=== PATIENT | male | born 1995 | race Caucasian/White ===

== ENCOUNTER → 2016-08-15 | Outpatient (CLI) | payer OTHER ==
[~2016-08-15] MED LIST: CIPR500T4 PO; ESCI10TA55 PO; METR500T21 PO; ONDA4TAB8 PO; TRAM-42 PO
--- OUTSIDE RECORDS SUMMARY | 2016-08-15 11:48 | XMS REPORT | Continuity of Care Document ---
Demographics Preferred Language Unknown Marital Status Unknown Sabianist Affiliation Unknown Race Unknown Ethnic Group Unknown Author Author [facility] Address Unknown Phone Unavailable Allergies Active Description Code Type Severity Reaction Onset Reported/Identified Relationship to Patient Clinical Status Yes ibuprofen [id number] Drug Allergy Moderate N/A 05/12/2013 Yes Penicillins [id number] Drug Allergy Moderate N/A 05/12/2013 Medications Problems Date Dx Coded Attending Type Code Diagnosis Diagnosed By 01/17/2016 LAURA NGUYEN [employer] MAINTAINER Ot R53.83 OTHER FATIGUE 01/22/2016 LAURA NGUYEN [employer] SYSTEM[employer] MAINTAINER Ot R53.83 OTHER FATIGUE 02/07/2016 LAURA NGUYEN [employer] SYSTEMS MAINTAINER Ot R53.83 OTHER FATIGUE 02/07/2016 SETH MARSHALL MD Ot K52.9 NONINFECTIVE GASTROENTERITIS AND COLITIS 02/07/2016 SETH MARSHALL MD Ot R10.32 LEFT LOWER QUADRANT PAIN 02/07/2016 SETH MARSHALL MD Ot R42 DIZZINESS AND GIDDINESS 02/07/2016 SETH MARSHALL MD Ot R51 HEADACHE 02/08/2016 SETH MARSHALL MD Ot K52.9 NONINFECTIVE GASTROENTERITIS AND COLITIS 02/08/2016 SETH MARSHALL MD Ot R10.32 LEFT LOWER QUADRANT PAIN 02/08/2016 SETH MARSHALL MD Ot R42 DIZZINESS AND GIDDINESS 02/08/2016 SETH MARSHALL MD D Ot R51 HEADACHE 02/09/2016 KELLY DO, DENI K Ot K52.9 NONINFECTIVE GASTROENTERITIS AND COLITIS 02/09/2016 KELLY DO, DENI K Ot R10.32 LEFT LOWER QUADRANT PAIN 02/09/2016 KELLY DO, DENI K Ot R11.10 VOMITING, UNSPECIFIED 02/11/2016 KELLY DO, DENI K Ot K52.9 NONINFECTIVE GASTROENTERITIS AND COLITIS 02/11/2016 KELLY DO, DENI K Ot R10.32 LEFT LOWER QUADRANT PAIN 02/11/2016 KELLY DO, DENI K Ot R11.10 VOMITING, UNSPECIFIED 02/15/2016 LAURA NGUYEN [employer] MAINTAINER Ot R53.83 OTHER FATIGUE 03/03/2016 LAURA NGUYEN [employer] SYSTEM[employer] MAINTAINER Ot R53.83 OTHER FATIGUE 03/04/2016 LAURA NGUYEN [employer] SYSTEM[employer] MAINTAINER Ot R53.83 OTHER FATIGUE 03/20/2016 LAURA NGUYEN [employer] SYSTEM[employer] MAINTAINER Ot R53.83 OTHER FATIGUE 04/03/2016 LAURA NGUYEN [employer] SYSTEMS MAINTAINER Ot R53.83 OTHER FATIGUE 06/11/2016 LAURA NGUYEN [employer] SYSTEMS MAINTAINER Ot R53.83 OTHER FATIGUE 06/16/2016 LAURA NGUYEN [employer] SYSTEM[employer] MAINTAINER Ot R53.83 OTHER FATIGUE 08/15/2016 LAURA NGUYEN [employer] MAINTAINER Ot R53.83 OTHER FATIGUE Procedures Results Test Result Range Complete blood count (CBC) with automated white blood cell (WBC) differential - 02/07/16 01:30 Blood leukocytes automated count (number/volume) 12.3 10*3/ uL 4.3-11.0 Blood erythrocytes automated count (number/volume) 4.99 10*6 /uL 4.35-5.85 Venous blood hemoglobin measurement (mass/volume) 13.7 g/dL 13.3-17.7 Blood hematocrit (volume fraction) 39 % 40-54 Automated erythrocyte mean corpuscular volume 77 [foz_us] 80-99 Automated erythrocyte mean corpuscular hemoglobin (mass per erythrocyte) 28 pg 25-34 Automated erythrocyte mean corpuscular hemoglobin concentration measurement ( mass/volume) 36 g/dL 32-36 Automated erythrocyte distribution width ratio 13.1 % 10.0-14.5 Automated blood platelet count (count/volume) 168 10*3/uL 130-400 Automated blood platelet mean volume measurement 10.3 [foz_ us] 7.4-10.4 Automated blood neutrophils/100 leukocytes 79 % 42-75 Automated blood lymphocytes/100 leukocytes 12 % 12-44 Blood monocytes/100 leukocytes 9 % 0-12 Automated blood eosinophils/100 leukocytes 1 % 0-10 Automated blood basophils/100 leukocytes 0 % 0-10 Blood neutrophils automated count (number/volume) 9.7 10*3 1.8-7.8 Blood lymphocytes automated count (number/volume) 1.4 10*3 1.0-4.0 Blood monocytes automated count (number/volume) 1.1 10*3 0.0-1.0 Automated eosinophil count 0.1 10*3/uL 0.0-0.3 Automated blood basophil count (count/volume) 0.0 10*3/uL 0.0-0.1 Comprehensive metabolic panel - 02/07/16 01:30 Serum or plasma sodium measurement (moles/volume) 137 mmol/ L 135-145 Serum or plasma potassium measurement (moles/volume) 3.5 mmol/L 3.6-5.0 Serum or plasma chloride measurement (moles/volume) 105 mmol /L 98-107 Carbon dioxide 23 mmol/L 21-32 Serum or plasma anion gap determination (moles/volume) 9 mmol/L 5-14 Serum or plasma urea nitrogen measurement (mass/volume) 14 mg/dL 7-18 Serum or plasma creatinine measurement (mass/volume) 0.93 mg /dL 0.60-1.30 Serum or plasma urea nitrogen/creatinine mass ratio 15 NRG Serum or plasma creatinine measurement with calculation of estimated glomerular filtration rate > NRG Serum or plasma glucose measurement (mass/volume) 99 mg/dL 70-105 Serum or plasma calcium measurement (mass/volume) 9.3 mg/dL 8.5-10.1 Serum or plasma total bilirubin measurement (mass/volume) 0.5 mg/dL 0.1-1.0 Serum or plasma alkaline phosphatase measurement (enzymatic activity/volume) 57 U/L 40-136 Serum or plasma aspartate aminotransferase measurement (enzymatic activity/ volume) 28 U/L 5-34 Serum or plasma alanine aminotransferase measurement (enzymatic activity/volume ) 22 U/L 0-55 Serum or plasma protein measurement (mass/volume) 7.2 g/dL 6.4-8.2 Serum or plasma albumin measurement (mass/volume) 4.4 g/dL 3.2-4.5 Lipase - 02/07/16 01:30 Lipase 17 U/L 8-78 Complete urinalysis with reflex to culture - 02/07/16 01:35 Urine color determination YELLOW NRG Urine clarity determination CLEAR NRG Urine pH measurement by test strip 8 5- 9 Specific gravity of urine by test strip 1.010 1.016-1.022 Urine protein assay by test strip, semi-quantitative 1+ NEGATIVE Urine glucose detection by automated test strip NEGATIVE NEGATIVE Erythrocytes detection in urine sediment by light microscopy 3+ NEGATIVE Urine ketones detection by automated test strip NEGATIVE NEGATIVE Urine nitrite detection by test strip NEGATIVE NEGATIVE Urine total bilirubin detection by test strip NEGATIVE NEGATIVE Urine urobilinogen measurement by automated test strip (mass/volume) NORMAL NORMAL Urine leukocyte esterase detection by dipstick 1+ NEGATIVE Automated urine sediment erythrocyte count by microscopy (number/high power field) [HPF] NRG Automated urine sediment leukocyte count by microscopy (number/high power field ) RARE NRG Bacteria detection in urine sediment by light microscopy NEGATIVE NRG Squamous epithelial cells detection in urine sediment by light microscopy RARE NRG Crystals detection in urine sediment by light microscopy NONE NRG Casts detection in urine sediment by light microscopy NONE NRG Mucus detection in urine sediment by light microscopy SMALL NRG Complete urinalysis with reflex to culture NO NRG Comprehensive metabolic panel - 02/09/16 02:01 Serum or plasma sodium measurement (moles/volume) 139 mmol/ L 135-145 Serum or plasma potassium measurement (moles/volume) 3.6 mmol/L 3.6-5.0 Serum or plasma chloride measurement (moles/volume) 106 mmol /L 98-107 Carbon dioxide 22 mmol/L 21-32 Serum or plasma anion gap determination (moles/volume) 11 mmol/L 5-14 Serum or plasma urea nitrogen measurement (mass/volume) 10 mg/dL 7-18 Serum or plasma creatinine measurement (mass/volume) 0.88 mg /dL 0.60-1.30 Serum or plasma urea nitrogen/creatinine mass ratio 11 NRG Serum or plasma creatinine measurement with calculation of estimated glomerular filtration rate > NRG Serum or plasma glucose measurement (mass/volume) 100 mg/dL 70-105 Serum or plasma calcium measurement (mass/volume) 9.0 mg/dL 8.5-10.1 Serum or plasma total bilirubin measurement (mass/volume) 0.3 mg/dL 0.1-1.0 Serum or plasma alkaline phosphatase measurement (enzymatic activity/volume) 58 U/L 40-136 Serum or plasma aspartate aminotransferase measurement (enzymatic activity/ volume) 19 U/L 5-34 Serum or plasma alanine aminotransferase measurement (enzymatic activity/volume ) 16 U/L 0-55 Serum or plasma protein measurement (mass/volume) 6.9 g/dL 6.4-8.2 Serum or plasma albumin measurement (mass/volume) 4.2 g/dL 3.2-4.5 Serum or plasma amylase measurement (enzymatic activity/volume) - 02/09/16 02: 01 Serum or plasma amylase measurement (enzymatic activity/volume) 99 U/L 25-125 Lipase - 02/09/16 02:01 Lipase 21 U/L 8-78 Complete blood count (CBC) with automated white blood cell (WBC) differential - 02/09/16 02:04 Blood leukocytes automated count (number/volume) 7.8 10*3/ uL 4.3-11.0 Blood erythrocytes automated count (number/volume) 4.85 10*6 /uL 4.35-5.85 Venous blood hemoglobin measurement (mass/volume) 13.2 g/dL 13.3-17.7 Blood hematocrit (volume fraction) 37 % 40-54 Automated erythrocyte mean corpuscular volume 77 [foz_us] 80-99 Automated erythrocyte mean corpuscular hemoglobin (mass per erythrocyte) 27 pg 25-34 Automated erythrocyte mean corpuscular hemoglobin concentration measurement ( mass/volume) 35 g/dL 32-36 Automated erythrocyte distribution width ratio 13.1 % 10.0-14.5 Automated blood platelet count (count/volume) 196 10*3/uL 130-400 Automated blood platelet mean volume measurement 9.8 [foz_us ] 7.4-10.4 Automated blood neutrophils/100 leukocytes 57 % 42-75 Automated blood lymphocytes/100 leukocytes 28 % 12-44 Blood monocytes/100 leukocytes 12 % 0-12 Automated blood eosinophils/100 leukocytes 3 % 0-10 Automated blood basophils/100 leukocytes 1 % 0-10 Blood neutrophils automated count (number/volume) 4.4 10*3 1.8-7.8 Blood lymphocytes automated count (number/volume) 2.2 10*3 1.0-4.0 Blood monocytes automated count (number/volume) 0.9 10*3 0.0-1.0 Automated eosinophil count 0.2 10*3/uL 0.0-0.3 Automated blood basophil count (count/volume) 0.0 10*3/uL 0.0-0.1 Complete urinalysis with reflex to culture - 02/09/16 02:20 Urine color determination YELLOW NRG Urine clarity determination CLEAR NRG Urine pH measurement by test strip 6 5- 9 Specific gravity of urine by test strip 1.015 1.016-1.022 Urine protein assay by test strip, semi-quantitative NEGATIVE NEGATIVE Urine glucose detection by automated test strip NEGATIVE NEGATIVE Erythrocytes detection in urine sediment by light microscopy NEGATIVE NEGATIVE Urine ketones detection by automated test strip 3+ NEGATIVE Urine nitrite detection by test strip NEGATIVE NEGATIVE Urine total bilirubin detection by test strip NEGATIVE NEGATIVE Urine urobilinogen measurement by automated test strip (mass/volume) 1 mg/dL NORMAL Urine leukocyte esterase detection by dipstick 1+ NEGATIVE Automated urine sediment erythrocyte count by microscopy (number/high power field) NONE NRG Automated urine sediment leukocyte count by microscopy (number/high power field ) RARE NRG Bacteria detection in urine sediment by light microscopy NEGATIVE NRG Squamous epithelial cells detection in urine sediment by light microscopy RARE NRG Crystals detection in urine sediment by light microscopy NONE NRG Casts detection in urine sediment by light microscopy NONE NRG Mucus detection in urine sediment by light microscopy SMALL NRG Complete urinalysis with reflex to culture NO NRG Encounters ACCT No. Visit Date/Time Discharge Status Pt. Type Provider Facility Loc./Unit Complaint [id number] 09/17/2012 15:39:19 RECURRING
== END ==
LOC: LAB 11:35
PROVIDERS: ATTEND Nurse Practitioner
DX: R50.9 Fever, unspecified (principal); M79.1 Myalgia; K11.1 Hypertrophy of salivary gland
CPT/HCPCS: 87798

== ENCOUNTER → 2017-09-16 | Outpatient (CLI) | payer BC ==
--- NOTE | 2017-09-16 11:05 | Diagnostic Imaging Report ---
Sacroiliac joints. INDICATION: Back pain. 3 views were obtained. There are no prior studies available for comparison. FINDINGS: There is no fracture, dislocation or acute bony abnormality evident. The sacroiliac joints are within normal limits. The soft tissues are unremarkable. IMPRESSION: There is no evidence for an acute bony abnormality. Dictated by: Dictated on workstation # [id number]
--- NOTE | 2017-09-16 11:08 | Diagnostic Imaging Report ---
Lumbar spine. INDICATION: Back pain. AP, lateral and spot lateral views were obtained. FINDINGS: The vertebral body heights and alignment are within normal limits and similar to the abdomen exam of 02/09/2016. The intervertebral spaces are well-maintained. There is no fracture or acute bony abnormality evident. There is no sign of a paraspinal mass. The sacroiliac joints are within normal limits. IMPRESSION: 1. There is no evidence for an acute bony abnormality. 2. If there is clinical concern regarding spinal stenosis or nerve root encroachment, then MRI would be recommended for further study. Dictated by: Dictated on workstation # [id number]
== END ==
LOC: RAD 09:35
PROVIDERS: ATTEND Nurse Practitioner Family
DX: M54.5 Low back pain (principal)
CPT/HCPCS: 72100; 72202

== ENCOUNTER 2018-01-24 19:57 | Inpatient (IN) | payer BC ==
[~2018-01-24] VITALS: Ht 172.7 cm; Wt 73.1 kg
[2018-01-24] MEDS ORDERED: NS IV 1000 ML 1,000 ML ONE (21:00)
[2018-01-24] MEDS ORDERED: ONDANSETRON 4 MG/2 ML (SDV) Z0FRAN ONE (21:00)
--- NOTE | 2018-01-24 21:09 | ED Abdominal Pain ---
General Chief Complaint: Abdominal/GI Problems Stated Complaint: N/V Source of Information: Patient Exam Limitations: No Limitations History of Present Illness Date Seen by Provider: Jan 24, 2018 Time Seen by Provider: 21:07 Initial Comments Patient is a 22-year-old male resents to the emergency room with complaints of sharp left lower quadrant pain, nausea, vomiting, fever, headache that started around 1400 today. Denies any diarrhea, constipation, or urinary symptoms. Patient is a patient of Dr. WINTERS. Timing/Duration: 4-6 Hours Severity/Quality: Moderate Location: LLQ Radiation: Epigastric Activities at Onset: None Modifying Factors: Improves With Lying down; Worsens With Movement Associated Symptoms: No Chest Pain, No Diaphoresis; Fever/Chills, Headache, Nausea/Vomiting Allergies and Home Medications Allergies Coded Allergies: Penicillins (Verified Adverse Reaction, Intermediate, 01/25/18) ibuprofen (Verified Adverse Reaction, Intermediate, 01/25/18) Home Medications Acetaminophen 500 Mg Tablet, 500-1,000 MG PO Q4H PRN for PAIN-MILD, (Reported) Doxycycline Hyclate 100 Mg Tablet, 100 MG PO BID@ Prescribed by: MARLEEN WINTERS on 01/26/18 1235 Eszopiclone 3 Mg Tablet, 3 MG PO HS, (Reported) Hyoscyamine Sulfate 0.125 Mg Tablet, 0.125 MG PO QID Prescribed by: MARLEEN WINTERS on 01/26/18 1235 Ondansetron HCl 4 Mg Tab, 4 MG PO Q4H Prescribed by: MARLEEN WINTERS on 01/26/18 1235 Tramadol HCl 50 Mg Tablet, 50 MG PO Q4H Prescribed by: MARLEEN WINTERS on 01/26/18 1235 Patient Home Medication List Home Medication List Reviewed: Yes Review of Systems Constitutional: see HPI, chills; No diaphoresis, No dizziness; fever, malaise; No weakness EENTM: Throat Swelling Gastrointestinal: See HPI; Denies Abdomen Distended; Abdominal Pain, Nausea, Vomiting Musculoskeletal: see HPI, back pain, joint pain (bilateral knees.), muscle pain (aches all over) Psychiatric/Neurological: See HPI, Headache Endocrine: Excessive Sweating Hematologic/Lymphatic: See HPI, Anemia (beta thalassemia carrier) All Other Systems Reviewed Negative Unless Noted: Yes Past Anoekqs-Dwcnak-Wppekd Hx Past Med/Social Hx: Reviewed Nursing Past Med/Soc Hx Patient Social History Recent Foreign Travel: No Contact w/Someone Who Travel: No Recent Hopitalizations: No Immunizations Up To Date Tetanus Booster (TDap): More than 5yrs Past Medical History Reproductive Disorders: No Family Medical History Reviewed Nursing Family Hx Physical Exam Vital Signs Vital Signs - First Documented 01/24/18 21:30 Temp 103.4 Pulse 103 Resp 18 B/P (MAP) 98/52 (67) Pulse Ox 99 O2 Delivery Room Air Capillary Refill : Height/Weight/BMI Height: 5'8" Weight: 147lbs. oz. 66.298339kh; BMI Method:Stated General Appearance: WD/WN, mild distress Neck: full range of motion (pain with range of motion, nuchal rigidity), supple , normal inspection, tender midline (patient does report a stiff neck. He does have pain with range of motion but does have full range of motion. Negative for Kernig and Brudzinski's sign.) Respiratory: lungs clear, normal breath sounds, no respiratory distress, no accessory muscle use Cardiovascular: normal peripheral pulses, no edema, no gallop, no JVD, no murmur, tachycardia Gastrointestinal: normal bowel sounds, soft, no organomegaly, no pulsatile mass , guarding, tenderness (severe left lower quadrant tenderness.) Extremities: normal inspection, no pedal edema, no calf tenderness, normal capillary refill, other (increased pain to lower extremities with movement reports "body aches") Back: normal inspection, CVA tenderness (R), CVA tenderness (L), vertebral tenderness Neurologic/Psychiatric: alert, normal mood/affect, oriented x 3 Skin: normal color, other (skin is very warm to the touch temp 103.) Lymphatic: no adenopathy Focused Exam Lactate Level 01/24/18 21:34: Lactic Acid Level 2.12*H 01/24/18 23:30: Lactic Acid Level 0.91 Lactic Acid Level Laboratory Tests Test 01/24/18 21:34 01/24/18 23:30 Lactic Acid Level 2.12 MMOL/L (0.50-2.00) *H 0.91 MMOL/L (0.50-2.00) Progress/Results/Core Measures Results/Orders Lab Results Laboratory Tests Test 01/24/18 21:34 01/24/18 22:00 01/24/18 22:20 01/24/18 23:30 Range/Units Lactic Acid Level 2.12 *H 0.91 0.50-2.00 MMOL/L White Blood Count 11.8 H 4.3-11.0 10^3/uL Red Blood Count 4.45 4.35-5.85 10^6/uL Hemoglobin 12.5 L 13.3-17.7 G/DL Hematocrit 35 L 40-54 % Mean Corpuscular Volume 78 L 80-99 FL Mean Corpuscular Hemoglobin 28 25-34 PG Mean Corpuscular Hemoglobin Concent 36 32-36 G/DL Red Cell Distribution Width 13.2 10.0-14.5 % Platelet Count 189 130-400 10^3/uL Mean Platelet Volume 9.8 7.4-10.4 FL Neutrophils (%) (Auto) 89 H 42-75 % Lymphocytes (%) (Auto) 5 L 12-44 % Monocytes (%) (Auto) 6 0-12 % Eosinophils (%) (Auto) 0 0-10 % Basophils (%) (Auto) 0 0-10 % Neutrophils # (Auto) 10.4 H 1.8-7.8 X 10^3 Lymphocytes # (Auto) 0.6 L 1.0-4.0 X 10^3 Monocytes # (Auto) 0.7 0.0-1.0 X 10^3 Eosinophils # (Auto) 0.0 0.0-0.3 10^3/uL Basophils # (Auto) 0.0 0.0-0.1 10^3/uL Neutrophils % (Manual) 90 % Lymphocytes % (Manual) 8 % Monocytes % (Manual) 2 % Microcytosis SLIGHT Blood Morphology Comment Prothrombin Time 15.4 H 12.2-14.7 SEC INR Comment 1.2 0.8-1.4 Activated Partial Thromboplast Time 32 24-35 SEC Sodium Level 135 135-145 MMOL/L Potassium Level 3.7 3.6-5.0 MMOL/L Chloride Level 107 98-107 MMOL/L Carbon Dioxide Level 22 21-32 MMOL/L Anion Gap 6 5-14 MMOL/L Blood Urea Nitrogen 11 7-18 MG/DL Creatinine 0.93 0.60-1.30 MG/DL Estimat Glomerular Filtration Rate > 60 BUN/Creatinine Ratio 12 Glucose Level 101 70-105 MG/DL Calcium Level 8.5 8.5-10.1 MG/DL Total Bilirubin 0.8 0.1-1.0 MG/DL Aspartate Amino Transf (AST/SGOT) 17 5-34 U/L Alanine Aminotransferase (ALT/SGPT) 17 0-55 U/L Alkaline Phosphatase 39 L 40-136 U/L Total Protein 6.2 L 6.4-8.2 GM/DL Albumin 3.8 3.2-4.5 GM/DL Amylase Level 75 25-125 U/L Lipase 13 8-78 U/L Urine Color YELLOW Urine Clarity CLEAR Urine pH 9 5-9 Urine Specific [place] 1.015 L 1.016-1.022 Urine Protein 2+ H NEGATIVE Urine Glucose (UA) NEGATIVE NEGATIVE Urine Ketones 4+ H NEGATIVE Urine Nitrite NEGATIVE NEGATIVE Urine Bilirubin NEGATIVE NEGATIVE Urine Urobilinogen NORMAL NORMAL MG/DL Urine Leukocyte Esterase 1+ H NEGATIVE Urine RBC (Auto) NEGATIVE NEGATIVE Urine RBC NONE /HPF Urine WBC 0-2 /HPF Urine Squamous Epithelial Cells RARE /HPF Urine Renal Epithelial Cells NONE /HPF Urine Crystals NONE /LPF Urine Bacteria NEGATIVE /HPF Urine Casts PRESENT /LPF Urine Hyaline Casts RARE /LPF Urine Mucus NEGATIVE /LPF Urine Culture Indicated NO Lyme Disease Screen IgG & IgM Ab 0.27 0.00-0.89 Index Lyme Antibody Interpretation Negative Negative [place] Antibody <1:20 Micro Results Microbiology 01/24/18 Blood Culture - Preliminary, Resulted No growth 01/24/18 Blood Culture - Preliminary, Resulted No growth My Orders Orders - PANCHITO VARELA Ondansetron Injection (Zofran Injectio (01/24/18 21:00) Ns Iv 1000 Ml (Sodium Chloride 0.9%) (01/24/18 21:00) Fentanyl Injection (Sublimaze Injection (01/24/18 21:15) Ondansetron Injection (Zofran Injectio (01/24/18 21:15) Comprehensive Metabolic Panel (01/24/18 21:09) Lipase (01/24/18 21:09) Amylase (01/24/18 21:09) Ua Culture If Indicated (01/24/18 21:09) Saline Lock/Iv-Start (01/24/18 21:09) Ct Abdomen/Pelvis W (01/24/18 21:09) Cbc With Automated Diff (01/24/18 21:23) Lactic Acid Analyzer (01/24/18 21:23) Blood Culture (01/24/18 21:23) Protime With Inr (01/24/18:23) Partial Thromboplastin Time (01/24/18 21:23) Vital Signs Adult Sepsis Patie Q15M (01/24/18 21:23) Acetaminophen Tablet (Tylenol Tablet) (01/24/18 21:30) Iohexol Injection (Omnipaque 350 Mg/Ml 1 (01/24/18 21:45) Ns (Ivpb) (Sodium Chloride 0.9%) (01/24/18 21:45) Manual Differential (01/24/18 22:00) Ns Iv 1000 Ml (Sodium Chloride 0.9%) (01/24/18 23:00) Lactic Acid Analyzer (01/24/18 23:34) Tick Panel With Lyme Eia (01/24/18 23:19) Chest Pa/Lat (2 View) (01/25/18 00:01) Ct Head Wo (01/25/18 00:01) Medications Given in ED Vital Signs/I&O 01/24/18 01/24/18 21:30 22:01 Temp 103.4 103.4 Pulse 103 Resp 18 B/P (MAP) 98/52 (67) Pulse Ox 99 O2 Delivery Room Air Progress Progress Note : Time: 22:07 Progress Note Laboratory reports critical lactic acid of 2.12 to me at this time also that the other labs were clotted and have to be redrawn.. 2300: [place] BLANC called at this time. He informed me that there is not an emergent lumbar puncture. 2305: Spoke to Dr. BOLDEN at this time she agrees with plans of admission and recommended broad-spectrum antibiotic use. I discussed my concerns for meningitis due to the patient's neck pain and high fever and lab findings. She recommended asking about herpes lesions and risk of herpes encephalitis. The patient denies ever having any fever blisters or sores in the genital region. She also recommended getting a tick panel. Diagnostic Imaging Diagonstic Imaging: CT Plain Films/CT/US/NM/MRI: abdomen Comments NAME: [facility]KAITLIN [facility] REC#: [id number] PT STATUS: REG ER : 1995 PHYSICIAN: PANCHITO VARELA ADMIT DATE: 01/24/18/ER Signed Date of Exam: 01/24/18 CT ABDOMEN/PELVIS W PROCEDURE: CT abdomen and pelvis with contrast. TECHNIQUE: Multiple contiguous axial images were obtained through the abdomen and pelvis after administration of intravenous contrast. INDICATION: Back and abdominal pain COMPARISON: 02/07/2016 FINDINGS: The lung bases are clear. The liver, gallbladder, spleen, pancreas, adrenal glands are grossly unremarkable. There are nonobstructive stones in both kidneys. There is no hydronephrosis or hydroureter. Distal ureters and urinary bladder are normal. The course and caliber of the large and small bowel is grossly unremarkable. The appendix is normal. No free air or free fluid is seen. There is no hernia. Vascular structures are normal. Osseous structures are age-appropriate. IMPRESSION: 1. No acute abnormalities within the abdomen or pelvis 2. Nonobstructive bilateral renal calculi. No hydronephrosis or hydroureter seen. Dictated by: Dictated on workstation # [id number] Dict: 01/24/182151 Trans: 01/24/182157 Interpreted by: ADITI REEVES Electronically signed by: ADITI REEVES 01/24/182157 Reviewed: Reviewed by Me Departure Communication (Admissions) Time/Spoke to Admitting Phy: 23:[address] Bolden at this time, she agrees with complains of admission, broad-spectrum antibiotics, IV fluids. Impression Primary Impression: Sepsis Disposition: ADMITTED INPATIENT Condition: Stable/Unchanged Admissions Decision to Admit Reason: Admit from ER (General) Decision to Admit/Date: Jan 24, 2018 Time/Decision to Admit Time: 23:05 Departure-Patient Inst. Referrals: MARLEEN WINTERS DO (PCP/Family) Primary Care Physician Scripts Tramadol HCl (Tramadol HCl) 50 Mg Tablet 50 MG PO Q4H for Pain, #40 TAB Prov: MARLEEN WINTERS DO 01/26/18 Hyoscyamine Sulfate (Levsin) 0.125 Mg Tablet 0.125 MG PO QID for Abdominal Pain, #20 TAB Prov: MARLEEN WINTERS DO 01/26/18 Ondansetron HCl (Zofran) 4 Mg Tab 4 MG PO Q4H for Nausea, #20 TAB Prov: MARLEEN WINTERS DO 01/26/18 Doxycycline Hyclate (Doxycycline Hyclate) 100 Mg Tablet 100 MG PO BID@07,17, #30 TAB Prov: MARLEEN WINTERS DO 01/26/18 PANCHITO VARELA Jan 24, 2018 21:09
[2018-01-24] MEDS ORDERED: ONDANSETRON 4 MG/2 ML (SDV) Z0FRAN IVP ONE (21:15)
[2018-01-24] MEDS ORDERED: fentaNYL INJECTION 100 MCG/2 ML AMP IVP ONE (21:15)
[2018-01-24] MEDS ORDERED: ACETAMINOPHEN 500 MG TAB (TYLENOL) PO ONE (21:30)
[2018-01-24] MEDS ORDERED: NS 250 ML (IVPB) BAG IV ONE (21:45)
[2018-01-24] MEDS ORDERED: IOHEXOL 350 MG/ML 100 ML (OMNIPAQUE 350) VIAL IV ONE (21:45)
--- NOTE | 2018-01-24 21:57 | Diagnostic Imaging Report ---
PROCEDURE: CT abdomen and pelvis with contrast. TECHNIQUE: Multiple contiguous axial images were obtained through the abdomen and pelvis after administration of intravenous contrast. INDICATION: Back and abdominal pain COMPARISON: 02/07/2016 FINDINGS: The lung bases are clear. The liver, gallbladder, spleen, pancreas, adrenal glands are grossly unremarkable. There are nonobstructive stones in both kidneys. There is no hydronephrosis or hydroureter. Distal ureters and urinary bladder are normal. The course and caliber of the large and small bowel is grossly unremarkable. The appendix is normal. No free air or free fluid is seen. There is no hernia. Vascular structures are normal. Osseous structures are age-appropriate. IMPRESSION: 1. No acute abnormalities within the abdomen or pelvis 2. Nonobstructive bilateral renal calculi. No hydronephrosis or hydroureter seen. Dictated by: Dictated on workstation # [id number]
[2018-01-24 22:23] LABS: BASOPHILS % (AUTO) 0 % (0-10); EOSINOPHILS % (AUTO) 0 % (0-10); HEMATOCRIT 35 % (40-54); HEMOGLOBIN 12.5 G/DL (13.3-17.7); LYMPHOCYTES # (AUTO) 0.6 X 10^3 (1.0-4.0); LYMPHOCYTES % (AUTO) 5 % (12-44); MEAN CORPUSCULAR HEMOGLOBIN 28 PG (25-34); MEAN CORPUSCULAR HGB CONC 36 G/DL (32-36); MEAN CORPUSCULAR VOLUME 78 FL (80-99); MEAN PLATELET VOLUME 9.8 FL (7.4-10.4); MONOCYTES # (AUTO) 0.7 X 10^3 (0.0-1.0); MONOCYTES % (AUTO) 6 % (0-12); NEUTROPHILS # (AUTO) 10.4 X 10^3 (1.8-7.8); NEUTROPHILS % (AUTO) 89 % (42-75); PLATELET COUNT 189 10^3/uL (130-400); RED BLOOD COUNT 4.45 10^6/uL (4.35-5.85); RED CELL DISTRIBUTION WIDTH 13.2 % (10.0-14.5); WHITE BLOOD COUNT 11.8 10^3/uL (4.3-11.0)
[2018-01-24 22:26] LABS: BILIRUBIN,URINE NEGATIVE (NEGATIVE); CLARITY,URINE CLEAR; COLOR,URINE YELLOW; GLUCOSE, URINE (UA) NEGATIVE (NEGATIVE); KETONES,URINE 4+ (NEGATIVE); LEUKOCYTE ESTERASE ,URINE 1+ (NEGATIVE); NITRITE,URINE NEGATIVE (NEGATIVE); PH,URINE 9 (5-9); PROTEIN,URINE 2+ (NEGATIVE); UROBILINOGEN,URINE NORMAL (NORMAL)
[2018-01-24 22:39] LABS: BACTERIA,URINE NEGATIVE /HPF; HYALINE CASTS, URINE RARE /LPF; SQUAMOUS EPITHELIAL CELL,UR RARE /HPF; WBC,URINE 0-2 /HPF
[2018-01-24 22:41] LABS: INR 1.2 (0.8-1.4); PROTHROMBIN TIME PATIENT 15.4 SEC (12.2-14.7)
[2018-01-24 22:52] LABS: ALANINE AMINOTRANSFERASE 17 U/L (0-55); ALBUMIN 3.8 GM/DL (3.2-4.5); ALKALINE PHOSPHATASE 39 U/L (40-136); AMYLASE 75 U/L (25-125); BILIRUBIN,TOTAL 0.8 MG/DL (0.1-1.0); BUN/CREATININE RATIO 12; CALCIUM 8.5 MG/DL (8.5-10.1); CARBON DIOXIDE 22 MMOL/L (21-32); CHLORIDE 107 MMOL/L (98-107); CREATININE SERUM 0.93 MG/DL (0.60-1.30); GFR ESTIMATED > 60; GLUCOSE 101 MG/DL (70-105); LIPASE 13 U/L (8-78); POTASSIUM 3.7 MMOL/L (3.6-5.0); SODIUM 135 MMOL/L (135-145); TOTAL PROTEIN 6.2 GM/DL (6.4-8.2)
[2018-01-24 22:53] LABS: LYMPHOCYTES % (MANUAL) 8 %; MICROCYTOSIS SLIGHT; MONOCYTES % (MANUAL) 2 %; NEUTROPHILS % (MANUAL) 90 %
[2018-01-24] MEDS ORDERED: NS IV 1000 ML 1,000 ML IV SCH (23:00)
[2018-01-25] VITALS (14 sets, daily range): BP systolic 100–135; BP diastolic 51–85
[2018-01-25] MEDS: ACETAMINOPHEN 500 MG TAB (TYLENOL) PO PRN ×3 (01:21→18:39)
[2018-01-25] MEDS: NS IV 1000 ML 1,000 ML IV SCH ×8 (01:22→19:59)
[2018-01-25] MEDS: ONDANSETRON 4 MG/2 ML (SDV) Z0FRAN IV PRN ×3 (01:26→16:50)
[2018-01-25] MEDS ORDERED: CATHETER FLUSH 10 ML SYR IV PRN (01:30)
[2018-01-25] MEDS ORDERED: RT-ALBUTEROL SULF 2.5 MG/3 ML PRE-MIX VIAL INH PRN (03:45)
[2018-01-25] MEDS ORDERED: VANCOMYCIN 1 GM/NS 250 ML IVPB IV SCH ×2 (04:15)
[2018-01-25] MEDS: CATHETER FLUSH 10 ML SYR IV SCH ×3 (04:30→22:59)
[2018-01-25] MEDS: CEFEPIME 1 GM/NS 50 ML IV SCH ×6 (05:40→22:59)
[2018-01-25 06:18] LABS: BASOPHILS % (AUTO) 0 % (0-10); EOSINOPHILS % (AUTO) 0 % (0-10); HEMATOCRIT 35 % (40-54); LYMPHOCYTES # (AUTO) 0.8 X 10^3 (1.0-4.0); LYMPHOCYTES % (AUTO) 5 % (12-44); MEAN CORPUSCULAR HEMOGLOBIN 27 PG (25-34); MEAN CORPUSCULAR HGB CONC 35 G/DL (32-36); MEAN CORPUSCULAR VOLUME 78 FL (80-99); MONOCYTES # (AUTO) 0.8 X 10^3 (0.0-1.0); MONOCYTES % (AUTO) 5 % (0-12); NEUTROPHILS % (AUTO) 90 % (42-75); PLATELET COUNT 177 10^3/uL (130-400); RED BLOOD COUNT 4.44 10^6/uL (4.35-5.85); RED CELL DISTRIBUTION WIDTH 13.5 % (10.0-14.5); WHITE BLOOD COUNT 15.6 10^3/uL (4.3-11.0)
[2018-01-25] MEDS ORDERED: NOREPINEPHRINE 4 MG in NS (IVPB) 250 ML IV SCH (06:33)
[2018-01-25 06:42] LABS: ALANINE AMINOTRANSFERASE 16 U/L (0-55); ALBUMIN 3.7 GM/DL (3.2-4.5); ALKALINE PHOSPHATASE 39 U/L (40-136); BILIRUBIN,TOTAL 0.7 MG/DL (0.1-1.0); BUN/CREATININE RATIO 11; CALCIUM 8.5 MG/DL (8.5-10.1); CARBON DIOXIDE 17 MMOL/L (21-32); CHLORIDE 112 MMOL/L (98-107); CREATININE SERUM 0.87 MG/DL (0.60-1.30); GFR ESTIMATED > 60; GLUCOSE 113 MG/DL (70-105); POTASSIUM 3.6 MMOL/L (3.6-5.0); SODIUM 137 MMOL/L (135-145); TOTAL PROTEIN 6.2 GM/DL (6.4-8.2)
[2018-01-25] MEDS ORDERED: NS IV PRN (06:45)
--- NOTE | 2018-01-25 06:51 | Diagnostic Imaging Report ---
INDICATION: Nausea, emesis and back pain. PA and lateral views of the chest are obtained with comparison made to study of 02/09/2016. FINDINGS: Heart size and pulmonary vascularity are within normal limits, and the lungs are clear, bilaterally. IMPRESSION: Unremarkable chest. Dictated by: Dictated on workstation # [id number]
[2018-01-25] MEDS: metroNIDAZOLE 500 MG/100 ML IVPB (PRE-MIX) IV SCH ×2 (07:46→21:42)
--- NOTE | 2018-01-25 08:24 | Diagnostic Imaging Report ---
PROCEDURE: CT head without contrast. TECHNIQUE: Multiple contiguous axial images were obtained through the brain without the use of intravenous contrast. INDICATION: Nausea, emesis and body pain. CT HEAD: Multiple contiguous axial CT images of the head were obtained. FINDINGS: Ventricles and sulci are within normal limits for size. There is no intracranial hemorrhage identified. There is no abnormal mass effect or shift of midline structures. IMPRESSION: Unremarkable CT of the head. Dictated by: Dictated on workstation # [id number]
[2018-01-25] MEDS ORDERED: ACET-2267 PO (08:50)
[2018-01-25] MEDS ORDERED: ESZO3TAB38 PO (08:50)
[2018-01-25] MEDS: VANCOMYCIN 1 GM/NS 250 ML IVPB IV SCH ×4 (11:08→19:59)
[2018-01-25] MEDS ORDERED: MILK OF MAGNESIA 400 MG/5 ML 30 ML UDC PO PRN (12:30)
[2018-01-25] MEDS ORDERED: PATIENT MAY USE OWN MEDS, ALL MC SCH (12:30)
--- NOTE | 2018-01-25 12:34 | History & Physicial ---
History of Present Illness History of Present Illness Reason for visit/HPI This is a 22 year old male who presented to the emergency room with sudden onset of left lower quadrant abdominal pain and associated nausea and vomiting and fever. He denied diarrhea and in fact had not had a bowel movement for about [address] scan of the abdomen and pelvis showed no acute process but his WBC count and lactic acid were elevated. It was decided to admit him for IVFs, pain control, broad spectrum antibiotics and further evaluation. Date of Admission Jan 24, 2018 at 23:33 Date Seen by Provider: Jan 25, 2018 Time Seen by Provider: 12:29 I consulted on this patient on 01/25/18 12:29 Attending Physician Madhavi Scott DO Admitting Physician Madhavi Scott DO Consult Allergies and Home Medications Allergies Coded Allergies: Penicillins (Verified Adverse Reaction, Intermediate, 01/25/18) ibuprofen (Verified Adverse Reaction, Intermediate, 01/25/18) Home Medications Acetaminophen 500 Mg Tablet, 500-1,000 MG PO Q4H PRN for PAIN-MILD, (Reported) Eszopiclone 3 Mg Tablet, 3 MG PO HS, (Reported) Patient Home Medication List Home Medication List Reviewed: Yes Past Ysxrtjk-Aedzqa-Alcnje Hx Patient Social History Alcohol Use: Denies Use Recreational Drug Use: No Smoking Status: Never a Smoker Physical Abuse Screen: No Sexual Abuse: No Recent Foreign Travel: No Contact w/other who traveled: No Recent Hopitalizations: No Recent Infectious Disease Expo: No Immunizations Up To Date Tetanus Booster (TDap): More than 5yrs Surgeries Yes (ORAL SURGERY) Respiratory No Cardiovascular No Neurological No Reproductive System Hx Reproductive Disorders: No Genitourinary No Gastrointestinal No Musculoskeletal No Endocrine History of Endocrine Disorders: No HEENT History of HEENT Disorders: No Cancer No Psychosocial History of Psychiatric Problem: No Integumentary History of Skin or Integumenta: No Blood Transfusions History of Blood Disorders: No Constitutional: chills, fever, weakness EENTM: No see HPI, No no symptoms reported, No ear discharge, No hearing loss, No ear pain, No blurred vision, No double vision, No eye pain, No tearing, No vision loss, No dental problems, No hoarseness, No mouth pain, No mouth swelling , No epistaxis, No nose congestion, No nose pain, No throat pain, No throat swelling, No other Respiratory: No no symptoms reported, No see HPI, No cough, No dyspnea on exertion, No hemoptysis, No orthopnea, No phlegm, No short of breath, No stridor , No wheezing, No other Cardiovascular: No no symptoms reported, No see HPI, No chest pain, No edema, No Hx of Intervention, No palpitations, No syncope, No vascular heart diseas, No other Gastrointestinal: abdominal pain (LLQ), constipation, loss of appetite, nausea , vomiting Genitourinary: decreased output Musculoskeletal: joint pain, muscle pain Skin: No no symptoms reported, No see HPI, No change in color, No change in hair/nails, No dryness, No hx of skin cancer, No lesions, No lumps, No pruritus , No rash, No other Psychiatric/Neurological: Weakness Physical Exam Vital Signs Vital Signs - First Documented 01/24/18 21:30 Temp 103.4 Pulse 103 Resp 18 B/P (MAP) 98/52 (67) Pulse Ox 99 O2 Delivery Room Air Capillary Refill : Less Than 3 Seconds Height, Weight, BMI Height: 5'8.00" Weight: 161lbs. 1.0oz. 73.069635gv; 24.5 BMI Method:Estimated General Appearance: No Apparent Distress HEENT: Normal ENT Inspection, Pharynx Normal Neck: Supple Respiratory: Lungs Clear Cardiovascular: Regular Rate, Rhythm Gastrointestinal: Normal Bowel Sounds, Non Tender, Soft Rectal: Deferred Back: No CVA Tenderness Extremity: Non Tender, No Calf Tenderness, No Pedal Edema Neurologic/Psychiatric: Alert, Oriented x3 Skin: Normal Color, Warm/Dry Comments Laboratory Tests 01/24/18 21:34: Lactic Acid Level 2.12*H 01/24/18 22:00: White Blood Count 11.8H, Red Blood Count 4.45, Hemoglobin 12.5L, Hematocrit 35L , Mean Corpuscular Volume 78L, Mean Corpuscular Hemoglobin 28, Mean Corpuscular Hemoglobin Concent 36, Red Cell Distribution Width 13.2, Platelet Count 189, Mean Platelet Volume 9.8, Neutrophils (%) (Auto) 89H, Lymphocytes (%) (Auto) 5L , Monocytes (%) (Auto) 6, Eosinophils (%) (Auto) 0, Basophils (%) (Auto) 0, Neutrophils # (Auto) 10.4H, Lymphocytes # (Auto) 0.6L, Monocytes # (Auto) 0.7, Eosinophils # (Auto) 0.0, Basophils # (Auto) 0.0, Neutrophils % (Manual) 90, Lymphocytes % (Manual) 8, Monocytes % (Manual) 2, Microcytosis SLIGHT, Blood Morphology Comment , Prothrombin Time 15.4H, INR Comment 1.2, Activated Partial Thromboplast Time 32, Sodium Level 135, Potassium Level 3.7, Chloride Level 107 , Carbon Dioxide Level 22, Anion Gap 6, Blood Urea Nitrogen 11, Creatinine 0.93 , Estimat Glomerular Filtration Rate > 60, BUN/Creatinine Ratio 12, Glucose Level 101, Calcium Level 8.5, Total Bilirubin 0.8, Aspartate Amino Transf (AST/ SGOT) 17, Alanine Aminotransferase (ALT/SGPT) 17, Alkaline Phosphatase 39L, Total Protein 6.2L, Albumin 3.8, Amylase Level 75, Lipase 13 01/24/18 22:20: Urine Color YELLOW, Urine Clarity CLEAR, Urine pH 9, Urine Specific [place] 1.015L, Urine Protein 2+H, Urine Glucose (UA) NEGATIVE, Urine Ketones 4+H, Urine Nitrite NEGATIVE, Urine Bilirubin NEGATIVE, Urine Urobilinogen NORMAL, Urine Leukocyte Esterase 1+H, Urine RBC (Auto) NEGATIVE, Urine RBC NONE, Urine WBC 0-2, Urine Squamous Epithelial Cells RARE, Urine Renal Epithelial Cells NONE , Urine Crystals NONE, Urine Bacteria NEGATIVE, Urine Casts PRESENT, Urine Hyaline Casts RARE, Urine Mucus NEGATIVE, Urine Culture Indicated NO 01/24/18 23:30: Lactic Acid Level 0.91 01/25/18 06:05: White Blood Count 15.6H, Red Blood Count 4.44, Hemoglobin 12.0L, Hematocrit 35L , Mean Corpuscular Volume 78L, Mean Corpuscular Hemoglobin 27, Mean Corpuscular Hemoglobin Concent 35, Red Cell Distribution Width 13.5, Platelet Count 177, Mean Platelet Volume 10.0, Neutrophils (%) (Auto) 90H, Lymphocytes (%) (Auto) 5L , Monocytes (%) (Auto) 5, Eosinophils (%) (Auto) 0, Basophils (%) (Auto) 0, Neutrophils # (Auto) 14.0H, Lymphocytes # (Auto) 0.8L, Monocytes # (Auto) 0.8, Eosinophils # (Auto) 0.0, Basophils # (Auto) 0.0, Sodium Level 137, Potassium Level 3.6, Chloride Level 112H, Carbon Dioxide Level 17L, Anion Gap 8, Blood Urea Nitrogen 10, Creatinine 0.87, Estimat Glomerular Filtration Rate > 60, BUN/ Creatinine Ratio 11, Glucose Level 113H, Lactic Acid Level 0.81, Calcium Level 8.5, Total Bilirubin 0.7, Aspartate Amino Transf (AST/SGOT) 18, Alanine Aminotransferase (ALT/SGPT) 16, Alkaline Phosphatase 39L, Total Protein 6.2L, Albumin 3.7 Assessment/Plan Assessment and Plan 1. Acute Left Lower Quadrant Pain with Acute SIRS--admit for IVFs, IV antibiotics, IV pain control, IV antiemetics Admission Diagnosis Admission Status: Inpatient Order (span 2 midnights) Reason for Inpatient Admission: Will need broad spectrum antibiotics while awaiting culture results as well as IV pain control and IV antiemetics Clinical Quality Measures DVT/VTE Risk/Contraindication: Risk Factor Score Per Nursin RFS Level Per Nursing on Admit: 3=High MADHAVI SCOTT DO Jan 25, 2018 12:34
[2018-01-25] MEDS ORDERED: MILK OF MAGNESIA 400 MG/5 ML 30 ML UDC PO NR (12:40)
[2018-01-25] MEDS ORDERED: PANTOPRAZOLE 40 MG/10 ML (PROTONIX) VIAL IV NR (12:42)
[2018-01-25] MEDS ORDERED: SENNA W/DOCUSATE (SENOKOT S) TABLET PO NR (12:44)
[2018-01-25] MEDS: ZOLPIDEM 5 MG (AMBIEN) TAB PO SCH ×2 (13:11→21:42)
[2018-01-25] MEDS: DOXYCYCLINE 100 MG (VIBRAMYCIN) TABLET PO SCH (16:50)
[2018-01-25] MEDS: fentaNYL INJECTION 100 MCG/2 ML AMP IV PRN (18:39)
[2018-01-25] MEDS: SENNA W/DOCUSATE (SENOKOT S) TABLET PO SCH (20:06)
[2018-01-26] VITALS (7 sets, daily range): BP systolic 105–145; BP diastolic 51–74
[2018-01-26] MEDS: VANCOMYCIN 1 GM/NS 250 ML IVPB IV SCH ×2 (04:18)
[2018-01-26] MEDS: CATHETER FLUSH 10 ML SYR IV SCH (06:00)
[2018-01-26] MEDS: CEFEPIME 1 GM/NS 50 ML IV SCH ×2 (06:06)
[2018-01-26] MEDS: DOXYCYCLINE 100 MG (VIBRAMYCIN) TABLET PO SCH (06:06)
[2018-01-26] MEDS: NS IV 1000 ML 1,000 ML IV SCH ×3 (06:08→10:50)
[2018-01-26] MEDS ORDERED: NS (IVPB) 50 ML ONE (06:09)
[2018-01-26 06:29] LABS: BASOPHILS % (AUTO) 0 % (0-10); EOSINOPHILS # (AUTO) 0.1 10^3/uL (0.0-0.3); EOSINOPHILS % (AUTO) 0 % (0-10); HEMATOCRIT 33 % (40-54); HEMOGLOBIN 11.8 G/DL (13.3-17.7); LYMPHOCYTES # (AUTO) 1.7 X 10^3 (1.0-4.0); LYMPHOCYTES % (AUTO) 14 % (12-44); MEAN CORPUSCULAR HEMOGLOBIN 28 PG (25-34); MEAN CORPUSCULAR HGB CONC 36 G/DL (32-36); MEAN CORPUSCULAR VOLUME 78 FL (80-99); MEAN PLATELET VOLUME 10.6 FL (7.4-10.4); MONOCYTES % (AUTO) 8 % (0-12); NEUTROPHILS # (AUTO) 9.5 X 10^3 (1.8-7.8); NEUTROPHILS % (AUTO) 78 % (42-75); PLATELET COUNT 171 10^3/uL (130-400); RED BLOOD COUNT 4.21 10^6/uL (4.35-5.85); RED CELL DISTRIBUTION WIDTH 13.5 % (10.0-14.5); WHITE BLOOD COUNT 12.2 10^3/uL (4.3-11.0)
[2018-01-26] MEDS: fentaNYL INJECTION 100 MCG/2 ML AMP IV PRN ×2 (06:35→09:56)
[2018-01-26 06:50] LABS: ALANINE AMINOTRANSFERASE 17 U/L (0-55); ALBUMIN 3.5 GM/DL (3.2-4.5); ALKALINE PHOSPHATASE 51 U/L (40-136); BILIRUBIN,TOTAL 0.4 MG/DL (0.1-1.0); BUN/CREATININE RATIO 6; CALCIUM 8.5 MG/DL (8.5-10.1); CARBON DIOXIDE 20 MMOL/L (21-32); CHLORIDE 110 MMOL/L (98-107); CREATININE SERUM 0.81 MG/DL (0.60-1.30); GFR ESTIMATED > 60; GLUCOSE 81 MG/DL (70-105); POTASSIUM 3.5 MMOL/L (3.6-5.0); SODIUM 139 MMOL/L (135-145); TOTAL PROTEIN 5.8 GM/DL (6.4-8.2)
[2018-01-26] MEDS: SENNA W/DOCUSATE (SENOKOT S) TABLET PO SCH (07:38)
[2018-01-26] MEDS: metroNIDAZOLE 500 MG/100 ML IVPB (PRE-MIX) IV SCH (08:35)
[2018-01-26] MEDS ORDERED: PANTOPRAZOLE 40 MG/10 ML (PROTONIX) VIAL IV SCH (09:00)
[2018-01-26] MEDS ORDERED: TROUGH ORDER-PHARMACY XX NR (11:00)
[2018-01-26] MEDS ORDERED: VANCOMYCIN INJECTION 1,250 MG in NS (IVPB) 250 ML IV SCH (12:00)
[2018-01-26] MEDS ORDERED: TRAM50TA2 PO (12:35)
[2018-01-26] MEDS ORDERED: HYOS0.1281 PO (12:35)
[2018-01-26] MEDS ORDERED: ONDN4T PO (12:35)
[2018-01-26] MEDS ORDERED: DOXY100T2 PO (12:35)
--- NOTE | 2018-01-26 12:37 | Discharge Inst-Simple/Standard ---
Discharge Inst-Standard Discharge Medications New, Converted or Re-Newed RX: Transmitted to Pharmacy Patient Instructions/Follow Up Plan of Care/Instructions/FU: Fwup with me on January 29 Activity as Tolerated: Yes Discharge Diet: Other Diet (bland) MARLEEN WINTERS DO Jan 26, 2018 12:37
[2018-01-27] MEDS ORDERED: TROUGH ORDER-PHARMACY XX NR (11:00)
--- NOTE | 2018-01-27 13:28 | Physician Query-Final Dx ---
MARII CHAO 01/27/18 1328: Final Diagnosis Give Final Diagnosis Please give Final Diagnosis MARLEEN WINTERS DO 02/02/180: Final Diagnosis Give Final Diagnosis See DC summary MARII CHAO Jan 27, 2018 13:28 MARLEEN WINTERS DO Feb 02, 2018 20:40
--- NOTE | 2018-02-18 20:43 | Discharge Summary ---
Diagnosis/Chief Complaint Date of Admission Jan 24, 2018 at 23:33 Date of Discharge Jan 26, 2018 at 14:10 Discharge Date: Jan 26, 2018 Discharge Diagnosis 1. Acute Abdominal Pain with intractable N/V--resolved 2. SIRS likely from Viral etiology or tickborne--improving Reason Hospital Visit This is a 22 year old male who presented to the emergency room with sudden onset of left lower quadrant abdominal pain and associated nausea and vomiting and fever. He denied diarrhea and in fact had not had a bowel movement for about [address] scan of the abdomen and pelvis showed no acute process but his WBC count and lactic acid were elevated. It was decided to admit him for IVFs, pain control, broad spectrum antibiotics and further evaluation. Discharge Summary Hospital Course Hospital Course This is a 22 year old male who presented to the emergency room with sudden onset of left lower quadrant abdominal pain and associated nausea and vomiting and fever. He denied diarrhea and in fact had not had a bowel movement for about [address] scan of the abdomen and pelvis showed no acute process but his WBC count and lactic acid were elevated. It was decided to admit him for IVFs, pain control, broad spectrum antibiotics and further evaluation. By the second hospital day his abdominal pain was improving but he was still having intermittent episodes of abdominal pain when the pain medicine wore off and still had nausea with poor oral intake. Doxycycline was added to cover for tickborne etiology and he was given senokot and MOM for constipation. He did have good results with the MOM and senokot and by the following day, his abdominal pain had resolved and his nausea was improved. He was tolerating a regular diet, was afebrile and his WBC count was down to 12.2. His blood cultures were negative and he was anxious to go home. He was sent home with doxycycline to cover tick etiology as well as zofran and instructed on hydration and rest until his fwup with me in 3 days. Procedures None. Discharge Physical Examination Allergies: Coded Allergies: Penicillins (Verified Adverse Reaction, Intermediate, 01/25/18) ibuprofen (Verified Adverse Reaction, Intermediate, 01/25/18) General Appearance: Alert, Oriented X3, Cooperative, No Acute Distress Respiratory: Clear to Auscultation Cardiovascular: Regular Rate Abdominal: Normal Bowel Sounds, Soft, No Tenderness Extremities: No Clubbing, No Cyanosis, No Edema Neuro: Normal Gait Psych/Mental Status: Mental Status NL, Mood NL Discharge Home Medications Reviewed and agree with Discharge Medication list on patient's Discharge Instruction sheet Instructions to Patient/Family Please see electronic discharge instructions given to patient. Clinical Quality Measures DVT/VTE Risk/Contraindication: Risk Factor Score Per Nursin RFS Level Per Nursing on Admit: 3=High MARLEEN WINTERS DO Feb 18, 2018 20:43
== END 2018-01-26 14:10 | disposition home or self-care (01) | DRG 866 ==
LOC: EDUNIT# 19:57 → ER 19:58 → 4TH 23:33 → UNDOADMOB 23:33 → 4TH 23:33 → OBSVTOIN 01-25 12:26 → INTOOBSV 01-25 12:26 → UNDODISIN 01-26 14:10
PROVIDERS: ADMIT Family Medicine; ATTEND Family Medicine
DX: B34.9 Viral infection, unspecified (principal); R10.32 Left lower quadrant pain; R11.0 Nausea; R50.9 Fever, unspecified
CPT/HCPCS: 36415; 70450; 71046; 74177; 80053; 80202; 81000; 82150; 83605; 83690; 85007; 85025; 85027; 85610; 85730; 86618; 86666; 86668; 86757; 87040; 94760; 96361; 96374; 96375

== ENCOUNTER 2019-08-04 20:17 | Emergency (ER) | payer BC, OTHER ==
[~2019-08-04] VITALS: Ht 170 cm; Wt 68.2 kg
[~2019-08-04 20:17] MED LIST changes: +ACET-2267 PO; +DOXY100T2 PO; +ESZO3TAB39 PO; +HYOS0.1281 PO; +METR-145 PO; -METR500T21 PO; +ONDN4T PO; +TRM50T PO
[2019-08-04] MEDS ORDERED: ONDANSETRON 4 MG (ZOFRAN) ORAL DISSOLVE TAB PO ONE (20:30)
[2019-08-04] MEDS ORDERED: ACETAMINOPHEN 500 MG TAB (TYLENOL) PO ONE (20:30)
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
[2019-08-04] MEDS ORDERED: OSLT75C PO ×2 (21:01→21:08)
[2019-08-04] MEDS ORDERED: ONDA4TAB11 PO ×2 (21:02→21:08)
[2019-08-04] MEDS ORDERED: RX-ONDANSETRON 4 MG ODT (ZOFRAN) PPK #4 PO STA (21:02)
[2019-08-04] MEDS ORDERED: BENZ100C18 PO ×2 (21:04→21:08)
[2019-08-04] MEDS ORDERED: ONDANSETRON 4 MG (ZOFRAN) ORAL DISSOLVE TAB PO STA (21:07)
[2019-08-04] MEDS ORDERED: OSELTAMIVIR 75 MG (TAMIFLU) CAPSULE PO ONE (21:15)
[2019-08-04] MEDS ORDERED: BENZONATATE 100 MG (TESSALON) CAPSULE PO SCH (21:15)
[2019-08-04 21:18] VITALS: BP 137/82
== END 2019-08-04 21:31 | disposition home or self-care (01) ==
LOC: EDUNIT# 20:17 → ER 20:18
DX: J10.1 Influenza due to other identified influenza virus with other respiratory manifestations (principal); Z88.0 Allergy status to penicillin; Z88.6 Allergy status to analgesic agent
CPT/HCPCS: 87430; 87804

== ENCOUNTER 2019-10-11 20:39 | Emergency (ER) | payer SELFPAY ==
[~2019-10-11] VITALS: Ht 170 cm; Wt 69.1 kg
[~2019-10-11 20:39] MED LIST changes: +BENZ100C18 PO; +ONDA4TAB11 PO; +OSLT75C PO
[2019-10-11 21:10] LABS: BILIRUBIN,URINE NEGATIVE (NEGATIVE); CLARITY,URINE CLEAR; COLOR,URINE YELLOW; GLUCOSE, URINE (UA) NEGATIVE (NEGATIVE); KETONES,URINE NEGATIVE (NEGATIVE); LEUKOCYTE ESTERASE ,URINE NEGATIVE (NEGATIVE); NITRITE,URINE NEGATIVE (NEGATIVE); PROTEIN,URINE NEGATIVE (NEGATIVE)
[2019-10-11] MEDS ORDERED: fentaNYL INJECTION 100 MCG/2 ML AMP IVP ONE (21:15)
[2019-10-11] MEDS ORDERED: NS IV 1000 ML 1,000 ML IV SCH (21:15)
[2019-10-11] MEDS ORDERED: KETOROLAC 30 MG/ML VIAL IVP ONE (21:15)
[2019-10-11 21:17] LABS: BASOPHILS % (AUTO) 0 % (0-10); EOSINOPHILS # (AUTO) 0.1 10^3/uL (0.0-0.3); EOSINOPHILS % (AUTO) 2 % (0-10); HEMATOCRIT 45 % (40-54); HEMOGLOBIN 15.3 G/DL (13.3-17.7); LYMPHOCYTES # (AUTO) 2.8 X 10^3 (1.0-4.0); LYMPHOCYTES % (AUTO) 40 % (12-44); MEAN CORPUSCULAR HEMOGLOBIN 27 PG (25-34); MEAN CORPUSCULAR HGB CONC 34 G/DL (32-36); MEAN CORPUSCULAR VOLUME 79 FL (80-99); MEAN PLATELET VOLUME 9.6 FL (7.4-10.4); MONOCYTES # (AUTO) 0.6 X 10^3 (0.0-1.0); MONOCYTES % (AUTO) 8 % (0-12); NEUTROPHILS # (AUTO) 3.5 X 10^3 (1.8-7.8); NEUTROPHILS % (AUTO) 50 % (42-75); PLATELET COUNT 245 10^3/uL (130-400); RED CELL DISTRIBUTION WIDTH 14.1 % (10.0-14.5); WHITE BLOOD COUNT 7.1 10^3/uL (4.3-11.0)
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
[2019-10-11 21:28] LABS: ALBUMIN 4.8 GM/DL (3.2-4.5); CHLORIDE 103 MMOL/L (98-107); POTASSIUM 3.8 MMOL/L (3.6-5.0); SODIUM 139 MMOL/L (135-145)
[2019-10-11 21:30] LABS: CALCIUM 9.6 MG/DL (8.5-10.1)
[2019-10-11 21:31] LABS: GLUCOSE 113 MG/DL (70-105); TOTAL PROTEIN 8.3 GM/DL (6.4-8.2)
[2019-10-11 21:32] LABS: CARBON DIOXIDE 24 MMOL/L (21-32)
[2019-10-11 21:33] LABS: BILIRUBIN,TOTAL 0.3 MG/DL (0.1-1.0)
[2019-10-11 21:34] LABS: ALKALINE PHOSPHATASE 50 U/L (40-136)
[2019-10-11 21:35] LABS: CREATININE SERUM 1.09 MG/DL (0.60-1.30); GFR ESTIMATED > 60
[2019-10-11 21:36] LABS: BUN/CREATININE RATIO 11
[2019-10-11 21:37] LABS: ALANINE AMINOTRANSFERASE 25 U/L (0-55)
[2019-10-11 21:38] LABS: BACTERIA,URINE TRACE /HPF; RBC,URINE 0-2 /HPF; WBC,URINE RARE /HPF
--- NOTE | 2019-10-11 21:40 | Diagnostic Imaging Report ---
PROCEDURE: CT urinary tract, rule out kidney stone. TECHNIQUE: Multiple contiguous axial images were obtained through the abdomen and pelvis without the use of intravenous contrast. Auto Exposure Controls were utilized during the CT exam to meet ALARA standards for radiation dose reduction. INDICATION: Right flank pain. Hematuria. Comparison with 01/24/2019. FINDINGS: The kidneys are symmetrical in appearance with smooth outline. No calculi or hydronephrosis demonstrated. The ureters are not enlarged. No ureteral calculi are demonstrated. The bladder is decompressed. The appendix appears normal. Colon shows normal stool and gas pattern. The small bowel is not distended. No bowel wall thickening. There are scattered lymph nodes throughout the mesenteric root, largest measuring approximately 2 x 1.1 cm. There are also lymph nodes about the terminal ileum. The liver appears normal. Gallbladder and bile ducts are normal. Pancreas and spleen are normal. Adrenal glands are normal. The lung bases are clear. No bony abnormalities. IMPRESSION: 1. No evidence of renal or ureteral calculi. No obstructive uropathy. Bladder normal. 2. The bowel pattern appears normal throughout without inflammatory changes. 3. Previously noted calculi within the kidneys bilaterally are not present today. Dictated by: Dictated on workstation # [id number]
--- NOTE | 2019-10-11 21:42 | Diagnostic Imaging Report ---
INDICATION: Hematuria with posterior right flank pain. FINDINGS: KUB. No calculi are seen overlying the renal shadows or along the path of the ureters to the bladder. Bowel gas pattern appears normal. No organomegaly. No bony abnormalities. IMPRESSION: Normal KUB. Dictated by: Dictated on workstation # [id number]
[2019-10-11] MEDS ORDERED: METH-313 PO (21:45)
[2019-10-11 22:25] VITALS: BP 131/83
== END 2019-10-11 22:26 | disposition home or self-care (01) ==
LOC: EDUNIT# 20:39 → ER 20:41
DX: R10.9 Unspecified abdominal pain (principal); Z88.0 Allergy status to penicillin; Z88.6 Allergy status to analgesic agent
CPT/HCPCS: 36415; 74018; 74176; 80053; 81000; 85025; 96361; 96374

== ENCOUNTER 2020-02-17 11:46 | Emergency (ER) | payer SELFPAY ==
[~2020-02-17] VITALS: Ht 170 cm; Wt 69.0 kg
[~2020-02-17 11:46] MED LIST changes: +METH-313 PO
[2020-02-17] MEDS ORDERED: LACTATED RINGERS 1,000 ML IV ONE (12:16)
[2020-02-17] MEDS ORDERED: fentaNYL INJECTION 100 MCG/2 ML AMP IVP ONE (12:30)
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
[2020-02-17 12:33] LABS: BILIRUBIN,URINE NEGATIVE (NEGATIVE); CLARITY,URINE CLEAR; COLOR,URINE YELLOW; GLUCOSE, URINE (UA) NEGATIVE (NEGATIVE); KETONES,URINE NEGATIVE (NEGATIVE); LEUKOCYTE ESTERASE ,URINE NEGATIVE (NEGATIVE); NITRITE,URINE NEGATIVE (NEGATIVE); PROTEIN,URINE NEGATIVE (NEGATIVE)
[2020-02-17 12:36] LABS: BASOPHILS % (AUTO) 0 % (0-10); EOSINOPHILS # (AUTO) 0.1 10^3/uL (0.0-0.3); EOSINOPHILS % (AUTO) 2 % (0-10); HEMATOCRIT 44 % (40-54); HEMOGLOBIN 15.3 G/DL (13.3-17.7); LYMPHOCYTES # (AUTO) 2.3 X 10^3 (1.0-4.0); LYMPHOCYTES % (AUTO) 37 % (12-44); MEAN CORPUSCULAR HEMOGLOBIN 27 PG (25-34); MEAN CORPUSCULAR HGB CONC 35 G/DL (32-36); MEAN CORPUSCULAR VOLUME 77 FL (80-99); MEAN PLATELET VOLUME 9.5 FL (7.4-10.4); MONOCYTES # (AUTO) 0.6 X 10^3 (0.0-1.0); MONOCYTES % (AUTO) 10 % (0-12); NEUTROPHILS # (AUTO) 3.2 X 10^3 (1.8-7.8); NEUTROPHILS % (AUTO) 52 % (42-75); PLATELET COUNT 247 10^3/uL (130-400); RED CELL DISTRIBUTION WIDTH 13.7 % (10.0-14.5); WHITE BLOOD COUNT 6.2 10^3/uL (4.3-11.0)
[2020-02-17 12:52] LABS: BACTERIA,URINE TRACE /HPF; RBC,URINE RARE /HPF; WBC,URINE RARE /HPF
[2020-02-17 12:53] LABS: ALBUMIN 4.7 GM/DL (3.2-4.5); CHLORIDE 103 MMOL/L (98-107)
[2020-02-17 12:54] LABS: POTASSIUM 4.1 MMOL/L (3.6-5.0); SODIUM 137 MMOL/L (135-145)
[2020-02-17 12:55] LABS: CALCIUM 10.1 MG/DL (8.5-10.1)
[2020-02-17 12:56] LABS: GLUCOSE 82 MG/DL (70-105); TOTAL PROTEIN 8.1 GM/DL (6.4-8.2)
[2020-02-17 12:57] LABS: CARBON DIOXIDE 27 MMOL/L (21-32)
[2020-02-17 12:58] LABS: BILIRUBIN,TOTAL 0.5 MG/DL (0.1-1.0)
[2020-02-17 12:59] LABS: ALKALINE PHOSPHATASE 48 U/L (40-136)
[2020-02-17 13:00] LABS: CREATININE SERUM 1.02 MG/DL (0.60-1.30); GFR ESTIMATED > 60
[2020-02-17 13:01] LABS: BUN/CREATININE RATIO 11
[2020-02-17 13:02] LABS: ALANINE AMINOTRANSFERASE 60 U/L (0-55)
[2020-02-17 13:03] LABS: LIPASE 29 U/L (8-78)
--- NOTE | 2020-02-17 13:12 | NUR ---
PT STATES THE MED HELPED HIS PAIN. DENIES NEEDS AT THIS TIME.
--- OUTSIDE RECORDS SUMMARY | 2020-02-17 13:21 | XMS REPORT ---
Author Author Jesus CARRERO [facility] Address [address] [place] [address] Care Team Providers Care Robot Technician Name Role Phone ISHAAN CARRERO Unavailable PROBLEMS Unknown Problems ALLERGIES Substance Reaction Event Type Date Status Penicillin V Potassium anaphylaxis Drug Allergy Jun, Activ e Ibuprofen Unknown Drug Allergy Jun, Active ENCOUNTERS Encounter Location Date Diagnosis [facility] [address] [facility] [id number] [address] [place] [id number] Jun, Otitis media H66.90 and Acut e upper respiratory infection J06.9 [facility] [address] [facility] [id number] [address] [place] [phone] Sep, IMMUNIZATIONS No Known Immunizations SOCIAL HISTORY Never Assessed REASON FOR VISIT dizziness et his vision is doubled. reports bilateral earache. [email or web address] PLAN OF CARE Activity Details Follow Up if not improving with PCP or reg follow up Reason: VITAL SIGNS Height 69 in 2018-06-12 Weight 154.2 lbs 2018-06-12 Temperature 97.8 degrees Fahrenheit 2018-06-12 Heart Rate 78 bpm 2018-06-12 Respiratory Rate 20 2018-06-12 BMI 22.77 kg/m2 2018-06-12 Blood pressure systolic 126 mmHg 2018-06-12 Blood pressure diastolic 78 mmHg 2018-06-12 MEDICATIONS Medication Instructions Dosage Frequency Start Date End Date Duration S tatus Cefdinir 300 MG Orally every 12 hours take 1 capsule 12h Jun, 8 10 days Active Cetirizine HCl 10 MG Orally Once a day 1 tablet 24h Jun, 30 day(s) Active RESULTS No Results PROCEDURES No Known procedures INSTRUCTIONS MEDICATIONS ADMINISTERED No Known Medications MEDICAL (GENERAL) HISTORY Type Description Date Surgical History T&A Surgical History Dental surgery Surgical History [place] teeth ex
--- OUTSIDE RECORDS SUMMARY | 2020-02-17 13:21 | XMS REPORT ---
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 Active [id number] ALLERGIES No Information ENCOUNTERS Encounter Location Date Diagnosis [facility] [id number] [address] [place] [phone] Jan, Close exposure to 2019 novel coronavirus Z20.828 [facility] [address] [place], [place] [id number] [address] [place] [phone] 18 Oct, 2019 Finger pain, left M79.645 an d Wasp sting, accidental or unintentional, initial encounter T63.461A [facility] [address] [facility] [id number] [address] [place] [id number] 09 Oct, 2019 [facility] [id number] [address] [place] [phone] 07 Oct, 2019 Kidney pain N23 and Acute ri ght-sided low back pain without sciatica M54.5 [facility] [address] [place], [place] [id number] [address] [place] [phone] 08 May, 2019 Non-recurrent acute suppurat basilia otitis media of left ear without spontaneous rupture of tympanic membrane H66.002 [facility] [address] [place] [id number] [place] [phone] Feb, Intractable migraine without aura and with status migrainosus G43.011 and Acute non-recurrent frontal sinusitis J01.10 [facility] [address] [facility] [id number] [address] [place] [phone] 08 Jun, 2018 Otitis media H66.90 and Acut e upper respiratory infection J06.9 [facility] [address] [facility] [id number] [address] [place] [address] Sep, IMMUNIZATIONS No Known Immunizations SOCIAL HISTORY Never Assessed REASON FOR VISIT PLAN OF CARE VITAL SIGNS MEDICATIONS Unknown Medications RESULTS No Results PROCEDURES No Known procedures INSTRUCTIONS MEDICATIONS ADMINISTERED No Known Medications MEDICAL (GENERAL) HISTORY Type Description Date Surgical History T&A Surgical History Dental surgery Surgical History [place] teeth ex
--- OUTSIDE RECORDS SUMMARY | 2020-02-17 13:22 | XMS REPORT | CCD ---
Author Author Jesus Scott D.O. 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 Name Role Phone Madhavi Scott D.O., PP Unavailable CCM Unavailable Summary Purpose Interface Exchange Family History Family History data not found Social History Social History Element Codes Description Effective Dates Tobacco history SNOMED CT: 865936148 Nonsmoker 02/05/2011 Allergies, Adverse Reactions, Alerts Substance Reaction Codes Entered Date Inactivated Date Status PENICILLINS Unknown 05/08/2010 No Inactive Date Active Ibuprofen Unknown 05/08/2010 No Inactive Date Active * NO KNOWN FOOD ALLERGIES Unknown 04/13/2019 No Inactiv e Date Active * NO KNOWN ENVIRONMENTAL ALLERGIES Unknown 04/13/2019 N o Inactive Date Active Problems Condition Codes Effective Dates Condition Status Blurry vision ICD-9: 368.8 ICD-10: H53.8 02/17/2020 Active Dizziness ICD-9: 780.4 ICD-10: R42 02/17/2020 Active Facial swelling ICD-9: 784.2 ICD-10: R22.0 02/17/2020 Active Right lower quadrant pain ICD-9: 789.03 ICD-10: R10.31 02/17/2020 Active Febrile illness ICD-9: 780.60 ICD-10: R50.9 08/15/2016 Active Gastroenteritis ICD-9: 558.9 ICD-10: K52.9 01/19/2020 Active Diarrhea ICD-9: 787.91 ICD-10: R19.7 11/30/2019 Active Mesenteric lymphadenitis ICD-9: 289.2 ICD-10: I88.0 10/12/2019 Active Encounter for general adult medical examination withou t abnormal findings ICD-9: V70.0 ICD-10: Z00.00 04/13/2019 Active Ehrlichiosis chafeensis [E. chafeensis] ICD-9: 082.41 ICD-10: A77.41 01/29/2018 Active Low back pain ICD-9: 724.2 ICD-10: M54.5 09/16/2017 Active Otitis media, unspecified, left ear ICD-9: 380.14 ICD-10: H66.92 08/06/2017 Active Insomnia, unspecified ICD-9: 780.52 ICD-10: G47.00 01/14/2016 Active Acute maxillary sinusitis, unspecified ICD-9: 461.0 ICD-10: J01.00 08/15/2016 Active Jaw pain ICD-9: 784.92 ICD-10: R68.84 08/15/2016 Active Myalgia ICD-9: 729.1 ICD-10: M79.1 08/15/2016 Active Adjustment disorder with mixed anxiety and depressed m ood ICD-9: 309.28 ICD-10: F43.23 02/19/2016 Active Other specified diseases of intestine ICD-9: 569.89 ICD-10: K63.89 02/13/2016 Active Major depressive disorder, single episode, unspecified ICD-9: 311 ICD-10: F32.9 01/14/2016 Active Other fatigue ICD-9: 780.79 ICD-10: R53.83 01/14/2016 Active CEPHALGIA ICD-9: 784.0 01/30/2015 Active Mild dehydration ICD-9: 276.51 03/08/2014 Active Nausea, vomiting and diarrhea ICD-9: 787.91 03/08/2014 Ac tive URINARY TRACT INFECTION ICD-9: 599.0 03/08/2014 Active Poison elizabeth dermatitis ICD-9: 692.6 01/11/2013 Active PAIN, LOWER BACK ICD-9: 724.2 03/18/2012 Active SPASM OF MUSCLE ICD-9: 728.85 03/18/2012 Active Knee pain, bilateral ICD-9: 719.46 02/05/2011 Active COUGH ICD-9: 786.2 07/11/2010 Active *Denies any medical problems Unknown 05/08/2010 Act basilia ROUTINE CHILD HEALTH EXAM ICD-9: V20.2 05/08/2010 Active Medications Medication Codes Instructions Start Date Stop Date Status Fill Instructions Lunesta 3 mg tablet RxNorm: 541075 TAKE ONE TABLET BY M OUTH AT BEDTIME NEEDED FOR SLEEP 1 Tablet(s) Oral QPM as needed for sleep 02/07/2020 04/06/2020 Active Flagyl 500 mg tablet RxNorm: 456578 1 Tablet(s) Oral three time s a day 01/19/2020 01/26/2020 Inactive Lunesta 3 mg tablet RxNorm: 510876 TAKE ONE TABLET BY M OUTH AT BEDTIME NEEDED FOR SLEEP 1 Tablet(s) Oral QPM as needed for sleep 11/30/2019 0 Inactive Flagyl 500 mg tablet RxNorm: 324605 1 Tablet(s) Oral three time s a day 11/30/2019 12/07/2019 Inactive ondansetron 4 mg disintegrating tablet RxNorm: 958322 1 Tablet(s) Oral Q4H as needed for nausea 10/12/2019 No Stop Date Active Lunesta 3 mg tablet RxNorm: 522896 TAKE ONE TABLET BY M OUTH AT BEDTIME NEEDED FOR SLEEP 09/02/2018 09/08/2018 Inactive Lunesta 3 mg tablet RxNorm: 556259 TAKE ONE TABLET BY M OUTH AT BEDTIME NEEDED FOR SLEEP 08/30/2018 04/12/2019 Inactive Lunesta 3 mg tablet RxNorm: 983346 TAKE ONE TABLET BY M OUTH EVERY NIGHT AT BEDTIME NEEDED FOR SLEEP 06/07/2018 09/02/2018 Inactive Lunesta 3 mg tablet RxNorm: 335861 TAKE ONE TABLET BY M OUTH EVERY NIGHT AT BEDTIME NEEDED SLEEP 04/13/2018 06/07/2018 Inactive Lunesta 3 mg tablet RxNorm: 623167 TAKE ONE TABLET BY M OUTH AT BEDTIME NEEDED FOR SLEEP 02/17/2018 04/13/2018 Inactive Generic For:LUNE STA 3MG TAB 02/17/2018 12:36:41 PM doxycycline hyclate 100 mg capsule RxNorm: 4631799 1 Capsule(s) PO BID 02/12/2018 02/25/2018 Inactive Lunesta 3 mg tablet RxNorm: 874087 Tablet(s) TAKE ONE T ABLET BY MOUTH AT BEDTIME NEEDED FOR SLEEP 12/29/2017 02/18/2018 Inactive Generic For: LUNESTA 3MG TAB 11/25/2017 1:41:28 PM 12/01/2017 10:00:01 AM Lunesta 3 mg tablet RxNorm: 787414 Tablet(s) TAKE ONE T ABLET BY MOUTH AT BEDTIME NEEDED FOR SLEEP 12/24/2017 12/29/2017 Inactive Generic For: LUNESTA 3MG TAB 11/25/2017 1:41:28 PM 12/01/2017 10:00:01 AM Lunesta 3 mg tablet RxNorm: 455611 TAKE ONE TABLET BY M OUTH AT BEDTIME NEEDED FOR SLEEP 12/03/2017 03/01/2018 Inactive Generic For:LUNE STA 3MG TAB 11/25/2017 1:41:28 PM 12/01/2017 10:00:01 AM Lunesta 3 mg tablet RxNorm: 414001 TAKE ONE TABLET BY M OUTH AT BEDTIME NEEDED FOR SLEEP 11/27/2017 04/12/2019 Inactive Generic For:LUNE STA 3MG TAB 11/27/2017 9:30:03 AM11/25/2017 1:41:28 PM Lunesta 3 mg tablet RxNorm: 255450 1 Tablet(s) PO QHS as needed for sleep 09/17/2017 11/27/2017 Inactive cyclobenzaprine 10 mg tablet RxNorm: 060474 1 Tablet(s) PO BID as needed 09/16/2017 04/12/2019 Inactive Lunesta 3 mg tablet RxNorm: 727506 1 Tablet(s) PO QHS as needed for sleep 08/26/2017 09/16/2017 Inactive Levaquin 500 mg tablet RxNorm: 780263 1 Tablet(s) PO QD 08/06/2017 Inactive prednisone 20 mg tablet RxNorm: 602920 2 Tablet(s) PO QD 08/06/2017 0 08/10/2017 Inactive Lunesta 3 mg tablet RxNorm: 935986 TAKE ONE TABLET BY M OUTH AT BEDTIME NEEDED 06/15/2017 07/14/2017 Inactive Lunesta 3 mg tablet RxNorm: 180356 1 Tablet(s) PO QHS as needed 06/15/2017 Inactive Lexapro 10 mg tablet RxNorm: 074946 1 Tablet(s) PO QD 07/01/201602/03 Inactive Lexapro 20 mg tablet RxNorm: 200016 1 Tablet(s) PO QD 02/14/201602/03 Inactive Lexapro 10 mg tablet RxNorm: 388611 1 Tablet(s) PO QD 01/15/201602/03 Inactive Cipro 500 mg tablet RxNorm: 492707 1 Tablet(s) PO BID 03/08/201403/2014 Inactive Flexeril 10 mg tablet RxNorm: 829100 Tablet(s) PO TAKE 1 TABLET BY MOUTH EACH NIGHT AT BEDTIME FOR SPASM 09/20/2012 01/14/2016 Inactive Gener ic For:FLEXERIL 10 MG TAB Flexeril 10 mg tablet RxNorm: 145290 1 Tablet(s) PO QHS for spasm 0 07/12/2012 08/10/2012 Inactive Mobic 15 mg tablet RxNorm: 806495 1 Tablet(s) PO QAM for pain 04/1505/14/2012 Inactive Flexeril 10 mg tablet RxNorm: 504185 1 Tablet(s) PO QHS for spasm 1 07/12/2012 Inactive Mobic 15 mg tablet RxNorm: 066393 1 Tablet(s) PO QAM for pain 03/1804/14/2012 Inactive Tylenol Extra Strength 500 mg tablet RxNorm: 064093 Tablet(s) P O as needed No Start Date Active ProAir HFA 90 mcg/Actuation Aerosol Inhaler RxNorm: 126968 2 Puff(s) INH PRN 2 puffs every 4 hrs as needed for wheezing. No Start Date 03/17/2012 Inacti ve azithromycin 250 mg Tab RxNorm: 878990 2 Tablet(s) PO Q D take 2 tablets (500 mg) by oral route once daily for 1 day then 1 tablet (250 mg) by oral route once daily for 4 days No Start Date 03/17/2012 Inactive Flexeril 10 mg tablet RxNorm: 012426 1 Tablet(s) PO QHS for spasm N o Start Date 04/14/2012 Inactive Lunesta 3 mg tablet RxNorm: 327900 1 Tablet(s) PO QHS as needed No Start Date 03/18/2017 Inactive Tussionex Pennkinetic ER 8 mg-10 mg/5 mL susp,extended relea se RxNorm: 0582127 PO No Start Date 07/23/2011 Inactive Medication Administered No Medication Administered data Immunizations No Immunization data Results No Results data Procedures Procedure Codes Date INFLUENZA ASSAY W/OPTIC CPT-4: 24490 08/15/2016 URINALYSIS NONAUTO W/O SCOPE CPT-4: 58070 01/31/2015 URINALYSIS NONAUTO W/O SCOPE CPT-4: 01115 03/13/2014 URINE CULTURE/ COLONY COUNT CPT-4: 33450 03/08/2014 URINALYSIS NONAUTO W/O SCOPE CPT-4: 47259 03/08/2014 THER/PROPH/DIAG INJ SC/IM CPT-4: 08805 01/11/2013 METHYLPREDNISOLONE 40 MG INJ CPT-4: J1030 01/11/2013 TRIAMCINOLONE ACET INJ NOS CPT-4: J3301 01/11/2013 Vital Signs Date Vital 02/17/2020 Blood Pressure 1: 114/76 Code: 8480-6 Heart Rate 1: 106 bpm Respiratory Rate: 18 bpm SpO2: 99% Temperature: 36.9 (C) / 98.4 (F) We ight: 154 lbs 11/30/2019 Blood Pressure 1: 116/70 Code: 8480-6 Heart Rate 1: 92 bpm Respiratory Rate: 20 bpm SpO2: 99% Temperature: 37.1 (C) / 98.7 (F) We ight: 157 lbs 04/13/2019 Blood Pressure 1: 126/78 Code: 8480-6 Heart Rate 1: 110 bpm SpO2: 100% Temperature: 36.5 (C) / 97.7 (F) Weight: 156 lbs 01/29/2018 Blood Pressure 1: 122/78 Code: 8480-6 Heart Rate 1: 80 bpm Temperature: 36.6 (C) / 97.9 (F) Weight: 160 lbs 09/16/2017 Blood Pressure 1: 132/84 Code: 8480-6 BMI: 24.3 Code: 40602-9 Heart Rate 1: 100 bpm Height: 5'8" Respiratory Rate: 20 bpm SpO2: 96% Tempera ture: 36.8 (C) / 98.2 (F) Weight: 160 lbs 08/06/2017 Blood Pressure 1: 126/82 Code: 8480-6 BMI: 24.2 Code: 18863-1 Heart Rate 1: 92 bpm Height: 5'8" Respiratory Rate: 22 bpm SpO2: 96% Tempera ture: 36.4 (C) / 97.6 (F) Weight: 159 lbs 02/16/2017 Blood Pressure 1: 118/64 Code: 8480-6 BMI: 24.3 Code: 68064-8 Heart Rate 1: 84 bpm Height: 5'8" Respiratory Rate: 22 bpm SpO2: 98% Tempera ture: 36.2 (C) / 97.1 (F) Weight: 160 lbs 08/15/2016 Blood Pressure 1: 112/78 Code: 8480-6 Heart Rate 1: 68 bpm Respiratory Rate: 18 bpm SpO2: 98% Temperature: 36.2 (C) / 97.1 (F) We ight: 151 lbs 02/20/2016 Blood Pressure 1: 106/68 Code: 8480-6 Heart Rate 1: 94 bpm Respiratory Rate: 18 bpm SpO2: 98% Temperature: 35.9 (C) / 96.6 (F) We ight: 147 lbs 02/14/2016 Blood Pressure 1: 124/82 Code: 8480-6 BMI: 22.7 Code: 63195-0 Heart Rate 1: 102 bpm Height: 5'8" Respiratory Rate: 24 bpm SpO2: 98% Tempera ture: 36.6 (C) / 97.8 (F) Weight: 149 lbs 01/15/2016 Blood Pressure 1: 142/78 Code: 8480-6 BMI: 22.6 Code: 07012-5 Heart Rate 1: 82 bpm Height: 5'8" Respiratory Rate: 20 bpm SpO2: 97% Tempera ture: 36.6 (C) / 97.8 (F) Weight: 151 lbs 01/31/2015 Blood Pressure 1: 122/82 Code: 8480-6 BMI: 21.9 Code: 15284-5 Heart Rate 1: 78 bpm Height: 5'7" Respiratory Rate: 22 bpm Temperature: 36 .7 (C) / 98.0 (F) Weight: 140 lbs 03/13/2014 Blood Pressure 1: 122/84 Code: 8480-6 BMI: 20.2 Code: 35667-7 Heart Rate 1: 68 bpm Height: 5'7" Respiratory Rate: 20 bpm Temperature: 36 .4 (C) / 97.5 (F) Weight: 129 lbs 03/08/2014 Blood Pressure 1: 102/60 Code: 8480-6 BMI: 20.2 Code: 06174-2 Heart Rate 1: 82 bpm Height: 5'7" Respiratory Rate: 20 bpm Temperature: 36 .6 (C) / 97.8 (F) Weight: 129 lbs 04/15/2012 Blood Pressure 1: 116/70 Code: 8480-6 BMI: 21.0 Code: 44522-7 Heart Rate 1: 92 bpm Height: 5'7" Respiratory Rate: 20 bpm Temperature: 37 .0 (C) / 98.6 (F) Weight: 134 lbs 04/01/2012 Blood Pressure 1: 116/70 Code: 8480-6 BMI: 21.0 Code: 75223-7 Heart Rate 1: 76 bpm Height: 5'7" Respiratory Rate: 20 bpm Temperature: 36 .6 (C) / 97.8 (F) Weight: 134 lbs 03/18/2012 Blood Pressure 1: 136/80 Code: 8480-6 BMI: 21.0 Code: 36947-4 Heart Rate 1: 84 bpm Height: 5'7" Respiratory Rate: 20 bpm Temperature: 36 .7 (C) / 98.1 (F) Weight: 134 lbs 02/05/2011 Blood Pressure 1: 124/70 Code: 8480-6 BMI: 20.4 Code: 32622-2 Heart Rate 1: 70 bpm Height: 5'7" Temperature: 36.4 (C) / 97.6 (F) Weight: 130 lbs 07/11/2010 Blood Pressure 1: 106/60 Code: 8480-6 Heart Rate 1: 92 bpm Respiratory Rate: 18 bpm SpO2: 96% Temperature: 36.9 (C) / 98.5 (F) We ight: 127 lbs 05/08/2010 Blood Pressure 1: 116/68 Code: 8480-6 BMI: 19.3 Code: 10020-6 Heart Rate 1: 68 bpm Height: 5'7" Temperature: 36.8 (C) / 98.3 (F) Weight: 123 lbs Functional Status No Functional Status data Reason For Visit Reason For Visit Effective Dates Notes myalgias 02/17/2020 abdominal pain 01/19/2020 abdominal pain 11/30/2019 follow up 10/12/2019 ER fwup well man exam (18-39 years) 04/13/2019 follow up 01/29/2018 Hosp fwup back pain 09/16/2017 headache 08/06/2017 Patient was seen 1 w nikolai ago for left inner ear infection and prescribed a Zpack- symptoms ongoing insomnia 02/16/2017 jaw pain 08/15/2016 follow up 02/20/2016 1 month follow up 02/14/2016 1 week ER followup f or Colitis- current therapy is Cipro and Flagyl depression 01/15/2016 Patient states that he has been going through an ongoing herrmann with depression. He states there was a trigger this past Thursday that worsened it. dizziness 01/31/2015 follow up 03/13/2014 5 day vomiting 03/08/2014 injection(s) 01/11/2013 follow up 04/15/2012 follow up 04/01/2012 2wk fwup back pain 03/18/2012 knee pain 02/05/2011 cough 07/11/2010 needs refill of albu terol Yearly Checkup/Physical 05/08/2010 Sports physical for basketball Encounters Encounter Performer Location Codes Date ([id number]) OFFICE/OUTPATIENT VISIT EST Diagnosis: Right lower quadrant pain[ICD10: R10.31] Diagnosis: Dizziness[ICD10: R42] Diagnosis: Blurry vision[ICD10: H53.8] Diagnosis: Facial swelling[ICD10: R22.0] Helen Mendez MADHAVI [facility] [employer] CPT-4: 45378 02/17/2020 ([id number]) OFFICE/OUTPATIENT VISIT EST Diagnosis: Gastroenteritis[ICD10: K52.9] Diagnosis: Febrile illness[ICD10: R50.9] Madhavi [facility] [address] [facility] CPT-4: 83822 01/19/2020 ([id number]) OFFICE/OUTPATIENT VISIT EST Diagnosis: Diarrhea[ICD10: R19.7] Diagnosis: Mesenteric lymphadenitis[ICD10: I88.0] Madhavi ABRAHAM [employer] [address] [facility] CPT-4: 09874 11/30/2019 ([id number]) OFFICE/OUTPATIENT VISIT EST Diagnosis: Mesenteric lymphadenitis[ICD10: I88.0] Madhavi Scott [facility] CPT-4: 73433 10/12/2019 ([id number]) PREV VISIT EST AGE 18-39 Diagnosis: Encounter for general adult medical examination without abnormal findings[ICD10: Z00.00] Madhavi SCOTT [facility] CPT-4: 15044 04/13/2019 ([id number]) OFFICE/OUTPATIENT VISIT EST 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] [facility]hav[facility] CPT-[facility]: 34290 01/29/2018 ([id number]) OFFICE/OUTPATIENT VISIT EST Diagnosis: Low back pain[ICD10: M54.5] Helen JIN [facility] CPT-4: 15381 09/16/2017 OFFICE/OUTPATIENT VISIT EST Diagnosis: Otitis media, unspecified, left ear[ICD10: H66.92] Helen SCOTT [facility] CPT-4: 20874 08/06/2017 ([id number]) OFFICE/OUTPATIENT VISIT EST Diagnosis: Insomnia, unspecified[ICD10: G47.00] Madhavi [facility] CPT-4: 72700 02/16/2017 ([id number]) OFFICE/OUTPATIENT VISIT EST Diagnosis: Fever, unspecified[ICD10: R50.9] Diagnosis: Myalgia[ICD10: M79.1] Diagnosis: Jaw pain[ICD10: R68.84] Giuseppe DE AL [facility] CPT-4: 42062 08/15/2016 ([id number]) NO CHARGE Diagnosis: Adjustment disorder with mixed anxiety and depressed mood[ICD10: F43.23] Giuseppe [facility] CPT-4: 57180 ([id number]) OFFICE/OUTPATIENT VISIT EST Diagnosis: Adjustment disorder with mixed anxiety and depressed mood[ICD10: F43.23] Diagnosis: Other specified diseases of intestine[ICD10: K63.89] Giuseppe [facility] CPT-4: 44099 02/14/2016 ([id number]) OFFICE/OUTPATIENT VISIT EST Diagnosis: Major depressive disorder, single episode, unspecified[ICD10: F32.9] Diagnosis: Insomnia, unspecified[ICD10: G47.00] Diagnosis: Other fatigue[ICD10: R53.83] Giuseppe SCOTT [facility] CPT-4: 78725 01/15/2016 OFFICE/OUTPATIENT VISIT EST Diagnosis: CEPHALGIA[ICD9: 784.0] Diagnosis: Mild dehydration[ICD9: 276.51] Alanis SCOTT DO [facility] CPT-4: 87168 01/31/2015 OFFICE/OUTPATIENT VISIT EST Diagnosis: Mild dehydration[ICD9: 276.51] Alanis SCOTT DO [facility] CPT-4: 55448 03/13/2014 OFFICE/OUTPATIENT VISIT EST Diagnosis: Nausea, vomiting and diarrhea[ICD9: 787.91] Diagnosis: Mild dehydration[ICD9: 276.51] Diagnosis: URINARY TRACT INFECTION[ICD9: 599.0] Alanis SCOTT [facility] CPT-4: 81758 03/08/2014 ([id number]) OFFICE/OUTPATIENT VISIT EST Diagnosis: Poison elizabeth dermatitis[ICD9: 692.6] Madhavilindsey HENRY Faith SCOTT [facility] CPT-4: 64969 01/11/2013 ([id number]) OFFICE/OUTPATIENT VISIT EST Diagnosis: PAIN, LOWER BACK[ICD9: 724.2] Diagnosis: SPASM OF MUSCLE[ICD9: 728.85] Madhavi Tyler VALLECILLOLINE Faith SCOTT [facility] CPT-4: 26788 04/15/2012 ([id number]) OFFICE/OUTPATIENT VISIT EST Diagnosis: PAIN, LOWER BACK[ICD9: 724.2] Madhavi Alanying MADHAVI Faith SCOTT [facility] CPT-4: 84183 04/01/2012 ([id number]) OFFICE/OUTPATIENT VISIT EST Diagnosis: PAIN, LOWER BACK[ICD9: 724.2] Diagnosis: SPASM OF MUSCLE[ICD9: 728.85] Madhavi MARSHALLQUELINE CarylZuleyka TYLER PAZ [facility] CPT-4: 61341 03/18/2012 OFFICE/OUTPATIENT VISIT EST Madhavi HAWLEY CarylZuleyka ALAN CRISOSTOMO [facility] CPT- 4: 00459 02/05/2011 ([id number]) OFFICE/OUTPATIENT VISIT, EST Madhavi SCOTT DO [employer] CPT-4: 39595 07/11/2010 ([id number]) PREV VISIT, EST, AGE 12-17 Madhavi SCOTT DO [employer] CPT-4: 17912 05/08/2010 Plan of Care Planned Activity Notes Codes Status Date Visit Diagnosis Plan: Right lower quadrant pain Discus mitra: due to all of patient's results, instructed him to go to ED to rule out appendicitis. educated him on risk of appendicitis and ED can perform ct and labs right away. ICD-9 : 789.03 ICD-10 : R10.31 02/17/2020 Visit Diagnosis Plan: Febrile illness Discussion: Go t o [facility] or HD for COVID testing Quarantine ICD-9 : 780.60 ICD-10 : R50.9 01/19/2020 Visit Diagnosis Plan: Gastroenteritis Discussion: Alondra naomi owen Cover with flagyl due to history To ER if worsening this weekend ICD-9 : 558.9 ICD-10 : K52.9 01/19/2020 Appointment: Madhavi Scott WPtel: [facility][note 3][address] TELEMEDICINE 01/19/2020 Visit Diagnosis Plan: Diarrhea Discussion: Flagyl Blan d Diet Notify if persists ICD-9 : 787.91 ICD-10 : R19.7 11/30/2019 Visit Diagnosis Plan: Mesenteric lymphadenitis Discuss ion: Notify if worsening ICD-9 : 289.2 ICD-10 : I88.0 11/30/2019 Appointment: Madhavi Scott WPtel: [facility][note 3]0 [facility] ACUTE ILLNESS 11/30/2019 Patient Education: Lunesta- [employer] Coupon [id number] [email or web address] Completed 11/30/2019 Visit Diagnosis Plan: Mesenteric lymphadenitis Discuss ion: Looked at ER records from last night and CT scan results reviewed Supportive care with clear liquids, zofran prn, tylenol prn Notify if worsens or persists No work for rest of week ICD-9 : 289.2 ICD-10 : I88.0 10/12/2019 Appointment: Madhavi Scott WPtel: [address] [place] [address] TELEMEDICINE 10/12/2019 Patient Education: ondansetron- [employer] Coupon [phone] [email or web address]/[email or web address] Completed 10/12/2019 Visit Diagnosis Plan: Encounter for [facility] adult medical examination without abnormal findings Discussion: Patient planning on going in to [employer] His PCN allergy was when he was a child and was a rash from amoxicillin--he has no history of anaphylactic reactions His left testicle is a hydrocele which was checked by urology in 2007 and determined to be a benign hydrocele and recommendation was observation--no treatment needed ICD-9 : V70.0 ICD-10 : Z00.00 04/13/2019 Appointment: Madhavi Scott WPtel: [address] [place] [address] fwup instead of annual cause of no insurance. FO LLOW UP 04/13/2019 Visit Diagnosis Plan: Ehrlichiosis chafeensis [E. chashahid munson] Discussion: Discussed tick panel results Discussed importance of finishing all antibiotics--has ful 14 day course and letting us know if has any remaining symptoms at end of antibiotic course Discussed [place] off when going into wooded areas Mild nausea likely due to antibioitic ICD-9 : 082.41 ICD-10 : A77.41 01/29/2018 Appointment: Madhavi Scott WPtel: [facility][note 3][address] Hospital Follow Up 01/29/2018 Patient Education: Patient Medication Summary Completed 01/29/2018 Visit Diagnosis Plan: Low back pain Discussion: lumbar and si joint xray ordered to rule out acute fx. flexeril prescribed to be taken prn pain since patient is unable to take ibuprofen. instructed to see chiropractor soon to be readjusted. if worsening symptoms or no improvement after, rtc. no lifting for atleast 2 weeks. ICD-9 : 724.2 ICD-10 : M54.5 09/16/2017 Appointment: Helen Mendez [address] [place] [address] ACUTE ILLNESS 09/16/2017 Patient Education: Patient Medication Summary Completed 09/16/2017 Care Plan: X-RAY EXAM L-S SPINE 2/3 VWS LOINC : 86816-3 Pending 09/16/2017 Visit Diagnosis Plan: Otitis media, unspecified, left ear Discussion: patient recently on macrolide, has anaphlyaxis reaction with pcn (so no cephalosporins prescribed either), started on levaquin to assist with symptom management. tylenol/ibuprofen for pain or fever control. instructed to call next week if no improvement andd will refer to dr. galan if needed. prednisone for fluid as well. ICD-9 : 380.14 ICD-10 : H66.92 08/06/2017 Appointment: Helen Mendez [address] [place] [address] ACUTE ILLNESS 08/06/2017 Patient Education: Patient Medication Summary Completed 08/06/2017 Visit Diagnosis Plan: Insomnia, unspecified Discussion : Sleep hygiene Trial of Lunesta 3mg q HS Call in 2 weeks if working ICD-9 : 780.52 ICD-10 : G47.00 02/16/2017 Appointment: Madhavi Scott WPtel: [address] [place] [address] ACUTE ILLNESS 02/16/2017 Patient Education: Patient Medication Summary Completed 02/16/2017 Visit Diagnosis Plan: Fever, unspecified Discussion: F bing is negative Patient is concerned with mumps - per mom he has had his vaccines and there has been no contact with confirmed mumps Called and discussed with infectious disease control nurse at [facility] who contacted [facility]. With his symptoms, it was recommended to test. Patient and orders sent to for further testing. Mask placed on patient and he is instructed to leave on. ICD-9 : 780.60 ICD-10 : R50.9 08/15/2016 Appointment: Giuseppe Jordan [address] [place] [address] ACUTE ILLNESS 08/15/2016 Patient Education: Patient Medication Summary Completed 08/15/2016 Visit Plan: Patient seen last week for E R follow up and his 1 month follow up(reason for today's visit) on lexapro was addressed then Patient was to be seen in 1 month(from last week) to follow up again on lexapro since we adjusted dose last week No visit done today - canceled - will see patient back in about 3 weeks for a 1 month follow up 02/20/2016 Appointment: Giuseppe Jordan [address] [place], [place] [phone] 02/18 confirmed~sl 02/18 patients appt was canceled. Patient was seen last week, and it was counted as a fwup per giuseppe-sp CANCELED 02/20/2016 Patient Education: Patient Medication Summary Completed 02/20/2016 Visit Plan: Colitis has improved well Co ntinue to advance diet as tolerated Increase dose of lexapro Could consider adding buspar as well if still not happy with the lexapro effect Strongly encouraged more formal counseling Discussed referral to psychiatrist if not improving soon Stressed need to reach out for any SI/HI 02/14/2016 Appointment: Giuseppe Jordan [facility] 02/12lm~sl....confirmed-sp ER Follow UP 2015 Patient Education: Patient Medication Summary Completed 02/14/2016 Appointment: Madhavi Scott WPtel: [address] [place], [place] [phone] RESCHEDULED 01/30/2016 Visit Plan: Start lexapro 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 Work on being active and outside Limit caffeine after noon No screen time within 1-2 hours before bed Labs to evaluate fatigue - cbc, cmp, tsh, testosterone and b12 Recheck in 1 month - will adjust lexapro and/or add sleep aid if needed 01/15/2016 Appointment: Giuseppe Jordan [address] [place], [place] [phone] ACUTE ILLNESS 01/15/2016 Patient Education: Patient Medication Summary Completed 01/15/2016 Appointment: Madhavi Scott WPtel: [address] [place], [place] [phone] 04/06 mother schedule 04/09 lm with ana laura ent and spoke with mother she forgot to call and cancel ACUTE ILLNESS 04/09/2015 Visit Plan: Push fluids of the next 4 da ys - >4 liters/day Avoid heat exposure for next 24 hours. No work tomorrow. Tylenol Extra Strength - 2 caps every 4 hours 01/31/2015 Appointment: Alanis Redman WPtel: [address] [place] [address] ACUTE ILLNESS 01/31/2015 Patient Education: Patient Medication Summary Completed 01/31/2015 Appointment: Alanis Redman WPtel: [address] [place] [address] 03/10 voicemail FOLLOW UP 03/13/2014 Patient Education: Patient Medication Summary Completed 03/13/2014 Appointment: Alanis Redman WPtel: [address] [place] [address] ACUTE ILLNESS 03/08/2014 Patient Education: Patient Medication Summary Completed 03/08/2014 Appointment: Madhavi Scott WPtel: [address] [place] [address] INJECTION 01/11/2013 Patient Education: Patient Medication Summary Completed 01/11/2013 Visit Plan: Continue daily stretches Use flexeril, mobic for 1wk then prn 04/15/2012 Appointment: Madhavi Scott WPtel: [address] [place] [address] 04/14 FOLLOW UP 04/15/2012 Patient Education: Patient Medication Summary Completed 04/15/2012 Visit Plan: OMT done Continue flexeril, mobic 04/01/2012 Appointment: Madhavi Scott WPtel: [address] [place] [address] FOLLOW UP 04/01/2012 Patient Education: Patient Medication Summary Completed 04/01/2012 Visit Plan: OMT done Daily stretches Mob ic and flexeril Recheck in 2wks 03/18/2012 Appointment: Madhavi Scott WPtel: [phone] [id number] vm on mom phone OMT 03/18/2012 Patient Education: Patient Medication Summary Completed 03/18/2012 Visit Plan: David for evaluation. Bilat eral knee pain after helping to roof several structures. Lengthy discussion regarding RICE. Pt states he is severely allergic to Ibuprofen. Discussed that he may continue tylenol. Pt. will rest, ice, compress and elevate until he can get ortho eval. Discussed that he should not continue activities that require stooping or awkward posture until this issue resolves. 02/05/2011 Appointment: Bailee Reyes WPtel: [phone] [place], [place] [phone] ACUTE ILLNESS 02/05/2011 Patient Education: Patient Medication Summary Completed 02/05/2011 Visit Plan: Azithromycin. ProAir refil. Pt. will notify if no improvement in symptoms. 07/11/2010 Appointment: Bailee Reyes WPtel: [address] [place], [place] [phone] ACUTE ILLNESS 07/11/2010 Patient Education: Patient Medication Summary Completed 07/11/2010 Visit Plan: Annual exam. 05/08/2010 Appointment: Bailee Reyes WPtel: [phone] [place], [place] [phone] [facility] 05/08/2010 Patient Education: Patient Medication Summary Completed 05/08/2010 Instructions Comment . Patient seen last week for ER follow u p and his 1 month follow up(reason for today's visit) on lexapro was addressed then Patient was to be seen in 1 month(from last week) to follow up again on lexapro since we adjusted dose last week No visit done today - canceled - will see patient back in about 3 weeks for a 1 month follow up . Colitis has improved well Continue to advance diet as tolerated Increase dose of lexapro Could consider adding buspar as well if still not happy with the lexapro effect Strongly encouraged more formal counseling Discussed referral to psychiatrist if not improving soon Stressed need to reach out for any SI/HI . 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 Push fluids of the next 4 days - >4 li ters/day Avoid heat exposure for next 24 hours. No work tomorrow. Tylenol Extra Strength - 2 caps every 4 hours . Continue daily stretches Use flexeril, mobic for 1wk then prn . OMT done Continue flexeril, mobic . OMT done Daily stretches Mobic and flexeril Recheck in 2wks . David for evaluation. Bilateral knee pain after helping to roof several structures. Lengthy discussion regarding RICE. Pt states he is severely allergic to Ibuprofen. Discussed that he may continue tylenol. Pt. will rest, ice, compress and elevate until he can get ortho eval. Discussed that he should not continue activities that require stooping or awkward posture until this issue resolves. . Azithromycin. ProAir refil. Pt. will notify if no improvement in symptoms. . Annual exam. Medical Equipment No Medical Equipment data Health Concerns Section Health Concerns data not found Goals Section Goals data not found Interventions Section Interventions data not found Health Status Evaluations/Outcomes Section Health Status Evaluations/Outcomes data not found Advance Directives No Advance Directive data
--- OUTSIDE RECORDS SUMMARY | 2020-02-17 13:22 | XMS REPORT | CCD ---
Author Author Jesus Scott D.O. Organization MADHAVI SCOTT DO [facility] Address [address] [place] [address] Phone Care Team Providers Care Work Order Sorting Clerk Name Role Phone Madhavi Scott D.O., PP Unavailable CCM Unavailable Summary Purpose Interface Exchange Family History Family History data not found Social History Social History Element Codes Description Effective Dates Tobacco history SNOMED CT: 269661476 Nonsmoker 02/05/2011 Allergies, Adverse Reactions, Alerts Substance Reaction Codes Entered Date Inactivated Date Status PENICILLINS Unknown 05/08/2010 No Inactive Date Active Ibuprofen Unknown 05/08/2010 No Inactive Date Active * NO KNOWN FOOD ALLERGIES Unknown 04/13/2019 No Inactiv e Date Active * NO KNOWN ENVIRONMENTAL ALLERGIES Unknown 04/13/2019 N o Inactive Date Active Problems Condition Codes Effective Dates Condition Status Febrile illness ICD-9: 780.60 ICD-10: R50.9 08/15/2016 [...] Fill Instructions Lunesta 3 mg tablet RxNorm: 439958 TAKE ONE TABLET BY M OUTH AT BEDTIME NEEDED FOR SLEEP 1 Tablet(s) Oral QPM as needed for sleep 02/07/2020 04/06/2020 Active Flagyl 500 mg tablet RxNorm: 964159 1 Tablet(s) Oral three time s a day 01/19/2020 01/26/2020 Inactive Lunesta 3 mg tablet RxNorm: 353336 TAKE ONE TABLET BY M OUTH AT BEDTIME NEEDED FOR SLEEP 1 Tablet(s) Oral QPM as needed for sleep 11/30/2019 0 Inactive Flagyl 500 mg tablet RxNorm: 228538 1 Tablet(s) Oral three time s a day 11/30/2019 12/07/2019 Inactive ondansetron 4 mg disintegrating tablet RxNorm: 990088 1 Tablet(s) Oral Q4H as needed for nausea 10/12/2019 No Stop Date Active Lunesta 3 mg tablet RxNorm: 109674 TAKE ONE TABLET BY M OUTH AT BEDTIME NEEDED FOR SLEEP 09/02/2018 09/08/2018 Inactive Lunesta 3 mg tablet RxNorm: 170561 TAKE ONE TABLET BY M OUTH AT BEDTIME NEEDED FOR SLEEP 08/30/2018 04/12/2019 Inactive Lunesta 3 mg tablet RxNorm: 199676 TAKE ONE TABLET BY M OUTH EVERY NIGHT AT BEDTIME NEEDED FOR SLEEP 06/07/2018 09/02/2018 Inactive Lunesta 3 mg tablet RxNorm: 229213 TAKE ONE TABLET BY M OUTH EVERY NIGHT AT BEDTIME NEEDED SLEEP 04/13/2018 06/07/2018 Inactive Lunesta 3 mg tablet RxNorm: 358598 TAKE ONE TABLET BY M OUTH AT BEDTIME NEEDED FOR SLEEP 02/17/2018 04/13/2018 Inactive Generic For:LUNE STA 3MG TAB 02/17/2018 12:36:41 PM doxycycline hyclate 100 mg capsule RxNorm: 7303387 1 Capsule(s) PO BID 02/12/2018 02/25/2018 Inactive Lunesta 3 mg tablet RxNorm: 612238 Tablet(s) TAKE ONE T ABLET BY MOUTH AT BEDTIME NEEDED FOR SLEEP 12/29/2017 02/18/2018 Inactive Generic For: LUNESTA 3MG TAB 11/25/2017 1:41:28 PM 12/01/2017 10:00:01 AM Lunesta 3 mg tablet RxNorm: 423648 Tablet(s) TAKE ONE T ABLET BY MOUTH AT BEDTIME NEEDED FOR SLEEP 12/24/2017 12/29/2017 Inactive Generic For: LUNESTA 3MG TAB 11/25/2017 1:41:28 PM 12/01/2017 10:00:01 AM Lunesta 3 mg tablet RxNorm: 836532 TAKE ONE TABLET BY M OUTH AT BEDTIME NEEDED FOR SLEEP 12/03/2017 03/01/2018 Inactive Generic For:LUNE STA 3MG TAB 11/25/2017 1:41:28 PM 12/01/2017 10:00:01 AM Lunesta 3 mg tablet RxNorm: 417713 TAKE ONE TABLET BY M OUTH AT BEDTIME NEEDED FOR SLEEP 11/27/2017 04/12/2019 Inactive Generic For:LUNE STA 3MG TAB 11/27/2017 9:30:03 AM11/25/2017 1:41:28 PM Lunesta 3 mg tablet RxNorm: 303344 1 Tablet(s) PO QHS as needed for sleep 09/17/2017 11/27/2017 Inactive cyclobenzaprine 10 mg tablet RxNorm: 830096 1 Tablet(s) PO BID as needed 09/16/2017 04/12/2019 Inactive Lunesta 3 mg tablet RxNorm: 892822 1 Tablet(s) PO QHS as needed for sleep 08/26/2017 09/16/2017 Inactive Levaquin 500 mg tablet RxNorm: 870999 1 Tablet(s) PO QD 08/06/2017 Inactive prednisone 20 mg tablet RxNorm: 037609 2 Tablet(s) PO QD 08/06/2017 0 08/10/2017 Inactive Lunesta 3 mg tablet RxNorm: 326666 TAKE ONE TABLET BY M OUTH AT BEDTIME NEEDED 06/15/2017 07/14/2017 Inactive Lunesta 3 mg tablet RxNorm: 993933 1 Tablet(s) PO QHS as needed 06/15/2017 Inactive Lexapro 10 mg tablet RxNorm: 199023 1 Tablet(s) PO QD 07/01/201602/03 Inactive Lexapro 20 mg tablet RxNorm: 187490 1 Tablet(s) PO QD 02/14/201602/03 Inactive Lexapro 10 mg tablet RxNorm: 701559 1 Tablet(s) PO QD 01/15/201602/03 Inactive Cipro 500 mg tablet RxNorm: 708273 1 Tablet(s) PO BID 03/08/201403/2014 Inactive Flexeril 10 mg tablet RxNorm: 915281 Tablet(s) PO TAKE 1 TABLET BY MOUTH EACH NIGHT AT BEDTIME FOR SPASM 09/20/2012 01/14/2016 Inactive Gener ic For:FLEXERIL 10 MG TAB Flexeril 10 mg tablet RxNorm: 700039 1 Tablet(s) PO QHS for spasm 0 07/12/2012 08/10/2012 Inactive Mobic 15 mg tablet RxNorm: 086316 1 Tablet(s) PO QAM for pain 04/1505/14/2012 Inactive Flexeril 10 mg tablet RxNorm: 730737 1 Tablet(s) PO QHS for spasm 1 07/12/2012 Inactive Mobic 15 mg tablet RxNorm: 739480 1 Tablet(s) PO QAM for pain 03/1804/14/2012 Inactive Tylenol Extra Strength 500 mg tablet RxNorm: 964422 Tablet(s) P O as needed No Start Date Active ProAir HFA 90 mcg/Actuation Aerosol Inhaler RxNorm: 335328 2 Puff(s) INH PRN 2 puffs every 4 hrs as needed for wheezing. No Start Date 03/17/2012 Inacti ve azithromycin 250 mg Tab RxNorm: 717945 2 Tablet(s) PO Q D take 2 tablets (500 mg) by oral route once daily for 1 day then 1 tablet (250 mg) by oral route once daily for 4 days No Start Date 03/17/2012 Inactive Flexeril 10 mg tablet RxNorm: 061662 1 Tablet(s) PO QHS for spasm N o Start Date 04/14/2012 Inactive Lunesta 3 mg tablet RxNorm: 866533 1 Tablet(s) PO QHS as needed No Start Date 03/18/2017 Inactive Tussionex Pennkinetic ER 8 mg-10 mg/5 mL susp,extended relea se RxNorm: 1895434 PO No Start Date 07/23/2011 Inactive Medication Administered No Medication Administered data Immunizations No Immunization data Results No Results data Procedures Procedure Codes Date INFLUENZA ASSAY W/OPTIC CPT-4: 60645 08/15/2016 URINALYSIS NONAUTO W/O SCOPE CPT-4: 98260 01/31/2015 URINALYSIS NONAUTO W/O SCOPE CPT-4: 72645 03/13/2014 URINE CULTURE/ COLONY COUNT CPT-4: 09971 03/08/2014 URINALYSIS NONAUTO W/O SCOPE CPT-4: 62572 03/08/2014 THER/PROPH/DIAG INJ SC/IM CPT-4: 43953 01/11/2013 METHYLPREDNISOLONE 40 MG INJ CPT-4: J1030 01/11/2013 TRIAMCINOLONE ACET INJ NOS CPT-4: J3301 01/11/2013 Vital Signs Date Vital 11/30/2019 Blood Pressure 1: 116/70 Code: 8480-6 [...] 1: 132/84 Code: 8480-6 BMI: 24.3 Code: 76726-7 Heart Rate 1: 100 bpm Height: 5'8" Respiratory Rate: 20 bpm SpO2: 96% Tempera ture: 36.8 (C) / 98.2 (F) Weight: 160 lbs 08/06/2017 Blood Pressure 1: 126/82 Code: 8480-6 BMI: 24.2 Code: 51195-0 Heart Rate 1: 92 bpm Height: 5'8" Respiratory Rate: 22 bpm SpO2: 96% Tempera ture: 36.4 (C) / 97.6 (F) Weight: 159 lbs 02/16/2017 Blood Pressure 1: 118/64 Code: 8480-6 BMI: 24.3 Code: 20340-1 Heart Rate 1: 84 bpm Height: 5'8" [...] 1: 124/82 Code: 8480-6 BMI: 22.7 Code: 79419-5 Heart Rate 1: 102 bpm Height: 5'8" Respiratory Rate: 24 bpm SpO2: 98% Tempera ture: 36.6 (C) / 97.8 (F) Weight: 149 lbs 01/15/2016 Blood Pressure 1: 142/78 Code: 8480-6 BMI: 22.6 Code: 17834-5 Heart Rate 1: 82 bpm Height: 5'8" Respiratory Rate: 20 bpm SpO2: 97% Tempera ture: 36.6 (C) / 97.8 (F) Weight: 151 lbs 01/31/2015 Blood Pressure 1: 122/82 Code: 8480-6 BMI: 21.9 Code: 50783-4 Heart Rate 1: 78 bpm Height: 5'7" Respiratory Rate: 22 bpm Temperature: 36 .7 (C) / 98.0 (F) Weight: 140 lbs 03/13/2014 Blood Pressure 1: 122/84 Code: 8480-6 BMI: 20.2 Code: 52053-7 Heart Rate 1: 68 bpm Height: 5'7" Respiratory Rate: 20 bpm Temperature: 36 .4 (C) / 97.5 (F) Weight: 129 lbs 03/08/2014 Blood Pressure 1: 102/60 Code: 8480-6 BMI: 20.2 Code: 48530-5 Heart Rate 1: 82 bpm Height: 5'7" Respiratory Rate: 20 bpm Temperature: 36 .6 (C) / 97.8 (F) Weight: 129 lbs 04/15/2012 Blood Pressure 1: 116/70 Code: 8480-6 BMI: 21.0 Code: 60953-4 Heart Rate 1: 92 bpm Height: 5'7" Respiratory Rate: 20 bpm Temperature: 37 .0 (C) / 98.6 (F) Weight: 134 lbs 04/01/2012 Blood Pressure 1: 116/70 Code: 8480-6 BMI: 21.0 Code: 83991-2 Heart Rate 1: 76 bpm Height: 5'7" Respiratory Rate: 20 bpm Temperature: 36 .6 (C) / 97.8 (F) Weight: 134 lbs 03/18/2012 Blood Pressure 1: 136/80 Code: 8480-6 BMI: 21.0 Code: 52432-2 Heart Rate 1: 84 bpm Height: 5'7" Respiratory Rate: 20 bpm Temperature: 36 .7 (C) / 98.1 (F) Weight: 134 lbs 02/05/2011 Blood Pressure 1: 124/70 Code: 8480-6 BMI: 20.4 Code: 58970-6 Heart Rate 1: 70 bpm Height: 5'7" Temperature: 36.4 (C) / 97.6 (F) Weight: 130 lbs 07/11/2010 Blood Pressure 1: 106/60 Code: 8480-6 Heart Rate 1: 92 bpm Respiratory Rate: 18 bpm SpO2: 96% Temperature: 36.9 (C) / 98.5 (F) We ight: 127 lbs 05/08/2010 Blood Pressure 1: 116/68 Code: 8480-6 BMI: 19.3 Code: 01174-3 Heart Rate 1: 68 bpm Height: 5'7" Temperature: 36.8 (C) / 98.3 (F) Weight: 123 lbs Functional Status No Functional Status data Reason For Visit Reason For Visit Effective Dates Notes abdominal pain 01/19/2020 abdominal pain 11/30/2019 follow up 10/12/2019 ER fwup well man exam (18-39 years) 04/13/2019 follow up 01/29/2018 Hosp fwup back pain 09/16/2017 headache 08/06/2017 Patient was seen 1 w [place] ago for left inner ear infection and [...] basketball Encounters Encounter Performer Location Codes Date ([id number]) OFFICE/OUTPATIENT VISIT EST Diagnosis: Gastroenteritis[ICD10: K52.9] Diagnosis: Febrile illness[ICD10: R50.9] Madhavi Alanying HAWLEY CarylZuleyka ORENDER DO [facility] CPT-4: 07024 01/19/2020 ([id number]) OFFICE/OUTPATIENT VISIT EST Diagnosis: Diarrhea[ICD10: R19.7] Diagnosis: Mesenteric lymphadenitis[ICD10: I88.0] Madhavilindsey ABRAHAM SZuleyka ORENDER DO [facility] CPT-4: 97018 11/30/2019 ([id number]) OFFICE/OUTPATIENT VISIT EST Diagnosis: Mesenteric lymphadenitis[ICD10: I88.0] Madhavi Peralta [facility] CPT-4: 25620 10/12/2019 ([id number]) PREV VISIT EST AGE 18-39 Diagnosis: Encounter for general adult medical examination without abnormal findings[ICD10: Z00.00] Madhavi Alanconnerchel MADHAVI SZuleyka ORENDER DO [facility] CPT-4: 42997 04/13/2019 ([id number]) OFFICE/OUTPATIENT VISIT EST 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 O RENDER DO [facility] CPT-4: 49091 09/16/2017 OFFICE/OUTPATIENT VISIT EST Diagnosis: Otitis media, unspecified, left ear[ICD10: H66.92] Helen Mendez MADHAVI S. ORENDER DO [facility] CPT-4: 09093 08/06/2017 ([id number]) OFFICE/OUTPATIENT VISIT EST Diagnosis: Insomnia, unspecified[ICD10: G47.00] Madhavi QUISPE S. ORENDER DO [facility] CPT-4: 58774 02/16/2017 ([id number]) OFFICE/OUTPATIENT VISIT EST Diagnosis: Fever, unspecified[ICD10: R50.9] Diagnosis: Myalgia[ICD10: M79.1] Diagnosis: Jaw pain[ICD10: R68.84] Giuseppe SCOTT [facility] CPT-4: 02273 08/15/2016 ([id number]) NO CHARGE Diagnosis: Adjustment disorder with mixed anxiety and depressed mood[ICD10: F43.23] Giuseppe SCOTT [facility] CPT-4: 70390 ([id number]) OFFICE/OUTPATIENT VISIT EST Diagnosis: Adjustment disorder with mixed anxiety and depressed mood[ICD10: F43.23] Diagnosis: Other specified diseases of intestine[ICD10: K63.89] Giuseppe SCOTT [facility] CPT-4: 53634 02/14/2016 ([id number]) OFFICE/OUTPATIENT VISIT EST Diagnosis: Major depressive disorder, single episode, unspecified[ICD10: F32.9] Diagnosis: Insomnia, unspecified[ICD10: G47.00] Diagnosis: Other fatigue[ICD10: R53.83] Giuseppe VALLECILLOLINE Faith SCOTT [facility] CPT-4: 95962 01/15/2016 OFFICE/OUTPATIENT VISIT EST Diagnosis: CEPHALGIA[ICD9: 784.0] Diagnosis: Mild dehydration[ICD9: 276.51] Alanis OrozcoRah MADHAVI Caryl SCOTT [employer] [facility] CPT-4: 74496 01/31/2015 OFFICE/OUTPATIENT VISIT EST Diagnosis: Mild dehydration[ICD9: 276.51] Alanis HAWLEY Caryl SCOTT [facility] CPT-4: 53414 03/13/2014 OFFICE/OUTPATIENT VISIT EST Diagnosis: Nausea, vomiting and diarrhea[ICD9: 787.91] Diagnosis: Mild dehydration[ICD9: 276.51] Diagnosis: URINARY TRACT INFECTION[ICD9: 599.0] Alanis QUISPE Faith SCOTT [facility] CPT-4: 11298 03/08/2014 ([id number]) OFFICE/OUTPATIENT VISIT EST Diagnosis: Poison elizabeth dermatitis[ICD9: 692.6] Madhavi DE LA TORREER [employer] CPT-4: 54944 01/11/2013 ([id number]) OFFICE/OUTPATIENT VISIT EST Diagnosis: PAIN, LOWER BACK[ICD9: 724.2] Diagnosis: SPASM OF MUSCLE[ICD9: 728.85] Madhavi BALLNDER DO [employer] CPT-4: 62001 04/15/2012 ([id number]) OFFICE/OUTPATIENT VISIT EST Diagnosis: PAIN, LOWER BACK[ICD9: 724.2] Madhavi BALLNDER [facility] CPT-4: 23746 04/01/2012 ([id number]) OFFICE/OUTPATIENT VISIT EST Diagnosis: PAIN, LOWER BACK[ICD9: 724.2] Diagnosis: SPASM OF MUSCLE[ICD9: 728.85] Madhavi BALLNDER DO [employer] CPT-4: 71244 03/18/2012 OFFICE/OUTPATIENT VISIT EST Madhavi BALL NDEFranco DO [employer] CPT- 4: 04657 02/05/2011 ([id number]) OFFICE/OUTPATIENT VISIT, EST Madhavi DE LA TORREER DO [employer] CPT-4: 41018 07/11/2010 ([id number]) PREV VISIT, EST, AGE 12-17 Madhavi DE LA TORREER DO [employer] CPT-4: 80362 05/08/2010 Plan of Care Planned Activity Notes Codes Status Date Visit Diagnosis Plan: Febrile illness Discussion: Go t o [facility] or HD for COVID testing Quarantine ICD-9 : 780.60 ICD-10 : R50.9 01/19/2020 Visit Diagnosis Plan: Gastroenteritis Discussion: Alondra owen Cover with flagyl due to history To ER if worsening this weekend ICD-9 : 558.9 ICD-10 : K52.9 01/19/2020 Appointment[facility] Mad[facility] [phone] [facility] [facility] 01/19/2020 Visit Diagnosis Plan: Diarrhea Discussion: Flagyl Bgn alvino Diet Notify if persists ICD-9 : 787.91 ICD-10 : R19.7 11/30/2019 Visit Diagnosis Plan: Mesenteric lymphadenitis Discuss ion: Notify if worsening ICD-9 : 289.2 ICD-10 : I88.0 11/30/2019 Appointment: Madhavi Scott WPtel: [address] [place] [address] ACUTE ILLNESS 11/30/2019 Patient Education: Lunesta- [employer] Coupon [id number] https://www.[employer]/resources/getResource/61/[email or web address] Completed 11/30/2019 Visit Diagnosis Plan: Mesenteric lymphadenitis Discuss ion: Looked at ER records from last night and CT scan results reviewed Supportive care with clear liquids, zofran prn, tylenol prn Notify if worsens or persists No work for rest of week ICD-9 : 289.2 ICD-10 : I88.0 10/12/2019 Appointment: Madhavi Scott WPtel: [address] [place] [address] TELEMEDICINE 10/12/2019 Patient Education: ondansetron- [employer] Coupon [phone] https://www.[employer]/resources/getResource/61/[email or web address] Completed 10/12/2019 Visit Diagnosis Plan: Encounter for [facility] adult medical examination without abnormal findings Discussion: Patient planning on going in to [facility] His PCN allergy was when he was a child and was a rash from amoxicillin--he has no history of anaphylactic reactions His left testicle is a hydrocele which was checked by urology in 2007 and determined to be a benign hydrocele and recommendation was observation--no treatment needed ICD-9 : V70.0 ICD-10 : Z00.00 04/13/2019 Appointment: Madhavi Scott WPtel: [facility] [address] fwup instead of annual cause of no [...] : A77.41 01/29/2018 Appointment: Madhavi [facility]el[facility] [phone] [id number] [facility] Follow Up 01/29/2018 Patient Education: Patient [...] ICD-10 : M54.5 09/16/2017 Appointment: Helen Mendez [address] [place] [address] ACUTE ILLNESS 09/16/2017 Patient Education: Patient Medication Summary Completed 09/16/2017 Care Plan: X-RAY EXAM L-S SPINE 2/3 VWS LOINC : 71504-7 Pending 09/16/2017 Visit Diagnosis Plan: Otitis media, [...] ICD-10 : H66.92 08/06/2017 Appointment: Helen Mendez [address] [facility] ACUTE ILLNESS 08/06/2017 Patient Education: Patient Medication Summary Completed 08/06/2017 Visit Diagnosis Plan: Insomnia, unspecified Discussion : Sleep hygiene Trial of Lunesta 3mg q HS Call in 2 weeks if working ICD-9 : 780.52 ICD-10 : G47.00 02/16/2017 Appointment: Madhavi Scott [facility]Ptel[facility] [phone] [facility] [facility] 02/16/2017 Patient Education: Patient Medication Summary Completed 02/16/2017 Visit Diagnosis Plan: Fever, unspecified Discussion: F bing is negative Patient is concerned with mumps - per mom he has had his vaccines and there has been no contact with confirmed mumps Called and discussed with infectious disease control nurse at [address] who contacted [facility]. With his symptoms, it was recommended to test. Patient and orders sent to for further testing. Mask placed on patient and he is instructed to leave on. ICD-9 : 780.60 ICD-10 : R50.9 08/15/2016 Appointment: Giuseppe Jordan [address] [place], [place] [address] ACUTE ILLNESS 08/15/2016 Patient Education: Patient Medication [...] month follow up 02/20/2016 Appointment: Giuseppe Jordan [address] [place] [address] 02/18 confirmed~sl 02/18 patients appt was canceled. 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 Work on being active and outside Limit caffeine after noon No screen time within 1-2 hours before bed Labs to evaluate fatigue - cbc, cmp, tsh, testosterone and b12 Recheck in 1 month - will adjust lexapro and/or add sleep aid if needed 01/15/2016 Appointment: Giuseppe Jordan [address] [place] [address] ACUTE ILLNESS 01/15/2016 Patient Education: Patient Medication Summary Completed 01/15/2016 Appointment: Madhavi Scott WPtel: [address] [place] [address] 04/06 mother schedule 04/09 lm with ana laura ent and spoke with mother she forgot to call and cancel ACUTE ILLNESS 04/09/2015 Visit Plan: Push fluids of the next 4 da ys - >4 liters/day Avoid heat exposure for next 24 hours. No work tomorrow. Tylenol Extra Strength - 2 caps every 4 hours 01/31/2015 Appointment: Alanis Redman WPtel: [address] [place] [address] ACUTE ILLNESS 01/31/2015 Patient Education: Patient Medication Summary Completed 01/31/2015 Appointment: Alanis Redman WPtel: [address] [place], [place] [phone] 03/10 voicemail FOLLOW UP 03/13/2014 Patient Education: Patient Medication Summary Completed 03/13/2014 Appointment: Alanis Redman WPtel: [address] [place], [place] [phone] ACUTE ILLNESS 03/08/2014 Patient Education: Patient Medication Summary Completed 03/08/2014 Appointment: Madhavi Scott WPtel: [address] [place], [place] [phone] [place] INJECTION 01/11/2013 Patient Education: Patient Medication Summary Completed 01/11/2013 Visit Plan: Continue daily stretches Use flexeril, mobic for 1wk then prn 04/15/2012 Appointment: Madhavi Scott WPtel: [address] [place], [place] [phone] 04/14 FOLLOW UP 04/15/2012 Patient Education: Patient Medication Summary Completed 04/15/2012 Visit Plan: OMT done Continue flexeril, mobic 04/01/2012 Appointment: Madhavi Scott WPtel: [address] [place] [address] FOLLOW UP 04/01/2012 Patient Education: Patient Medication Summary Completed 04/01/2012 Visit Plan: OMT done Daily stretches Mob ic and flexeril Recheck in 2wks 03/18/2012 Appointment: Madhavi Scott WPtel: [address] [place] [address] vm on mom phone OMT 03/18/2012 Patient [...] issue resolves. 02/05/2011 Appointment: Bailee Reyes WPtel: [address] [place] [address] ACUTE ILLNESS 02/05/2011 Patient Education: Patient Medication Summary Completed 02/05/2011 Visit Plan: Azithromycin. ProAir refil. Pt. will notify if no improvement in symptoms. 07/11/2010 Appointment: Bailee Reyes WPtel: [address] [place] [address] ACUTE ILLNESS 07/11/2010 Patient Education: Patient Medication Summary Completed 07/11/2010 Visit Plan: Annual exam. 05/08/2010 Appointment: Bailee Reyes WPtel: [address] [place] [address] SPORTS PHYSICAL 05/08/2010 Patient Education: Patient Medication [...] SI/HI . 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 Zafuta for evaluation. Bilateral knee pain after helping [...]
--- OUTSIDE RECORDS SUMMARY | 2020-02-17 13:22 | XMS REPORT | CCD ---
Author Author Jesus Scott D.O. Organization MADHAVI SCOTT DO [facility] Address [address] [place] [address] Phone Care Team Providers Care Window Shade Installer Name Role Phone Madhavi Scott D.O., PP Unavailable CCM Unavailable Summary Purpose Interface Exchange Family History Family History data not found Social History Social History Element Codes Description Effective Dates Tobacco history SNOMED CT: 460239895 Nonsmoker 02/05/2011 Allergies, Adverse Reactions, Alerts Substance [...] Fill Instructions Lunesta 3 mg tablet RxNorm: 065635 TAKE ONE TABLET BY M OUTH AT BEDTIME NEEDED FOR SLEEP 1 Tablet(s) Oral QPM as needed for sleep 02/07/2020 04/06/2020 Active Flagyl 500 mg tablet RxNorm: 735326 1 Tablet(s) Oral three time s a day 01/19/2020 01/26/2020 Inactive Lunesta 3 mg tablet RxNorm: 233866 TAKE ONE TABLET BY M OUTH AT BEDTIME NEEDED FOR SLEEP 1 Tablet(s) Oral QPM as needed for sleep 11/30/2019 0 Inactive Flagyl 500 mg tablet RxNorm: 234704 1 Tablet(s) Oral three time s a day 11/30/2019 12/07/2019 Inactive ondansetron 4 mg disintegrating tablet RxNorm: 070672 1 Tablet(s) Oral Q4H as needed for nausea 10/12/2019 No Stop Date Active Lunesta 3 mg tablet RxNorm: 209105 TAKE ONE TABLET BY M OUTH AT BEDTIME NEEDED FOR SLEEP 09/02/2018 09/08/2018 Inactive Lunesta 3 mg tablet RxNorm: 405196 TAKE ONE TABLET BY M OUTH AT BEDTIME NEEDED FOR SLEEP 08/30/2018 04/12/2019 Inactive Lunesta 3 mg tablet RxNorm: 780103 TAKE ONE TABLET BY M OUTH EVERY NIGHT AT BEDTIME NEEDED FOR SLEEP 06/07/2018 09/02/2018 Inactive Lunesta 3 mg tablet RxNorm: 374585 TAKE ONE TABLET BY M OUTH EVERY NIGHT AT BEDTIME NEEDED SLEEP 04/13/2018 06/07/2018 Inactive Lunesta 3 mg tablet RxNorm: 735121 TAKE ONE TABLET BY M OUTH AT BEDTIME NEEDED FOR SLEEP 02/17/2018 04/13/2018 Inactive Generic For:LUNE STA 3MG TAB 02/17/2018 12:36:41 PM doxycycline hyclate 100 mg capsule RxNorm: 3381369 1 Capsule(s) PO BID 02/12/2018 02/25/2018 Inactive Lunesta 3 mg tablet RxNorm: 559813 Tablet(s) TAKE ONE T ABLET BY MOUTH AT BEDTIME NEEDED FOR SLEEP 12/29/2017 02/18/2018 Inactive Generic For: LUNESTA 3MG TAB 11/25/2017 1:41:28 PM 12/01/2017 10:00:01 AM Lunesta 3 mg tablet RxNorm: 403680 Tablet(s) TAKE ONE T ABLET BY MOUTH AT BEDTIME NEEDED FOR SLEEP 12/24/2017 12/29/2017 Inactive Generic For: LUNESTA 3MG TAB 11/25/2017 1:41:28 PM 12/01/2017 10:00:01 AM Lunesta 3 mg tablet RxNorm: 567040 TAKE ONE TABLET BY M OUTH AT BEDTIME NEEDED FOR SLEEP 12/03/2017 03/01/2018 Inactive Generic For:LUNE STA 3MG TAB 11/25/2017 1:41:28 PM 12/01/2017 10:00:01 AM Lunesta 3 mg tablet RxNorm: 996341 TAKE ONE TABLET BY M OUTH AT BEDTIME NEEDED FOR SLEEP 11/27/2017 04/12/2019 Inactive Generic For:LUNE STA 3MG TAB 11/27/2017 9:30:03 AM11/25/2017 1:41:28 PM Lunesta 3 mg tablet RxNorm: 623932 1 Tablet(s) PO QHS as needed for sleep 09/17/2017 11/27/2017 Inactive cyclobenzaprine 10 mg tablet RxNorm: 299144 1 Tablet(s) PO BID as needed 09/16/2017 04/12/2019 Inactive Lunesta 3 mg tablet RxNorm: 130017 1 Tablet(s) PO QHS as needed for sleep 08/26/2017 09/16/2017 Inactive Levaquin 500 mg tablet RxNorm: 681674 1 Tablet(s) PO QD 08/06/2017 Inactive prednisone 20 mg tablet RxNorm: 808588 2 Tablet(s) PO QD 08/06/2017 0 08/10/2017 Inactive Lunesta 3 mg tablet RxNorm: 680674 TAKE ONE TABLET BY M OUTH AT BEDTIME NEEDED 06/15/2017 07/14/2017 Inactive Lunesta 3 mg tablet RxNorm: 662923 1 Tablet(s) PO QHS as needed 06/15/2017 Inactive Lexapro 10 mg tablet RxNorm: 076387 1 Tablet(s) PO QD 07/01/201602/03 Inactive Lexapro 20 mg tablet RxNorm: 643722 1 Tablet(s) PO QD 02/14/201602/03 Inactive Lexapro 10 mg tablet RxNorm: 620162 1 Tablet(s) PO QD 01/15/201602/03 Inactive Cipro 500 mg tablet RxNorm: 852785 1 Tablet(s) PO BID 03/08/201403/2014 Inactive Flexeril 10 mg tablet RxNorm: 713434 Tablet(s) PO TAKE 1 TABLET BY MOUTH EACH NIGHT AT BEDTIME FOR SPASM 09/20/2012 01/14/2016 Inactive Gener ic For:FLEXERIL 10 MG TAB Flexeril 10 mg tablet RxNorm: 556640 1 Tablet(s) PO QHS for spasm 0 07/12/2012 08/10/2012 Inactive Mobic 15 mg tablet RxNorm: 555805 1 Tablet(s) PO QAM for pain 04/1505/14/2012 Inactive Flexeril 10 mg tablet RxNorm: 600049 1 Tablet(s) PO QHS for spasm 1 07/12/2012 Inactive Mobic 15 mg tablet RxNorm: 677871 1 Tablet(s) PO QAM for pain 03/1804/14/2012 Inactive Tylenol Extra Strength 500 mg tablet RxNorm: 412222 Tablet(s) P O as needed No Start Date Active ProAir HFA 90 mcg/Actuation Aerosol Inhaler RxNorm: 859167 2 Puff(s) INH PRN 2 puffs every 4 hrs as needed for wheezing. No Start Date 03/17/2012 Inacti ve azithromycin 250 mg Tab RxNorm: 883789 2 Tablet(s) PO Q D take 2 tablets (500 mg) by oral route once daily for 1 day then 1 tablet (250 mg) by oral route once daily for 4 days No Start Date 03/17/2012 Inactive Flexeril 10 mg tablet RxNorm: 201224 1 Tablet(s) PO QHS for spasm N o Start Date 04/14/2012 Inactive Lunesta 3 mg tablet RxNorm: 831021 1 Tablet(s) PO QHS as needed No Start Date 03/18/2017 Inactive Tussionex Pennkinetic ER 8 mg-10 mg/5 mL susp,extended relea se RxNorm: 9496644 PO No Start Date 07/23/2011 Inactive Medication Administered No Medication Administered data Immunizations No Immunization data Results No Results data Procedures Procedure Codes Date INFLUENZA ASSAY W/OPTIC CPT-4: 98628 08/15/2016 URINALYSIS NONAUTO W/O SCOPE CPT-4: 51068 01/31/2015 URINALYSIS NONAUTO W/O SCOPE CPT-4: 77578 03/13/2014 URINE CULTURE/ COLONY COUNT CPT-4: 64881 03/08/2014 URINALYSIS NONAUTO W/O SCOPE CPT-4: 62482 03/08/2014 THER/PROPH/DIAG INJ SC/IM CPT-4: 78673 01/11/2013 METHYLPREDNISOLONE 40 MG INJ CPT-4: J1030 [...] 1: 132/84 Code: 8480-6 BMI: 24.3 Code: 06022-5 Heart Rate 1: 100 bpm Height: 5'8" Respiratory Rate: 20 bpm SpO2: 96% Tempera ture: 36.8 (C) / 98.2 (F) Weight: 160 lbs 08/06/2017 Blood Pressure 1: 126/82 Code: 8480-6 BMI: 24.2 Code: 02983-7 Heart Rate 1: 92 bpm Height: 5'8" Respiratory Rate: 22 bpm SpO2: 96% Tempera ture: 36.4 (C) / 97.6 (F) Weight: 159 lbs 02/16/2017 Blood Pressure 1: 118/64 Code: 8480-6 BMI: 24.3 Code: 72888-9 Heart Rate 1: 84 bpm Height: 5'8" [...] 1: 124/82 Code: 8480-6 BMI: 22.7 Code: 33051-7 Heart Rate 1: 102 bpm Height: 5'8" Respiratory Rate: 24 bpm SpO2: 98% Tempera ture: 36.6 (C) / 97.8 (F) Weight: 149 lbs 01/15/2016 Blood Pressure 1: 142/78 Code: 8480-6 BMI: 22.6 Code: 79148-4 Heart Rate 1: 82 bpm Height: 5'8" Respiratory Rate: 20 bpm SpO2: 97% Tempera ture: 36.6 (C) / 97.8 (F) Weight: 151 lbs 01/31/2015 Blood Pressure 1: 122/82 Code: 8480-6 BMI: 21.9 Code: 95792-4 Heart Rate 1: 78 bpm Height: 5'7" Respiratory Rate: 22 bpm Temperature: 36 .7 (C) / 98.0 (F) Weight: 140 lbs 03/13/2014 Blood Pressure 1: 122/84 Code: 8480-6 BMI: 20.2 Code: 65470-6 Heart Rate 1: 68 bpm Height: 5'7" Respiratory Rate: 20 bpm Temperature: 36 .4 (C) / 97.5 (F) Weight: 129 lbs 03/08/2014 Blood Pressure 1: 102/60 Code: 8480-6 BMI: 20.2 Code: 92708-4 Heart Rate 1: 82 bpm Height: 5'7" Respiratory Rate: 20 bpm Temperature: 36 .6 (C) / 97.8 (F) Weight: 129 lbs 04/15/2012 Blood Pressure 1: 116/70 Code: 8480-6 BMI: 21.0 Code: 11335-1 Heart Rate 1: 92 bpm Height: 5'7" Respiratory Rate: 20 bpm Temperature: 37 .0 (C) / 98.6 (F) Weight: 134 lbs 04/01/2012 Blood Pressure 1: 116/70 Code: 8480-6 BMI: 21.0 Code: 34714-9 Heart Rate 1: 76 bpm Height: 5'7" Respiratory Rate: 20 bpm Temperature: 36 .6 (C) / 97.8 (F) Weight: 134 lbs 03/18/2012 Blood Pressure 1: 136/80 Code: 8480-6 BMI: 21.0 Code: 29785-7 Heart Rate 1: 84 bpm Height: 5'7" Respiratory Rate: 20 bpm Temperature: 36 .7 (C) / 98.1 (F) Weight: 134 lbs 02/05/2011 Blood Pressure 1: 124/70 Code: 8480-6 BMI: 20.4 Code: 07045-9 Heart Rate 1: 70 bpm Height: 5'7" Temperature: 36.4 (C) / 97.6 (F) Weight: 130 lbs 07/11/2010 Blood Pressure 1: 106/60 Code: 8480-6 Heart Rate 1: 92 bpm Respiratory Rate: 18 bpm SpO2: 96% Temperature: 36.9 (C) / 98.5 (F) We ight: 127 lbs 05/08/2010 Blood Pressure 1: 116/68 Code: 8480-6 BMI: 19.3 Code: 90361-9 Heart Rate 1: 68 bpm Height: 5'7" [...] headache 08/06/2017 Patient was seen 1 w ione ago for left inner ear infection and [...] basketball Encounters Encounter Performer Location Codes Date ([id number]) OFFICE/OUTPATIENT VISIT EST Diagnosis: Right lower quadrant pain[ICD10: R10.31] Diagnosis: Dizziness[ICD10: R42] Diagnosis: Blurry vision[ICD10: H53.8] Diagnosis: Facial swelling[ICD10: R22.0] Helen Mendez MADHAVI Cuevas [employer] CPT-4: 96726 02/17/2020 ([id number]) OFFICE/OUTPATIENT VISIT EST Diagnosis: Gastroenteritis[ICD10: K52.9] Diagnosis: Febrile illness[ICD10: R50.9] Madhavi Cuevas [employer] CPT-4: 23393 01/19/2020 ([id number]) OFFICE/OUTPATIENT VISIT EST Diagnosis: Diarrhea[ICD10: R19.7] Diagnosis: Mesenteric lymphadenitis[ICD10: I88.0] Madhavi ABRAHAM [employer] 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] [facility] CPT-4: 03518 01/29/2018 ([id number]) OFFICE/OUTPATIENT VISIT EST Diagnosis: Low back pain[ICD10: M54.5] Helen JIN [facility] CPT-4: 39661 09/16/2017 OFFICE/OUTPATIENT VISIT EST Diagnosis: Otitis media, unspecified, left ear[ICD10: H66.92] Helen SCOTT [facility] CPT-4: 89611 08/06/2017 ([id number]) OFFICE/OUTPATIENT VISIT EST Diagnosis: Insomnia, unspecified[ICD10: G47.00] [facility]havi [facility] CPT-4: 09029 02/16/2017 ([id number]) OFFICE/OUTPATIENT VISIT EST Diagnosis: Fever, unspecified[ICD10: R50.9] Diagnosis: Myalgia[ICD10: M79.1] Diagnosis: Jaw pain[ICD10: R68.84] Giuseppe [facility] CPT-4: 85983 08/15/2016 ([id number]) NO CHARGE Diagnosis: Adjustment disorder with mixed anxiety and depressed mood[ICD10: F43.23] Giuseppe [facility] CPT-4: 04238 ([id number]) OFFICE/OUTPATIENT VISIT EST Diagnosis: Adjustment disorder with mixed anxiety and depressed mood[ICD10: F43.23] Diagnosis: Other specified diseases of intestine[ICD10: K63.89] [facility]useppe [facility] CPT-4: 72867 02/14/2016 ([id number]) OFFICE/OUTPATIENT VISIT EST Diagnosis: Major depressive disorder, single episode, unspecified[ICD10: F32.9] Diagnosis: Insomnia, unspecified[ICD10: G47.00] Diagnosis: Other fatigue[ICD10: R53.83] Giuseppe SCOTT DO [facility] CPT-4: 21545 01/15/2016 OFFICE/OUTPATIENT VISIT EST Diagnosis: CEPHALGIA[ICD9: 784.0] Diagnosis: Mild dehydration[ICD9: 276.51] Alanis SCOTT DO [facility] CPT-4: 45822 01/31/2015 OFFICE/OUTPATIENT VISIT EST Diagnosis: Mild dehydration[ICD9: 276.51] Alanis SCOTT DO [facility] CPT-4: 73076 03/13/2014 OFFICE/OUTPATIENT VISIT EST Diagnosis: Nausea, vomiting and diarrhea[ICD9: 787.91] Diagnosis: Mild dehydration[ICD9: 276.51] Diagnosis: URINARY TRACT INFECTION[ICD9: 599.0] Alanis SCOTT [facility] CPT-4: 21471 03/08/2014 ([id number]) OFFICE/OUTPATIENT VISIT EST Diagnosis: Poison elizabeth dermatitis[ICD9: 692.6] Madhavilindsey HENRY Faith SCOTT [facility] CPT-4: 47862 01/11/2013 ([id number]) OFFICE/OUTPATIENT VISIT EST Diagnosis: PAIN, LOWER BACK[ICD9: 724.2] Diagnosis: SPASM OF MUSCLE[ICD9: 728.85] Madhavi Tyler VALLECILLOLINE Faith SCOTT [facility] CPT-4: 27120 04/15/2012 ([id number]) OFFICE/OUTPATIENT VISIT EST Diagnosis: PAIN, LOWER BACK[ICD9: 724.2] Madhavi Alanying MADHAVI Faith SCOTT DO [facility] CPT-4: 01011 04/01/2012 ([id number]) OFFICE/OUTPATIENT VISIT EST Diagnosis: PAIN, LOWER BACK[ICD9: 724.2] Diagnosis: SPASM OF MUSCLE[ICD9: 728.85] Madhavi MARSHALLQUELINE [employer] TYELR PAZ [facility] CPT-4: 83941 03/18/2012 OFFICE/OUTPATIENT VISIT EST Madhavi HAWLEY [employer] ALAN CRISOSTOMO [facility] CPT- 4: 52209 02/05/2011 ([id number]) OFFICE/OUTPATIENT VISIT, EST Madhavi SCOTT DO [employer] CPT-4: 03543 07/11/2010 ([id number]) PREV VISIT, EST, AGE 12-17 Madhavi SCOTT DO [employer] CPT-4: 02919 05/08/2010 Plan of Care Planned Activity Notes [...] Febrile illness Discussion: Go t o [facility] or HD for COVID testing Quarantine ICD-9 : 780.60 ICD-10 : R50.9 01/19/2020 Visit Diagnosis Plan: Gastroenteritis Discussion: Alondra naomi owen Cover with flagyl due to history To ER if worsening this weekend ICD-9 : 558.9 ICD-10 : K52.9 01/19/2020 Appointment: Madhavi Scott WPtel: [facility] [address] TELEMEDICINE 01/19/2020 Visit Diagnosis Plan: Diarrhea Discussion: Flagyl Blan d Diet Notify if persists ICD-9 : 787.91 ICD-10 : R19.7 11/30/2019 Visit Diagnosis Plan: Mesenteric lymphadenitis Discuss ion: Notify if worsening ICD-9 : 289.2 ICD-10 : I88.0 11/30/2019 Appointment: Madhavi Scott WPtel: [facility] ACUTE ILLNESS 11/30/2019 Patient Education: Lunesta- Opt[employer] Coupon [id number] [email or web address].Filecubed/built.iomd/resources/getResource/61/[email or web address]-[email or web address] Completed 11/30/2019 Visit Diagnosis Plan: Mesenteric lymphadenitis Discuss ion: Looked at ER records from last night and CT scan results reviewed Supportive care with clear liquids, zofran prn, tylenol prn Notify if worsens or persists No work for rest of week ICD-9 : 289.2 ICD-10 : I88.0 10/12/2019 Appointment: Madhavi Scott WPtel: [address] [place] [address] TELEMEDICINE 10/12/2019 Patient Education: ondansetron- [employer] Coupon [id number] https://www.VCE.Filecubed/samplemd/resources/getResource/61/ou96n96x-[email or web address] Completed 10/12/2019 Visit Diagnosis Plan: Encounter for [facility] adult medical examination without abnormal findings Discussion: Patient planning on going in to [employer] His PCN allergy was when he was a child and was a rash from amoxicillin--he has no history of anaphylactic reactions His left testicle is a hydrocele which was checked by urology in 2007 and determined to be a benign hydrocele and recommendation was observation--no treatment needed ICD-9 : V70.0 ICD-10 : Z00.00 04/13/2019 Appointment: Madhavi Scott WPtel: [address] [place] [address] fwup instead of annual cause of no [...] : A77.41 01/29/2018 Appointment: Madhavi Scott WPtel: [facility] [address] Hospital Follow Up 01/29/2018 Patient Education: [...] ICD-10 : M54.5 09/16/2017 Appointment: Helen Mendez [address] [place] [address] ACUTE ILLNESS 09/16/2017 Patient Education: Patient Medication Summary Completed 09/16/2017 Care Plan: X-RAY EXAM L-S SPINE 2/3 VWS LOINC : 08102-2 Pending 09/16/2017 Visit Diagnosis Plan: Otitis media, [...] ICD-10 : H66.92 08/06/2017 Appointment: Helen Mendez [address] [place] [address] ACUTE ILLNESS 08/06/2017 Patient Education: Patient Medication Summary Completed 08/06/2017 Visit Diagnosis Plan: Insomnia, unspecified Discussion : Sleep hygiene Trial of Lunesta 3mg q HS Call in 2 weeks if working ICD-9 : 780.52 ICD-10 : G47.00 02/16/2017 Appointment: Madhavi Scott WPtel: [address] [place] [address] ACUTE ILLNESS 02/16/2017 Patient Education: Patient Medication Summary Completed 02/16/2017 Visit Diagnosis Plan: Fever, unspecified Discussion: F bing is negative Patient is concerned with mumps - per mom he has had his vaccines and there has been no contact with confirmed mumps Called and discussed with infectious disease control nurse at [facility] who contacted [facility]. With his symptoms, it was recommended to test. Patient and orders sent to for further testing. Mask placed on patient and he is instructed to leave on. ICD-9 : 780.60 ICD-10 : R50.9 08/15/2016 Appointment: Giuseppe Jordan [address] [place] [address] ACUTE ILLNESS 08/15/2016 Patient Education: Patient Medication [...] month follow up 02/20/2016 Appointment: Giuseppe Jordan [address] [place], [place] [id number] 02/18 confirmed~sl 02/18 patients appt was canceled. [...] any SI/HI 02/14/2016 Appointment: Giuseppe Jordan Lesly [facility] 02/12lm~sl....confirmed-sp ER Follow UP 2015 Patient Education: Patient Medication Summary Completed 02/14/2016 Appointment: Madhavi Scott WPtel: [address] [place], [place] [phone] RESCHEDULED 01/30/2016 Visit Plan: Start lexapro Continue couns eling with machine puller and laster Work on being active and outside Limit caffeine after noon No screen time within 1-2 hours before bed Labs to evaluate fatigue - cbc, cmp, tsh, testosterone and b12 Recheck in 1 month - will adjust lexapro and/or add sleep aid if needed 01/15/2016 Appointment: Giuseppe Jordan [address] [place], [place] [phone] ACUTE ILLNESS 01/15/2016 Patient Education: Patient Medication Summary Completed 01/15/2016 Appointment: Madhavi Scott WPtel: [address] [place], [place] [phone] 04/06 mother schedule 04/09 lm with ana laura ent and spoke with mother she forgot to call and cancel ACUTE ILLNESS 04/09/2015 Visit Plan: Push fluids of the next 4 da ys - >4 liters/day Avoid heat exposure for next 24 hours. No work tomorrow. Tylenol Extra Strength - 2 caps every 4 hours 01/31/2015 Appointment: Alanis Redman WPtel: [address] [place] [address] ACUTE ILLNESS 01/31/2015 Patient Education: Patient Medication Summary Completed 01/31/2015 Appointment: Alanis Redman WPtel: [address] [place] [address] 03/10 voicemail FOLLOW UP 03/13/2014 Patient Education: Patient Medication Summary Completed 03/13/2014 Appointment: Alanis Redman WPtel: [address] [place] [address] ACUTE ILLNESS 03/08/2014 Patient Education: Patient Medication Summary Completed 03/08/2014 Appointment: Madhavi Scott WPtel: [address] [place] [address] INJECTION 01/11/2013 Patient Education: Patient Medication Summary Completed 01/11/2013 Visit Plan: Continue daily stretches Use flexeril, mobic for 1wk then prn 04/15/2012 Appointment: Madhavi cSott WPtel: [address] [place] [address] 04/14 FOLLOW UP 04/15/2012 Patient Education: Patient Medication Summary Completed 04/15/2012 Visit Plan: OMT done Continue flexeril, mobic 04/01/2012 Appointment: Madhavi Scott WPtel: [address] [place] [address] FOLLOW UP 04/01/2012 Patient Education: Patient Medication Summary Completed 04/01/2012 Visit Plan: OMT done Daily stretches Mob ic and flexeril Recheck in 2wks 03/18/2012 [facility]ment: [facility]el[facility] [phone] [facility] [facility] on mom phone OMT 03/18/2012 Patient [...] issue resolves. 02/05/2011 Appointment: Bailee Reyes WPtel: [address] [place], [place] [phone] ACUTE ILLNESS 02/05/2011 Patient Education: Patient Medication Summary Completed 02/05/2011 Visit Plan: Azithromycin. ProAir refil. Pt. will notify if no improvement in symptoms. 07/11/2010 Appointment: Bailee Reyes WPtel: [address] [place], [place] [phone] ACUTE ILLNESS 07/11/2010 Patient Education: Patient Medication Summary Completed 07/11/2010 Visit Plan: Annual exam. 05/08/2010 Appointment: Bailee Reyes WPtel: [address] [place], [place] [phone] SPORTS PHYSICAL 05/08/2010 Patient Education: Patient Medication [...] SI/HI . Start lexapro Continue counseling with machine puller and laster Work on being active and outside Limit [...]
--- OUTSIDE RECORDS SUMMARY | 2020-02-17 13:22 | XMS REPORT | CCD ---
Author Author Jesus Scott D.O. Organization MADHAVI SCOTT DO [facility] Address [address] [place] [address] Phone Care Team Providers Care Vp Rheumatology Name Role Phone Madhavi Scott D.O., PP Unavailable CCM Unavailable Summary Purpose Interface Exchange Family History Family History data not found Social History Social History Element Codes Description Effective Dates Tobacco history SNOMED CT: 935752162 Nonsmoker 02/05/2011 Allergies, Adverse Reactions, Alerts Substance [...] Start Date Stop Date Status Fill Instructions Flagyl 500 mg tablet RxNorm: 363044 1 Tablet(s) Oral three time s a day 01/19/2020 01/26/2020 Active Lunesta 3 mg tablet RxNorm: 398727 TAKE ONE TABLET BY M OUTH AT BEDTIME NEEDED FOR SLEEP 1 Tablet(s) Oral QPM as needed for sleep 11/30/2019 01/29/2020 Active Flagyl 500 mg tablet RxNorm: 884254 1 Tablet(s) Oral three time s a day 11/30/2019 12/07/2019 Inactive ondansetron 4 mg disintegrating tablet RxNorm: 809872 1 Tablet(s) Oral Q4H as needed for nausea 10/12/2019 No Stop Date Active Lunesta 3 mg tablet RxNorm: 612786 TAKE ONE TABLET BY M OUTH AT BEDTIME NEEDED FOR SLEEP 09/02/2018 09/08/2018 Inactive Lunesta 3 mg tablet RxNorm: 375328 TAKE ONE TABLET BY M OUTH AT BEDTIME NEEDED FOR SLEEP 08/30/2018 04/12/2019 Inactive Lunesta 3 mg tablet RxNorm: 285139 TAKE ONE TABLET BY M OUTH EVERY NIGHT AT BEDTIME NEEDED FOR SLEEP 06/07/2018 09/02/2018 Inactive Lunesta 3 mg tablet RxNorm: 978148 TAKE ONE TABLET BY M OUTH EVERY NIGHT AT BEDTIME NEEDED SLEEP 04/13/2018 06/07/2018 Inactive Lunesta 3 mg tablet RxNorm: 699794 TAKE ONE TABLET BY M OUTH AT BEDTIME NEEDED FOR SLEEP 02/17/2018 04/13/2018 Inactive Generic For:LUNE STA 3MG TAB 02/17/2018 12:36:41 PM doxycycline hyclate 100 mg capsule RxNorm: 1668985 1 Capsule(s) PO BID 02/12/2018 02/25/2018 Inactive Lunesta 3 mg tablet RxNorm: 035320 Tablet(s) TAKE ONE T ABLET BY MOUTH AT BEDTIME NEEDED FOR SLEEP 12/29/2017 02/18/2018 Inactive Generic For: LUNESTA 3MG TAB 11/25/2017 1:41:28 PM 12/01/2017 10:00:01 AM Lunesta 3 mg tablet RxNorm: 727681 Tablet(s) TAKE ONE T ABLET BY MOUTH AT BEDTIME NEEDED FOR SLEEP 12/24/2017 12/29/2017 Inactive Generic For: LUNESTA 3MG TAB 11/25/2017 1:41:28 PM 12/01/2017 10:00:01 AM Lunesta 3 mg tablet RxNorm: 578328 TAKE ONE TABLET BY M OUTH AT BEDTIME NEEDED FOR SLEEP 12/03/2017 03/01/2018 Inactive Generic For:LUNE STA 3MG TAB 11/25/2017 1:41:28 PM 12/01/2017 10:00:01 AM Lunesta 3 mg tablet RxNorm: 692554 TAKE ONE TABLET BY M OUTH AT BEDTIME NEEDED FOR SLEEP 11/27/2017 04/12/2019 Inactive Generic For:LUNE STA 3MG TAB 11/27/2017 9:30:03 AM11/25/2017 1:41:28 PM Lunesta 3 mg tablet RxNorm: 618035 1 Tablet(s) PO QHS as needed for sleep 09/17/2017 11/27/2017 Inactive cyclobenzaprine 10 mg tablet RxNorm: 483241 1 Tablet(s) PO BID as needed 09/16/2017 04/12/2019 Inactive Lunesta 3 mg tablet RxNorm: 497852 1 Tablet(s) PO QHS as needed for sleep 08/26/2017 09/16/2017 Inactive Levaquin 500 mg tablet RxNorm: 982909 1 Tablet(s) PO QD 08/06/2017 Inactive prednisone 20 mg tablet RxNorm: 372667 2 Tablet(s) PO QD 08/06/2017 0 08/10/2017 Inactive Lunesta 3 mg tablet RxNorm: 812747 TAKE ONE TABLET BY M OUTH AT BEDTIME NEEDED 06/15/2017 07/14/2017 Inactive Lunesta 3 mg tablet RxNorm: 130510 1 Tablet(s) PO QHS as needed 06/15/2017 Inactive Lexapro 10 mg tablet RxNorm: 183424 1 Tablet(s) PO QD 07/01/201602/03 Inactive Lexapro 20 mg tablet RxNorm: 964630 1 Tablet(s) PO QD 02/14/201602/03 Inactive Lexapro 10 mg tablet RxNorm: 322516 1 Tablet(s) PO QD 01/15/201602/03 Inactive Cipro 500 mg tablet RxNorm: 713548 1 Tablet(s) PO BID 03/08/201403/2014 Inactive Flexeril 10 mg tablet RxNorm: 319313 Tablet(s) PO TAKE 1 TABLET BY MOUTH EACH NIGHT AT BEDTIME FOR SPASM 09/20/2012 01/14/2016 Inactive Gener ic For:FLEXERIL 10 MG TAB Flexeril 10 mg tablet RxNorm: 868164 1 Tablet(s) PO QHS for spasm 0 07/12/2012 08/10/2012 Inactive Mobic 15 mg tablet RxNorm: 460135 1 Tablet(s) PO QAM for pain 04/1505/14/2012 Inactive Flexeril 10 mg tablet RxNorm: 477969 1 Tablet(s) PO QHS for spasm 1 07/12/2012 Inactive Mobic 15 mg tablet RxNorm: 207257 1 Tablet(s) PO QAM for pain 03/1804/14/2012 Inactive Tylenol Extra Strength 500 mg tablet RxNorm: 939175 Tablet(s) P O as needed No Start Date Active ProAir HFA 90 mcg/Actuation Aerosol Inhaler RxNorm: 432680 2 Puff(s) INH PRN 2 puffs every 4 hrs as needed for wheezing. No Start Date 03/17/2012 Inacti ve azithromycin 250 mg Tab RxNorm: 923208 2 Tablet(s) PO Q D take 2 tablets (500 mg) by oral route once daily for 1 day then 1 tablet (250 mg) by oral route once daily for 4 days No Start Date 03/17/2012 Inactive Flexeril 10 mg tablet RxNorm: 095320 1 Tablet(s) PO QHS for spasm N o Start Date 04/14/2012 Inactive Lunesta 3 mg tablet RxNorm: 960216 1 Tablet(s) PO QHS as needed No Start Date 03/18/2017 Inactive Tussionex Pennkinetic ER 8 mg-10 mg/5 mL susp,extended relea se RxNorm: 3792364 PO No Start Date 07/23/2011 Inactive Medication Administered No Medication Administered data Immunizations No Immunization data Results No Results data Procedures Procedure Codes Date INFLUENZA ASSAY W/OPTIC CPT-4: 00387 08/15/2016 URINALYSIS NONAUTO W/O SCOPE CPT-4: 10476 01/31/2015 URINALYSIS NONAUTO W/O SCOPE CPT-4: 46943 03/13/2014 URINE CULTURE/ COLONY COUNT CPT-4: 72895 03/08/2014 URINALYSIS NONAUTO W/O SCOPE CPT-4: 32312 03/08/2014 THER/PROPH/DIAG INJ SC/IM CPT-4: 25430 01/11/2013 METHYLPREDNISOLONE 40 MG INJ CPT-4: J1030 [...] 1: 132/84 Code: 8480-6 BMI: 24.3 Code: 24831-3 Heart Rate 1: 100 bpm Height: 5'8" Respiratory Rate: 20 bpm SpO2: 96% Tempera ture: 36.8 (C) / 98.2 (F) Weight: 160 lbs 08/06/2017 Blood Pressure 1: 126/82 Code: 8480-6 BMI: 24.2 Code: 26043-7 Heart Rate 1: 92 bpm Height: 5'8" Respiratory Rate: 22 bpm SpO2: 96% Tempera ture: 36.4 (C) / 97.6 (F) Weight: 159 lbs 02/16/2017 Blood Pressure 1: 118/64 Code: 8480-6 BMI: 24.3 Code: 11105-0 Heart Rate 1: 84 bpm Height: 5'8" [...] 1: 124/82 Code: 8480-6 BMI: 22.7 Code: 87305-5 Heart Rate 1: 102 bpm Height: 5'8" Respiratory Rate: 24 bpm SpO2: 98% Tempera ture: 36.6 (C) / 97.8 (F) Weight: 149 lbs 01/15/2016 Blood Pressure 1: 142/78 Code: 8480-6 BMI: 22.6 Code: 54373-6 Heart Rate 1: 82 bpm Height: 5'8" Respiratory Rate: 20 bpm SpO2: 97% Tempera ture: 36.6 (C) / 97.8 (F) Weight: 151 lbs 01/31/2015 Blood Pressure 1: 122/82 Code: 8480-6 BMI: 21.9 Code: 34492-0 Heart Rate 1: 78 bpm Height: 5'7" Respiratory Rate: 22 bpm Temperature: 36 .7 (C) / 98.0 (F) Weight: 140 lbs 03/13/2014 Blood Pressure 1: 122/84 Code: 8480-6 BMI: 20.2 Code: 23814-7 Heart Rate 1: 68 bpm Height: 5'7" Respiratory Rate: 20 bpm Temperature: 36 .4 (C) / 97.5 (F) Weight: 129 lbs 03/08/2014 Blood Pressure 1: 102/60 Code: 8480-6 BMI: 20.2 Code: 38383-2 Heart Rate 1: 82 bpm Height: 5'7" Respiratory Rate: 20 bpm Temperature: 36 .6 (C) / 97.8 (F) Weight: 129 lbs 04/15/2012 Blood Pressure 1: 116/70 Code: 8480-6 BMI: 21.0 Code: 62785-4 Heart Rate 1: 92 bpm Height: 5'7" Respiratory Rate: 20 bpm Temperature: 37 .0 (C) / 98.6 (F) Weight: 134 lbs 04/01/2012 Blood Pressure 1: 116/70 Code: 8480-6 BMI: 21.0 Code: 00981-9 Heart Rate 1: 76 bpm Height: 5'7" Respiratory Rate: 20 bpm Temperature: 36 .6 (C) / 97.8 (F) Weight: 134 lbs 03/18/2012 Blood Pressure 1: 136/80 Code: 8480-6 BMI: 21.0 Code: 08581-6 Heart Rate 1: 84 bpm Height: 5'7" Respiratory Rate: 20 bpm Temperature: 36 .7 (C) / 98.1 (F) Weight: 134 lbs 02/05/2011 Blood Pressure 1: 124/70 Code: 8480-6 BMI: 20.4 Code: 39195-1 Heart Rate 1: 70 bpm Height: 5'7" Temperature: 36.4 (C) / 97.6 (F) Weight: 130 lbs 07/11/2010 Blood Pressure 1: 106/60 Code: 8480-6 Heart Rate 1: 92 bpm Respiratory Rate: 18 bpm SpO2: 96% Temperature: 36.9 (C) / 98.5 (F) We ight: 127 lbs 05/08/2010 Blood Pressure 1: 116/68 Code: 8480-6 BMI: 19.3 Code: 07433-4 Heart Rate 1: 68 bpm Height: 5'7" Temperature: 36.8 (C) / 98.3 (F) Weight: 123 lbs Functional Status No Functional Status data Reason For Visit Reason For Visit Effective Dates Notes abdominal pain 01/19/2020 abdominal pain 11/30/2019 follow up 10/12/2019 ER fwup well man exam (18-39 years) 04/13/2019 follow up 01/29/2018 Hosp fwup back pain 09/16/2017 headache 08/06/2017 Patient was seen 1 w [facility] ago for left inner ear infection and [...] basketball Encounters Encounter Performer Location Codes Date ([id number]) OFFICE/OUTPATIENT VISIT EST Diagnosis: Gastroenteritis[ICD10: K52.9] Diagnosis: Febrile illness[ICD10: R50.9] Madhavi SCOTT DO [facility] CPT-4: 14312 01/19/2020 ([id number]) OFFICE/OUTPATIENT VISIT EST Diagnosis: Diarrhea[ICD10: R19.7] Diagnosis: Mesenteric lymphadenitis[ICD10: I88.0] Madhavi SCOTT DO [facility] CPT-4: 22317 11/30/2019 ([id number]) OFFICE/OUTPATIENT VISIT EST Diagnosis: Mesenteric lymphadenitis[ICD10: I88.0] [facility]PT-[facility]: 98479 10/12/2019 ([id number]) PREV VISIT EST AGE 18-39 Diagnosis: Encounter for general adult medical examination without abnormal findings[ICD10: Z00.00] Madhavi SCOTT DO [facility] CPT-4: 12908 04/13/2019 ([id number]) OFFICE/OUTPATIENT VISIT EST 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 Ivy JIN DO [facility] CPT-4: 21575 09/16/2017 OFFICE/OUTPATIENT VISIT EST Diagnosis: Otitis media, unspecified, left ear[ICD10: H66.92] Helen SCOTT DO [facility] CPT-4: 68482 08/06/2017 ([id number]) OFFICE/OUTPATIENT VISIT EST Diagnosis: Insomnia, unspecified[ICD10: G47.00] Madhavi SCOTT [facility] CPT-4: 52018 02/16/2017 ([id number]) OFFICE/OUTPATIENT VISIT EST Diagnosis: Fever, unspecified[ICD10: R50.9] Diagnosis: Myalgia[ICD10: M79.1] Diagnosis: Jaw pain[ICD10: R68.84] Giuseppe SCOTT [employer] [facility] CPT-4: 88882 08/15/2016 ([id number]) NO CHARGE Diagnosis: Adjustment disorder with mixed anxiety and depressed mood[ICD10: F43.23] Giuseppe SCOTT DO [facility] CPT-4: 41787 ([id number]) OFFICE/OUTPATIENT VISIT EST Diagnosis: Adjustment disorder with mixed anxiety and depressed mood[ICD10: F43.23] Diagnosis: Other specified diseases of intestine[ICD10: K63.89] Giuseppe SCOTT [employer] [facility] CPT-4: 72543 02/14/2016 ([id number]) OFFICE/OUTPATIENT VISIT EST Diagnosis: Major depressive disorder, single episode, unspecified[ICD10: F32.9] Diagnosis: Insomnia, unspecified[ICD10: G47.00] Diagnosis: Other fatigue[ICD10: R53.83] Giuseppe VALLECILLOLINE Faith DE [place]RE [employer] [facility] CPT-4: 55505 01/15/2016 OFFICE/OUTPATIENT VISIT EST Diagnosis: CEPHALGIA[ICD9: 784.0] Diagnosis: Mild dehydration[ICD9: 276.51] Alanis OrozcoAdrianaivatee MADHAVI Caryl SCOTT [employer] [facility] CPT-4: 34626 01/31/2015 OFFICE/OUTPATIENT VISIT EST Diagnosis: Mild dehydration[ICD9: 276.51] Alanis OrozcoAdrianaivatee MADHAVI Caryl SCOTT [employer] [facility] CPT-4: 56484 03/13/2014 OFFICE/OUTPATIENT VISIT EST Diagnosis: Nausea, vomiting and diarrhea[ICD9: 787.91] Diagnosis: Mild dehydration[ICD9: 276.51] Diagnosis: URINARY TRACT INFECTION[ICD9: 599.0] Alanis OrozcoAdrianaivatee AVEL BRITTANEY Faith [place] [employer] [facility] CPT-4: 60410 03/08/2014 ([id number]) OFFICE/OUTPATIENT VISIT EST Diagnosis: Poison elizabeth dermatitis[ICD9: 692.6] Madhavi HENRY Faith [place] [employer] [facility] CPT-4: 03855 01/11/2013 ([id number]) OFFICE/OUTPATIENT VISIT EST Diagnosis: PAIN, LOWER BACK[ICD9: 724.2] Diagnosis: SPASM OF MUSCLE[ICD9: 728.85] Madhavi SCOTT DO [facility] CPT-4: 17660 04/15/2012 ([id number]) OFFICE/OUTPATIENT VISIT EST Diagnosis: PAIN, LOWER BACK[ICD9: 724.2] Madhavi SCOTT DO [facility] CPT-4: 32512 04/01/2012 ([id number]) OFFICE/OUTPATIENT VISIT EST Diagnosis: PAIN, LOWER BACK[ICD9: 724.2] Diagnosis: SPASM OF MUSCLE[ICD9: 728.85] Madhavi SCOTT DO [facility] CPT-4: 08104 03/18/2012 OFFICE/OUTPATIENT VISIT EST Madhavi CRISOSTOMO DO [facility] CPT- 4: 68076 02/05/2011 ([id number]) OFFICE/OUTPATIENT VISIT, EST Madhavi SCOTT DO [facility] CPT-4: 26339 07/11/2010 ([id number]) PREV VISIT, EST, AGE 12-17 Madhavi SCOTT DO [facility] CPT-4: 48146 05/08/2010 Plan of Care Planned Activity Notes Codes Status Date Visit Diagnosis Plan: Febrile illness Discussion: Go t o [facility] for COVID testing Quarantine ICD-9 : 780.60 ICD-10 : R50.9 01/19/2020 Visit Diagnosis Plan: Gastroenteritis Discussion: Alondra owen Cover with jerrod due to history To ER if worsening this weekend ICD-9 : 558.9 ICD-10 : K52.9 01/19/2020 Visit Diagnosis Plan: Diarrhea Discussion: Flagyl Blan d Diet Notify if persists ICD-9 : 787.91 ICD-10 : R19.7 11/30/2019 Visit Diagnosis Plan: Mesenteric lymphadenitis Discuss ion: Notify if worsening ICD-9 : 289.2 ICD-10 : I88.0 11/30/2019 App[facility]ment: [facility] [phone] [id number] [facility] 11/30/2019 Patient Education: Lunesta- [employer] Coupon [id number] [email or web address]://[email or web address]/samplemd/resources/getResource/61/[email or web address]-0680-2m Completed 11/30/2019 Visit Diagnosis Plan: Mesenteric lymphadenitis Discuss ion: Looked at ER records from last night and CT scan results reviewed Supportive care with clear liquids, zofran prn, tylenol prn Notify if worsens or persists No work for rest of week ICD-9 : 289.2 ICD-10 : I88.0 10/12/2019 Appointment: Madhavi Scott WPtel: [address] [place], [place] [phone] TELEMEDICINE 10/12/2019 Patient Education: ondansetron- [employer] Coupon [phone] https://www.[employer]/resources/getResource/61/ym28y20q-7236-85m4-81 Completed 10/12/2019 Visit Diagnosis Plan: Encounter for [facility] adult medical examination without abnormal findings Discussion: Patient planning on going in to [employer] His PCN allergy was when he was a child and was a rash from amoxicillin--he has no history of anaphylactic reactions His left testicle is a hydrocele which was checked by urology in 2007 and determined to be a benign hydrocele and recommendation was observation--no treatment needed ICD-9 : V70.0 ICD-10 : Z00.00 04/13/2019 Appointment: Madhavi Scott WPtel: [address] [place] [address] fwup instead of annual cause of no insurance. FO LLOW UP 04/13/2019 Visit Diagnosis Plan: Ehrlichiosis chafeensis [E. chaf arpit] Discussion: Discussed tick panel results Discussed importance of finishing all antibiotics--has ful 14 day course and letting us know if has any remaining symptoms at end of antibiotic course Discussed [place] off when going into wooded areas Mild nausea likely due to antibioitic ICD-9 : 082.41 ICD-10 : A77.41 01/29/2018 Appointment: Madhavi Scott WPtel: [phone] [id number] Hospital Follow Up 01/29/2018 Patient Education: Patient [...] ICD-10 : M54.5 09/16/2017 Appointment: Helen Mendez [address] [place] [address] ACUTE ILLNESS 09/16/2017 Patient Education: Patient Medication Summary Completed 09/16/2017 Care Plan: X-RAY EXAM L-S SPINE 08/08 VWS LOINC : 85492-3 Pending 09/16/2017 Visit Diagnosis Plan: Otitis media, [...] ICD-10 : H66.92 08/06/2017 Appointment: Helen Mendez [address] [place], [place] [address] ACUTE ILLNESS 08/06/2017 Patient Education: Patient Medication Summary Completed 08/06/2017 Visit Diagnosis Plan: Insomnia, unspecified Discussion : Sleep hygiene Trial of Lunesta 3mg q HS Call in 2 weeks if working ICD-9 : 780.52 ICD-10 : G47.00 02/16/2017 Appointment: Madhavi Scott WPtel: [phone] [id number] ACUTE ILLNESS 02/16/2017 Patient Education: Patient Medication Summary Completed 02/16/2017 Visit Diagnosis Plan: Fever, unspecified Discussion: F bing is negative Patient is concerned with mumps - per mom he has had his vaccines and there has been no contact with confirmed mumps Called and discussed with infectious disease control nurse at [facility] who contacted [facility]. With his symptoms, it was recommended to test. Patient and orders sent to for further testing. Mask placed on patient and he is instructed to leave on. ICD-9 : 780.60 ICD-10 : R50.9 08/15/2016 Appointment: Giuseppe Jordan [address] [facility] ACUTE ILLNESS 08/15/2016 Patient Education: Patient Medication [...] month follow up 02/20/2016 Appointment: [facility] [address] [id number] 02/18 confirmed~sl 02/18 patients appt was canceled. 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 Work on being active and outside Limit caffeine after noon No screen time within 1-2 hours before bed Labs to evaluate fatigue - cbc, cmp, tsh, testosterone and b12 Recheck in 1 month - will adjust lexapro and/or add sleep aid if needed 01/15/2016 Appointment: Giuseppe Jordan [address] [place], [place] [id number] ACUTE ILLNESS 01/15/2016 Patient Education: Patient Medication Summary Completed 01/15/2016 Appointment: Madhavi Scott WPtel: [address] [place], [place] [phone] 04/06 mother schedule 04/09 lm with ana laura ent and spoke with mother she forgot to call and cancel ACUTE ILLNESS 04/09/2015 Visit Plan: Push fluids of the next 4 da ys - >4 liters/day Avoid heat exposure for next 24 hours. No work tomorrow. Tylenol Extra Strength - 2 caps every 4 hours 01/31/2015 Appointment: Alanis Redman WPtel: [address] [place] [address] ACUTE ILLNESS 01/31/2015 Patient Education: Patient Medication Summary Completed 01/31/2015 Appointment: Alanis Redman WPtel: [address] [place] [address] 03/10 voicemail FOLLOW UP 03/13/2014 Patient Education: Patient Medication Summary Completed 03/13/2014 Appointment: Alanis Redman WPtel: [address] [place] [address] ACUTE ILLNESS 03/08/2014 Patient Education: Patient Medication Summary Completed 03/08/2014 Appointment: Madhavi Scott WPtel: [address] [place], [place] [phone] [place] INJECTION 01/11/2013 Patient Education: Patient Medication Summary Completed 01/11/2013 Visit Plan: Continue daily stretches Use flexeril, mobic for 1wk then prn 04/15/2012 Appointment: Madhavi Scott WPtel: [address] [place], [place] [phone] 04/14 FOLLOW UP 04/15/2012 Patient Education: Patient Medication Summary Completed 04/15/2012 Visit Plan: OMT done Continue flexeril, mobic 04/01/2012 Appointment: Madhavi Scottteroberto: [address] [place], [place] [phone] FOLLOW UP 04/01/2012 Patient Education: Patient Medication Summary Completed 04/01/2012 Visit Plan: OMT done Daily stretches Mob ic and flexeril Recheck in 2wks 03/18/2012 Appointment: Madhavi Scott WPtel: [address] [place], [place] [phone] vm on mom phone OMT 03/18/2012 Patient Education: Patient Medication Summary Completed 03/18/2012 Visit Plan: Sheridanta for evaluation. Bilat eral knee pain after [...] issue resolves. 02/05/2011 Appointment: Bailee Reyes WPtel: [address] [place], [place] [phone] ACUTE ILLNESS 02/05/2011 Patient Education: Patient Medication Summary Completed 02/05/2011 Visit Plan: Azithromycin. ProAir refil. Pt. will notify if no improvement in symptoms. 07/11/2010 Appointment: Bailee Reyes WPtel: [address] [place], [place] [phone] ACUTE ILLNESS 07/11/2010 Patient Education: Patient Medication Summary Completed 07/11/2010 Visit Plan: Annual exam. 05/08/2010 Appointment: Bailee Reyes WPtel: [address] [place], [place] [phone] SPORTS PHYSICAL 05/08/2010 Patient Education: Patient Medication [...] SI/HI . 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
--- OUTSIDE RECORDS SUMMARY | 2020-02-17 13:23 | XMS REPORT | CCD ---
Author Author Jesus Scott D.O. 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 Name Role Phone Madhavi Scott D.O., PP Unavailable CCM Unavailable Summary Purpose Interface Exchange Family History Family History data not found Social History Social History Element Codes Description Effective Dates Tobacco history SNOMED CT: 551220950 Nonsmoker 02/05/2011 Allergies, Adverse Reactions, Alerts Substance [...] Fill Instructions Flagyl 500 mg tablet RxNorm: 817235 1 Tablet(s) Oral three time s a day 01/19/2020 01/26/2020 Active Lunesta 3 mg tablet RxNorm: 317507 TAKE ONE TABLET BY M OUTH AT BEDTIME NEEDED FOR SLEEP 1 Tablet(s) Oral QPM as needed for sleep 11/30/2019 01/29/2020 Active Flagyl 500 mg tablet RxNorm: 803908 1 Tablet(s) Oral three time s a day 11/30/2019 12/07/2019 Inactive ondansetron 4 mg disintegrating tablet RxNorm: 860869 1 Tablet(s) Oral Q4H as needed for nausea 10/12/2019 No Stop Date Active Lunesta 3 mg tablet RxNorm: 217168 TAKE ONE TABLET BY M OUTH AT BEDTIME NEEDED FOR SLEEP 09/02/2018 09/08/2018 Inactive Lunesta 3 mg tablet RxNorm: 035878 TAKE ONE TABLET BY M OUTH AT BEDTIME NEEDED FOR SLEEP 08/30/2018 04/12/2019 Inactive Lunesta 3 mg tablet RxNorm: 771020 TAKE ONE TABLET BY M OUTH EVERY NIGHT AT BEDTIME NEEDED FOR SLEEP 06/07/2018 09/02/2018 Inactive Lunesta 3 mg tablet RxNorm: 537179 TAKE ONE TABLET BY M OUTH EVERY NIGHT AT BEDTIME NEEDED SLEEP 04/13/2018 06/07/2018 Inactive Lunesta 3 mg tablet RxNorm: 536135 TAKE ONE TABLET BY M OUTH AT BEDTIME NEEDED FOR SLEEP 02/17/2018 04/13/2018 Inactive Generic For:LUNE STA 3MG TAB 02/17/2018 12:36:41 PM doxycycline hyclate 100 mg capsule RxNorm: 9172213 1 Capsule(s) PO BID 02/12/2018 02/25/2018 Inactive Lunesta 3 mg tablet RxNorm: 912525 Tablet(s) TAKE ONE T ABLET BY MOUTH AT BEDTIME NEEDED FOR SLEEP 12/29/2017 02/18/2018 Inactive Generic For: LUNESTA 3MG TAB 11/25/2017 1:41:28 PM 12/01/2017 10:00:01 AM Lunesta 3 mg tablet RxNorm: 207668 Tablet(s) TAKE ONE T ABLET BY MOUTH AT BEDTIME NEEDED FOR SLEEP 12/24/2017 12/29/2017 Inactive Generic For: LUNESTA 3MG TAB 11/25/2017 1:41:28 PM 12/01/2017 10:00:01 AM Lunesta 3 mg tablet RxNorm: 936807 TAKE ONE TABLET BY M OUTH AT BEDTIME NEEDED FOR SLEEP 12/03/2017 03/01/2018 Inactive Generic For:LUNE STA 3MG TAB 11/25/2017 1:41:28 PM 12/01/2017 10:00:01 AM Lunesta 3 mg tablet RxNorm: 855020 TAKE ONE TABLET BY M OUTH AT BEDTIME NEEDED FOR SLEEP 11/27/2017 04/12/2019 Inactive Generic For:LUNE STA 3MG TAB 11/27/2017 9:30:03 AM11/25/2017 1:41:28 PM Lunesta 3 mg tablet RxNorm: 203684 1 Tablet(s) PO QHS as needed for sleep 09/17/2017 11/27/2017 Inactive cyclobenzaprine 10 mg tablet RxNorm: 449109 1 Tablet(s) PO BID as needed 09/16/2017 04/12/2019 Inactive Lunesta 3 mg tablet RxNorm: 937359 1 Tablet(s) PO QHS as needed for sleep 08/26/2017 09/16/2017 Inactive Levaquin 500 mg tablet RxNorm: 219079 1 Tablet(s) PO QD 08/06/2017 Inactive prednisone 20 mg tablet RxNorm: 507685 2 Tablet(s) PO QD 08/06/2017 0 08/10/2017 Inactive Lunesta 3 mg tablet RxNorm: 358548 TAKE ONE TABLET BY M OUTH AT BEDTIME NEEDED 06/15/2017 07/14/2017 Inactive Lunesta 3 mg tablet RxNorm: 418700 1 Tablet(s) PO QHS as needed 06/15/2017 Inactive Lexapro 10 mg tablet RxNorm: 837382 1 Tablet(s) PO QD 07/01/201602/03 Inactive Lexapro 20 mg tablet RxNorm: 527230 1 Tablet(s) PO QD 02/14/201602/03 Inactive Lexapro 10 mg tablet RxNorm: 815114 1 Tablet(s) PO QD 01/15/201602/03 Inactive Cipro 500 mg tablet RxNorm: 036593 1 Tablet(s) PO BID 03/08/201403/2014 Inactive Flexeril 10 mg tablet RxNorm: 117382 Tablet(s) PO TAKE 1 TABLET BY MOUTH EACH NIGHT AT BEDTIME FOR SPASM 09/20/2012 01/14/2016 Inactive Gener ic For:FLEXERIL 10 MG TAB Flexeril 10 mg tablet RxNorm: 722384 1 Tablet(s) PO QHS for spasm 0 07/12/2012 08/10/2012 Inactive Mobic 15 mg tablet RxNorm: 874937 1 Tablet(s) PO QAM for pain 04/1505/14/2012 Inactive Flexeril 10 mg tablet RxNorm: 449633 1 Tablet(s) PO QHS for spasm 1 07/12/2012 Inactive Mobic 15 mg tablet RxNorm: 295358 1 Tablet(s) PO QAM for pain 03/1804/14/2012 Inactive Tylenol Extra Strength 500 mg tablet RxNorm: 369227 Tablet(s) P O as needed No Start Date Active ProAir HFA 90 mcg/Actuation Aerosol Inhaler RxNorm: 509663 2 Puff(s) INH PRN 2 puffs every 4 hrs as needed for wheezing. No Start Date 03/17/2012 Inacti ve azithromycin 250 mg Tab RxNorm: 616219 2 Tablet(s) PO Q D take 2 tablets (500 mg) by oral route once daily for 1 day then 1 tablet (250 mg) by oral route once daily for 4 days No Start Date 03/17/2012 Inactive Flexeril 10 mg tablet RxNorm: 082982 1 Tablet(s) PO QHS for spasm N o Start Date 04/14/2012 Inactive Lunesta 3 mg tablet RxNorm: 880986 1 Tablet(s) PO QHS as needed No Start Date 03/18/2017 Inactive Tussionex Pennkinetic ER 8 mg-10 mg/5 mL susp,extended relea se RxNorm: 9826568 PO No Start Date 07/23/2011 Inactive Medication Administered No Medication Administered data Immunizations No Immunization data Results No Results data Procedures Procedure Codes Date INFLUENZA ASSAY W/OPTIC CPT-4: 26543 08/15/2016 URINALYSIS NONAUTO W/O SCOPE CPT-4: 99625 01/31/2015 URINALYSIS NONAUTO W/O SCOPE CPT-4: 07977 03/13/2014 URINE CULTURE/ COLONY COUNT CPT-4: 42353 03/08/2014 URINALYSIS NONAUTO W/O SCOPE CPT-4: 42811 03/08/2014 THER/PROPH/DIAG INJ SC/IM CPT-4: 78286 01/11/2013 METHYLPREDNISOLONE 40 MG INJ CPT-4: J1030 [...] 1: 132/84 Code: 8480-6 BMI: 24.3 Code: 85895-2 Heart Rate 1: 100 bpm Height: 5'8" Respiratory Rate: 20 bpm SpO2: 96% Tempera ture: 36.8 (C) / 98.2 (F) Weight: 160 lbs 08/06/2017 Blood Pressure 1: 126/82 Code: 8480-6 BMI: 24.2 Code: 30879-1 Heart Rate 1: 92 bpm Height: 5'8" Respiratory Rate: 22 bpm SpO2: 96% Tempera ture: 36.4 (C) / 97.6 (F) Weight: 159 lbs 02/16/2017 Blood Pressure 1: 118/64 Code: 8480-6 BMI: 24.3 Code: 44629-6 Heart Rate 1: 84 bpm Height: 5'8" [...] 1: 124/82 Code: 8480-6 BMI: 22.7 Code: 11732-4 Heart Rate 1: 102 bpm Height: 5'8" Respiratory Rate: 24 bpm SpO2: 98% Tempera ture: 36.6 (C) / 97.8 (F) Weight: 149 lbs 01/15/2016 Blood Pressure 1: 142/78 Code: 8480-6 BMI: 22.6 Code: 98845-3 Heart Rate 1: 82 bpm Height: 5'8" Respiratory Rate: 20 bpm SpO2: 97% Tempera ture: 36.6 (C) / 97.8 (F) Weight: 151 lbs 01/31/2015 Blood Pressure 1: 122/82 Code: 8480-6 BMI: 21.9 Code: 08101-5 Heart Rate 1: 78 bpm Height: 5'7" Respiratory Rate: 22 bpm Temperature: 36 .7 (C) / 98.0 (F) Weight: 140 lbs 03/13/2014 Blood Pressure 1: 122/84 Code: 8480-6 BMI: 20.2 Code: 96407-5 Heart Rate 1: 68 bpm Height: 5'7" Respiratory Rate: 20 bpm Temperature: 36 .4 (C) / 97.5 (F) Weight: 129 lbs 03/08/2014 Blood Pressure 1: 102/60 Code: 8480-6 BMI: 20.2 Code: 32011-5 Heart Rate 1: 82 bpm Height: 5'7" Respiratory Rate: 20 bpm Temperature: 36 .6 (C) / 97.8 (F) Weight: 129 lbs 04/15/2012 Blood Pressure 1: 116/70 Code: 8480-6 BMI: 21.0 Code: 46511-2 Heart Rate 1: 92 bpm Height: 5'7" Respiratory Rate: 20 bpm Temperature: 37 .0 (C) / 98.6 (F) Weight: 134 lbs 04/01/2012 Blood Pressure 1: 116/70 Code: 8480-6 BMI: 21.0 Code: 25715-1 Heart Rate 1: 76 bpm Height: 5'7" Respiratory Rate: 20 bpm Temperature: 36 .6 (C) / 97.8 (F) Weight: 134 lbs 03/18/2012 Blood Pressure 1: 136/80 Code: 8480-6 BMI: 21.0 Code: 87148-1 Heart Rate 1: 84 bpm Height: 5'7" Respiratory Rate: 20 bpm Temperature: 36 .7 (C) / 98.1 (F) Weight: 134 lbs 02/05/2011 Blood Pressure 1: 124/70 Code: 8480-6 BMI: 20.4 Code: 02318-5 Heart Rate 1: 70 bpm Height: 5'7" Temperature: 36.4 (C) / 97.6 (F) Weight: 130 lbs 07/11/2010 Blood Pressure 1: 106/60 Code: 8480-6 Heart Rate 1: 92 bpm Respiratory Rate: 18 bpm SpO2: 96% Temperature: 36.9 (C) / 98.5 (F) We ight: 127 lbs 05/08/2010 Blood Pressure 1: 116/68 Code: 8480-6 BMI: 19.3 Code: 47858-0 Heart Rate 1: 68 bpm Height: 5'7" Temperature: 36.8 (C) / 98.3 (F) Weight: 123 lbs Functional Status No Functional Status data Reason For Visit Reason For Visit Effective Dates Notes abdominal pain 01/19/2020 abdominal pain 11/30/2019 follow up 10/12/2019 ER fwup well man exam (18-39 years) 04/13/2019 follow up 01/29/2018 Hosp fwup back pain 09/16/2017 headache 08/06/2017 Patient was seen 1 [place] for left inner ear infection and [...] basketball Encounters Encounter Performer Location Codes Date ([id number]) OFFICE/OUTPATIENT VISIT EST Diagnosis: Gastroenteritis[ICD10: K52.9] Diagnosis: Febrile illness[ICD10: R50.9] [facility]i [facility] CPT-4: 79638 01/19/2020 ([id number]) OFFICE/OUTPATIENT VISIT EST Diagnosis: Diarrhea[ICD10: R19.7] Diagnosis: Mesenteric lymphadenitis[ICD10: I88.0] Madhavi [facility] CPT-4: 67291 11/30/2019 ([id number]) OFFICE/OUTPATIENT VISIT EST Diagnosis: Mesenteric lymphadenitis[ICD10: I88.0] [facility]: 85090 10/12/2019 ([id number]) PREV VISIT EST AGE 18-39 Diagnosis: Encounter for general adult medical examination without abnormal findings[ICD10: Z00.00] Madhavi SCOTT [facility] CPT-4: 70882 04/13/2019 ([id number]) OFFICE/OUTPATIENT VISIT EST 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 Ivy JIN [facility] CPT-4: 41383 09/16/2017 OFFICE/OUTPATIENT VISIT EST Diagnosis: Otitis media, unspecified, left ear[ICD10: H66.92] Helen SC[facility] CPT-4: 58798 08/06/2017 ([id number]) OFFICE/OUTPATIENT VISIT EST Diagnosis: Insomnia, unspecified[ICD10: G47.00] Madhavi SCOTT [facility] CPT-4: 33297 02/16/2017 ([id number]) OFFICE/OUTPATIENT VISIT EST Diagnosis: Fever, unspecified[ICD10: R50.9] Diagnosis: Myalgia[ICD10: M79.1] Diagnosis: Jaw pain[ICD10: R68.84] Giuseppe SCOTT [facility] CPT-4: 68297 08/15/2016 ([id number]) NO CHARGE Diagnosis: Adjustment disorder with mixed anxiety and depressed mood[ICD10: F43.23] Giuseppe SCOTT [facility] CPT-4: 27525 ([id number]) OFFICE/OUTPATIENT VISIT EST Diagnosis: Adjustment disorder with mixed anxiety and depressed mood[ICD10: F43.23] Diagnosis: Other specified diseases of intestine[ICD10: K63.89] Giuseppe SCOTT [facility] CPT-4: 84328 02/14/2016 ([id number]) OFFICE/OUTPATIENT VISIT EST Diagnosis: Major depressive disorder, single episode, unspecified[ICD10: F32.9] Diagnosis: Insomnia, unspecified[ICD10: G47.00] Diagnosis: Other fatigue[ICD10: R53.83] Giuseppe VALLECILLOLINE Faith DE LA TORRE [facility] CPT-4: 68379 01/15/2016 OFFICE/OUTPATIENT VISIT EST Diagnosis: CEPHALGIA[ICD9: 784.0] Diagnosis: Mild dehydration[ICD9: 276.51] Alansi OrozcoAdrianaivatee MADHAVI Caryl SCOTT [facility] CPT-4: 70045 01/31/2015 OFFICE/OUTPATIENT VISIT EST Diagnosis: Mild dehydration[ICD9: 276.51] Alanis OrozcoAdrianaivatee MADHAVI Caryl SCOTT [facility] CPT-4: 90261 03/13/2014 OFFICE/OUTPATIENT VISIT EST Diagnosis: Nausea, vomiting and diarrhea[ICD9: 787.91] Diagnosis: Mild dehydration[ICD9: 276.51] Diagnosis: URINARY TRACT INFECTION[ICD9: 599.0] Alanis OrozocAdrianaivatee AVEL BRITTANEY Faith DE [facility] CPT-4: 68741 03/08/2014 ([id number]) OFFICE/OUTPATIENT VISIT EST Diagnosis: Poison elizabeth dermatitis[ICD9: 692.6] Madhavi HENRY Faith DE [place] [facility]RE [facility] CPT-4: 24309 01/11/2013 ([id number]) OFFICE/OUTPATIENT VISIT EST Diagnosis: PAIN, LOWER BACK[ICD9: 724.2] Diagnosis: SPASM OF MUSCLE[ICD9: 728.85] Madhavi SCOTT DO [facility] CPT-4: 40487 04/15/2012 ([id number]) OFFICE/OUTPATIENT VISIT EST Diagnosis: PAIN, LOWER BACK[ICD9: 724.2] Madhavi SCOTT DO [facility] CPT-4: 56697 04/01/2012 ([id number]) OFFICE/OUTPATIENT VISIT EST Diagnosis: PAIN, LOWER BACK[ICD9: 724.2] Diagnosis: SPASM OF MUSCLE[ICD9: 728.85] Madhavi SCOTT DO [facility] CPT-4: 01616 03/18/2012 OFFICE/OUTPATIENT VISIT EST Madhavi CRISOSTOMO DO [employer] [facility] CPT- 4: 12425 02/05/2011 ([id number]) OFFICE/OUTPATIENT VISIT, EST Madhavi SCOTT DO [facility] CPT-4: 33152 07/11/2010 ([id number]) PREV VISIT, EST, AGE 12-17 Madhavi SCOTT DO [facility] CPT-4: 20817 05/08/2010 Plan of Care Planned Activity Notes [...] I88.0 11/30/2019 Appointment: Madhavi Scott WPtel: [phone] [facility] [facility] 11/30/2019 Patient Education: Lunesta- OptimizeRX Coupon [id number] https://www.[employer].Samares/samplemd/resources/getResource/61/x402u409-04qu-5209-9x Completed 11/30/2019 Visit Diagnosis Plan: Mesenteric lymphadenitis Discuss ion: Looked at ER records from last night and CT scan results reviewed Supportive care with clear liquids, zofran prn, tylenol prn Notify if worsens or persists No work for rest of week ICD-9 : 289.2 ICD-10 : I88.0 10/12/2019 Appointment: Madhavi Scott WPtel: [address] [place], [place] [phone] TELEMEDICINE 10/12/2019 Patient Education: ondansetron- OptimizeRX Coupon [phone] https://www.[employer]/resources/getResource/61/qb95g94m-8060-82t8-93 Completed 10/12/2019 Visit Diagnosis Plan: Encounter for [facility] adult medical examination without abnormal findings Discussion: Patient planning on going in to [place] His PCN allergy was when he was a child and was a rash from amoxicillin--he has no history of anaphylactic reactions His left testicle is a hydrocele which was checked by urology in 2007 and determined to be a benign hydrocele and recommendation was observation--no treatment needed ICD-9 : V70.0 ICD-10 : Z00.00 04/13/2019 Appointment: Madhavi Scott WPtel: [address] [place] [address] fwup instead of annual cause of no [...] A77.41 01/29/2018 Appointment: Madhavi Scott WPtel: [phone] [place] [phone] Hospital Follow Up 01/29/2018 Patient [...] ICD-10 : M54.5 09/16/2017 Appointment: Helen Mendez [address] [place] [address] ACUTE ILLNESS 09/16/2017 Patient Education: Patient Medication Summary Completed 09/16/2017 Care Plan: X-RAY EXAM L-S SPINE 08/08 VWS LOINC : 60511-3 Pending 09/16/2017 Visit Diagnosis Plan: Otitis media, [...] ICD-10 : H66.92 08/06/2017 Appointment: Helen Mendez [address] [place], [place] [address] ACUTE ILLNESS 08/06/2017 Patient Education: Patient Medication Summary Completed 08/06/2017 Visit Diagnosis Plan: Insomnia, unspecified Discussion : Sleep hygiene Trial of Lunesta 3mg q HS Call in 2 weeks if working ICD-9 : 780.52 ICD-10 : G47.00 02/16/2017 Appointment: Madhavi Scott WPtel: [phone] [place] [phone] ACUTE ILLNESS 02/16/2017 Patient Education: Patient Medication Summary Completed 02/16/2017 Visit Diagnosis Plan: Fever, unspecified Discussion: F bing is negative Patient is concerned with mumps - per mom he has had his vaccines and there has been no contact with confirmed mumps Called and discussed with infectious disease control nurse at [facility] who contacted [facility]. With his symptoms, it was recommended to test. Patient and orders sent to for further testing. Mask placed on patient and he is instructed to leave on. ICD-9 : 780.60 ICD-10 : R50.9 08/15/2016 Appointment: Giuseppe Jordan [address] [facility] ACUTE ILLNESS 08/15/2016 Patient Education: Patient Medication [...] follow up 02/20/2016 Appointment[facility] [address] [facility] 02/18 confirmed~sl 02/18 patients appt was [...] for any SI/HI 02/14/2016 Appointment: Giuseppe Jordan [address] [place], [place] [address] 02/12lm~sl....confirmed-sp ER Follow UP 2015 Patient Education: Patient Medication Summary Completed 02/14/2016 Appointment: Madhavi Scott WPtel: [address] [place], [place] [id number] RESCHEDULED 01/30/2016 Visit Plan: Start lexapro Continue couns eling with sales operations director Work on being active and outside Limit caffeine after noon No screen time within 1-2 hours before bed Labs to evaluate fatigue - cbc, cmp, tsh, testosterone and b12 Recheck in 1 month - will adjust lexapro and/or add sleep aid if needed 01/15/2016 Appointment: Giuseppe Jordan [address] [place], [place] [phone] ACUTE ILLNESS 01/15/2016 Patient Education: Patient Medication Summary Completed 01/15/2016 Appointment: Madhavi Scott WPtel: [address] [place], [place] [phone] 04/06 mother schedule 04/09 lm with ana laura ent and spoke with mother she forgot to call and cancel ACUTE ILLNESS 04/09/2015 Visit Plan: Push fluids of the next 4 da ys - >4 liters/day Avoid heat exposure for next 24 hours. No work tomorrow. Tylenol Extra Strength - 2 caps every 4 hours 01/31/2015 Appointment: Alanis Redman WPtel: [address] [place] [address] ACUTE ILLNESS 01/31/2015 Patient Education: Patient Medication Summary Completed 01/31/2015 Appointment: Alanis Redman WPtel: [address] [place] [address] 03/10 voicemail FOLLOW UP 03/13/2014 Patient Education: Patient Medication Summary Completed 03/13/2014 Appointment: Alanis Redman WPtel: [address] [place] [address] ACUTE ILLNESS 03/08/2014 Patient Education: Patient Medication Summary Completed 03/08/2014 Appointment: Madhavi Scott WPtel: [address] [place], [place] [phone] [place] INJECTION 01/11/2013 Patient Education: Patient Medication Summary Completed 01/11/2013 Visit Plan: Continue daily stretches Use flexeril, mobic for 1wk then prn 04/15/2012 Appointment: Madhavi Scott WPtel: [address] [place], [place] [phone] 04/14 FOLLOW UP 04/15/2012 Patient Education: Patient Medication Summary Completed 04/15/2012 Visit Plan: OMT done Continue flexeril, mobic 04/01/2012 Appointment: Madhavi Scottteroberto: [address] [place], [place] [phone] FOLLOW UP 04/01/2012 Patient Education: Patient Medication Summary Completed 04/01/2012 Visit Plan: OMT done Daily stretches Mob ic and flexeril Recheck in 2wks 03/18/2012 Appointment: Madhavi Sctot WPtel: [address] [place], [place] [phone] vm on mom phone OMT 03/18/2012 Patient [...] issue resolves. 02/05/2011 Appointment: Bailee Reyes WPtel: [address] [place], [place] [phone] ACUTE ILLNESS 02/05/2011 Patient Education: Patient Medication Summary Completed 02/05/2011 Visit Plan: Azithromycin. ProAir refil. Pt. will notify if no improvement in symptoms. 07/11/2010 Appointment: Bailee Reyes WPtel: [address] [place], [place] [phone] ACUTE ILLNESS 07/11/2010 Patient Education: Patient Medication Summary Completed 07/11/2010 Visit Plan: Annual exam. 05/08/2010 Appointment: Bailee Reyes WPtel: [address] [place], [place] [phone] SPORTS PHYSICAL 05/08/2010 Patient Education: Patient Medication [...] SI/HI . Start lexapro Continue counseling with sales operations director Work on being active and outside Limit [...]
--- OUTSIDE RECORDS SUMMARY | 2020-02-17 13:23 | XMS REPORT | CCD ---
Author Author Jesus Scott D.O. 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 Name Role Phone Madhavi Scott D.O., PP Unavailable CCM Unavailable Summary Purpose Interface Exchange Family History Family History data not found Social History Social History Element Codes Description Effective Dates Tobacco history SNOMED CT: 945448588 Nonsmoker 02/05/2011 Allergies, Adverse Reactions, Alerts Substance [...] Fill Instructions Flagyl 500 mg tablet RxNorm: 367949 1 Tablet(s) Oral three time s a day 01/19/2020 01/26/2020 Active Lunesta 3 mg tablet RxNorm: 626823 TAKE ONE TABLET BY M OUTH AT BEDTIME NEEDED FOR SLEEP 1 Tablet(s) Oral QPM as needed for sleep 11/30/2019 01/29/2020 Active Flagyl 500 mg tablet RxNorm: 231442 1 Tablet(s) Oral three time s a day 11/30/2019 12/07/2019 Inactive ondansetron 4 mg disintegrating tablet RxNorm: 100924 1 Tablet(s) Oral Q4H as needed for nausea 10/12/2019 No Stop Date Active Lunesta 3 mg tablet RxNorm: 598349 TAKE ONE TABLET BY M OUTH AT BEDTIME NEEDED FOR SLEEP 09/02/2018 09/08/2018 Inactive Lunesta 3 mg tablet RxNorm: 783464 TAKE ONE TABLET BY M OUTH AT BEDTIME NEEDED FOR SLEEP 08/30/2018 04/12/2019 Inactive Lunesta 3 mg tablet RxNorm: 217913 TAKE ONE TABLET BY M OUTH EVERY NIGHT AT BEDTIME NEEDED FOR SLEEP 06/07/2018 09/02/2018 Inactive Lunesta 3 mg tablet RxNorm: 041954 TAKE ONE TABLET BY M OUTH EVERY NIGHT AT BEDTIME NEEDED SLEEP 04/13/2018 06/07/2018 Inactive Lunesta 3 mg tablet RxNorm: 102029 TAKE ONE TABLET BY M OUTH AT BEDTIME NEEDED FOR SLEEP 02/17/2018 04/13/2018 Inactive Generic For:LUNE STA 3MG TAB 02/17/2018 12:36:41 PM doxycycline hyclate 100 mg capsule RxNorm: 0646148 1 Capsule(s) PO BID 02/12/2018 02/25/2018 Inactive Lunesta 3 mg tablet RxNorm: 126398 Tablet(s) TAKE ONE T ABLET BY MOUTH AT BEDTIME NEEDED FOR SLEEP 12/29/2017 02/18/2018 Inactive Generic For: LUNESTA 3MG TAB 11/25/2017 1:41:28 PM 12/01/2017 10:00:01 AM Lunesta 3 mg tablet RxNorm: 430997 Tablet(s) TAKE ONE T ABLET BY MOUTH AT BEDTIME NEEDED FOR SLEEP 12/24/2017 12/29/2017 Inactive Generic For: LUNESTA 3MG TAB 11/25/2017 1:41:28 PM 12/01/2017 10:00:01 AM Lunesta 3 mg tablet RxNorm: 359729 TAKE ONE TABLET BY M OUTH AT BEDTIME NEEDED FOR SLEEP 12/03/2017 03/01/2018 Inactive Generic For:LUNE STA 3MG TAB 11/25/2017 1:41:28 PM 12/01/2017 10:00:01 AM Lunesta 3 mg tablet RxNorm: 467577 TAKE ONE TABLET BY M OUTH AT BEDTIME NEEDED FOR SLEEP 11/27/2017 04/12/2019 Inactive Generic For:LUNE STA 3MG TAB 11/27/2017 9:30:03 AM11/25/2017 1:41:28 PM Lunesta 3 mg tablet RxNorm: 926854 1 Tablet(s) PO QHS as needed for sleep 09/17/2017 11/27/2017 Inactive cyclobenzaprine 10 mg tablet RxNorm: 781439 1 Tablet(s) PO BID as needed 09/16/2017 04/12/2019 Inactive Lunesta 3 mg tablet RxNorm: 172325 1 Tablet(s) PO QHS as needed for sleep 08/26/2017 09/16/2017 Inactive Levaquin 500 mg tablet RxNorm: 102444 1 Tablet(s) PO QD 08/06/2017 Inactive prednisone 20 mg tablet RxNorm: 776731 2 Tablet(s) PO QD 08/06/2017 0 08/10/2017 Inactive Lunesta 3 mg tablet RxNorm: 943865 TAKE ONE TABLET BY M OUTH AT BEDTIME NEEDED 06/15/2017 07/14/2017 Inactive Lunesta 3 mg tablet RxNorm: 685673 1 Tablet(s) PO QHS as needed 06/15/2017 Inactive Lexapro 10 mg tablet RxNorm: 390900 1 Tablet(s) PO QD 07/01/201602/03 Inactive Lexapro 20 mg tablet RxNorm: 481922 1 Tablet(s) PO QD 02/14/201602/03 Inactive Lexapro 10 mg tablet RxNorm: 262943 1 Tablet(s) PO QD 01/15/201602/03 Inactive Cipro 500 mg tablet RxNorm: 187626 1 Tablet(s) PO BID 03/08/201403/2014 Inactive Flexeril 10 mg tablet RxNorm: 070127 Tablet(s) PO TAKE 1 TABLET BY MOUTH EACH NIGHT AT BEDTIME FOR SPASM 09/20/2012 01/14/2016 Inactive Gener ic For:FLEXERIL 10 MG TAB Flexeril 10 mg tablet RxNorm: 904009 1 Tablet(s) PO QHS for spasm 0 07/12/2012 08/10/2012 Inactive Mobic 15 mg tablet RxNorm: 294048 1 Tablet(s) PO QAM for pain 04/1505/14/2012 Inactive Flexeril 10 mg tablet RxNorm: 744793 1 Tablet(s) PO QHS for spasm 1 07/12/2012 Inactive Mobic 15 mg tablet RxNorm: 068279 1 Tablet(s) PO QAM for pain 03/1804/14/2012 Inactive Tylenol Extra Strength 500 mg tablet RxNorm: 406112 Tablet(s) P O as needed No Start Date Active ProAir HFA 90 mcg/Actuation Aerosol Inhaler RxNorm: 373285 2 Puff(s) INH PRN 2 puffs every 4 hrs as needed for wheezing. No Start Date 03/17/2012 Inacti ve azithromycin 250 mg Tab RxNorm: 906349 2 Tablet(s) PO Q D take 2 tablets (500 mg) by oral route once daily for 1 day then 1 tablet (250 mg) by oral route once daily for 4 days No Start Date 03/17/2012 Inactive Flexeril 10 mg tablet RxNorm: 129243 1 Tablet(s) PO QHS for spasm N o Start Date 04/14/2012 Inactive Lunesta 3 mg tablet RxNorm: 080488 1 Tablet(s) PO QHS as needed No Start Date 03/18/2017 Inactive Tussionex Pennkinetic ER 8 mg-10 mg/5 mL susp,extended relea se RxNorm: 0161738 PO No Start Date 07/23/2011 Inactive Medication Administered No Medication Administered data Immunizations No Immunization data Results No Results data Procedures Procedure Codes Date INFLUENZA ASSAY W/OPTIC CPT-4: 53658 08/15/2016 URINALYSIS NONAUTO W/O SCOPE CPT-4: 48081 01/31/2015 URINALYSIS NONAUTO W/O SCOPE CPT-4: 30389 03/13/2014 URINE CULTURE/ COLONY COUNT CPT-4: 65733 03/08/2014 URINALYSIS NONAUTO W/O SCOPE CPT-4: 89438 03/08/2014 THER/PROPH/DIAG INJ SC/IM CPT-4: 46525 01/11/2013 METHYLPREDNISOLONE 40 MG INJ CPT-4: J1030 [...] 1: 132/84 Code: 8480-6 BMI: 24.3 Code: 87578-2 Heart Rate 1: 100 bpm Height: 5'8" Respiratory Rate: 20 bpm SpO2: 96% Tempera ture: 36.8 (C) / 98.2 (F) Weight: 160 lbs 08/06/2017 Blood Pressure 1: 126/82 Code: 8480-6 BMI: 24.2 Code: 55695-0 Heart Rate 1: 92 bpm Height: 5'8" Respiratory Rate: 22 bpm SpO2: 96% Tempera ture: 36.4 (C) / 97.6 (F) Weight: 159 lbs 02/16/2017 Blood Pressure 1: 118/64 Code: 8480-6 BMI: 24.3 Code: 98534-5 Heart Rate 1: 84 bpm Height: 5'8" [...] 1: 124/82 Code: 8480-6 BMI: 22.7 Code: 11990-4 Heart Rate 1: 102 bpm Height: 5'8" Respiratory Rate: 24 bpm SpO2: 98% Tempera ture: 36.6 (C) / 97.8 (F) Weight: 149 lbs 01/15/2016 Blood Pressure 1: 142/78 Code: 8480-6 BMI: 22.6 Code: 66651-1 Heart Rate 1: 82 bpm Height: 5'8" Respiratory Rate: 20 bpm SpO2: 97% Tempera ture: 36.6 (C) / 97.8 (F) Weight: 151 lbs 01/31/2015 Blood Pressure 1: 122/82 Code: 8480-6 BMI: 21.9 Code: 02212-9 Heart Rate 1: 78 bpm Height: 5'7" Respiratory Rate: 22 bpm Temperature: 36 .7 (C) / 98.0 (F) Weight: 140 lbs 03/13/2014 Blood Pressure 1: 122/84 Code: 8480-6 BMI: 20.2 Code: 73345-2 Heart Rate 1: 68 bpm Height: 5'7" Respiratory Rate: 20 bpm Temperature: 36 .4 (C) / 97.5 (F) Weight: 129 lbs 03/08/2014 Blood Pressure 1: 102/60 Code: 8480-6 BMI: 20.2 Code: 69050-2 Heart Rate 1: 82 bpm Height: 5'7" Respiratory Rate: 20 bpm Temperature: 36 .6 (C) / 97.8 (F) Weight: 129 lbs 04/15/2012 Blood Pressure 1: 116/70 Code: 8480-6 BMI: 21.0 Code: 63725-6 Heart Rate 1: 92 bpm Height: 5'7" Respiratory Rate: 20 bpm Temperature: 37 .0 (C) / 98.6 (F) Weight: 134 lbs 04/01/2012 Blood Pressure 1: 116/70 Code: 8480-6 BMI: 21.0 Code: 49560-2 Heart Rate 1: 76 bpm Height: 5'7" Respiratory Rate: 20 bpm Temperature: 36 .6 (C) / 97.8 (F) Weight: 134 lbs 03/18/2012 Blood Pressure 1: 136/80 Code: 8480-6 BMI: 21.0 Code: 44486-2 Heart Rate 1: 84 bpm Height: 5'7" Respiratory Rate: 20 bpm Temperature: 36 .7 (C) / 98.1 (F) Weight: 134 lbs 02/05/2011 Blood Pressure 1: 124/70 Code: 8480-6 BMI: 20.4 Code: 28077-7 Heart Rate 1: 70 bpm Height: 5'7" Temperature: 36.4 (C) / 97.6 (F) Weight: 130 lbs 07/11/2010 Blood Pressure 1: 106/60 Code: 8480-6 Heart Rate 1: 92 bpm Respiratory Rate: 18 bpm SpO2: 96% Temperature: 36.9 (C) / 98.5 (F) We ight: 127 lbs 05/08/2010 Blood Pressure 1: 116/68 Code: 8480-6 BMI: 19.3 Code: 60459-5 Heart Rate 1: 68 bpm Height: 5'7" Temperature: 36.8 (C) / 98.3 (F) Weight: 123 lbs Functional Status No Functional Status data Reason For Visit Reason For Visit Effective Dates Notes abdominal pain 01/19/2020 abdominal pain 11/30/2019 follow up 10/12/2019 ER fwup well man exam (18-39 years) 04/13/2019 follow up 01/29/2018 Hosp fwup back pain 09/16/2017 headache 08/06/2017 Patient was seen 1 w [place] ago for left inner ear infection and [...] basketball Encounters Encounter Performer Location Codes Date ([id number]) OFFICE/OUTPATIENT VISIT EST Diagnosis: Gastroenteritis[ICD10: K52.9] Diagnosis: Febrile illness[ICD10: R50.9] Madhavi SCOTT DO [facility] CPT-4: 99701 01/19/2020 ([id number]) OFFICE/OUTPATIENT VISIT EST Diagnosis: Diarrhea[ICD10: R19.7] Diagnosis: Mesenteric lymphadenitis[ICD10: I88.0] Madhavi SCOTT DO [facility] CPT-4: 08638 11/30/2019 ([id number]) OFFICE/OUTPATIENT VISIT EST Diagnosis: Mesenteric lymphadenitis[ICD10: I88.0] [facility] CPT-4: 93246 10/12/2019 ([id number]) PREV VISIT EST AGE 18-39 Diagnosis: Encounter for general adult medical examination without abnormal findings[ICD10: Z00.00] Madhavi SCOTT DO [facility] CPT-4: 04170 04/13/2019 ([id number]) OFFICE/OUTPATIENT VISIT EST 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 Ivy JIN DO [facility] CPT-4: 16893 09/16/2017 OFFICE/OUTPATIENT VISIT EST Diagnosis: Otitis media, unspecified, left ear[ICD10: H66.92] Helen SCOTT DO [facility] CPT-4: 66421 08/06/2017 ([id number]) OFFICE/OUTPATIENT VISIT EST Diagnosis: Insomnia, unspecified[ICD10: G47.00] Madhavi SCOTT [facility] CPT-4: 02383 02/16/2017 ([id number]) OFFICE/OUTPATIENT VISIT EST Diagnosis: Fever, unspecified[ICD10: R50.9] Diagnosis: Myalgia[ICD10: M79.1] Diagnosis: Jaw pain[ICD10: R68.84] Giuseppe SCOTT [employer] [facility] CPT-4: 76439 08/15/2016 ([id number]) NO CHARGE Diagnosis: Adjustment disorder with mixed anxiety and depressed mood[ICD10: F43.23] Giuseppe SCOTT DO [facility] CPT-4: 36615 ([id number]) OFFICE/OUTPATIENT VISIT EST Diagnosis: Adjustment disorder with mixed anxiety and depressed mood[ICD10: F43.23] Diagnosis: Other specified diseases of intestine[ICD10: K63.89] Giuseppe SCOTT [employer] [facility] CPT-4: 49531 02/14/2016 ([id number]) OFFICE/OUTPATIENT VISIT EST Diagnosis: Major depressive disorder, single episode, unspecified[ICD10: F32.9] Diagnosis: Insomnia, unspecified[ICD10: G47.00] Diagnosis: Other fatigue[ICD10: R53.83] Giuseppe VALLECILLOLINE Faith [place] [facility] [employer] [facility] CPT-4: 50042 01/15/2016 OFFICE/OUTPATIENT VISIT EST Diagnosis: CEPHALGIA[ICD9: 784.0] Diagnosis: Mild dehydration[ICD9: 276.51] Alanis OrozcoAdrianaivatee MADHAVI Caryl SCOTT [employer] [facility] CPT-4: 70315 01/31/2015 OFFICE/OUTPATIENT VISIT EST Diagnosis: Mild dehydration[ICD9: 276.51] Alanis OrozcoAdrianaivatee MADHAVI Caryl SCOTT [employer] [facility] CPT-4: 55217 03/13/2014 OFFICE/OUTPATIENT VISIT EST Diagnosis: Nausea, vomiting and diarrhea[ICD9: 787.91] Diagnosis: Mild dehydration[ICD9: 276.51] Diagnosis: URINARY TRACT INFECTION[ICD9: 599.0] Alanis OrozcoAdrianaivatee AVEL BRITTANEY Faith [place] [employer] [facility] CPT-4: 75310 03/08/2014 ([id number]) OFFICE/OUTPATIENT VISIT EST Diagnosis: Poison elizabeth dermatitis[ICD9: 692.6] Madhavi HENRY Faith [place] [employer] [facility] CPT-4: 98308 01/11/2013 ([id number]) OFFICE/OUTPATIENT VISIT EST Diagnosis: PAIN, LOWER BACK[ICD9: 724.2] Diagnosis: SPASM OF MUSCLE[ICD9: 728.85] Madhavi SCOTT DO [employer] CPT-4: 91049 04/15/2012 ([id number]) OFFICE/OUTPATIENT VISIT EST Diagnosis: PAIN, LOWER BACK[ICD9: 724.2] Madhavi SCOTT DO [employer] CPT-4: 47644 04/01/2012 ([id number]) OFFICE/OUTPATIENT VISIT EST Diagnosis: PAIN, LOWER BACK[ICD9: 724.2] Diagnosis: SPASM OF MUSCLE[ICD9: 728.85] Madhavi SCOTT DO [employer] CPT-4: 73762 03/18/2012 OFFICE/OUTPATIENT VISIT EST Madhavi CRISOSTOMO DO [employer] CPT- 4: 53947 02/05/2011 ([id number]) OFFICE/OUTPATIENT VISIT, EST Madhavi SCOTT DO [employer] CPT-4: 48975 07/11/2010 ([id number]) PREV VISIT, EST, AGE 12-17 Madhavi SCOTT DO [employer] CPT-4: 13498 05/08/2010 Plan of Care Planned Activity Notes [...] I88.0 11/30/2019 Appointment: [facility]el[facility] [address] [facility] [facility] 11/30/2019 Patient Education: Lunesta- [employer] Coupon [id number] https://www.silkfred.Ariisto/samplemd/resources/getResource/61/d142l336-63cd-8472-6k Completed 11/30/2019 Visit Diagnosis Plan: Mesenteric lymphadenitis Discuss ion: Looked at ER records from last night and CT scan results reviewed Supportive care with clear liquids, zofran prn, tylenol prn Notify if worsens or persists No work for rest of week ICD-9 : 289.2 ICD-10 : I88.0 10/12/2019 Appointment: Madhavi Scott WPtel: [address] [place], [place] [address] 10/12/2019 Patient Education: ondansetron- Opt[employer] Coupon [id number] https://www.[employer]/silkfred/resources/getResource/61/zi09e30s-5177-88h2-08 Completed 10/12/2019 Visit Diagnosis Plan: Encounter for [facility] adult medical examination without abnormal findings Discussion: Patient planning on going in to [employer] His PCN allergy was when he was a child and was a rash from amoxicillin--he has no history of anaphylactic reactions His left testicle is a hydrocele which was checked by urology in 2007 and determined to be a benign hydrocele and recommendation was observation--no treatment needed ICD-9 : V70.0 ICD-10 : Z00.00 04/13/2019 Appointment: Madhavi Scott WPtel: [address] [place] [address] fwup instead of annual cause of no [...] A77.41 01/29/2018 Appointment: Madhavi Scott WPtel: [phone] [place] [id number] Follow Up 01/29/2018 Patient Education: Patient [...] ICD-10 : M54.5 09/16/2017 Appointment: Helen Mendez [address] [place] [address] ACUTE ILLNESS 09/16/2017 Patient Education: Patient Medication Summary Completed 09/16/2017 Care Plan: X-RAY EXAM L-S SPINE 08/08 VWS LOINC : 22805-0 Pending 09/16/2017 Visit Diagnosis Plan: Otitis media, [...] ICD-10 : H66.92 08/06/2017 Appointment: Helen Mendez [address] [place], [place] [address] ACUTE ILLNESS 08/06/2017 Patient Education: Patient Medication Summary Completed 08/06/2017 Visit Diagnosis Plan: Insomnia, unspecified Discussion : Sleep hygiene Trial of Lunesta 3mg q HS Call in 2 weeks if working ICD-9 : 780.52 ICD-10 : G47.00 02/16/2017 Appointment: Madhavi Scott WPtel: [address] [id number] ACUTE ILLNESS 02/16/2017 Patient Education: Patient Medication Summary Completed 02/16/2017 Visit Diagnosis Plan: Fever, unspecified Discussion: F bing is negative Patient is concerned with mumps - per mom he has had his vaccines and there has been no contact with confirmed mumps Called and discussed with infectious disease control nurse at [facility] who contacted [facility]. With his symptoms, it was recommended to test. Patient and orders sent to for further testing. Mask placed on patient and he is instructed to leave on. ICD-9 : 780.60 ICD-10 : R50.9 08/15/2016 Appointment: Giuseppe Jordan [address] [facility] ACUTE ILLNESS 08/15/2016 Patient Education: Patient Medication [...] follow up 02/20/2016 Appointment: [facility] [address] [facility] 02/18 confirmed~sl 02/18 patients appt was [...] for any SI/HI 02/14/2016 Appointment: Giuseppe Jordan [address] [place], [place] [id number] 02/12lm~sl....confirmed-sp ER Follow UP 2015 Patient Education: Patient Medication Summary Completed 02/14/2016 Appointment: Madhavi Scott WPtel: [address] [place], [place] [id number] RESCHEDULED 01/30/2016 Visit Plan: Start lexapro 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 Work on being active and outside Limit caffeine after noon No screen time within 1-2 hours before bed Labs to evaluate fatigue - cbc, cmp, tsh, testosterone and b12 Recheck in 1 month - will adjust lexapro and/or add sleep aid if needed 01/15/2016 Appointment: Giuseppe Jordan [address] [place], [place] [id number] ACUTE ILLNESS 01/15/2016 Patient Education: Patient Medication Summary Completed 01/15/2016 Appointment: Madhavi Scott WPtel: [address] [place], [place] [phone] 04/06 mother schedule 04/09 lm with ana laura ent and spoke with mother she forgot to call and cancel ACUTE ILLNESS 04/09/2015 Visit Plan: Push fluids of the next 4 da ys - >4 liters/day Avoid heat exposure for next 24 hours. No work tomorrow. Tylenol Extra Strength - 2 caps every 4 hours 01/31/2015 Appointment: Alanis Redman WPtel: [address] [place] [address] ACUTE ILLNESS 01/31/2015 Patient Education: Patient Medication Summary Completed 01/31/2015 Appointment: Alanis Redman WPtel: [address] [place] [address] 03/10 voicemail FOLLOW UP 03/13/2014 Patient Education: Patient Medication Summary Completed 03/13/2014 Appointment: Alanis Redman WPtel: [address] [place] [address] ACUTE ILLNESS 03/08/2014 Patient Education: Patient Medication Summary Completed 03/08/2014 Appointment: Madhavi Scott WPtel: [address] [place], [place] [phone] [place] INJECTION 01/11/2013 Patient Education: Patient Medication Summary Completed 01/11/2013 Visit Plan: Continue daily stretches Use flexeril, mobic for 1wk then prn 04/15/2012 Appointment: Madhavi Scott WPtel: [address] [place], [place] [address] 04/14 FOLLOW UP 04/15/2012 Patient Education: Patient Medication Summary Completed 04/15/2012 Visit Plan: OMT done Continue flexeril, mobic 04/01/2012 Appointment: Madhavi Scottteroberto: [address] [place], [place] [phone] FOLLOW UP 04/01/2012 Patient Education: Patient Medication Summary Completed 04/01/2012 Visit Plan: OMT done Daily stretches Mob ic and flexeril Recheck in 2wks 03/18/2012 Appointment: Madhavi Scott WPtel: [address] [place], [place] [phone] vm on mom phone OMT 03/18/2012 Patient [...] issue resolves. 02/05/2011 Appointment: Bailee Reyes WPtel: [address] [place], [place] [phone] ACUTE ILLNESS 02/05/2011 Patient Education: Patient Medication Summary Completed 02/05/2011 Visit Plan: Azithromycin. ProAir refil. Pt. will notify if no improvement in symptoms. 07/11/2010 Appointment: Bailee Reyes WPtel: [address] [place], [place] [phone] ACUTE ILLNESS 07/11/2010 Patient Education: Patient Medication Summary Completed 07/11/2010 Visit Plan: Annual exam. 05/08/2010 Appointment: Bailee Reyes WPtel: [address] [place], [place] [phone] SPORTS PHYSICAL 05/08/2010 Patient Education: Patient Medication [...] SI/HI . 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
--- OUTSIDE RECORDS SUMMARY | 2020-02-17 13:23 | XMS REPORT | CCD ---
Author Author Jesus Scott D.O. Organization MADHAVI SCOTT DO [facility] Address [address] [place] [address] Phone Care Team Providers Care Refrigeration Manager Name Role Phone Madhavi Scott D.O., PP Unavailable CCM Unavailable Summary Purpose Interface Exchange Family History Family History data not found Social History Social History Element Codes Description Effective Dates Tobacco history SNOMED CT: 656491872 Nonsmoker 02/05/2011 Allergies, Adverse Reactions, Alerts Substance [...] Fill Instructions Flagyl 500 mg tablet RxNorm: 224892 1 Tablet(s) Oral three time s a day 01/19/2020 01/26/2020 Active Lunesta 3 mg tablet RxNorm: 780951 TAKE ONE TABLET BY M OUTH AT BEDTIME NEEDED FOR SLEEP 1 Tablet(s) Oral QPM as needed for sleep 11/30/2019 01/29/2020 Active Flagyl 500 mg tablet RxNorm: 613674 1 Tablet(s) Oral three time s a day 11/30/2019 12/07/2019 Inactive ondansetron 4 mg disintegrating tablet RxNorm: 216847 1 Tablet(s) Oral Q4H as needed for nausea 10/12/2019 No Stop Date Active Lunesta 3 mg tablet RxNorm: 475660 TAKE ONE TABLET BY M OUTH AT BEDTIME NEEDED FOR SLEEP 09/02/2018 09/08/2018 Inactive Lunesta 3 mg tablet RxNorm: 277686 TAKE ONE TABLET BY M OUTH AT BEDTIME NEEDED FOR SLEEP 08/30/2018 04/12/2019 Inactive Lunesta 3 mg tablet RxNorm: 816675 TAKE ONE TABLET BY M OUTH EVERY NIGHT AT BEDTIME NEEDED FOR SLEEP 06/07/2018 09/02/2018 Inactive Lunesta 3 mg tablet RxNorm: 816420 TAKE ONE TABLET BY M OUTH EVERY NIGHT AT BEDTIME NEEDED SLEEP 04/13/2018 06/07/2018 Inactive Lunesta 3 mg tablet RxNorm: 395125 TAKE ONE TABLET BY M OUTH AT BEDTIME NEEDED FOR SLEEP 02/17/2018 04/13/2018 Inactive Generic For:LUNE STA 3MG TAB 02/17/2018 12:36:41 PM doxycycline hyclate 100 mg capsule RxNorm: 4324308 1 Capsule(s) PO BID 02/12/2018 02/25/2018 Inactive Lunesta 3 mg tablet RxNorm: 629502 Tablet(s) TAKE ONE T ABLET BY MOUTH AT BEDTIME NEEDED FOR SLEEP 12/29/2017 02/18/2018 Inactive Generic For: LUNESTA 3MG TAB 11/25/2017 1:41:28 PM 12/01/2017 10:00:01 AM Lunesta 3 mg tablet RxNorm: 889921 Tablet(s) TAKE ONE T ABLET BY MOUTH AT BEDTIME NEEDED FOR SLEEP 12/24/2017 12/29/2017 Inactive Generic For: LUNESTA 3MG TAB 11/25/2017 1:41:28 PM 12/01/2017 10:00:01 AM Lunesta 3 mg tablet RxNorm: 778746 TAKE ONE TABLET BY M OUTH AT BEDTIME NEEDED FOR SLEEP 12/03/2017 03/01/2018 Inactive Generic For:LUNE STA 3MG TAB 11/25/2017 1:41:28 PM 12/01/2017 10:00:01 AM Lunesta 3 mg tablet RxNorm: 319704 TAKE ONE TABLET BY M OUTH AT BEDTIME NEEDED FOR SLEEP 11/27/2017 04/12/2019 Inactive Generic For:LUNE STA 3MG TAB 11/27/2017 9:30:03 AM11/25/2017 1:41:28 PM Lunesta 3 mg tablet RxNorm: 537971 1 Tablet(s) PO QHS as needed for sleep 09/17/2017 11/27/2017 Inactive cyclobenzaprine 10 mg tablet RxNorm: 662175 1 Tablet(s) PO BID as needed 09/16/2017 04/12/2019 Inactive Lunesta 3 mg tablet RxNorm: 038534 1 Tablet(s) PO QHS as needed for sleep 08/26/2017 09/16/2017 Inactive Levaquin 500 mg tablet RxNorm: 206980 1 Tablet(s) PO QD 08/06/2017 Inactive prednisone 20 mg tablet RxNorm: 898015 2 Tablet(s) PO QD 08/06/2017 0 08/10/2017 Inactive Lunesta 3 mg tablet RxNorm: 486401 TAKE ONE TABLET BY M OUTH AT BEDTIME NEEDED 06/15/2017 07/14/2017 Inactive Lunesta 3 mg tablet RxNorm: 884796 1 Tablet(s) PO QHS as needed 06/15/2017 Inactive Lexapro 10 mg tablet RxNorm: 919147 1 Tablet(s) PO QD 07/01/201602/03 Inactive Lexapro 20 mg tablet RxNorm: 504283 1 Tablet(s) PO QD 02/14/201602/03 Inactive Lexapro 10 mg tablet RxNorm: 390852 1 Tablet(s) PO QD 01/15/201602/03 Inactive Cipro 500 mg tablet RxNorm: 214393 1 Tablet(s) PO BID 03/08/201403/2014 Inactive Flexeril 10 mg tablet RxNorm: 720503 Tablet(s) PO TAKE 1 TABLET BY MOUTH EACH NIGHT AT BEDTIME FOR SPASM 09/20/2012 01/14/2016 Inactive Gener ic For:FLEXERIL 10 MG TAB Flexeril 10 mg tablet RxNorm: 798889 1 Tablet(s) PO QHS for spasm 0 07/12/2012 08/10/2012 Inactive Mobic 15 mg tablet RxNorm: 652462 1 Tablet(s) PO QAM for pain 04/1505/14/2012 Inactive Flexeril 10 mg tablet RxNorm: 625135 1 Tablet(s) PO QHS for spasm 1 07/12/2012 Inactive Mobic 15 mg tablet RxNorm: 656562 1 Tablet(s) PO QAM for pain 03/1804/14/2012 Inactive Tylenol Extra Strength 500 mg tablet RxNorm: 007347 Tablet(s) P O as needed No Start Date Active ProAir HFA 90 mcg/Actuation Aerosol Inhaler RxNorm: 014087 2 Puff(s) INH PRN 2 puffs every 4 hrs as needed for wheezing. No Start Date 03/17/2012 Inacti ve azithromycin 250 mg Tab RxNorm: 732566 2 Tablet(s) PO Q D take 2 tablets (500 mg) by oral route once daily for 1 day then 1 tablet (250 mg) by oral route once daily for 4 days No Start Date 03/17/2012 Inactive Flexeril 10 mg tablet RxNorm: 262719 1 Tablet(s) PO QHS for spasm N o Start Date 04/14/2012 Inactive Lunesta 3 mg tablet RxNorm: 279623 1 Tablet(s) PO QHS as needed No Start Date 03/18/2017 Inactive Tussionex Pennkinetic ER 8 mg-10 mg/5 mL susp,extended relea se RxNorm: 8103265 PO No Start Date 07/23/2011 Inactive Medication Administered No Medication Administered data Immunizations No Immunization data Results No Results data Procedures Procedure Codes Date INFLUENZA ASSAY W/OPTIC CPT-4: 80099 08/15/2016 URINALYSIS NONAUTO W/O SCOPE CPT-4: 28521 01/31/2015 URINALYSIS NONAUTO W/O SCOPE CPT-4: 30757 03/13/2014 URINE CULTURE/ COLONY COUNT CPT-4: 08341 03/08/2014 URINALYSIS NONAUTO W/O SCOPE CPT-4: 88871 03/08/2014 THER/PROPH/DIAG INJ SC/IM CPT-4: 12341 01/11/2013 METHYLPREDNISOLONE 40 MG INJ CPT-4: J1030 [...] 1: 132/84 Code: 8480-6 BMI: 24.3 Code: 17756-2 Heart Rate 1: 100 bpm Height: 5'8" Respiratory Rate: 20 bpm SpO2: 96% Tempera ture: 36.8 (C) / 98.2 (F) Weight: 160 lbs 08/06/2017 Blood Pressure 1: 126/82 Code: 8480-6 BMI: 24.2 Code: 90639-7 Heart Rate 1: 92 bpm Height: 5'8" Respiratory Rate: 22 bpm SpO2: 96% Tempera ture: 36.4 (C) / 97.6 (F) Weight: 159 lbs 02/16/2017 Blood Pressure 1: 118/64 Code: 8480-6 BMI: 24.3 Code: 73080-0 Heart Rate 1: 84 bpm Height: 5'8" [...] 1: 124/82 Code: 8480-6 BMI: 22.7 Code: 41916-0 Heart Rate 1: 102 bpm Height: 5'8" Respiratory Rate: 24 bpm SpO2: 98% Tempera ture: 36.6 (C) / 97.8 (F) Weight: 149 lbs 01/15/2016 Blood Pressure 1: 142/78 Code: 8480-6 BMI: 22.6 Code: 22273-3 Heart Rate 1: 82 bpm Height: 5'8" Respiratory Rate: 20 bpm SpO2: 97% Tempera ture: 36.6 (C) / 97.8 (F) Weight: 151 lbs 01/31/2015 Blood Pressure 1: 122/82 Code: 8480-6 BMI: 21.9 Code: 70289-9 Heart Rate 1: 78 bpm Height: 5'7" Respiratory Rate: 22 bpm Temperature: 36 .7 (C) / 98.0 (F) Weight: 140 lbs 03/13/2014 Blood Pressure 1: 122/84 Code: 8480-6 BMI: 20.2 Code: 79476-0 Heart Rate 1: 68 bpm Height: 5'7" Respiratory Rate: 20 bpm Temperature: 36 .4 (C) / 97.5 (F) Weight: 129 lbs 03/08/2014 Blood Pressure 1: 102/60 Code: 8480-6 BMI: 20.2 Code: 85243-1 Heart Rate 1: 82 bpm Height: 5'7" Respiratory Rate: 20 bpm Temperature: 36 .6 (C) / 97.8 (F) Weight: 129 lbs 04/15/2012 Blood Pressure 1: 116/70 Code: 8480-6 BMI: 21.0 Code: 72368-7 Heart Rate 1: 92 bpm Height: 5'7" Respiratory Rate: 20 bpm Temperature: 37 .0 (C) / 98.6 (F) Weight: 134 lbs 04/01/2012 Blood Pressure 1: 116/70 Code: 8480-6 BMI: 21.0 Code: 11912-5 Heart Rate 1: 76 bpm Height: 5'7" Respiratory Rate: 20 bpm Temperature: 36 .6 (C) / 97.8 (F) Weight: 134 lbs 03/18/2012 Blood Pressure 1: 136/80 Code: 8480-6 BMI: 21.0 Code: 28604-7 Heart Rate 1: 84 bpm Height: 5'7" Respiratory Rate: 20 bpm Temperature: 36 .7 (C) / 98.1 (F) Weight: 134 lbs 02/05/2011 Blood Pressure 1: 124/70 Code: 8480-6 BMI: 20.4 Code: 75335-9 Heart Rate 1: 70 bpm Height: 5'7" Temperature: 36.4 (C) / 97.6 (F) Weight: 130 lbs 07/11/2010 Blood Pressure 1: 106/60 Code: 8480-6 Heart Rate 1: 92 bpm Respiratory Rate: 18 bpm SpO2: 96% Temperature: 36.9 (C) / 98.5 (F) We ight: 127 lbs 05/08/2010 Blood Pressure 1: 116/68 Code: 8480-6 BMI: 19.3 Code: 71924-7 Heart Rate 1: 68 bpm Height: 5'7" Temperature: 36.8 (C) / 98.3 (F) Weight: 123 lbs Functional Status No Functional Status data Reason For Visit Reason For Visit Effective Dates Notes abdominal pain 01/19/2020 abdominal pain 11/30/2019 follow up 10/12/2019 ER fwup well man exam (18-39 years) 04/13/2019 follow up 01/29/2018 Hosp fwup back pain 09/16/2017 headache 08/06/2017 Patient was seen 1 w [place] ago for left inner ear infection and [...] basketball Encounters Encounter Performer Location Codes Date ([id number]) OFFICE/OUTPATIENT VISIT EST Diagnosis: Gastroenteritis[ICD10: K52.9] Diagnosis: Febrile illness[ICD10: R50.9] Madhavi SCOTT DO [facility] CPT-4: 34016 01/19/2020 ([id number]) OFFICE/OUTPATIENT VISIT EST Diagnosis: Diarrhea[ICD10: R19.7] Diagnosis: Mesenteric lymphadenitis[ICD10: I88.0] Madhavi SCOTT DO [facility] CPT-4: 72499 11/30/2019 ([id number]) OFFICE/OUTPATIENT VISIT EST Diagnosis: Mesenteric lymphadenitis[ICD10: I88.0] [facility] CPT-4: 85540 10/12/2019 ([id number]) PREV VISIT EST AGE 18-39 Diagnosis: Encounter for general adult medical examination without abnormal findings[ICD10: Z00.00] Madhavi SCOTT DO [facility] CPT-4: 03926 04/13/2019 ([id number]) OFFICE/OUTPATIENT VISIT EST 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 Ivy JIN DO [facility] CPT-4: 11995 09/16/2017 OFFICE/OUTPATIENT VISIT EST Diagnosis: Otitis media, unspecified, left ear[ICD10: H66.92] Helen SCOTT DO [facility] CPT-4: 27536 08/06/2017 ([id number]) OFFICE/OUTPATIENT VISIT EST Diagnosis: Insomnia, unspecified[ICD10: G47.00] Madhavi SCOTT [facility] CPT-4: 57841 02/16/2017 ([id number]) OFFICE/OUTPATIENT VISIT EST Diagnosis: Fever, unspecified[ICD10: R50.9] Diagnosis: Myalgia[ICD10: M79.1] Diagnosis: Jaw pain[ICD10: R68.84] Giuseppe SCOTT [employer] [facility] CPT-4: 45479 08/15/2016 ([id number]) NO CHARGE Diagnosis: Adjustment disorder with mixed anxiety and depressed mood[ICD10: F43.23] Giuseppe SCOTT DO [facility] CPT-4: 98834 ([id number]) OFFICE/OUTPATIENT VISIT EST Diagnosis: Adjustment disorder with mixed anxiety and depressed mood[ICD10: F43.23] Diagnosis: Other specified diseases of intestine[ICD10: K63.89] Giuseppe SCOTT [employer] [facility] CPT-4: 46015 02/14/2016 ([id number]) OFFICE/OUTPATIENT VISIT EST Diagnosis: Major depressive disorder, single episode, unspecified[ICD10: F32.9] Diagnosis: Insomnia, unspecified[ICD10: G47.00] Diagnosis: Other fatigue[ICD10: R53.83] Giuseppe VALLECILLOLINE Faith DE LA TORRE [employer] CPT-4: 70813 01/15/2016 OFFICE/OUTPATIENT VISIT EST Diagnosis: CEPHALGIA[ICD9: 784.0] Diagnosis: Mild dehydration[ICD9: 276.51] Alanis OrozcoAdrianaivatee MADHAVI Caryl SCOTT [employer] [facility] CPT-4: 27797 01/31/2015 OFFICE/OUTPATIENT VISIT EST Diagnosis: Mild dehydration[ICD9: 276.51] Alanis OrozcoAdrianaivatee MADHAVI Caryl SCOTT [employer] [facility] CPT-4: 59125 03/13/2014 OFFICE/OUTPATIENT VISIT EST Diagnosis: Nausea, vomiting and diarrhea[ICD9: 787.91] Diagnosis: Mild dehydration[ICD9: 276.51] Diagnosis: URINARY TRACT INFECTION[ICD9: 599.0] Alanis OrozcoAdrianaivatee AVEL BRITTANEY Faith DE [place] [employer] CPT-4: 28458 03/08/2014 ([id number]) OFFICE/OUTPATIENT VISIT EST Diagnosis: Poison elizabeth dermatitis[ICD9: 692.6] Madhavi HENRY Faith DE [place] [employer] [facility] CPT-4: 55497 01/11/2013 ([id number]) OFFICE/OUTPATIENT VISIT EST Diagnosis: PAIN, LOWER BACK[ICD9: 724.2] Diagnosis: SPASM OF MUSCLE[ICD9: 728.85] Madhavi SCOTT DO [facility] CPT-4: 04721 04/15/2012 ([id number]) OFFICE/OUTPATIENT VISIT EST Diagnosis: PAIN, LOWER BACK[ICD9: 724.2] Madhavi SCOTT DO [facility] CPT-4: 99732 04/01/2012 ([id number]) OFFICE/OUTPATIENT VISIT EST Diagnosis: PAIN, LOWER BACK[ICD9: 724.2] Diagnosis: SPASM OF MUSCLE[ICD9: 728.85] Madhavi SCOTT DO [facility] CPT-4: 14030 03/18/2012 OFFICE/OUTPATIENT VISIT EST Madhavi CRISOSTOMO DO [facility] CPT- 4: 78543 02/05/2011 ([id number]) OFFICE/OUTPATIENT VISIT, EST Madhavi SCOTT DO [facility] CPT-4: 45511 07/11/2010 ([id number]) PREV VISIT, EST, AGE 12-17 Madhavi SCOTT DO [facility] CPT-4: 58971 05/08/2010 Plan of Care Planned Activity Notes [...] I88.0 11/30/2019 Appointment: [facility] [phone] [facility] [facility] 11/30/2019 Patient Education: Lunesta- [employer] Coupon [id number] https://www.Tomorrowish.SantoSolve/samplemd/resources/getResource/61/p763p890-47sn-7778-6x Completed 11/30/2019 Visit Diagnosis Plan: Mesenteric lymphadenitis Discuss ion: Looked at ER records from last night and CT scan results reviewed Supportive care with clear liquids, zofran prn, tylenol prn Notify if worsens or persists No work for rest of week ICD-9 : 289.2 ICD-10 : I88.0 10/12/2019 Appointment: Madhavi Scott WPtel: [address] [place], [place] [phone] TELEMEDICINE 10/12/2019 Patient Education: ondansetron- OptimizeRX Coupon [id number] https://www.Cortilia/Tomorrowish/resources/getResource/61/bo48m17f-4288-46l0-30 Completed 10/12/2019 Visit Diagnosis Plan: Encounter for [facility] adult medical examination without abnormal findings Discussion: Patient planning on going in to [place] His PCN allergy was when he was a child and was a rash from amoxicillin--he has no history of anaphylactic reactions His left testicle is a hydrocele which was checked by urology in 2007 and determined to be a benign hydrocele and recommendation was observation--no treatment needed ICD-9 : V70.0 ICD-10 : Z00.00 04/13/2019 Appointment: Madhavi Scott WPtel: [address] [place] [address] fwup instead of annual cause of no [...] A77.41 01/29/2018 Appointment: Madhavi Scott WPtel: [phone] [place] [phone] Hospital Follow Up 01/29/2018 [...] ICD-10 : M54.5 09/16/2017 Appointment: Helen Mendez [address] [place] [address] ACUTE ILLNESS 09/16/2017 Patient Education: Patient Medication Summary Completed 09/16/2017 Care Plan: X-RAY EXAM L-S SPINE 08/08 VWS LOINC : 32203-0 Pending 09/16/2017 Visit Diagnosis Plan: Otitis media, [...] ICD-10 : H66.92 08/06/2017 Appointment: Helen Mendez [address] [place], [place] [phone] ACUTE ILLNESS 08/06/2017 Patient Education: Patient Medication Summary Completed 08/06/2017 Visit Diagnosis Plan: Insomnia, unspecified Discussion : Sleep hygiene Trial of Lunesta 3mg q HS Call in 2 weeks if working ICD-9 : 780.52 ICD-10 : G47.00 02/16/2017 Appointment: Madhavi Scott WPtel: [phone] [place] [phone] ACUTE ILLNESS 02/16/2017 Patient Education: Patient Medication Summary Completed 02/16/2017 Visit Diagnosis Plan: Fever, unspecified Discussion: F bing is negative Patient is concerned with mumps - per mom he has had his vaccines and there has been no contact with confirmed mumps Called and discussed with infectious disease control nurse at [facility] who contacted [facility]. With his symptoms, it was recommended to test. Patient and orders sent to for further testing. Mask placed on patient and he is instructed to leave on. ICD-9 : 780.60 ICD-10 : R50.9 08/15/2016 Appointment: Giuseppe Jordan [address] [facility] ACUTE ILLNESS 08/15/2016 Patient Education: Patient Medication [...] follow up 02/20/2016 Appointment: [facility] [address] [facility] 02/18 confirmed~sl 02/18 patients appt was [...] for any SI/HI 02/14/2016 Appointment: Giuseppe Jordan [address] [place], [place] [address] 02/12lm~sl....confirmed-sp ER Follow UP 2015 Patient Education: Patient Medication Summary Completed 02/14/2016 Appointment: Madhavi Scott WPtel: [address] [place], [place] [id number] RESCHEDULED 01/30/2016 Visit Plan: Start lexapro 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 Work on being active and outside Limit caffeine after noon No screen time within 1-2 hours before bed Labs to evaluate fatigue - cbc, cmp, tsh, testosterone and b12 Recheck in 1 month - will adjust lexapro and/or add sleep aid if needed 01/15/2016 Appointment: Giuseppe Jordan [address] [place], [place] [phone] ACUTE ILLNESS 01/15/2016 Patient Education: Patient Medication Summary Completed 01/15/2016 Appointment: Madhavi Scott WPtel: [address] [place], [place] [phone] 04/06 mother schedule 04/09 lm with ana laura ent and spoke with mother she forgot to call and cancel ACUTE ILLNESS 04/09/2015 Visit Plan: Push fluids of the next 4 da ys - >4 liters/day Avoid heat exposure for next 24 hours. No work tomorrow. Tylenol Extra Strength - 2 caps every 4 hours 01/31/2015 Appointment: Alanis Redman WPtel: [address] [place] [address] ACUTE ILLNESS 01/31/2015 Patient Education: Patient Medication Summary Completed 01/31/2015 Appointment: Alanis Redman WPtel: [address] [place] [address] 03/10 voicemail FOLLOW UP 03/13/2014 Patient Education: Patient Medication Summary Completed 03/13/2014 Appointment: Alanis Redman WPtel: [address] [place] [address] ACUTE ILLNESS 03/08/2014 Patient Education: Patient Medication Summary Completed 03/08/2014 Appointment: Madhavi Scott WPtel: [address] [place], [place] [phone] [place] INJECTION 01/11/2013 Patient Education: Patient Medication Summary Completed 01/11/2013 Visit Plan: Continue daily stretches Use flexeril, mobic for 1wk then prn 04/15/2012 Appointment: Madhavi Scott WPtel: [address] [place], [place] [phone] 04/14 FOLLOW UP 04/15/2012 Patient Education: Patient Medication Summary Completed 04/15/2012 Visit Plan: OMT done Continue flexeril, mobic 04/01/2012 Appointment: Madhavi Scottteroberto: [address] [place], [place] [phone] FOLLOW UP 04/01/2012 Patient Education: Patient Medication Summary Completed 04/01/2012 Visit Plan: OMT done Daily stretches Mob ic and flexeril Recheck in 2wks 03/18/2012 Appointment: Madhavi Scott WPtel: [address] [place], [place] [phone] vm on mom phone OMT 03/18/2012 Patient [...] issue resolves. 02/05/2011 Appointment: Bailee Reyes WPtel: [address] [place], [place] [phone] ACUTE ILLNESS 02/05/2011 Patient Education: Patient Medication Summary Completed 02/05/2011 Visit Plan: Azithromycin. ProAir refil. Pt. will notify if no improvement in symptoms. 07/11/2010 Appointment: Bailee Reyes WPtel: [address] [place], [place] [phone] ACUTE ILLNESS 07/11/2010 Patient Education: Patient Medication Summary Completed 07/11/2010 Visit Plan: Annual exam. 05/08/2010 Appointment: Bailee Reyes WPtel: [address] [place], [place] [phone] SPORTS PHYSICAL 05/08/2010 Patient Education: Patient Medication [...] SI/HI . 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
--- OUTSIDE RECORDS SUMMARY | 2020-02-17 13:23 | XMS REPORT | CCD ---
Author Author Jesus Scott D.O. Organization MADHAVI SCOTT DO [facility] Address [address] [place] [address] Phone Care Team Providers Care Community Nurse Name Role Phone Madhavi Scott D.O., PP Unavailable CCM Unavailable Summary Purpose Interface Exchange Family History Family History data not found Social History Social History Element Codes Description Effective Dates Tobacco history SNOMED CT: 855572569 Nonsmoker 02/05/2011 Allergies, Adverse Reactions, Alerts Substance Reaction Codes Entered Date Inactivated Date Status PENICILLINS Unknown 05/08/2010 No Inactive Date Active Ibuprofen Unknown 05/08/2010 No Inactive Date Active * NO KNOWN FOOD ALLERGIES Unknown 04/13/2019 No Inactiv e Date Active * NO KNOWN ENVIRONMENTAL ALLERGIES Unknown 04/13/2019 N o Inactive Date Active Problems Condition Codes Effective Dates Condition Status Diarrhea ICD-9: 787.91 ICD-10: R19.7 11/30/2019 Active [...] unspecified ICD-9: 461.0 ICD-10: J01.00 08/15/2016 Active Fever, unspecified ICD-9: 780.60 ICD-10: R50.9 08/15/2016 Active Jaw pain ICD-9: 784.92 ICD-10: [...] Fill Instructions Lunesta 3 mg tablet RxNorm: 664595 TAKE ONE TABLET BY M OUTH AT BEDTIME NEEDED FOR SLEEP 1 Tablet(s) Oral QPM as needed for sleep 11/30/2019 01/29/2020 Active Flagyl 500 mg tablet RxNorm: 863593 1 Tablet(s) Oral three time s a day 11/30/2019 12/07/2019 Active ondansetron 4 mg disintegrating tablet RxNorm: 489541 1 Tablet(s) Oral Q4H as needed for nausea 10/12/2019 No Stop Date Active Lunesta 3 mg tablet RxNorm: 631000 TAKE ONE TABLET BY M OUTH AT BEDTIME NEEDED FOR SLEEP 09/02/2018 09/08/2018 Inactive Lunesta 3 mg tablet RxNorm: 595752 TAKE ONE TABLET BY M OUTH AT BEDTIME NEEDED FOR SLEEP 08/30/2018 04/12/2019 Inactive Lunesta 3 mg tablet RxNorm: 374947 TAKE ONE TABLET BY M OUTH EVERY NIGHT AT BEDTIME NEEDED FOR SLEEP 06/07/2018 09/02/2018 Inactive Lunesta 3 mg tablet RxNorm: 859379 TAKE ONE TABLET BY M OUTH EVERY NIGHT AT BEDTIME NEEDED SLEEP 04/13/2018 06/07/2018 Inactive Lunesta 3 mg tablet RxNorm: 184100 TAKE ONE TABLET BY M OUTH AT BEDTIME NEEDED FOR SLEEP 02/17/2018 04/13/2018 Inactive Generic For:LUNE STA 3MG TAB 02/17/2018 12:36:41 PM doxycycline hyclate 100 mg capsule RxNorm: 6999127 1 Capsule(s) PO BID 02/12/2018 02/25/2018 Inactive Lunesta 3 mg tablet RxNorm: 313644 Tablet(s) TAKE ONE T ABLET BY MOUTH AT BEDTIME NEEDED FOR SLEEP 12/29/2017 02/18/2018 Inactive Generic For: LUNESTA 3MG TAB 11/25/2017 1:41:28 PM 12/01/2017 10:00:01 AM Lunesta 3 mg tablet RxNorm: 460304 Tablet(s) TAKE ONE T ABLET BY MOUTH AT BEDTIME NEEDED FOR SLEEP 12/24/2017 12/29/2017 Inactive Generic For: LUNESTA 3MG TAB 11/25/2017 1:41:28 PM 12/01/2017 10:00:01 AM Lunesta 3 mg tablet RxNorm: 267924 TAKE ONE TABLET BY M OUTH AT BEDTIME NEEDED FOR SLEEP 12/03/2017 03/01/2018 Inactive Generic For:LUNE STA 3MG TAB 11/25/2017 1:41:28 PM 12/01/2017 10:00:01 AM Lunesta 3 mg tablet RxNorm: 609829 TAKE ONE TABLET BY M OUTH AT BEDTIME NEEDED FOR SLEEP 11/27/2017 04/12/2019 Inactive Generic For:LUNE STA 3MG TAB 11/27/2017 9:30:03 AM11/25/2017 1:41:28 PM Lunesta 3 mg tablet RxNorm: 831596 1 Tablet(s) PO QHS as needed for sleep 09/17/2017 11/27/2017 Inactive cyclobenzaprine 10 mg tablet RxNorm: 457865 1 Tablet(s) PO BID as needed 09/16/2017 04/12/2019 Inactive Lunesta 3 mg tablet RxNorm: 372344 1 Tablet(s) PO QHS as needed for sleep 08/26/2017 09/16/2017 Inactive Levaquin 500 mg tablet RxNorm: 653583 1 Tablet(s) PO QD 08/06/2017 Inactive prednisone 20 mg tablet RxNorm: 287031 2 Tablet(s) PO QD 08/06/2017 0 08/10/2017 Inactive Lunesta 3 mg tablet RxNorm: 217417 TAKE ONE TABLET BY M OUTH AT BEDTIME NEEDED 06/15/2017 07/14/2017 Inactive Lunesta 3 mg tablet RxNorm: 674771 1 Tablet(s) PO QHS as needed 06/15/2017 Inactive Lexapro 10 mg tablet RxNorm: 899925 1 Tablet(s) PO QD 07/01/201602/03 Inactive Lexapro 20 mg tablet RxNorm: 207119 1 Tablet(s) PO QD 02/14/201602/03 Inactive Lexapro 10 mg tablet RxNorm: 780068 1 Tablet(s) PO QD 01/15/201602/03 Inactive Cipro 500 mg tablet RxNorm: 931926 1 Tablet(s) PO BID 03/08/201403/2014 Inactive Flexeril 10 mg tablet RxNorm: 451435 Tablet(s) PO TAKE 1 TABLET BY MOUTH EACH NIGHT AT BEDTIME FOR SPASM 09/20/2012 01/14/2016 Inactive Gener ic For:FLEXERIL 10 MG TAB Flexeril 10 mg tablet RxNorm: 590519 1 Tablet(s) PO QHS for spasm 0 07/12/2012 08/10/2012 Inactive Mobic 15 mg tablet RxNorm: 969393 1 Tablet(s) PO QAM for pain 04/1505/14/2012 Inactive Flexeril 10 mg tablet RxNorm: 156982 1 Tablet(s) PO QHS for spasm 1 07/12/2012 Inactive Mobic 15 mg tablet RxNorm: 568719 1 Tablet(s) PO QAM for pain 03/1804/14/2012 Inactive Tylenol Extra Strength 500 mg tablet RxNorm: 110129 Tablet(s) P O as needed No Start Date Active ProAir HFA 90 mcg/Actuation Aerosol Inhaler RxNorm: 246312 2 Puff(s) INH PRN 2 puffs every 4 hrs as needed for wheezing. No Start Date 03/17/2012 Inacti ve azithromycin 250 mg Tab RxNorm: 450106 2 Tablet(s) PO Q D take 2 tablets (500 mg) by oral route once daily for 1 day then 1 tablet (250 mg) by oral route once daily for 4 days No Start Date 03/17/2012 Inactive Flexeril 10 mg tablet RxNorm: 185732 1 Tablet(s) PO QHS for spasm N o Start Date 04/14/2012 Inactive Lunesta 3 mg tablet RxNorm: 414062 1 Tablet(s) PO QHS as needed No Start Date 03/18/2017 Inactive Tussionex Pennkinetic ER 8 mg-10 mg/5 mL susp,extended relea se RxNorm: 7516015 PO No Start Date 07/23/2011 Inactive Medication Administered No Medication Administered data Immunizations No Immunization data Results No Results data Procedures Procedure Codes Date INFLUENZA ASSAY W/OPTIC CPT-4: 23786 08/15/2016 URINALYSIS NONAUTO W/O SCOPE CPT-4: 51965 01/31/2015 URINALYSIS NONAUTO W/O SCOPE CPT-4: 42331 03/13/2014 URINE CULTURE/ COLONY COUNT CPT-4: 87365 03/08/2014 URINALYSIS NONAUTO W/O SCOPE CPT-4: 13269 03/08/2014 THER/PROPH/DIAG INJ SC/IM CPT-4: 58984 01/11/2013 METHYLPREDNISOLONE 40 MG INJ CPT-4: J1030 [...] 1: 132/84 Code: 8480-6 BMI: 24.3 Code: 71575-4 Heart Rate 1: 100 bpm Height: 5'8" Respiratory Rate: 20 bpm SpO2: 96% Tempera ture: 36.8 (C) / 98.2 (F) Weight: 160 lbs 08/06/2017 Blood Pressure 1: 126/82 Code: 8480-6 BMI: 24.2 Code: 58269-3 Heart Rate 1: 92 bpm Height: 5'8" Respiratory Rate: 22 bpm SpO2: 96% Tempera ture: 36.4 (C) / 97.6 (F) Weight: 159 lbs 02/16/2017 Blood Pressure 1: 118/64 Code: 8480-6 BMI: 24.3 Code: 41036-6 Heart Rate 1: 84 bpm Height: 5'8" [...] 1: 124/82 Code: 8480-6 BMI: 22.7 Code: 05564-7 Heart Rate 1: 102 bpm Height: 5'8" Respiratory Rate: 24 bpm SpO2: 98% Tempera ture: 36.6 (C) / 97.8 (F) Weight: 149 lbs 01/15/2016 Blood Pressure 1: 142/78 Code: 8480-6 BMI: 22.6 Code: 91910-4 Heart Rate 1: 82 bpm Height: 5'8" Respiratory Rate: 20 bpm SpO2: 97% Tempera ture: 36.6 (C) / 97.8 (F) Weight: 151 lbs 01/31/2015 Blood Pressure 1: 122/82 Code: 8480-6 BMI: 21.9 Code: 12110-9 Heart Rate 1: 78 bpm Height: 5'7" Respiratory Rate: 22 bpm Temperature: 36 .7 (C) / 98.0 (F) Weight: 140 lbs 03/13/2014 Blood Pressure 1: 122/84 Code: 8480-6 BMI: 20.2 Code: 20264-4 Heart Rate 1: 68 bpm Height: 5'7" Respiratory Rate: 20 bpm Temperature: 36 .4 (C) / 97.5 (F) Weight: 129 lbs 03/08/2014 Blood Pressure 1: 102/60 Code: 8480-6 BMI: 20.2 Code: 89468-0 Heart Rate 1: 82 bpm Height: 5'7" Respiratory Rate: 20 bpm Temperature: 36 .6 (C) / 97.8 (F) Weight: 129 lbs 04/15/2012 Blood Pressure 1: 116/70 Code: 8480-6 BMI: 21.0 Code: 37181-8 Heart Rate 1: 92 bpm Height: 5'7" Respiratory Rate: 20 bpm Temperature: 37 .0 (C) / 98.6 (F) Weight: 134 lbs 04/01/2012 Blood Pressure 1: 116/70 Code: 8480-6 BMI: 21.0 Code: 99343-7 Heart Rate 1: 76 bpm Height: 5'7" Respiratory Rate: 20 bpm Temperature: 36 .6 (C) / 97.8 (F) Weight: 134 lbs 03/18/2012 Blood Pressure 1: 136/80 Code: 8480-6 BMI: 21.0 Code: 70935-1 Heart Rate 1: 84 bpm Height: 5'7" Respiratory Rate: 20 bpm Temperature: 36 .7 (C) / 98.1 (F) Weight: 134 lbs 02/05/2011 Blood Pressure 1: 124/70 Code: 8480-6 BMI: 20.4 Code: 59077-9 Heart Rate 1: 70 bpm Height: 5'7" Temperature: 36.4 (C) / 97.6 (F) Weight: 130 lbs 07/11/2010 Blood Pressure 1: 106/60 Code: 8480-6 Heart Rate 1: 92 bpm Respiratory Rate: 18 bpm SpO2: 96% Temperature: 36.9 (C) / 98.5 (F) We ight: 127 lbs 05/08/2010 Blood Pressure 1: 116/68 Code: 8480-6 BMI: 19.3 Code: 89122-9 Heart Rate 1: 68 bpm Height: 5'7" Temperature: 36.8 (C) / 98.3 (F) Weight: 123 lbs Functional Status No Functional Status data Reason For Visit Reason For Visit Effective Dates Notes abdominal pain 11/30/2019 follow up 10/12/2019 ER fwup well man exam (18-39 years) 04/13/2019 follow up 01/29/2018 Hosp fwup back pain 09/16/2017 headache 08/06/2017 Patient was seen 1 w [facility] ago for left inner ear infection and [...] basketball Encounters Encounter Performer Location Codes Date ([id number]) OFFICE/OUTPATIENT VISIT EST Diagnosis: Diarrhea[ICD10: R19.7] Diagnosis: Mesenteric lymphadenitis[ICD10: I88.0] Madhavi JUAREZ CPT-4: 89743 11/30/2019 ([id number]) OFFICE/OUTPATIENT VISIT EST Diagnosis: Mesenteric lymphadenitis[ICD10: I88.0] [facility]: 08999 10/12/2019 ([id number]) PREV VISIT EST AGE 18-39 Diagnosis: Encounter for general adult medical examination without abnormal findings[ICD10: Z00.00] Madhavi SCOTT DO [facility] CPT-4: 96628 04/13/2019 ([id number]) OFFICE/OUTPATIENT VISIT EST 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] Madhavi SCOTT DO [facility] CPT-4: 51431 01/29/2018 ([id number]) OFFICE/OUTPATIENT VISIT EST Diagnosis: Low back pain[ICD10: M54.5] Helen JIN DO [facility] CPT-4: 51646 09/16/2017 OFFICE/OUTPATIENT VISIT EST Diagnosis: Otitis media, unspecified, left ear[ICD10: H66.92] Helen SCOTT DO [facility] CPT-4: 58102 08/06/2017 ([id number]) OFFICE/OUTPATIENT VISIT EST Diagnosis: Insomnia, unspecified[ICD10: G47.00] Madhavi SCOTT DO [facility] CPT-4: 51204 02/16/2017 ([id number]) OFFICE/OUTPATIENT VISIT EST Diagnosis: Fever, unspecified[ICD10: R50.9] Diagnosis: Myalgia[ICD10: M79.1] Diagnosis: Jaw pain[ICD10: R68.84] Giuseppe SCOTT [facility] CPT-4: 88930 08/15/2016 ([id number]) NO CHARGE Diagnosis: Adjustment disorder with mixed anxiety and depressed mood[ICD10: F43.23] Giuseppe SCOTT [facility] CPT-4: 41963 ([id number]) OFFICE/OUTPATIENT VISIT EST Diagnosis: Adjustment disorder with mixed anxiety and depressed mood[ICD10: F43.23] Diagnosis: Other specified diseases of intestine[ICD10: K63.89] Giuseppe SCOTT [facility] CPT-4: 97975 02/14/2016 ([id number]) OFFICE/OUTPATIENT VISIT EST Diagnosis: Major depressive disorder, single episode, unspecified[ICD10: F32.9] Diagnosis: Insomnia, unspecified[ICD10: G47.00] Diagnosis: Other fatigue[ICD10: R53.83] Giuseppe SCOTT [facility] CPT-4: 22934 01/15/2016 OFFICE/OUTPATIENT VISIT EST Diagnosis: CEPHALGIA[ICD9: 784.0] Diagnosis: Mild dehydration[ICD9: 276.51] Alanis VALLECILLOLINE Caryl SCOTT [facility] CPT-4: 50247 01/31/2015 OFFICE/OUTPATIENT VISIT EST Diagnosis: Mild dehydration[ICD9: 276.51] Alanis VALLECILLOLINE Caryl SCOTT [facility] CPT-4: 05242 03/13/2014 OFFICE/OUTPATIENT VISIT EST Diagnosis: Nausea, vomiting and diarrhea[ICD9: 787.91] Diagnosis: Mild dehydration[ICD9: 276.51] Diagnosis: URINARY TRACT INFECTION[ICD9: 599.0] Alanis SCOTT [facility] CPT-4: 17020 03/08/2014 ([id number]) OFFICE/OUTPATIENT VISIT EST Diagnosis: Poison elizabeth dermatitis[ICD9: 692.6] Madhavi Alanying HENRY Faith SCOTT [facility] CPT-4: 82954 01/11/2013 ([id number]) OFFICE/OUTPATIENT VISIT EST Diagnosis: PAIN, LOWER BACK[ICD9: 724.2] Diagnosis: SPASM OF MUSCLE[ICD9: 728.85] Madhavi Alanying MARSHALLMADHAVI Faith SCOTT [facility] CPT-4: 67835 04/15/2012 ([id number]) OFFICE/OUTPATIENT VISIT EST Diagnosis: PAIN, LOWER BACK[ICD9: 724.2] Madhavi Alanying HAWLEY CarylZuleyka VIANEY PAZ [facility] CPT-4: 90925 04/01/2012 ([id number]) OFFICE/OUTPATIENT VISIT EST Diagnosis: PAIN, LOWER BACK[ICD9: 724.2] Diagnosis: SPASM OF MUSCLE[ICD9: 728.85] Madhavi SCOTT DO [facility] CPT-4: 73993 03/18/2012 OFFICE/OUTPATIENT VISIT EST Madhavi CRISOSTOMO DO [facility] CPT- 4: 87218 02/05/2011 ([id number]) OFFICE/OUTPATIENT VISIT, EST Madhavi SCOTT DO [facility] CPT-4: 79769 07/11/2010 ([id number]) PREV VISIT, EST, AGE 12-17 Madhavi SCOTT DO [facility] CPT-4: 57246 05/08/2010 Plan of Care Planned Activity Notes Codes Status Date Visit Diagnosis Plan: Diarrhea Discussion: Anh de oliveira Diet Notify if persists ICD-9 : 787.91 ICD-10 : R19.7 11/30/2019 Visit Diagnosis Plan: Mesenteric lymphadenitis Discuss ion: Notify if worsening ICD-9 : 289.2 ICD-10 : I88.0 11/30/2019 Patient Education: Lunesta- [employer] Coupon [id number] https://www.HarQen/Whiphand/resources/getResource/61/j430z128-58nt-7437-1v Completed 11/30/2019 Visit Diagnosis Plan: Mesenteric lymphadenitis Discuss ion: Looked at ER records from last night and CT scan results reviewed Supportive care with clear liquids, zofran prn, tylenol prn Notify if worsens or persists No work for rest of week ICD-9 : 289.2 ICD-10 : I88.0 10/12/2019 Appointment: Mad[facility] [phone] [facility] [facility] 10/12/2019 Patient Education: ondansetron- [employer] Coupon [phone] https://www.HarQen/Whiphand/resources/getResource/61/go87i79t-8352-78a8-67 Completed 10/12/2019 Visit Diagnosis Plan: Encounter for gene [facility] adult medical examination without abnormal findings Discussion: Patient planning on going in to [email or web address] His PCN allergy was when he was a child and was a rash from amoxicillin--he has no history of anaphylactic reactions His left testicle is a hydrocele which was checked by urology in 2007 and determined to be a benign hydrocele and recommendation was observation--no treatment needed ICD-9 : V70.0 ICD-10 : Z00.00 04/13/2019 Appointment: Madhavi Scott WPtel: [phone] [facility] fwup instead of annual cause of no insurance. FO LLOW UP 04/13/2019 Visit Diagnosis Plan: Ehrlichiosis chafeensis [E. chaf soniis] Discussion: Discussed tick panel results Discussed importance of finishing all antibiotics--has ful 14 day course and letting us know if has any remaining symptoms at end of antibiotic course Discussed [place] off when going into wood[place] areas Mild nausea likely due to antibioitic ICD-9 : 082.41 ICD-10 : A77.41 01/29/2018 Appointment: Madhavi Scott WPtel: [phone] [facility] Hospital Follow Up 01/29/2018 Patient Education: Patient [...] ICD-10 : M54.5 09/16/2017 Appointment: Helen Mendez [address] [place], [place] [id number] ACUTE ILLNESS 09/16/2017 Patient Education: Patient Medication Summary Completed 09/16/2017 Care Plan: X-RAY EXAM L-S SPINE 2/3 VWS LOINC : 33177-0 Pending 09/16/2017 Visit Diagnosis Plan: Otitis media, [...] : H66.92 08/06/2017 Appointment: Helen Mendez [address] ACUTE ILLNESS 08/06/2017 Patient Education: Patient Medication Summary Completed 08/06/2017 Visit Diagnosis Plan: Insomnia, unspecified Discussion : Sleep hygiene Trial of Lunesta 3mg q HS Call in 2 weeks if working ICD-9 : 780.52 ICD-10 : G47.00 02/16/2017 Appointment: Madhavi Scott WPtel: [address] [place] [address] ACUTE ILLNESS 02/16/2017 Patient Education: Patient Medication Summary Completed 02/16/2017 Visit Diagnosis Plan: Fever, unspecified Discussion: F bing is negative Patient is concerned with mumps - per mom he has had his vaccines and there has been no contact with confirmed mumps Called and discussed with infectious disease control nurse at [facility] who contacted [facility]. With his symptoms, it was recommended to test. Patient and orders sent to for further testing. Mask placed on patient and he is instructed to leave on. ICD-9 : 780.60 ICD-10 : R50.9 08/15/2016 Appointment: Giuseppe Jordan [address] [place] [address] ACUTE ILLNESS 08/15/2016 Patient Education: Patient Medication [...] month follow up 02/20/2016 Appointment: Giuseppe Jordan [facility] [address] 02/18 confirmed~sl 02/18 patients appt was canceled. Patient was seen last week, and it was counted as a fwup per giuseppe-[place]em CANCELED 02/20/2016 Patient Education: Patient Medication Summary [...] for any SI/HI 02/14/2016 Appointment: Giuseppe Jordan [address] [place] [address] 02/12lm~sl....confirmed-sp ER Follow UP 2015 Patient Education: Patient Medication Summary Completed 02/14/2016 Appointment: Madhavi Scott WPtel: [address] [place] [address] US RESCHEDULED 01/30/2016 Visit Plan: Start lexapro Continue couns eling with colleter Work on being active and outside Limit caffeine after noon No screen time within 1-2 hours before bed Labs to evaluate fatigue - cbc, cmp, tsh, testosterone and b12 Recheck in 1 month - will adjust lexapro and/or add sleep aid if needed 01/15/2016 Appointment: Giuseppe Jordan[address] [place] [address] ACUTE ILLNESS 01/15/2016 Patient Education: Patient Medication Summary Completed 01/15/2016 Appointment: Madhavi Scott WPtel: [address] [place], [place] [phone] 04/06 mother schedule 04/09 lm with ana laura ent and spoke with mother she forgot to call and cancel ACUTE ILLNESS 04/09/2015 Visit Plan: Push fluids of the next 4 da ys - >4 liters/day Avoid heat exposure for next 24 hours. No work tomorrow. Tylenol Extra Strength - 2 caps every 4 hours 01/31/2015 Appointment: Alanis Redman WPtel: [address] [place], [place] [phone] ACUTE ILLNESS 01/31/2015 Patient Education: Patient Medication Summary Completed 01/31/2015 Appointment: Alanis Redman WPtel: [address] [place], [place] [phone] 03/10 voicemail FOLLOW UP 03/13/2014 Patient Education: Patient Medication Summary Completed 03/13/2014 Appointment: Alanis Redman WPtel: [address] [place] [address] ACUTE ILLNESS 03/08/2014 Patient Education: Patient Medication Summary Completed 03/08/2014 Appointment: Madhavi Scott WPtel: [address] [place] [address] INJECTION 01/11/2013 Patient Education: Patient Medication Summary Completed 01/11/2013 Visit Plan: Continue daily stretches Use flexeril, mobic for 1wk then prn 04/15/2012 Appointment: Madhavi Scott WPtel: [address] [place] [address] 04/14 FOLLOW UP 04/15/2012 Patient Education: Patient Medication Summary Completed 04/15/2012 Visit Plan: OMT done Continue flexeril, mobic 04/01/2012 Appointment: Madhavi Scott WPtel: [address] [place] [address] FOLLOW UP 04/01/2012 Patient Education: Patient Medication Summary Completed 04/01/2012 Visit Plan: OMT done Daily stretches Mob ic and flexeril Recheck in 2wks 03/18/2012 Appointment: Madhavi Scott WPtel: [address] [place] [address] vm on mom phone OMT 03/18/2012 Patient [...] issue resolves. 02/05/2011 Appointment: Bailee Reyes WPtel: [address] [place] [address] ACUTE ILLNESS 02/05/2011 Patient Education: Patient Medication Summary Completed 02/05/2011 Visit Plan: Azithromycin. ProAir refil. Pt. will notify if no improvement in symptoms. 07/11/2010 App[facility]ment[phone] [facility] [facility] 07/11/2010 Patient Education: Patient Medication Summary Completed 07/11/2010 Visit Plan: Annual exam. 05/08/2010 Appointment: [phone] [facility] [facility] 05/08/2010 Patient Education: Patient Medication [...] SI/HI . Start lexapro Continue counseling with colleter Work on being active and outside Limit [...]
--- OUTSIDE RECORDS SUMMARY | 2020-02-17 13:24 | XMS REPORT | CCD ---
Author Author Jesus Scott D.O. Organization [facility] Address [address] [place] [address] Phone Care Team Providers Care Wireless Sales Manager Name Role Phone Madhavi Scott D.O., PP Unavailable CCM Unavailable Summary Purpose Interface Exchange Family History Family History data not found Social History Social History Element Codes Description Effective Dates Tobacco history SNOMED CT: 829816558 Nonsmoker 02/05/2011 Allergies, Adverse Reactions, Alerts Substance [...] Fill Instructions Lunesta 3 mg tablet RxNorm: 799086 TAKE ONE TABLET BY M OUTH AT BEDTIME NEEDED FOR SLEEP 1 Tablet(s) Oral QPM as needed for sleep 11/30/2019 01/29/2020 Active Flagyl 500 mg tablet RxNorm: 231886 1 Tablet(s) Oral three time s a day 11/30/2019 12/07/2019 Active ondansetron 4 mg disintegrating tablet RxNorm: 121357 1 Tablet(s) Oral Q4H as needed for nausea 10/12/2019 No Stop Date Active Lunesta 3 mg tablet RxNorm: 602490 TAKE ONE TABLET BY M OUTH AT BEDTIME NEEDED FOR SLEEP 09/02/2018 09/08/2018 Inactive Lunesta 3 mg tablet RxNorm: 386799 TAKE ONE TABLET BY M OUTH AT BEDTIME NEEDED FOR SLEEP 08/30/2018 04/12/2019 Inactive Lunesta 3 mg tablet RxNorm: 214411 TAKE ONE TABLET BY M OUTH EVERY NIGHT AT BEDTIME NEEDED FOR SLEEP 06/07/2018 09/02/2018 Inactive Lunesta 3 mg tablet RxNorm: 254254 TAKE ONE TABLET BY M OUTH EVERY NIGHT AT BEDTIME NEEDED SLEEP 04/13/2018 06/07/2018 Inactive Lunesta 3 mg tablet RxNorm: 274450 TAKE ONE TABLET BY M OUTH AT BEDTIME NEEDED FOR SLEEP 02/17/2018 04/13/2018 Inactive Generic For:LUNE STA 3MG TAB 02/17/2018 12:36:41 PM doxycycline hyclate 100 mg capsule RxNorm: 7534608 1 Capsule(s) PO BID 02/12/2018 02/25/2018 Inactive Lunesta 3 mg tablet RxNorm: 795390 Tablet(s) TAKE ONE T ABLET BY MOUTH AT BEDTIME NEEDED FOR SLEEP 12/29/2017 02/18/2018 Inactive Generic For: LUNESTA 3MG TAB 11/25/2017 1:41:28 PM 12/01/2017 10:00:01 AM Lunesta 3 mg tablet RxNorm: 876653 Tablet(s) TAKE ONE T ABLET BY MOUTH AT BEDTIME NEEDED FOR SLEEP 12/24/2017 12/29/2017 Inactive Generic For: LUNESTA 3MG TAB 11/25/2017 1:41:28 PM 12/01/2017 10:00:01 AM Lunesta 3 mg tablet RxNorm: 524401 TAKE ONE TABLET BY M OUTH AT BEDTIME NEEDED FOR SLEEP 12/03/2017 03/01/2018 Inactive Generic For:LUNE STA 3MG TAB 11/25/2017 1:41:28 PM 12/01/2017 10:00:01 AM Lunesta 3 mg tablet RxNorm: 486191 TAKE ONE TABLET BY M OUTH AT BEDTIME NEEDED FOR SLEEP 11/27/2017 04/12/2019 Inactive Generic For:LUNE STA 3MG TAB 11/27/2017 9:30:03 AM11/25/2017 1:41:28 PM Lunesta 3 mg tablet RxNorm: 456335 1 Tablet(s) PO QHS as needed for sleep 09/17/2017 11/27/2017 Inactive cyclobenzaprine 10 mg tablet RxNorm: 872302 1 Tablet(s) PO BID as needed 09/16/2017 04/12/2019 Inactive Lunesta 3 mg tablet RxNorm: 222632 1 Tablet(s) PO QHS as needed for sleep 08/26/2017 09/16/2017 Inactive Levaquin 500 mg tablet RxNorm: 119012 1 Tablet(s) PO QD 08/06/2017 Inactive prednisone 20 mg tablet RxNorm: 577457 2 Tablet(s) PO QD 08/06/2017 0 08/10/2017 Inactive Lunesta 3 mg tablet RxNorm: 406611 TAKE ONE TABLET BY M OUTH AT BEDTIME NEEDED 06/15/2017 07/14/2017 Inactive Lunesta 3 mg tablet RxNorm: 235928 1 Tablet(s) PO QHS as needed 06/15/2017 Inactive Lexapro 10 mg tablet RxNorm: 099825 1 Tablet(s) PO QD 07/01/201602/03 Inactive Lexapro 20 mg tablet RxNorm: 991878 1 Tablet(s) PO QD 02/14/201602/03 Inactive Lexapro 10 mg tablet RxNorm: 707538 1 Tablet(s) PO QD 01/15/201602/03 Inactive Cipro 500 mg tablet RxNorm: 835213 1 Tablet(s) PO BID 03/08/201403/2014 Inactive Flexeril 10 mg tablet RxNorm: 575675 Tablet(s) PO TAKE 1 TABLET BY MOUTH EACH NIGHT AT BEDTIME FOR SPASM 09/20/2012 01/14/2016 Inactive Gener ic For:FLEXERIL 10 MG TAB Flexeril 10 mg tablet RxNorm: 395315 1 Tablet(s) PO QHS for spasm 0 07/12/2012 08/10/2012 Inactive Mobic 15 mg tablet RxNorm: 422365 1 Tablet(s) PO QAM for pain 04/1505/14/2012 Inactive Flexeril 10 mg tablet RxNorm: 760534 1 Tablet(s) PO QHS for spasm 1 07/12/2012 Inactive Mobic 15 mg tablet RxNorm: 914707 1 Tablet(s) PO QAM for pain 03/1804/14/2012 Inactive Tylenol Extra Strength 500 mg tablet RxNorm: 380396 Tablet(s) P O as needed No Start Date Active ProAir HFA 90 mcg/Actuation Aerosol Inhaler RxNorm: 426134 2 Puff(s) INH PRN 2 puffs every 4 hrs as needed for wheezing. No Start Date 03/17/2012 Inacti ve azithromycin 250 mg Tab RxNorm: 313673 2 Tablet(s) PO Q D take 2 tablets (500 mg) by oral route once daily for 1 day then 1 tablet (250 mg) by oral route once daily for 4 days No Start Date 03/17/2012 Inactive Flexeril 10 mg tablet RxNorm: 322535 1 Tablet(s) PO QHS for spasm N o Start Date 04/14/2012 Inactive Lunesta 3 mg tablet RxNorm: 567544 1 Tablet(s) PO QHS as needed No Start Date 03/18/2017 Inactive Tussionex Pennkinetic ER 8 mg-10 mg/5 mL susp,extended relea se RxNorm: 0488733 PO No Start Date 07/23/2011 Inactive Medication Administered No Medication Administered data Immunizations No Immunization data Results No Results data Procedures Procedure Codes Date INFLUENZA ASSAY W/OPTIC CPT-4: 73702 08/15/2016 URINALYSIS NONAUTO W/O SCOPE CPT-4: 36657 01/31/2015 URINALYSIS NONAUTO W/O SCOPE CPT-4: 27849 03/13/2014 URINE CULTURE/ COLONY COUNT CPT-4: 45494 03/08/2014 URINALYSIS NONAUTO W/O SCOPE CPT-4: 44265 03/08/2014 THER/PROPH/DIAG INJ SC/IM CPT-4: 55927 01/11/2013 METHYLPREDNISOLONE 40 MG INJ CPT-4: J1030 [...] 1: 132/84 Code: 8480-6 BMI: 24.3 Code: 00608-7 Heart Rate 1: 100 bpm Height: 5'8" Respiratory Rate: 20 bpm SpO2: 96% Tempera ture: 36.8 (C) / 98.2 (F) Weight: 160 lbs 08/06/2017 Blood Pressure 1: 126/82 Code: 8480-6 BMI: 24.2 Code: 06750-7 Heart Rate 1: 92 bpm Height: 5'8" Respiratory Rate: 22 bpm SpO2: 96% Tempera ture: 36.4 (C) / 97.6 (F) Weight: 159 lbs 02/16/2017 Blood Pressure 1: 118/64 Code: 8480-6 BMI: 24.3 Code: 92458-4 Heart Rate 1: 84 bpm Height: 5'8" [...] 1: 124/82 Code: 8480-6 BMI: 22.7 Code: 92261-3 Heart Rate 1: 102 bpm Height: 5'8" Respiratory Rate: 24 bpm SpO2: 98% Tempera ture: 36.6 (C) / 97.8 (F) Weight: 149 lbs 01/15/2016 Blood Pressure 1: 142/78 Code: 8480-6 BMI: 22.6 Code: 81231-6 Heart Rate 1: 82 bpm Height: 5'8" Respiratory Rate: 20 bpm SpO2: 97% Tempera ture: 36.6 (C) / 97.8 (F) Weight: 151 lbs 01/31/2015 Blood Pressure 1: 122/82 Code: 8480-6 BMI: 21.9 Code: 60526-8 Heart Rate 1: 78 bpm Height: 5'7" Respiratory Rate: 22 bpm Temperature: 36 .7 (C) / 98.0 (F) Weight: 140 lbs 03/13/2014 Blood Pressure 1: 122/84 Code: 8480-6 BMI: 20.2 Code: 68538-4 Heart Rate 1: 68 bpm Height: 5'7" Respiratory Rate: 20 bpm Temperature: 36 .4 (C) / 97.5 (F) Weight: 129 lbs 03/08/2014 Blood Pressure 1: 102/60 Code: 8480-6 BMI: 20.2 Code: 32329-9 Heart Rate 1: 82 bpm Height: 5'7" Respiratory Rate: 20 bpm Temperature: 36 .6 (C) / 97.8 (F) Weight: 129 lbs 04/15/2012 Blood Pressure 1: 116/70 Code: 8480-6 BMI: 21.0 Code: 55090-7 Heart Rate 1: 92 bpm Height: 5'7" Respiratory Rate: 20 bpm Temperature: 37 .0 (C) / 98.6 (F) Weight: 134 lbs 04/01/2012 Blood Pressure 1: 116/70 Code: 8480-6 BMI: 21.0 Code: 78419-7 Heart Rate 1: 76 bpm Height: 5'7" Respiratory Rate: 20 bpm Temperature: 36 .6 (C) / 97.8 (F) Weight: 134 lbs 03/18/2012 Blood Pressure 1: 136/80 Code: 8480-6 BMI: 21.0 Code: 62513-5 Heart Rate 1: 84 bpm Height: 5'7" Respiratory Rate: 20 bpm Temperature: 36 .7 (C) / 98.1 (F) Weight: 134 lbs 02/05/2011 Blood Pressure 1: 124/70 Code: 8480-6 BMI: 20.4 Code: 58101-1 Heart Rate 1: 70 bpm Height: 5'7" Temperature: 36.4 (C) / 97.6 (F) Weight: 130 lbs 07/11/2010 Blood Pressure 1: 106/60 Code: 8480-6 Heart Rate 1: 92 bpm Respiratory Rate: 18 bpm SpO2: 96% Temperature: 36.9 (C) / 98.5 (F) We ight: 127 lbs 05/08/2010 Blood Pressure 1: 116/68 Code: 8480-6 BMI: 19.3 Code: 34109-1 Heart Rate 1: 68 bpm Height: 5'7" Temperature: 36.8 (C) / 98.3 (F) Weight: 123 lbs Functional Status No Functional Status data Reason For Visit Reason For Visit Effective Dates Notes abdominal pain 11/30/2019 follow up 10/12/2019 ER fwup well man exam (18-39 years) 04/13/2019 follow up 01/29/2018 Hosp fwup back pain 09/16/2017 headache 08/06/2017 Patient was seen 1 w tejon ago for left inner ear infection and [...] basketball Encounters Encounter Performer Location Codes Date ([id number]) OFFICE/OUTPATIENT VISIT EST Diagnosis: Diarrhea[ICD10: R19.7] Diagnosis: Mesenteric lymphadenitis[ICD10: I88.0] Madhavi JUAREZ CPT-4: 31935 11/30/2019 ([id number]) OFFICE/OUTPATIENT VISIT EST Diagnosis: Mesenteric lymphadenitis[ICD10: I88.0] [facility] CPT-[facility]: 83662 10/12/2019 ([id number]) PREV VISIT EST AGE 18-39 Diagnosis: Encounter for general adult medical examination without abnormal findings[ICD10: Z00.00] Madhavi [facility] CPT-4: 09795 04/13/2019 ([id number]) OFFICE/OUTPATIENT VISIT EST 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] Madhavi [facility] CPT-4: 22326 01/29/2018 ([id number]) OFFICE/OUTPATIENT VISIT EST Diagnosis: Low back pain[ICD10: M54.5] Helen JIN DO [facility] CPT-4: 25284 09/16/2017 OFFICE/OUTPATIENT VISIT EST Diagnosis: Otitis media, unspecified, left ear[ICD10: H66.92] Helen [facility] CPT-4: 63712 08/06/2017 ([id number]) OFFICE/OUTPATIENT VISIT EST Diagnosis: Insomnia, unspecified[ICD10: G47.00] Madhavi [facility] CPT-4: 46563 02/16/2017 ([id number]) OFFICE/OUTPATIENT VISIT EST Diagnosis: Fever, unspecified[ICD10: R50.9] Diagnosis: Myalgia[ICD10: M79.1] Diagnosis: Jaw pain[ICD10: R68.84] Giuseppe [facility] CPT-4: 12643 08/15/2016 ([id number]) NO CHARGE Diagnosis: Adjustment disorder with mixed anxiety and depressed mood[ICD10: F43.23] Giuseppe [facility] CPT-4: 27840 ([id number]) OFFICE/OUTPATIENT VISIT EST Diagnosis: Adjustment disorder with mixed anxiety and depressed mood[ICD10: F43.23] Diagnosis: Other specified diseases of intestine[ICD10: K63.89] Giuseppe [facility] CPT-4: 73525 02/14/2016 ([id number]) OFFICE/OUTPATIENT VISIT EST Diagnosis: Major depressive disorder, single episode, unspecified[ICD10: F32.9] Diagnosis: Insomnia, unspecified[ICD10: G47.00] Diagnosis: Other fatigue[ICD10: R53.83] Giuseppe [facility] CPT-4: 36003 01/15/2016 OFFICE/OUTPATIENT VISIT EST Diagnosis: CEPHALGIA[ICD9: 784.0] Diagnosis: Mild dehydration[ICD9: 276.51] Alanis VALLECILLOLINE Caryl [facility] CPT-4: 86004 01/31/2015 OFFICE/OUTPATIENT VISIT EST Diagnosis: Mild dehydration[ICD9: 276.51] Alanis VALLECILLOLINE Caryl [facility] CPT-4: 90769 03/13/2014 OFFICE/OUTPATIENT VISIT EST Diagnosis: Nausea, vomiting and diarrhea[ICD9: 787.91] Diagnosis: Mild dehydration[ICD9: 276.51] Diagnosis: URINARY TRACT INFECTION[ICD9: 599.0] Alanis [facility] CPT-4: 89868 03/08/2014 ([id number]) OFFICE/OUTPATIENT VISIT EST Diagnosis: Poison elizabeth dermatitis[ICD9: 692.6] Madhavi Alanying HENRY Faith [facility] CPT-4: 81480 01/11/2013 ([id number]) OFFICE/OUTPATIENT VISIT EST Diagnosis: PAIN, LOWER BACK[ICD9: 724.2] Diagnosis: SPASM OF MUSCLE[ICD9: 728.85] Madhavi Alanying MARSHALLMADHAVI Faith [facility] CPT-4: 91403 04/15/2012 ([id number]) OFFICE/OUTPATIENT VISIT EST Diagnosis: PAIN, LOWER BACK[ICD9: 724.2] Madhavi Alanying HAWLEY CarylZuleyka VIANEY PAZ [facility] CPT-4: 43540 04/01/2012 ([id number]) OFFICE/OUTPATIENT VISIT EST Diagnosis: PAIN, LOWER BACK[ICD9: 724.2] Diagnosis: SPASM OF MUSCLE[ICD9: 728.85] Madhavi SCOTT [facility] CPT-4: 51805 03/18/2012 OFFICE/OUTPATIENT VISIT EST Madhavi CRISOSTOMO DO [facility] CPT- 4: 55713 02/05/2011 ([id number]) OFFICE/OUTPATIENT VISIT, EST Madhavi SCOTT [facility] CPT-4: 15922 07/11/2010 ([id number]) PREV VISIT, EST, AGE 12-17 Madhavi SCOTT DO [facility] CPT-4: 55228 05/08/2010 Plan of Care Planned Activity Notes Codes Status Date Visit Diagnosis Plan: Mesenteric lymphadenitis Discuss ion: Notify if worsening ICD-9 : 289.2 ICD-10 : I88.0 11/30/2019 Visit Diagnosis Plan: Diarrhea Discussion: Anh de oliveira Diet Notify if persists ICD-9 : 787.91 ICD-10 : R19.7 11/30/2019 Patient Education: Lunesta- Optimize[employer] Coupon [id number] https://www.[employer]/HOTELbeat/resources/getResource/61/h402y440-10iq-0919-7t Completed 11/30/2019 Visit Diagnosis Plan: Mesenteric lymphadenitis Discuss ion: Looked at ER records from last night and CT scan results reviewed Supportive care with clear liquids, zofran prn, tylenol prn Notify if worsens or persists No work for rest of week ICD-9 : 289.2 ICD-10 : I88.0 10/12/2019 [facility]ment: [facility] [phone] [facility] [facility] 10/12/2019 Patient Education: ondansetron- OptimizeRX Coupon [id number] https://www.[employer]/H[employer]ELbeat/resources/getResource/61/yc53o49i-2959-76g3-66 Completed 10/12/2019 Visit Diagnosis Plan: Encounter for [facility] adult medical examination without abnormal findings Discussion: Patient planning on going in to [employer] His PCN allergy was when he was a child and was a rash from amoxicillin--he has no history of anaphylactic reactions His left testicle is a hydrocele which was checked by urology in 2007 and determined to be a benign hydrocele and recommendation was observation--no treatment needed ICD-9 : V70.0 ICD-10 : Z00.00 04/13/2019 Appointment: Madhavi Scott WPtel: [phone] [facility] fwup instead of annual cause of [...] A77.41 01/29/2018 Appointment: Madhavi Scott WPtel: [phone] [facility] Hospital Follow Up 01/29/2018 Patient Education: Patient [...] ICD-10 : M54.5 09/16/2017 Appointment: Helen Mendez [address] [place], [place] [phone] ACUTE ILLNESS 09/16/2017 Patient Education: Patient Medication Summary Completed 09/16/2017 Care Plan: X-RAY EXAM L-S SPINE 2/3 VWS LOINC : 69569-2 Pending 09/16/2017 Visit Diagnosis Plan: Otitis media, [...] : H66.92 08/06/2017 Appointment: Helen Mendez [address] ACUTE ILLNESS 08/06/2017 Patient Education: Patient Medication Summary Completed 08/06/2017 Visit Diagnosis Plan: Insomnia, unspecified Discussion : Sleep hygiene Trial of Lunesta 3mg q HS Call in 2 weeks if working ICD-9 : 780.52 ICD-10 : G47.00 02/16/2017 Appointment: Madhavi Scott WPtel: [address] [place] [address] ACUTE ILLNESS 02/16/2017 Patient Education: Patient Medication Summary Completed 02/16/2017 Visit Diagnosis Plan: Fever, unspecified Discussion: F bing is negative Patient is concerned with mumps - per mom he has had his vaccines and there has been no contact with confirmed mumps Called and discussed with infectious disease control nurse at [facility] who contacted [facility]. With his symptoms, it was recommended to test. Patient and orders sent to for further testing. Mask placed on patient and he is instructed to leave on. ICD-9 : 780.60 ICD-10 : R50.9 08/15/2016 Appointment: Giuseppe Jordan [address] [place] [address] ACUTE ILLNESS 08/15/2016 Patient Education: Patient Medication [...] month follow up 02/20/2016 Appointment: Giuseppe Jordan [facility] 02/18 confirmed~sl 02/18 patients appt was [...] any SI/HI 02/14/2016 Appointment: Giuseppe Jordan [address] [place] [address] 02/12lm~sl....confirmed-sp ER Follow UP 2015 Patient Education: Patient Medication Summary Completed 02/14/2016 Appointment: Madhavi Scott WPtel: [address] [place] [address] US RESCHEDULED 01/30/2016 Visit Plan: Start lexapro Continue couns eling with spine supervisor Work on being active and outside Limit caffeine after noon No screen time within 1-2 hours before bed Labs to evaluate fatigue - cbc, cmp, tsh, testosterone and b12 Recheck in 1 month - will adjust lexapro and/or add sleep aid if needed 01/15/2016 Appointment: Giuseppe Jordan[address] [place] [address] ACUTE ILLNESS 01/15/2016 Patient Education: Patient Medication Summary Completed 01/15/2016 Appointment: Madhavi Scott WPtel: [address] [place], [place] [phone] 04/06 mother schedule 04/09 lm with ana laura ent and spoke with mother she forgot to call and cancel ACUTE ILLNESS 04/09/2015 Visit Plan: Push fluids of the next 4 da ys - >4 liters/day Avoid heat exposure for next 24 hours. No work tomorrow. Tylenol Extra Strength - 2 caps every 4 hours 01/31/2015 Appointment: Alanis Redman WPtel: [address] [place], [place] [phone] ACUTE ILLNESS 01/31/2015 Patient Education: Patient Medication Summary Completed 01/31/2015 Appointment: Alanis Redman WPtel: [address] [place], [place] [phone] 03/10 voicemail FOLLOW UP 03/13/2014 Patient Education: Patient Medication Summary Completed 03/13/2014 Appointment: Alanis Redman WPtel: [address] [place] [address] ACUTE ILLNESS 03/08/2014 Patient Education: Patient Medication Summary Completed 03/08/2014 Appointment: Madhavi Scott WPtel: [address] [place] [address] INJECTION 01/11/2013 Patient Education: Patient Medication Summary Completed 01/11/2013 Visit Plan: Continue daily stretches Use flexeril, mobic for 1wk then prn 04/15/2012 Appointment: Madhavi Scott WPtel: [address] [place] [address] 04/14 FOLLOW UP 04/15/2012 Patient Education: Patient Medication Summary Completed 04/15/2012 Visit Plan: OMT done Continue flexeril, mobic 04/01/2012 Appointment: Madhavi Scott WPtel: [address] [place] [address] FOLLOW UP 04/01/2012 Patient Education: Patient Medication Summary Completed 04/01/2012 Visit Plan: OMT done Daily stretches Mob ic and flexeril Recheck in 2wks 03/18/2012 Appointment: Madhavi Scott WPtel: [address] [place] [address] vm on mom phone OMT 03/18/2012 Patient [...] resolves. 02/05/2011 Appointment: Bailee Reyes WPtel: [address] [place] [address] ACUTE ILLNESS 02/05/2011 Patient Education: Patient Medication Summary Completed 02/05/2011 Visit Plan: Azithromycin. ProAir refil. Pt. will notify if no improvement in symptoms. 07/11/2010 Appointment: [facility]el[facility] [phone] [facility] [facility] 07/11/2010 Patient Education: Patient Medication Summary Completed 07/11/2010 Visit Plan: Annual exam. 05/08/2010 Appointment: Ba[facility]el[facility] [phone] [facility] [facility] 05/08/2010 Patient Education: Patient [...] SI/HI . Start lexapro Continue counseling with spine supervisor Work on being active and outside [...]
--- OUTSIDE RECORDS SUMMARY | 2020-02-17 13:24 | XMS REPORT | CCD ---
Author Author Jesus Scott D.O. Organization MADHAVI SCOTT [facility] Address [address] [place] [address] Phone Care Team Providers Care Numberer And Wirer Name Role Phone Madhavi Scott D.O., PP Unavailable CCM Unavailable Summary Purpose Interface Exchange Family History Family History data not found Social History Social History Element Codes Description Effective Dates Tobacco history SNOMED CT: 307136029 Nonsmoker 02/05/2011 Allergies, Adverse Reactions, Alerts Substance [...] Fill Instructions Lunesta 3 mg tablet RxNorm: 850972 TAKE ONE TABLET BY M OUTH AT BEDTIME NEEDED FOR SLEEP 1 Tablet(s) Oral QPM as needed for sleep 11/30/2019 01/29/2020 Active Flagyl 500 mg tablet RxNorm: 480725 1 Tablet(s) Oral three time s a day 11/30/2019 12/07/2019 Active ondansetron 4 mg disintegrating tablet RxNorm: 371265 1 Tablet(s) Oral Q4H as needed for nausea 10/12/2019 No Stop Date Active Lunesta 3 mg tablet RxNorm: 550500 TAKE ONE TABLET BY M OUTH AT BEDTIME NEEDED FOR SLEEP 09/02/2018 09/08/2018 Inactive Lunesta 3 mg tablet RxNorm: 289337 TAKE ONE TABLET BY M OUTH AT BEDTIME NEEDED FOR SLEEP 08/30/2018 04/12/2019 Inactive Lunesta 3 mg tablet RxNorm: 062944 TAKE ONE TABLET BY M OUTH EVERY NIGHT AT BEDTIME NEEDED FOR SLEEP 06/07/2018 09/02/2018 Inactive Lunesta 3 mg tablet RxNorm: 056879 TAKE ONE TABLET BY M OUTH EVERY NIGHT AT BEDTIME NEEDED SLEEP 04/13/2018 06/07/2018 Inactive Lunesta 3 mg tablet RxNorm: 373053 TAKE ONE TABLET BY M OUTH AT BEDTIME NEEDED FOR SLEEP 02/17/2018 04/13/2018 Inactive Generic For:LUNE STA 3MG TAB 02/17/2018 12:36:41 PM doxycycline hyclate 100 mg capsule RxNorm: 5692812 1 Capsule(s) PO BID 02/12/2018 02/25/2018 Inactive Lunesta 3 mg tablet RxNorm: 998133 Tablet(s) TAKE ONE T ABLET BY MOUTH AT BEDTIME NEEDED FOR SLEEP 12/29/2017 02/18/2018 Inactive Generic For: LUNESTA 3MG TAB 11/25/2017 1:41:28 PM 12/01/2017 10:00:01 AM Lunesta 3 mg tablet RxNorm: 763213 Tablet(s) TAKE ONE T ABLET BY MOUTH AT BEDTIME NEEDED FOR SLEEP 12/24/2017 12/29/2017 Inactive Generic For: LUNESTA 3MG TAB 11/25/2017 1:41:28 PM 12/01/2017 10:00:01 AM Lunesta 3 mg tablet RxNorm: 472899 TAKE ONE TABLET BY M OUTH AT BEDTIME NEEDED FOR SLEEP 12/03/2017 03/01/2018 Inactive Generic For:LUNE STA 3MG TAB 11/25/2017 1:41:28 PM 12/01/2017 10:00:01 AM Lunesta 3 mg tablet RxNorm: 548891 TAKE ONE TABLET BY M OUTH AT BEDTIME NEEDED FOR SLEEP 11/27/2017 04/12/2019 Inactive Generic For:LUNE STA 3MG TAB 11/27/2017 9:30:03 AM11/25/2017 1:41:28 PM Lunesta 3 mg tablet RxNorm: 597679 1 Tablet(s) PO QHS as needed for sleep 09/17/2017 11/27/2017 Inactive cyclobenzaprine 10 mg tablet RxNorm: 706145 1 Tablet(s) PO BID as needed 09/16/2017 04/12/2019 Inactive Lunesta 3 mg tablet RxNorm: 056924 1 Tablet(s) PO QHS as needed for sleep 08/26/2017 09/16/2017 Inactive Levaquin 500 mg tablet RxNorm: 629744 1 Tablet(s) PO QD 08/06/2017 Inactive prednisone 20 mg tablet RxNorm: 293375 2 Tablet(s) PO QD 08/06/2017 0 08/10/2017 Inactive Lunesta 3 mg tablet RxNorm: 013967 TAKE ONE TABLET BY M OUTH AT BEDTIME NEEDED 06/15/2017 07/14/2017 Inactive Lunesta 3 mg tablet RxNorm: 092458 1 Tablet(s) PO QHS as needed 06/15/2017 Inactive Lexapro 10 mg tablet RxNorm: 481963 1 Tablet(s) PO QD 07/01/201602/03 Inactive Lexapro 20 mg tablet RxNorm: 182284 1 Tablet(s) PO QD 02/14/201602/03 Inactive Lexapro 10 mg tablet RxNorm: 795773 1 Tablet(s) PO QD 01/15/201602/03 Inactive Cipro 500 mg tablet RxNorm: 633629 1 Tablet(s) PO BID 03/08/201403/2014 Inactive Flexeril 10 mg tablet RxNorm: 306215 Tablet(s) PO TAKE 1 TABLET BY MOUTH EACH NIGHT AT BEDTIME FOR SPASM 09/20/2012 01/14/2016 Inactive Gener ic For:FLEXERIL 10 MG TAB Flexeril 10 mg tablet RxNorm: 579362 1 Tablet(s) PO QHS for spasm 0 07/12/2012 08/10/2012 Inactive Mobic 15 mg tablet RxNorm: 577993 1 Tablet(s) PO QAM for pain 04/1505/14/2012 Inactive Flexeril 10 mg tablet RxNorm: 777776 1 Tablet(s) PO QHS for spasm 1 07/12/2012 Inactive Mobic 15 mg tablet RxNorm: 543766 1 Tablet(s) PO QAM for pain 03/1804/14/2012 Inactive Tylenol Extra Strength 500 mg tablet RxNorm: 036521 Tablet(s) P O as needed No Start Date Active ProAir HFA 90 mcg/Actuation Aerosol Inhaler RxNorm: 851694 2 Puff(s) INH PRN 2 puffs every 4 hrs as needed for wheezing. No Start Date 03/17/2012 Inacti ve azithromycin 250 mg Tab RxNorm: 247589 2 Tablet(s) PO Q D take 2 tablets (500 mg) by oral route once daily for 1 day then 1 tablet (250 mg) by oral route once daily for 4 days No Start Date 03/17/2012 Inactive Flexeril 10 mg tablet RxNorm: 601310 1 Tablet(s) PO QHS for spasm N o Start Date 04/14/2012 Inactive Lunesta 3 mg tablet RxNorm: 087694 1 Tablet(s) PO QHS as needed No Start Date 03/18/2017 Inactive Tussionex Pennkinetic ER 8 mg-10 mg/5 mL susp,extended relea se RxNorm: 7824935 PO No Start Date 07/23/2011 Inactive Medication Administered No Medication Administered data Immunizations No Immunization data Results No Results data Procedures Procedure Codes Date INFLUENZA ASSAY W/OPTIC CPT-4: 98935 08/15/2016 URINALYSIS NONAUTO W/O SCOPE CPT-4: 84005 01/31/2015 URINALYSIS NONAUTO W/O SCOPE CPT-4: 41501 03/13/2014 URINE CULTURE/ COLONY COUNT CPT-4: 92911 03/08/2014 URINALYSIS NONAUTO W/O SCOPE CPT-4: 25829 03/08/2014 THER/PROPH/DIAG INJ SC/IM CPT-4: 77339 01/11/2013 METHYLPREDNISOLONE 40 MG INJ CPT-4: J1030 [...] 1: 132/84 Code: 8480-6 BMI: 24.3 Code: 66325-8 Heart Rate 1: 100 bpm Height: 5'8" Respiratory Rate: 20 bpm SpO2: 96% Tempera ture: 36.8 (C) / 98.2 (F) Weight: 160 lbs 08/06/2017 Blood Pressure 1: 126/82 Code: 8480-6 BMI: 24.2 Code: 83231-1 Heart Rate 1: 92 bpm Height: 5'8" Respiratory Rate: 22 bpm SpO2: 96% Tempera ture: 36.4 (C) / 97.6 (F) Weight: 159 lbs 02/16/2017 Blood Pressure 1: 118/64 Code: 8480-6 BMI: 24.3 Code: 15665-9 Heart Rate 1: 84 bpm Height: 5'8" [...] 1: 124/82 Code: 8480-6 BMI: 22.7 Code: 78210-2 Heart Rate 1: 102 bpm Height: 5'8" Respiratory Rate: 24 bpm SpO2: 98% Tempera ture: 36.6 (C) / 97.8 (F) Weight: 149 lbs 01/15/2016 Blood Pressure 1: 142/78 Code: 8480-6 BMI: 22.6 Code: 67505-4 Heart Rate 1: 82 bpm Height: 5'8" Respiratory Rate: 20 bpm SpO2: 97% Tempera ture: 36.6 (C) / 97.8 (F) Weight: 151 lbs 01/31/2015 Blood Pressure 1: 122/82 Code: 8480-6 BMI: 21.9 Code: 02668-5 Heart Rate 1: 78 bpm Height: 5'7" Respiratory Rate: 22 bpm Temperature: 36 .7 (C) / 98.0 (F) Weight: 140 lbs 03/13/2014 Blood Pressure 1: 122/84 Code: 8480-6 BMI: 20.2 Code: 07013-1 Heart Rate 1: 68 bpm Height: 5'7" Respiratory Rate: 20 bpm Temperature: 36 .4 (C) / 97.5 (F) Weight: 129 lbs 03/08/2014 Blood Pressure 1: 102/60 Code: 8480-6 BMI: 20.2 Code: 33123-6 Heart Rate 1: 82 bpm Height: 5'7" Respiratory Rate: 20 bpm Temperature: 36 .6 (C) / 97.8 (F) Weight: 129 lbs 04/15/2012 Blood Pressure 1: 116/70 Code: 8480-6 BMI: 21.0 Code: 78175-6 Heart Rate 1: 92 bpm Height: 5'7" Respiratory Rate: 20 bpm Temperature: 37 .0 (C) / 98.6 (F) Weight: 134 lbs 04/01/2012 Blood Pressure 1: 116/70 Code: 8480-6 BMI: 21.0 Code: 63612-1 Heart Rate 1: 76 bpm Height: 5'7" Respiratory Rate: 20 bpm Temperature: 36 .6 (C) / 97.8 (F) Weight: 134 lbs 03/18/2012 Blood Pressure 1: 136/80 Code: 8480-6 BMI: 21.0 Code: 35046-1 Heart Rate 1: 84 bpm Height: 5'7" Respiratory Rate: 20 bpm Temperature: 36 .7 (C) / 98.1 (F) Weight: 134 lbs 02/05/2011 Blood Pressure 1: 124/70 Code: 8480-6 BMI: 20.4 Code: 14062-3 Heart Rate 1: 70 bpm Height: 5'7" Temperature: 36.4 (C) / 97.6 (F) Weight: 130 lbs 07/11/2010 Blood Pressure 1: 106/60 Code: 8480-6 Heart Rate 1: 92 bpm Respiratory Rate: 18 bpm SpO2: 96% Temperature: 36.9 (C) / 98.5 (F) We ight: 127 lbs 05/08/2010 Blood Pressure 1: 116/68 Code: 8480-6 BMI: 19.3 Code: 06725-1 Heart Rate 1: 68 bpm Height: 5'7" Temperature: 36.8 (C) / 98.3 (F) Weight: 123 lbs Functional Status No Functional Status data Reason For Visit Reason For Visit Effective Dates Notes abdominal pain 11/30/2019 follow up 10/12/2019 ER fwup well man exam (18-39 years) 04/13/2019 follow up 01/29/2018 Hosp fwup back pain 09/16/2017 headache 08/06/2017 Patient was seen 1 w [facility] for left inner ear infection and [...] basketball Encounters Encounter Performer Location Codes Date ([id number]) OFFICE/OUTPATIENT VISIT EST Diagnosis: Diarrhea[ICD10: R19.7] Diagnosis: Mesenteric lymphadenitis[ICD10: I88.0] Madhavi JUAREZ CPT-4: 20510 11/30/2019 ([id number]) OFFICE/OUTPATIENT VISIT EST Diagnosis: Mesenteric lymphadenitis[ICD10: I88.0] [facility] CPT-[facility]: 88155 10/12/2019 ([id number]) PREV VISIT EST AGE 18-39 Diagnosis: Encounter for general adult medical examination without abnormal findings[ICD10: Z00.00] Madhavi SCOTT [facility] CPT-4: 13323 04/13/2019 ([id number]) OFFICE/OUTPATIENT VISIT EST 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] Madhavi SCOTT [facility] CPT-4: 59321 01/29/2018 ([id number]) OFFICE/OUTPATIENT VISIT EST Diagnosis: Low back pain[ICD10: M54.5] Helen JIN DO [facility] CPT-4: 36380 09/16/2017 OFFICE/OUTPATIENT VISIT EST Diagnosis: Otitis media, unspecified, left ear[ICD10: H66.92] Helen SCOTT [facility] CPT-4: 77546 08/06/2017 ([id number]) OFFICE/OUTPATIENT VISIT EST Diagnosis: Insomnia, unspecified[ICD10: G47.00] Madhavi SCOTT [facility] CPT-4: 71009 02/16/2017 ([id number]) OFFICE/OUTPATIENT VISIT EST Diagnosis: Fever, unspecified[ICD10: R50.9] Diagnosis: Myalgia[ICD10: M79.1] Diagnosis: Jaw pain[ICD10: R68.84] Giuseppe SCOTT [facility] CPT-4: 17266 08/15/2016 ([id number]) NO CHARGE Diagnosis: Adjustment disorder with mixed anxiety and depressed mood[ICD10: F43.23] Giuseppe SCOTT [facility] CPT-4: 57637 ([id number]) OFFICE/OUTPATIENT VISIT EST Diagnosis: Adjustment disorder with mixed anxiety and depressed mood[ICD10: F43.23] Diagnosis: Other specified diseases of intestine[ICD10: K63.89] Giuseppe SCOTT [facility] CPT-4: 00563 02/14/2016 ([id number]) OFFICE/OUTPATIENT VISIT EST Diagnosis: Major depressive disorder, single episode, unspecified[ICD10: F32.9] Diagnosis: Insomnia, unspecified[ICD10: G47.00] Diagnosis: Other fatigue[ICD10: R53.83] Giuseppe SCOTT [facility] CPT-4: 24075 01/15/2016 OFFICE/OUTPATIENT VISIT EST Diagnosis: CEPHALGIA[ICD9: 784.0] Diagnosis: Mild dehydration[ICD9: 276.51] Alanis VALLECILLOLINE Caryl SCOTT [facility] CPT-4: 07557 01/31/2015 OFFICE/OUTPATIENT VISIT EST Diagnosis: Mild dehydration[ICD9: 276.51] Alanis VALLECILLOLINE Caryl SCOTT [facility] CPT-4: 57682 03/13/2014 OFFICE/OUTPATIENT VISIT EST Diagnosis: Nausea, vomiting and diarrhea[ICD9: 787.91] Diagnosis: Mild dehydration[ICD9: 276.51] Diagnosis: URINARY TRACT INFECTION[ICD9: 599.0] Alanis SCOTT [facility] CPT-4: 10016 03/08/2014 ([id number]) OFFICE/OUTPATIENT VISIT EST Diagnosis: Poison elizabeth dermatitis[ICD9: 692.6] Madhavi Alanying HENRY Faith SCOTT [facility] CPT-4: 08848 01/11/2013 ([id number]) OFFICE/OUTPATIENT VISIT EST Diagnosis: PAIN, LOWER BACK[ICD9: 724.2] Diagnosis: SPASM OF MUSCLE[ICD9: 728.85] Madhavi Alanying MARSHALLMADHAVI Faith SCOTT [facility] CPT-4: 55696 04/15/2012 ([id number]) OFFICE/OUTPATIENT VISIT EST Diagnosis: PAIN, LOWER BACK[ICD9: 724.2] Madhavi Alanying HAWLEY CarylZuleyka VIANEY PAZ [facility] CPT-4: 80881 04/01/2012 ([id number]) OFFICE/OUTPATIENT VISIT EST Diagnosis: PAIN, LOWER BACK[ICD9: 724.2] Diagnosis: SPASM OF MUSCLE[ICD9: 728.85] Madhavi SCOTT DO [facility] CPT-4: 84887 03/18/2012 OFFICE/OUTPATIENT VISIT EST Madhavi CRISOSTOMO DO [facility] CPT- 4: 14376 02/05/2011 ([id number]) OFFICE/OUTPATIENT VISIT, EST Madhavi SCOTT DO [facility] CPT-4: 14981 07/11/2010 ([id number]) PREV VISIT, EST, AGE 12-17 Madhavi SCOTT DO [facility] CPT-4: 46050 05/08/2010 Plan of Care Planned Activity Notes Codes Status Date Visit Diagnosis Plan: Mesenteric lymphadenitis Discuss ion: Notify if worsening ICD-9 : 289.2 ICD-10 : I88.0 11/30/2019 Visit Diagnosis Plan: Diarrhea Discussion: Anh de oliveira Diet Notify if persists ICD-9 : 787.91 ICD-10 : R19.7 11/30/2019 Patient Education: Lunesta- [employer] Coupon [id number] https://www.[employer]/getupp/resources/getResource/61/j790f419-48az-1779-9q Completed 11/30/2019 Visit Diagnosis Plan: Mesenteric lymphadenitis Discuss ion: Looked at ER records from last night and CT scan results reviewed Supportive care with clear liquids, zofran prn, tylenol prn Notify if worsens or persists No work for rest of week ICD-9 : 289.2 ICD-10 : I88.0 10/12/2019 Appointment: [facility] [phone] [facility] [facility] 10/12/2019 Patient Education: ondansetron- Opt[employer] Coupon [id number] https://www.[employer]/getupp/resources/getResource/61/kr60f99u-5249-32b4-60 Completed 10/12/2019 Visit Diagnosis Plan: Encounter for [facility] adult medical examination without abnormal findings Discussion: Patient planning on going in to [employer] His PCN allergy was when he was a child and was a rash from amoxicillin--he has no history of anaphylactic reactions His left testicle is a hydrocele which was checked by urology in 2007 and determined to be a benign hydrocele and recommendation was observation--no treatment needed ICD-9 : V70.0 ICD-10 : Z00.00 04/13/2019 Appointment: Madhavi Scott WPtel: [phone] [facility] [address] fwup instead of annual cause [...] A77.41 01/29/2018 Appointment: Madhavi Scott WPtel: [phone] [facility] [address] Hospital Follow Up 01/29/2018 Patient Education: Patient [...] ICD-10 : M54.5 09/16/2017 Appointment: Helen Mendez [address] [place], [place] [phone] ACUTE ILLNESS 09/16/2017 Patient Education: Patient Medication Summary Completed 09/16/2017 Care Plan: X-RAY EXAM L-S SPINE 2/3 VWS LOINC : 52628-8 Pending 09/16/2017 Visit Diagnosis Plan: Otitis media, [...] : H66.92 08/06/2017 Appointment: Helen Mendez [address] ACUTE ILLNESS 08/06/2017 Patient Education: Patient Medication Summary Completed 08/06/2017 Visit Diagnosis Plan: Insomnia, unspecified Discussion : Sleep hygiene Trial of Lunesta 3mg q HS Call in 2 weeks if working ICD-9 : 780.52 ICD-10 : G47.00 02/16/2017 Appointment: Madhavi Scott WPtel: [address] [place] [address] ACUTE ILLNESS 02/16/2017 Patient Education: Patient Medication Summary Completed 02/16/2017 Visit Diagnosis Plan: Fever, unspecified Discussion: F bing is negative Patient is concerned with mumps - per mom he has had his vaccines and there has been no contact with confirmed mumps Called and discussed with infectious disease control nurse at [facility] who contacted [facility]. With his symptoms, it was recommended to test. Patient and orders sent to for further testing. Mask placed on patient and he is instructed to leave on. ICD-9 : 780.60 ICD-10 : R50.9 08/15/2016 Appointment: Giuseppe Jordan [address] [place] [address] ACUTE ILLNESS 08/15/2016 Patient Education: Patient Medication [...] month follow up 02/20/2016 Appointment: Giuseppe Jordan [facility] [address] 02/18 confirmed~sl 02/18 patients appt was [...] for any SI/HI 02/14/2016 Appointment: Giuseppe Jordan [address] [place] [address] 02/12lm~sl....confirmed-sp ER Follow UP 2015 Patient Education: Patient Medication Summary Completed 02/14/2016 Appointment: Madhavi Scott WPtel: [address] [place] [address] US RESCHEDULED 01/30/2016 Visit Plan: Start lexapro 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[employer] Work on being active and outside Limit caffeine after noon No screen time within 1-2 hours before bed Labs to evaluate fatigue - cbc, cmp, tsh, testosterone and b12 Recheck in 1 month - will adjust lexapro and/or add sleep aid if needed 01/15/2016 Appointment: Giuseppe Jordan[address] [place] [address] ACUTE ILLNESS 01/15/2016 Patient Education: Patient Medication Summary Completed 01/15/2016 Appointment: Madhavi Scott WPtel: [address] [place], [place] [phone] 04/06 mother schedule 04/09 lm with ana laura ent and spoke with mother she forgot to call and cancel ACUTE ILLNESS 04/09/2015 Visit Plan: Push fluids of the next 4 da ys - >4 liters/day Avoid heat exposure for next 24 hours. No work tomorrow. Tylenol Extra Strength - 2 caps every 4 hours 01/31/2015 Appointment: Alanis Redman WPtel: [address] [place], [place] [phone] ACUTE ILLNESS 01/31/2015 Patient Education: Patient Medication Summary Completed 01/31/2015 Appointment: Alanis Redman WPtel: [address] [place], [place] [phone] 03/10 voicemail FOLLOW UP 03/13/2014 Patient Education: Patient Medication Summary Completed 03/13/2014 Appointment: Alanis Redman WPtel: [address] [place] [address] ACUTE ILLNESS 03/08/2014 Patient Education: Patient Medication Summary Completed 03/08/2014 Appointment: Madhavi Scott WPtel: [address] [place] [address] INJECTION 01/11/2013 Patient Education: Patient Medication Summary Completed 01/11/2013 Visit Plan: Continue daily stretches Use flexeril, mobic for 1wk then prn 04/15/2012 Appointment: Madhavi Scott WPtel: [address] [place] [address] 04/14 FOLLOW UP 04/15/2012 Patient Education: Patient Medication Summary Completed 04/15/2012 Visit Plan: OMT done Continue flexeril, mobic 04/01/2012 Appointment: Madhavi Scott WPtel: [address] [place] [address] FOLLOW UP 04/01/2012 Patient Education: Patient Medication Summary Completed 04/01/2012 Visit Plan: OMT done Daily stretches Mob ic and flexeril Recheck in 2wks 03/18/2012 Appointment: Madhavi Scott WPtel: [address] [place] [address] vm on mom phone OMT 03/18/2012 Patient [...] issue resolves. 02/05/2011 Appointment: Bailee Reyes WPtel: [address] [place] [address] ACUTE ILLNESS 02/05/2011 Patient Education: Patient Medication Summary Completed 02/05/2011 Visit Plan: Azithromycin. ProAir refil. Pt. will notify if no improvement in symptoms. 07/11/2010 Appointment: Bailee [facility]el[facility] [phone] [facility] [facility] 07/11/2010 Patient Education: Patient Medication Summary Completed 07/11/2010 Visit Plan: Annual exam. 05/08/2010 Appointment: Bailee Reyes WPtel: [phone] [facility] SPORTS PHYSICAL 05/08/2010 Patient Education: Patient Medication [...] SI/HI . 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
--- OUTSIDE RECORDS SUMMARY | 2020-02-17 13:24 | XMS REPORT | CCD ---
Author Author Jesus Scott D.O. 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 Name Role Phone Madhavi Scott D.O., PP Unavailable CCM Unavailable Summary Purpose Interface Exchange Family History Family History data not found Social History Social History Element Codes Description Effective Dates Tobacco history SNOMED CT: 871064390 Nonsmoker 02/05/2011 Allergies, Adverse Reactions, Alerts Substance [...] Fill Instructions Lunesta 3 mg tablet RxNorm: 066080 TAKE ONE TABLET BY M OUTH AT BEDTIME NEEDED FOR SLEEP 1 Tablet(s) Oral QPM as needed for sleep 11/30/2019 01/29/2020 Active Flagyl 500 mg tablet RxNorm: 675379 1 Tablet(s) Oral three time s a day 11/30/2019 12/07/2019 Active ondansetron 4 mg disintegrating tablet RxNorm: 107325 1 Tablet(s) Oral Q4H as needed for nausea 10/12/2019 No Stop Date Active Lunesta 3 mg tablet RxNorm: 553690 TAKE ONE TABLET BY M OUTH AT BEDTIME NEEDED FOR SLEEP 09/02/2018 09/08/2018 Inactive Lunesta 3 mg tablet RxNorm: 863185 TAKE ONE TABLET BY M OUTH AT BEDTIME NEEDED FOR SLEEP 08/30/2018 04/12/2019 Inactive Lunesta 3 mg tablet RxNorm: 313822 TAKE ONE TABLET BY M OUTH EVERY NIGHT AT BEDTIME NEEDED FOR SLEEP 06/07/2018 09/02/2018 Inactive Lunesta 3 mg tablet RxNorm: 848094 TAKE ONE TABLET BY M OUTH EVERY NIGHT AT BEDTIME NEEDED SLEEP 04/13/2018 06/07/2018 Inactive Lunesta 3 mg tablet RxNorm: 964033 TAKE ONE TABLET BY M OUTH AT BEDTIME NEEDED FOR SLEEP 02/17/2018 04/13/2018 Inactive Generic For:LUNE STA 3MG TAB 02/17/2018 12:36:41 PM doxycycline hyclate 100 mg capsule RxNorm: 7279535 1 Capsule(s) PO BID 02/12/2018 02/25/2018 Inactive Lunesta 3 mg tablet RxNorm: 544903 Tablet(s) TAKE ONE T ABLET BY MOUTH AT BEDTIME NEEDED FOR SLEEP 12/29/2017 02/18/2018 Inactive Generic For: LUNESTA 3MG TAB 11/25/2017 1:41:28 PM 12/01/2017 10:00:01 AM Lunesta 3 mg tablet RxNorm: 361072 Tablet(s) TAKE ONE T ABLET BY MOUTH AT BEDTIME NEEDED FOR SLEEP 12/24/2017 12/29/2017 Inactive Generic For: LUNESTA 3MG TAB 11/25/2017 1:41:28 PM 12/01/2017 10:00:01 AM Lunesta 3 mg tablet RxNorm: 686405 TAKE ONE TABLET BY M OUTH AT BEDTIME NEEDED FOR SLEEP 12/03/2017 03/01/2018 Inactive Generic For:LUNE STA 3MG TAB 11/25/2017 1:41:28 PM 12/01/2017 10:00:01 AM Lunesta 3 mg tablet RxNorm: 593213 TAKE ONE TABLET BY M OUTH AT BEDTIME NEEDED FOR SLEEP 11/27/2017 04/12/2019 Inactive Generic For:LUNE STA 3MG TAB 11/27/2017 9:30:03 AM11/25/2017 1:41:28 PM Lunesta 3 mg tablet RxNorm: 501218 1 Tablet(s) PO QHS as needed for sleep 09/17/2017 11/27/2017 Inactive cyclobenzaprine 10 mg tablet RxNorm: 455683 1 Tablet(s) PO BID as needed 09/16/2017 04/12/2019 Inactive Lunesta 3 mg tablet RxNorm: 496764 1 Tablet(s) PO QHS as needed for sleep 08/26/2017 09/16/2017 Inactive Levaquin 500 mg tablet RxNorm: 434921 1 Tablet(s) PO QD 08/06/2017 Inactive prednisone 20 mg tablet RxNorm: 346530 2 Tablet(s) PO QD 08/06/2017 0 08/10/2017 Inactive Lunesta 3 mg tablet RxNorm: 585408 TAKE ONE TABLET BY M OUTH AT BEDTIME NEEDED 06/15/2017 07/14/2017 Inactive Lunesta 3 mg tablet RxNorm: 403735 1 Tablet(s) PO QHS as needed 06/15/2017 Inactive Lexapro 10 mg tablet RxNorm: 157876 1 Tablet(s) PO QD 07/01/201602/03 Inactive Lexapro 20 mg tablet RxNorm: 523963 1 Tablet(s) PO QD 02/14/201602/03 Inactive Lexapro 10 mg tablet RxNorm: 411435 1 Tablet(s) PO QD 01/15/201602/03 Inactive Cipro 500 mg tablet RxNorm: 549449 1 Tablet(s) PO BID 03/08/201403/2014 Inactive Flexeril 10 mg tablet RxNorm: 790222 Tablet(s) PO TAKE 1 TABLET BY MOUTH EACH NIGHT AT BEDTIME FOR SPASM 09/20/2012 01/14/2016 Inactive Gener ic For:FLEXERIL 10 MG TAB Flexeril 10 mg tablet RxNorm: 794309 1 Tablet(s) PO QHS for spasm 0 07/12/2012 08/10/2012 Inactive Mobic 15 mg tablet RxNorm: 256949 1 Tablet(s) PO QAM for pain 04/1505/14/2012 Inactive Flexeril 10 mg tablet RxNorm: 904690 1 Tablet(s) PO QHS for spasm 1 07/12/2012 Inactive Mobic 15 mg tablet RxNorm: 582974 1 Tablet(s) PO QAM for pain 03/1804/14/2012 Inactive Tylenol Extra Strength 500 mg tablet RxNorm: 216783 Tablet(s) P O as needed No Start Date Active ProAir HFA 90 mcg/Actuation Aerosol Inhaler RxNorm: 896790 2 Puff(s) INH PRN 2 puffs every 4 hrs as needed for wheezing. No Start Date 03/17/2012 Inacti ve azithromycin 250 mg Tab RxNorm: 782590 2 Tablet(s) PO Q D take 2 tablets (500 mg) by oral route once daily for 1 day then 1 tablet (250 mg) by oral route once daily for 4 days No Start Date 03/17/2012 Inactive Flexeril 10 mg tablet RxNorm: 713660 1 Tablet(s) PO QHS for spasm N o Start Date 04/14/2012 Inactive Lunesta 3 mg tablet RxNorm: 203329 1 Tablet(s) PO QHS as needed No Start Date 03/18/2017 Inactive Tussionex Pennkinetic ER 8 mg-10 mg/5 mL susp,extended relea se RxNorm: 4646816 PO No Start Date 07/23/2011 Inactive Medication Administered No Medication Administered data Immunizations No Immunization data Results No Results data Procedures Procedure Codes Date INFLUENZA ASSAY W/OPTIC CPT-4: 62056 08/15/2016 URINALYSIS NONAUTO W/O SCOPE CPT-4: 44098 01/31/2015 URINALYSIS NONAUTO W/O SCOPE CPT-4: 68326 03/13/2014 URINE CULTURE/ COLONY COUNT CPT-4: 17555 03/08/2014 URINALYSIS NONAUTO W/O SCOPE CPT-4: 60830 03/08/2014 THER/PROPH/DIAG INJ SC/IM CPT-4: 30557 01/11/2013 METHYLPREDNISOLONE 40 MG INJ CPT-4: J1030 [...] 1: 132/84 Code: 8480-6 BMI: 24.3 Code: 66566-0 Heart Rate 1: 100 bpm Height: 5'8" Respiratory Rate: 20 bpm SpO2: 96% Tempera ture: 36.8 (C) / 98.2 (F) Weight: 160 lbs 08/06/2017 Blood Pressure 1: 126/82 Code: 8480-6 BMI: 24.2 Code: 92768-4 Heart Rate 1: 92 bpm Height: 5'8" Respiratory Rate: 22 bpm SpO2: 96% Tempera ture: 36.4 (C) / 97.6 (F) Weight: 159 lbs 02/16/2017 Blood Pressure 1: 118/64 Code: 8480-6 BMI: 24.3 Code: 10132-9 Heart Rate 1: 84 bpm Height: 5'8" [...] 1: 124/82 Code: 8480-6 BMI: 22.7 Code: 42791-5 Heart Rate 1: 102 bpm Height: 5'8" Respiratory Rate: 24 bpm SpO2: 98% Tempera ture: 36.6 (C) / 97.8 (F) Weight: 149 lbs 01/15/2016 Blood Pressure 1: 142/78 Code: 8480-6 BMI: 22.6 Code: 31134-1 Heart Rate 1: 82 bpm Height: 5'8" Respiratory Rate: 20 bpm SpO2: 97% Tempera ture: 36.6 (C) / 97.8 (F) Weight: 151 lbs 01/31/2015 Blood Pressure 1: 122/82 Code: 8480-6 BMI: 21.9 Code: 83802-0 Heart Rate 1: 78 bpm Height: 5'7" Respiratory Rate: 22 bpm Temperature: 36 .7 (C) / 98.0 (F) Weight: 140 lbs 03/13/2014 Blood Pressure 1: 122/84 Code: 8480-6 BMI: 20.2 Code: 63155-3 Heart Rate 1: 68 bpm Height: 5'7" Respiratory Rate: 20 bpm Temperature: 36 .4 (C) / 97.5 (F) Weight: 129 lbs 03/08/2014 Blood Pressure 1: 102/60 Code: 8480-6 BMI: 20.2 Code: 00025-5 Heart Rate 1: 82 bpm Height: 5'7" Respiratory Rate: 20 bpm Temperature: 36 .6 (C) / 97.8 (F) Weight: 129 lbs 04/15/2012 Blood Pressure 1: 116/70 Code: 8480-6 BMI: 21.0 Code: 96664-0 Heart Rate 1: 92 bpm Height: 5'7" Respiratory Rate: 20 bpm Temperature: 37 .0 (C) / 98.6 (F) Weight: 134 lbs 04/01/2012 Blood Pressure 1: 116/70 Code: 8480-6 BMI: 21.0 Code: 93900-0 Heart Rate 1: 76 bpm Height: 5'7" Respiratory Rate: 20 bpm Temperature: 36 .6 (C) / 97.8 (F) Weight: 134 lbs 03/18/2012 Blood Pressure 1: 136/80 Code: 8480-6 BMI: 21.0 Code: 09655-0 Heart Rate 1: 84 bpm Height: 5'7" Respiratory Rate: 20 bpm Temperature: 36 .7 (C) / 98.1 (F) Weight: 134 lbs 02/05/2011 Blood Pressure 1: 124/70 Code: 8480-6 BMI: 20.4 Code: 88488-8 Heart Rate 1: 70 bpm Height: 5'7" Temperature: 36.4 (C) / 97.6 (F) Weight: 130 lbs 07/11/2010 Blood Pressure 1: 106/60 Code: 8480-6 Heart Rate 1: 92 bpm Respiratory Rate: 18 bpm SpO2: 96% Temperature: 36.9 (C) / 98.5 (F) We ight: 127 lbs 05/08/2010 Blood Pressure 1: 116/68 Code: 8480-6 BMI: 19.3 Code: 76664-8 Heart Rate 1: 68 bpm Height: 5'7" Temperature: 36.8 (C) / 98.3 (F) Weight: 123 lbs Functional Status No Functional Status data Reason For Visit Reason For Visit Effective Dates Notes abdominal pain 11/30/2019 follow up 10/12/2019 ER fwup well man exam (18-39 years) 04/13/2019 follow up 01/29/2018 Hosp fwup back pain 09/16/2017 headache 08/06/2017 Patient was seen [address] [place] ago for left inner ear infection and [...] basketball Encounters Encounter Performer Location Codes Date ([id number]) OFFICE/OUTPATIENT VISIT EST Diagnosis: Diarrhea[ICD10: R19.7] Diagnosis: Mesenteric lymphadenitis[ICD10: I88.0] Madhavi JUAREZ CPT-4: 80161 11/30/2019 ([id number]) OFFICE/OUTPATIENT VISIT EST Diagnosis: Mesenteric lymphadenitis[ICD10: I88.0] [facility] CPT-[facility]: 05534 10/12/2019 ([id number]) PREV VISIT EST AGE 18-39 Diagnosis: Encounter for general adult medical examination without abnormal findings[ICD10: Z00.00] Madhavi SCOTT DO [facility] CPT-4: 91027 04/13/2019 ([id number]) OFFICE/OUTPATIENT VISIT EST 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] Madhavi SCOTT DO [facility] CPT-4: 24683 01/29/2018 ([id number]) OFFICE/OUTPATIENT VISIT EST Diagnosis: Low back pain[ICD10: M54.5] Helen JIN DO [facility] CPT-4: 85131 09/16/2017 OFFICE/OUTPATIENT VISIT EST Diagnosis: Otitis media, unspecified, left ear[ICD10: H66.92] Helen SCOTT DO [facility] CPT-4: 40913 08/06/2017 ([id number]) OFFICE/OUTPATIENT VISIT EST Diagnosis: Insomnia, unspecified[ICD10: G47.00] Madhavi SCOTT DO [facility] CPT-4: 24867 02/16/2017 ([id number]) OFFICE/OUTPATIENT VISIT EST Diagnosis: Fever, unspecified[ICD10: R50.9] Diagnosis: Myalgia[ICD10: M79.1] Diagnosis: Jaw pain[ICD10: R68.84] Giuseppe SCOTT [facility] CPT-4: 98173 08/15/2016 ([id number]) NO CHARGE Diagnosis: Adjustment disorder with mixed anxiety and depressed mood[ICD10: F43.23] Giuseppe SCOTT [facility] CPT-4: 24509 ([id number]) OFFICE/OUTPATIENT VISIT EST Diagnosis: Adjustment disorder with mixed anxiety and depressed mood[ICD10: F43.23] Diagnosis: Other specified diseases of intestine[ICD10: K63.89] Giuseppe SCOTT [facility] CPT-4: 22359 02/14/2016 ([id number]) OFFICE/OUTPATIENT VISIT EST Diagnosis: Major depressive disorder, single episode, unspecified[ICD10: F32.9] Diagnosis: Insomnia, unspecified[ICD10: G47.00] Diagnosis: Other fatigue[ICD10: R53.83] Giuseppe SCOTT [facility] CPT-4: 08655 01/15/2016 OFFICE/OUTPATIENT VISIT EST Diagnosis: CEPHALGIA[ICD9: 784.0] Diagnosis: Mild dehydration[ICD9: 276.51] Alanis VALLECILLOLINE Caryl SCOTT [facility] CPT-4: 24642 01/31/2015 OFFICE/OUTPATIENT VISIT EST Diagnosis: Mild dehydration[ICD9: 276.51] Alanis VALLECILLOLINE Caryl SCOTT [facility] CPT-4: 24606 03/13/2014 OFFICE/OUTPATIENT VISIT EST Diagnosis: Nausea, vomiting and diarrhea[ICD9: 787.91] Diagnosis: Mild dehydration[ICD9: 276.51] Diagnosis: URINARY TRACT INFECTION[ICD9: 599.0] Alanis SCOTT [facility] CPT-4: 28136 03/08/2014 ([id number]) OFFICE/OUTPATIENT VISIT EST Diagnosis: Poison elizabeth dermatitis[ICD9: 692.6] Madhavi Alanying HENRY Faith SCOTT [facility] CPT-4: 11962 01/11/2013 ([id number]) OFFICE/OUTPATIENT VISIT EST Diagnosis: PAIN, LOWER BACK[ICD9: 724.2] Diagnosis: SPASM OF MUSCLE[ICD9: 728.85] Madhavi Alanying MARSHALLMADHAVI Faith SCOTT [facility] CPT-4: 49413 04/15/2012 ([id number]) OFFICE/OUTPATIENT VISIT EST Diagnosis: PAIN, LOWER BACK[ICD9: 724.2] Madhavi Alanying HAWLEY CarylZuleyka VIANEY PAZ [facility] CPT-4: 45315 04/01/2012 ([id number]) OFFICE/OUTPATIENT VISIT EST Diagnosis: PAIN, LOWER BACK[ICD9: 724.2] Diagnosis: SPASM OF MUSCLE[ICD9: 728.85] Madhavi SCOTT DO [employer] CPT-4: 50876 03/18/2012 OFFICE/OUTPATIENT VISIT EST Madhavi CRISOSTOMO DO [employer] CPT- 4: 58968 02/05/2011 ([id number]) OFFICE/OUTPATIENT VISIT, EST Madhavi SCOTT DO [employer] CPT-4: 98741 07/11/2010 ([id number]) PREV VISIT, EST, AGE 12-17 Madhavi SCOTT DO [employer] CPT-4: 84840 05/08/2010 Plan of Care Planned Activity Notes Codes Status Date Visit Diagnosis Plan: Mesenteric lymphadenitis Discuss ion: Notify if worsening ICD-9 : 289.2 ICD-10 : I88.0 11/30/2019 Visit Diagnosis Plan: Diarrhea Discussion: Anh de oliveira Diet Notify if persists ICD-9 : 787.91 ICD-10 : R19.7 11/30/2019 Patient Education: Lunesta- [employer] Coupon [id number] https://www.[employer]/utoopia/resources/getResource/61/[email or web address]-9855-7d Completed 11/30/2019 Visit Diagnosis Plan: Mesenteric lymphadenitis Discuss ion: Looked at ER records from last night and CT scan results reviewed Supportive care with clear liquids, zofran prn, tylenol prn Notify if worsens or persists No work for rest of week ICD-9 : 289.2 ICD-10 : I88.0 10/12/2019 Appointment: Mad[facility] [phone] [id number] [facility] 10/12/2019 Patient Education: ondansetron- [employer] Coupon [id number] https://www.[employer]/utoopia/resources/getResource/61/hc24a40c-6218-69o4-63 Completed 10/12/2019 Visit Diagnosis Plan: Encounter for [facility] adult medical examination without abnormal findings Discussion: Patient planning on going in to [place] His PCN allergy was when he was a child and was a rash from amoxicillin--he has no history of anaphylactic reactions His left testicle is a hydrocele which was checked by urology in 2007 and determined to be a benign hydrocele and recommendation was observation--no treatment needed ICD-9 : V70.0 ICD-10 : Z00.00 04/13/2019 Appointment: Madhavi Scott WPtel: [phone] [facility] fwup instead of annual cause [...] A77.41 01/29/2018 Appointment: Madhavi Scott WPtel: [phone] [facility] Hospital Follow Up 01/29/2018 Patient Education: [...] ICD-10 : M54.5 09/16/2017 Appointment: Helen Mendez [address] [place], [place] [id number] ACUTE ILLNESS 09/16/2017 Patient Education: Patient Medication Summary Completed 09/16/2017 Care Plan: X-RAY EXAM L-S SPINE 2/3 VWS LOINC : 01988-8 Pending 09/16/2017 Visit Diagnosis Plan: Otitis media, [...] : H66.92 08/06/2017 Appointment: Helen Mendez [address] ACUTE ILLNESS 08/06/2017 Patient Education: Patient Medication Summary Completed 08/06/2017 Visit Diagnosis Plan: Insomnia, unspecified Discussion : Sleep hygiene Trial of Lunesta 3mg q HS Call in 2 weeks if working ICD-9 : 780.52 ICD-10 : G47.00 02/16/2017 Appointment: Madhavi Scott WPtel: [address] [place] [address] ACUTE ILLNESS 02/16/2017 Patient Education: Patient Medication Summary Completed 02/16/2017 Visit Diagnosis Plan: Fever, unspecified Discussion: F bing is negative Patient is concerned with mumps - per mom he has had his vaccines and there has been no contact with confirmed mumps Called and discussed with infectious disease control nurse at [facility] who contacted [facility]. With his symptoms, it was recommended to test. Patient and orders sent to for further testing. Mask placed on patient and he is instructed to leave on. ICD-9 : 780.60 ICD-10 : R50.9 08/15/2016 Appointment: Giuseppe Jordan [address] [place] [address] ACUTE ILLNESS 08/15/2016 Patient Education: Patient Medication [...] month follow up 02/20/2016 Appointment: Giuseppe Jordan [facility] [address] 02/18 confirmed~sl 02/18 patients appt was [...] for any SI/HI 02/14/2016 Appointment: Giuseppe Jordan [address] [place] [address] 02/12lm~sl....confirmed-sp ER Follow UP 2015 Patient Education: Patient Medication Summary Completed 02/14/2016 Appointment: Madhavi Scott WPtel: [address] [place] [address] US RESCHEDULED 01/30/2016 Visit Plan: Start lexapro Continue 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 eling with steaming cabinet tender Work on being active and outside Limit caffeine after noon No screen time within 1-2 hours before bed Labs to evaluate fatigue - cbc, cmp, tsh, testosterone and b12 Recheck in 1 month - will adjust lexapro and/or add sleep aid if needed 01/15/2016 Appointment: Giuseppe Jordan[address] [place] [address] ACUTE ILLNESS 01/15/2016 Patient Education: Patient Medication Summary Completed 01/15/2016 Appointment: Madhavi Scott WPtel: [address] [place], [place] [phone] 04/06 mother schedule 04/09 lm with ana laura ent and spoke with mother she forgot to call and cancel ACUTE ILLNESS 04/09/2015 Visit Plan: Push fluids of the next 4 da ys - >4 liters/day Avoid heat exposure for next 24 hours. No work tomorrow. Tylenol Extra Strength - 2 caps every 4 hours 01/31/2015 Appointment: Alanis Redman WPtel: [address] [place], [place] [phone] ACUTE ILLNESS 01/31/2015 Patient Education: Patient Medication Summary Completed 01/31/2015 Appointment: Alanis Redman WPtel: [address] [place], [place] [phone] 03/10 voicemail FOLLOW UP 03/13/2014 Patient Education: Patient Medication Summary Completed 03/13/2014 Appointment: Alanis Redman WPtel: [address] [place] [address] ACUTE ILLNESS 03/08/2014 Patient Education: Patient Medication Summary Completed 03/08/2014 Appointment: Madhavi Scott WPtel: [address] [place] [address] INJECTION 01/11/2013 Patient Education: Patient Medication Summary Completed 01/11/2013 Visit Plan: Continue daily stretches Use flexeril, mobic for 1wk then prn 04/15/2012 Appointment: Madhavi Scott WPtel: [address] [place] [address] 04/14 FOLLOW UP 04/15/2012 Patient Education: Patient Medication Summary Completed 04/15/2012 Visit Plan: OMT done Continue flexeril, mobic 04/01/2012 Appointment: Madhavi Scott WPtel: [address] [place] [address] FOLLOW UP 04/01/2012 Patient Education: Patient Medication Summary Completed 04/01/2012 Visit Plan: OMT done Daily stretches Mob ic and flexeril Recheck in 2wks 03/18/2012 Appointment: Madhavi Scott WPtel: [address] [place] [address] vm on mom phone OMT 03/18/2012 Patient [...] issue resolves. 02/05/2011 Appointment: Bailee Reyes WPtel: [address] [place] [address] ACUTE ILLNESS 02/05/2011 Patient Education: Patient Medication Summary Completed 02/05/2011 Visit Plan: Azithromycin. ProAir refil. Pt. will notify if no improvement in symptoms. 07/11/2010 [facility]ment[facility] [phone] [facility] [facility] 07/11/2010 Patient Education: Patient Medication Summary Completed 07/11/2010 Visit Plan: Annual exam. 05/08/2010 Appointment: [facility] [phone] [facility] [facility] 05/08/2010 Patient Education: Patient [...] SI/HI . Start lexapro Continue counseling with steaming cabinet tender Work on being active and outside Limit [...]
--- OUTSIDE RECORDS SUMMARY | 2020-02-17 13:25 | XMS REPORT | Continuity of Care Document ---
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 urine sediment by light ar roscopy RARE NRG Renal epithelial cells detection in urin e sediment by light microscopy NONE NRG Blood lactic acid measurement (moles/vol ume) - 01/24/18 23:30 Blood lactic acid measurement (moles/volume) 0.91 mmol/L 0.50-2.00 Tick identification panel - 01/24/18 23: 30 Serum Ehrlichia chaffeensis IgG antibody detection 1:32 <1:16 Serum Ehrlichia chaffeensis IgM antibody detection <1:10 <1:10 Serum Rickettsia rickettsii IgG antibody assay (units/ volume) < <1:16 Elmo spotted fever panel < <1:10 Francisella tularensis antibody assay <1:20 NRG LYME AB G M 0.27 % 0.00-0.89 Interpretation of Lyme disease antibody assay Nega tive Negative Complete blood count (CBC) with automate d white blood cell (WBC) differential - 01/25/18 06:05 Blood leukocytes automated count (number/volume) 15.6 10*3/uL 4.3-11.0 Blood erythrocytes automated count (number/volume) 4.44 10*6/uL 4.35-5.85 Venous blood hemoglobin measurement (mass/volume) 12.0 g/dL 13.3-17.7 Blood hematocrit (volume fraction) 35 % 40-54 Automated erythrocyte mean corpuscular volume 78 [ foz_us] 80-99 Automated erythrocyte mean corpuscular h emoglobin (mass per erythrocyte) 27 pg 25-34 Automated erythrocyte mean corpuscular h emoglobin concentration measurement (mass/volume) 35 g/dL 32-36 Automated erythrocyte distribution width ratio 13. 5 % 10.0- 14.5 Automated blood platelet count (count/volume) 177 10*3/uL 130-400 Automated blood platelet mean volume measurement 10.0 [foz_us] 7.4-10.4 Automated blood neutrophils/100 leukocytes 90 % 42-75 Automated blood lymphocytes/100 leukocytes 5 % 12-44 Blood monocytes/100 leukocytes 5 % 0-12 Automated blood eosinophils/100 leukocytes 0 % 0-10 Automated blood basophils/100 leukocytes 0 % 0-10 Blood neutrophils automated count (number/volume) 14.0 10*3 1.8-7.8 Blood lymphocytes automated count (number/volume) 0.8 10*3 1.0-4.0 Blood monocytes automated count (number/volume) 0. 8 10*3 0.0-1.0 Automated eosinophil count 0.0 10*3/uL 0 .0-0.3 Automated blood basophil count (count/volume) 0.0 10*3/uL 0.0-0.1 Blood lactic acid measurement (moles/vol ume) - 01/25/18 06:05 Blood lactic acid measurement (moles/volume) 0.81 mmol/L 0.50-2.00 Comprehensive metabolic panel - 01/25/18 06:05 Serum or plasma sodium measurement (moles/volume) 137 mmol/L 135-145 Serum or plasma potassium measurement (moles/volume) 3.6 mmol/L 3.6-5.0 Serum or plasma chloride measurement (moles/volume) 112 mmol/L 98-107 Carbon dioxide 17 mmol/L 21-32 Serum or plasma anion gap determination (moles/volume) 8 mmol/L 5-14 Serum or plasma urea nitrogen measurement (mass/volume ) 10 mg/dL 7-18 Serum or plasma creatinine measurement (mass/volume) 0.87 mg/dL 0.60-1.30 Serum or plasma urea nitrogen/creatinine mass ratio 11 NRG Serum or plasma creatinine measurement w ith calculation of estimated glomerular filtration rate > NRG Serum or plasma glucose measurement (mass/volume) 113 mg/dL 70-105 Serum or plasma calcium measurement (mass/volume) 8.5 mg/dL 8.5-10.1 Serum or plasma total bilirubin measurement (mass/volu me) 0.7 mg/dL 0.1-1.0 Serum or plasma alkaline phosphatase ligia surement (enzymatic activity/volume) 39 U/L 40-136 Serum or plasma aspartate aminotransfera se measurement (enzymatic activity/volume) 18 U/L 5-34 Serum or plasma alanine aminotransferase measurement (enzymatic activity/volume) 16 U/L 0-55 Serum or plasma protein measurement (mass/volume) 6.2 g/dL 6.4-8.2 Serum or plasma albumin measurement (mass/volume) 3.7 g/dL 3.2-4.5 Complete blood count (CBC) with automate d white blood cell (WBC) differential - 01/26/18 05:22 Blood leukocytes automated count (number/volume) 12.2 10*3/uL 4.3-11.0 Blood erythrocytes automated count (number/volume) 4.21 10*6/uL 4.35-5.85 Venous blood hemoglobin measurement (mass/volume) 11.8 g/dL 13.3-17.7 Blood hematocrit (volume fraction) 33 % 40-54 Automated erythrocyte mean corpuscular volume 78 [ foz_us] 80-99 Automated erythrocyte mean corpuscular h emoglobin (mass per erythrocyte) 28 pg 25-34 Automated erythrocyte mean corpuscular h emoglobin concentration measurement (mass/volume) 36 g/dL 32-36 Automated erythrocyte distribution width ratio 13. 5 % 10.0- 14.5 Automated blood platelet count (count/volume) 171 10*3/uL 130-400 Automated blood platelet mean volume measurement 10.6 [foz_us] 7.4-10.4 Automated blood neutrophils/100 leukocytes 78 % 42-75 Automated blood lymphocytes/100 leukocytes 14 % 12-44 Blood monocytes/100 leukocytes 8 % 0-12 Automated blood eosinophils/100 leukocytes 0 % 0-10 Automated blood basophils/100 leukocytes 0 % 0-10 Blood neutrophils automated count (number/volume) 9.5 10*3 1.8-7.8 Blood lymphocytes automated count (number/volume) 1.7 10*3 1.0-4.0 Blood monocytes automated count (number/volume) 1. 0 10*3 0.0-1.0 Automated eosinophil count 0.1 10*3/uL 0 .0-0.3 Automated blood basophil count (count/volume) 0.0 10*3/uL 0.0-0.1 Comprehensive metabolic panel - 01/26/18 05:22 Serum or plasma sodium measurement (moles/volume) 139 mmol/L 135-145 Serum or plasma potassium measurement (moles/volume) 3.5 mmol/L 3.6-5.0 Serum or plasma chloride measurement (moles/volume) 110 mmol/L 98-107 Carbon dioxide 20 mmol/L 21-32 Serum or plasma anion gap determination (moles/volume) 9 mmol/L 5-14 Serum or plasma urea nitrogen measurement (mass/volume ) 5 mg/dL 7-18 Serum or plasma creatinine measurement (mass/volume) 0.81 mg/dL 0.60-1.30 Serum or plasma urea nitrogen/creatinine mass ratio 6 NRG Serum or plasma creatinine measurement w ith calculation of estimated glomerular filtration rate > NRG Serum or plasma glucose measurement (mass/volume) 81 mg/dL 70-105 Serum or plasma calcium measurement (mass/volume) 8.5 mg/dL 8.5-10.1 Serum or plasma total bilirubin measurement (mass/volu me) 0.4 mg/dL 0.1-1.0 Serum or plasma alkaline phosphatase ligia surement (enzymatic activity/volume) 51 U/L 40-136 Serum or plasma aspartate aminotransfera se measurement (enzymatic activity/volume) 20 U/L 5-34 Serum or plasma alanine aminotransferase measurement (enzymatic activity/volume) 17 U/L 0-55 Serum or plasma protein measurement (mass/volume) 5.8 g/dL 6.4-8.2 Serum or plasma albumin measurement (mass/volume) 3.5 g/dL 3.2-4.5 Vancomycin trough - 01/26/18 10:58 Vancomycin trough 10.7 ug/mL 10.0-20.0 Influenza virus A and B antigen detectio n - 08/04/19 20:29 CALL POSITIVES (F1 HELP) URSULA @ 2057 [facility] FLU RESULT POSITIVE FOR INFLUENZA B ANT IGEN, NEG FOR A ANTIGEN, BY IA [facility] Streptococcus pyogenes antigen detection - 08/04/19 20:36 Streptococcus pyogenes antigen detection NEGATIVE NEGATIVE Bacterial throat culture - 08/04/19 20:3 6 Bacterial throat culture NBS NRG Complete urinalysis with reflex to cultu re - 10/11/19 20:55 Urine color determination YELLOW NRG Urine clarity determination CLEAR NR G Urine pH measurement by test strip 7.0 5-9 Specific gravity of urine by test strip 1.020 1.016-1.022 Urine protein assay by test strip, semi-quantitative NEGATIVE NEGATIVE Urine glucose detection by automated test strip NE GATIVE NEGATIVE Erythrocytes detection in urine sediment by light micr oscopy TRACE-I NEGATIVE Urine ketones detection by automated test strip NE GATIVE NEGATIVE Urine nitrite detection by test strip NEGATIVE NEGATIVE Urine total bilirubin detection by test strip NEGA TIVE NEGATIVE Urine urobilinogen measurement by automated test strip (mass/volume) 1.0 mg/dL < = 1.0 Urine leukocyte esterase detection by dipstick NEG ATIVE NEGATIVE Automated urine sediment erythrocyte cou nt by microscopy (number/high power field) [HPF] NRG Automated urine sediment leukocyte count by microscopy (number/high power field) RARE NRG Bacteria detection in urine sediment by light microsco py TRACE NRG Crystals detection in urine sediment by light microsco py NONE NRG Casts detection in urine sediment by light microscopy NONE NRG Mucus detection in urine sediment by light microscopy SMALL NRG Complete urinalysis with reflex to culture NO NRG Complete blood count (CBC) with automate d white blood cell (WBC) differential - 10/11/19 21:10 Blood leukocytes automated count (number/volume) 7.1 10*3/uL 4.3-11.0 Blood erythrocytes automated count (number/volume) 5.64 10*6/uL 4.35-5.85 Venous blood hemoglobin measurement (mass/volume) 15.3 g/dL 13.3-17.7 Blood hematocrit (volume fraction) 45 % 40-54 Automated erythrocyte mean corpuscular volume 79 [ foz_us] 80-99 Automated erythrocyte mean corpuscular h emoglobin (mass per erythrocyte) 27 pg 25-34 Automated erythrocyte mean corpuscular h emoglobin concentration measurement (mass/volume) 34 g/dL 32-36 Automated erythrocyte distribution width ratio 14. 1 % 10.0- 14.5 Automated blood platelet count (count/volume) 245 10*3/uL 130-400 Automated blood platelet mean volume measurement 9.6 [foz_us] 7.4-10.4 Automated blood neutrophils/100 leukocytes 50 % 42-75 Automated blood lymphocytes/100 leukocytes 40 % 12-44 Blood monocytes/100 leukocytes 8 % 0-12 Automated blood eosinophils/100 leukocytes 2 % 0-10 Automated blood basophils/100 leukocytes 0 % 0-10 Blood neutrophils automated count (number/volume) 3.5 10*3 1.8-7.8 Blood lymphocytes automated count (number/volume) 2.8 10*3 1.0-4.0 Blood monocytes automated count (number/volume) 0. 6 10*3 0.0-1.0 Automated eosinophil count 0.1 10*3/uL 0 .0-0.3 Automated blood basophil count (count/volume) 0.0 10*3/uL 0.0-0.1 Comprehensive metabolic panel - 10/11/19 21:10 Serum or plasma sodium measurement (moles/volume) 139 mmol/L 135-145 Serum or plasma potassium measurement (moles/volume) 3.8 mmol/L 3.6-5.0 Serum or plasma chloride measurement (moles/volume) 103 mmol/L 98-107 Carbon dioxide 24 mmol/L 21-32 Serum or plasma anion gap determination (moles/volume) 12 mmol/L 5-14 Serum or plasma urea nitrogen measurement (mass/volume ) 12 mg/dL 7-18 Serum or plasma creatinine measurement (mass/volume) 1.09 mg/dL 0.60-1.30 Serum or plasma urea nitrogen/creatinine mass ratio 11 NRG Serum or plasma creatinine measurement w ith calculation of estimated glomerular filtration rate > NRG Serum or plasma glucose measurement (mass/volume) 113 mg/dL 70-105 Serum or plasma calcium measurement (mass/volume) 9.6 mg/dL 8.5-10.1 Serum or plasma total bilirubin measurement (mass/volu me) 0.3 mg/dL 0.1-1.0 Serum or plasma alkaline phosphatase ligia surement (enzymatic activity/volume) 50 U/L 40-136 Serum or plasma aspartate aminotransfera se measurement (enzymatic activity/volume) 24 U/L 5-34 Serum or plasma alanine aminotransferase measurement (enzymatic activity/volume) 25 U/L 0-55 Serum or plasma protein measurement (mass/volume) 8.3 g/dL 6.4-8.2 Serum or plasma albumin measurement (mass/volume) 4.8 g/dL 3.2-4.5 COVID-19 ([facility]) - 01/20/20 12:44 Complete blood count (CBC) with automate d white blood cell (WBC) differential - 02/17/20 12:20 Blood leukocytes automated count (number/volume) 6.2 10*3/uL 4.3-11.0 Blood erythrocytes automated count (number/volume) 5.66 10*6/uL 4.35-5.85 Venous blood hemoglobin measurement (mass/volume) 15.3 g/dL 13.3-17.7 Blood hematocrit (volume fraction) 44 % 40-54 Automated erythrocyte mean corpuscular volume 77 [ foz_us] 80-99 Automated erythrocyte mean corpuscular h emoglobin (mass per erythrocyte) 27 pg 25-34 Automated erythrocyte mean corpuscular h emoglobin concentration measurement (mass/volume) 35 g/dL 32-36 Automated erythrocyte distribution width ratio 13. 7 % 10.0- 14.5 Automated blood platelet count (count/volume) 247 10*3/uL 130-400 Automated blood platelet mean volume measurement 9.5 [foz_us] 7.4-10.4 Automated blood neutrophils/100 leukocytes 52 % 42-75 Automated blood lymphocytes/100 leukocytes 37 % 12-44 Blood monocytes/100 leukocytes 10 % 0-12 Automated blood eosinophils/100 leukocytes 2 % 0-10 Automated blood basophils/100 leukocytes 0 % 0-10 Blood neutrophils automated count (number/volume) 3.2 10*3 1.8-7.8 Blood lymphocytes automated count (number/volume) 2.3 10*3 1.0-4.0 Blood monocytes automated count (number/volume) 0. 6 10*3 0.0-1.0 Automated eosinophil count 0.1 10*3/uL 0 .0-0.3 Automated blood basophil count (count/volume) 0.0 10*3/uL 0.0-0.1 Complete urinalysis with reflex to cultu re - 02/17/20 12:20 Urine color determination YELLOW NRG Urine clarity determination CLEAR NR G Urine pH measurement by test strip 7.0 5-9 Specific gravity of urine by test strip <= 1.016-1.022 Urine protein assay by test strip, semi-quantitative NEGATIVE NEGATIVE Urine glucose detection by automated test strip NE GATIVE NEGATIVE Erythrocytes detection in urine sediment by light micr oscopy NEGATIVE NEGATIVE Urine ketones detection by automated test strip NE GATIVE NEGATIVE Urine nitrite detection by test strip NEGATIVE NEGATIVE Urine total bilirubin detection by test strip NEGA TIVE NEGATIVE Urine urobilinogen measurement by automated test strip (mass/volume) 0.2 mg/dL < = 1.0 Urine leukocyte esterase detection by dipstick NEG ATIVE NEGATIVE Automated urine sediment erythrocyte cou nt by microscopy (number/high power field) RARE NRG Automated urine sediment leukocyte count by microscopy (number/high power field) RARE NRG Bacteria detection in urine sediment by light microsco py TRACE NRG Crystals detection in urine sediment by light microsco py NONE NRG Casts detection in urine sediment by light microscopy NONE NRG Mucus detection in urine sediment by light microscopy NEGATIVE NRG Complete urinalysis with reflex to culture NO NRG Comprehensive metabolic panel - 02/17/20 12:20 Serum or plasma sodium measurement (moles/volume) 137 mmol/L 135-145 Serum or plasma potassium measurement (moles/volume) 4.1 mmol/L 3.6-5.0 Serum or plasma chloride measurement (moles/volume) 103 mmol/L 98-107 Carbon dioxide 27 mmol/L 21-32 Serum or plasma anion gap determination (moles/volume) 7 mmol/L 5-14 Serum or plasma urea nitrogen measurement (mass/volume ) 11 mg/dL 7-18 Serum or plasma creatinine measurement (mass/volume) 1.02 mg/dL 0.60-1.30 Serum or plasma urea nitrogen/creatinine mass ratio 11 NRG Serum or plasma creatinine measurement w ith calculation of estimated glomerular filtration rate > NRG Serum or plasma glucose measurement (mass/volume) 82 mg/dL 70-105 Serum or plasma calcium measurement (mass/volume) 10.1 mg/dL 8.5-10.1 Serum or plasma total bilirubin measurement (mass/volu me) 0.5 mg/dL 0.1-1.0 Serum or plasma alkaline phosphatase ligia surement (enzymatic activity/volume) 48 U/L 40-136 Serum or plasma aspartate aminotransfera se measurement (enzymatic activity/volume) 30 U/L 5-34 Serum or plasma alanine aminotransferase measurement (enzymatic activity/volume) 60 U/L 0-55 Serum or plasma protein measurement (mass/volume) 8.1 g/dL 6.4-8.2 Serum or plasma albumin measurement (mass/volume) 4.7 g/dL 3.2-4.5 Lipase - 02/17/20 12:20 Lipase 29 U/L 8-78 Encounters ACCT No. Visit Date/Time Discharge Status Pt. Type Provider Facility Loc./Unit Complaint [id number] 01/20/2020 09:10:00 01/20/2020 23:59: 59 CLS Outpatient Madhavi Scott [facility] [id number] 01/20/2020 09:10:00 Document Registration [id number] 09/17/2012 15:39:19 RECURRING [id number] 10/11/2019 20:41:00 22:26:00 DIS Outpatient MATT RUIZ APRN [facility] ER POTENTIAL KIDNEY STONE [id number] 08/04/2019 20:18:00 21:31:00 DIS Emergency DENI MENDOZA DO [facility] ER FEVER,NAUSEA [id number] 01/24/2018 23:33:00 018 14:10:00 DIS Inpatient MADHAVI SCOTT DO [facility] 4TH SEPSIS; FEVER [id number] 09/16/2017 09:35:00 018 23:59:59 CLS Outpatient HELEN BALDERAS DRY CANS BACK TENDER [facility] RAD M54.5 LOW BACK PAIN [id number] 08/15/2016 11:35:00 017 23:59:59 CLS Outpatient LAURA NGUYEN DR[employer] BACK TENDER [facility] LAB FEVER,SALIVARY GLAND PAIN AND SWELLING [id number] 02/09/2016 00:48:00 016 03:00:00 DIS Emergency DENI MENDOZA DO [facility] ER LEFT SIDE PAIN [id number] 02/07/2016 00:31:00 016 03:06:00 DIS Emergency SETH MARSHALL MD [facility] ER LEFT SIDE PAIN, DIZZY,NAUSEA [id number] 01/16/2016 09:00:00 016 23:59:59 CLS Outpatient LAURA NGUYEN APRN [facility] LAB FATIGUE [id number] 08/17/2013 10:14:00 014 10:39:00 DIS Emergency DENI MENDOZA DO [facility] ER REMOVAL OF STITCHES [id number] 08/08/2013 13:19:00 014 14:49:00 DIS Emergency DORI MONTGOMERY, MATTEO Cota [facility] ER RIGHT UPPER ARM LAC [id number] 05/12/2013 10:35:00 013 12:51:00 DIS Emergency MICHEAL MONTGOMERY, MARCELO Thomas [facility] ER DOG BITE RIGHT THUMB [id number] 02/17/2020 12:38:00 Document Registration 03/16/15 04/13/2019 12:00:46 04/13/2019 23:5 9:59 CLS Outpatient Madhavi Scott 694 10/12/2019 13:03:00 Document Registration
--- OUTSIDE RECORDS SUMMARY | 2020-02-17 13:25 | XMS REPORT | CCD ---
Author Author Jesus Scott D.O. Organization MADHAVI SCOTT DO [facility] Address [address] [place] [address] Phone Care Team Providers Care Heat Treater Name Role Phone Madhavi Scott D.O., PP Unavailable CCM Unavailable Summary Purpose Interface Exchange Family History Family History data not found Social History Social History Element Codes Description Effective Dates Tobacco history SNOMED CT: 090022816 Nonsmoker 02/05/2011 Allergies, Adverse Reactions, Alerts Substance Reaction Codes Entered Date Inactivated Date Status PENICILLINS Unknown 05/08/2010 No Inactive Date Active Ibuprofen Unknown 05/08/2010 No Inactive Date Active * NO KNOWN FOOD ALLERGIES Unknown 04/13/2019 No Inactiv e Date Active * NO KNOWN ENVIRONMENTAL ALLERGIES Unknown 04/13/2019 N o Inactive Date Active Problems Condition Codes Effective Dates Condition Status Mesenteric lymphadenitis ICD-9: 289.2 ICD-10: I88.0 10/12/2019 [...] Start Date Stop Date Status Fill Instructions ondansetron 4 mg disintegrating tablet RxNorm: 924591 1 Tablet(s) Oral Q4H as needed for nausea 10/12/2019 No Stop Date Active Lunesta 3 mg tablet RxNorm: 051369 TAKE ONE TABLET BY M OUTH AT BEDTIME NEEDED FOR SLEEP 09/02/2018 09/08/2018 Inactive Lunesta 3 mg tablet RxNorm: 645063 TAKE ONE TABLET BY M OUTH AT BEDTIME NEEDED FOR SLEEP 08/30/2018 04/12/2019 Inactive Lunesta 3 mg tablet RxNorm: 676768 TAKE ONE TABLET BY M OUTH EVERY NIGHT AT BEDTIME NEEDED FOR SLEEP 06/07/2018 09/02/2018 Inactive Lunesta 3 mg tablet RxNorm: 554746 TAKE ONE TABLET BY M OUTH EVERY NIGHT AT BEDTIME NEEDED SLEEP 04/13/2018 06/07/2018 Inactive Lunesta 3 mg tablet RxNorm: 408054 TAKE ONE TABLET BY M OUTH AT BEDTIME NEEDED FOR SLEEP 02/17/2018 04/13/2018 Inactive Generic For:LUNE STA 3MG TAB 02/17/2018 12:36:41 PM doxycycline hyclate 100 mg capsule RxNorm: 7975315 1 Capsule(s) PO BID 02/12/2018 02/25/2018 Inactive Lunesta 3 mg tablet RxNorm: 852829 Tablet(s) TAKE ONE T ABLET BY MOUTH AT BEDTIME NEEDED FOR SLEEP 12/29/2017 02/18/2018 Inactive Generic For: LUNESTA 3MG TAB 11/25/2017 1:41:28 PM 12/01/2017 10:00:01 AM Lunesta 3 mg tablet RxNorm: 381313 Tablet(s) TAKE ONE T ABLET BY MOUTH AT BEDTIME NEEDED FOR SLEEP 12/24/2017 12/29/2017 Inactive Generic For: LUNESTA 3MG TAB 11/25/2017 1:41:28 PM 12/01/2017 10:00:01 AM Lunesta 3 mg tablet RxNorm: 571569 TAKE ONE TABLET BY M OUTH AT BEDTIME NEEDED FOR SLEEP 12/03/2017 03/01/2018 Inactive Generic For:LUNE STA 3MG TAB 11/25/2017 1:41:28 PM 12/01/2017 10:00:01 AM Lunesta 3 mg tablet RxNorm: 454857 TAKE ONE TABLET BY M OUTH AT BEDTIME NEEDED FOR SLEEP 11/27/2017 04/12/2019 Inactive Generic For:LUNE STA 3MG TAB 11/27/2017 9:30:03 AM11/25/2017 1:41:28 PM Lunesta 3 mg tablet RxNorm: 299593 1 Tablet(s) PO QHS as needed for sleep 09/17/2017 11/27/2017 Inactive cyclobenzaprine 10 mg tablet RxNorm: 966046 1 Tablet(s) PO BID as needed 09/16/2017 04/12/2019 Inactive Lunesta 3 mg tablet RxNorm: 406614 1 Tablet(s) PO QHS as needed for sleep 08/26/2017 09/16/2017 Inactive Levaquin 500 mg tablet RxNorm: 218138 1 Tablet(s) PO QD 08/06/2017 Inactive prednisone 20 mg tablet RxNorm: 340970 2 Tablet(s) PO QD 08/06/2017 0 08/10/2017 Inactive Lunesta 3 mg tablet RxNorm: 347190 TAKE ONE TABLET BY M OUTH AT BEDTIME NEEDED 06/15/2017 07/14/2017 Inactive Lunesta 3 mg tablet RxNorm: 183670 1 Tablet(s) PO QHS as needed 06/15/2017 Inactive Lexapro 10 mg tablet RxNorm: 619795 1 Tablet(s) PO QD 07/01/201602/03 Inactive Lexapro 20 mg tablet RxNorm: 445555 1 Tablet(s) PO QD 02/14/201602/03 Inactive Lexapro 10 mg tablet RxNorm: 682040 1 Tablet(s) PO QD 01/15/201602/03 Inactive Cipro 500 mg tablet RxNorm: 571005 1 Tablet(s) PO BID 03/08/201403/2014 Inactive Flexeril 10 mg tablet RxNorm: 656350 Tablet(s) PO TAKE 1 TABLET BY MOUTH EACH NIGHT AT BEDTIME FOR SPASM 09/20/2012 01/14/2016 Inactive Gener ic For:FLEXERIL 10 MG TAB Flexeril 10 mg tablet RxNorm: 625099 1 Tablet(s) PO QHS for spasm 0 07/12/2012 08/10/2012 Inactive Mobic 15 mg tablet RxNorm: 363552 1 Tablet(s) PO QAM for pain 04/1505/14/2012 Inactive Flexeril 10 mg tablet RxNorm: 078826 1 Tablet(s) PO QHS for spasm 1 07/12/2012 Inactive Mobic 15 mg tablet RxNorm: 363502 1 Tablet(s) PO QAM for pain 03/1804/14/2012 Inactive Tylenol Extra Strength 500 mg tablet RxNorm: 343908 Tablet(s) P O as needed No Start Date Active ProAir HFA 90 mcg/Actuation Aerosol Inhaler RxNorm: 356421 2 Puff(s) INH PRN 2 puffs every 4 hrs as needed for wheezing. No Start Date 03/17/2012 Inacti ve azithromycin 250 mg Tab RxNorm: 733952 2 Tablet(s) PO Q D take 2 tablets (500 mg) by oral route once daily for 1 day then 1 tablet (250 mg) by oral route once daily for 4 days No Start Date 03/17/2012 Inactive Flexeril 10 mg tablet RxNorm: 691822 1 Tablet(s) PO QHS for spasm N o Start Date 04/14/2012 Inactive Lunesta 3 mg tablet RxNorm: 012172 1 Tablet(s) PO QHS as needed No Start Date 03/18/2017 Inactive Tussionex Pennkinetic ER 8 mg-10 mg/5 mL susp,extended relea se RxNorm: 4964764 PO No Start Date 07/23/2011 Inactive Medication Administered No Medication Administered data Immunizations No Immunization data Results No Results data Procedures Procedure Codes Date INFLUENZA ASSAY W/OPTIC CPT-4: 69220 08/15/2016 URINALYSIS NONAUTO W/O SCOPE CPT-4: 50037 01/31/2015 URINALYSIS NONAUTO W/O SCOPE CPT-4: 17790 03/13/2014 URINE CULTURE/ COLONY COUNT CPT-4: 56218 03/08/2014 URINALYSIS NONAUTO W/O SCOPE CPT-4: 69303 03/08/2014 THER/PROPH/DIAG INJ SC/IM CPT-4: 78961 01/11/2013 METHYLPREDNISOLONE 40 MG INJ CPT-4: J1030 01/11/2013 TRIAMCINOLONE ACET INJ NOS CPT-4: J3301 01/11/2013 Vital Signs Date Vital 04/13/2019 Blood Pressure 1: 126/78 Code: 8480-6 Heart Rate 1: 110 bpm SpO2: 100% Temperature: 36.5 (C) / 97.7 (F) Weight: 156 lbs 01/29/2018 Blood Pressure 1: 122/78 Code: 8480-6 Heart Rate 1: 80 bpm Temperature: 36.6 (C) / 97.9 (F) Weight: 160 lbs 09/16/2017 Blood Pressure 1: 132/84 Code: 8480-6 BMI: 24.3 Code: 25923-2 Heart Rate 1: 100 bpm Height: 5'8" Respiratory Rate: 20 bpm SpO2: 96% Tempera ture: 36.8 (C) / 98.2 (F) Weight: 160 lbs 08/06/2017 Blood Pressure 1: 126/82 Code: 8480-6 BMI: 24.2 Code: 50471-1 Heart Rate 1: 92 bpm Height: 5'8" Respiratory Rate: 22 bpm SpO2: 96% Tempera ture: 36.4 (C) / 97.6 (F) Weight: 159 lbs 02/16/2017 Blood Pressure 1: 118/64 Code: 8480-6 BMI: 24.3 Code: 24028-2 Heart Rate 1: 84 bpm Height: 5'8" [...] 1: 124/82 Code: 8480-6 BMI: 22.7 Code: 31500-8 Heart Rate 1: 102 bpm Height: 5'8" Respiratory Rate: 24 bpm SpO2: 98% Tempera ture: 36.6 (C) / 97.8 (F) Weight: 149 lbs 01/15/2016 Blood Pressure 1: 142/78 Code: 8480-6 BMI: 22.6 Code: 73917-0 Heart Rate 1: 82 bpm Height: 5'8" Respiratory Rate: 20 bpm SpO2: 97% Tempera ture: 36.6 (C) / 97.8 (F) Weight: 151 lbs 01/31/2015 Blood Pressure 1: 122/82 Code: 8480-6 BMI: 21.9 Code: 97582-5 Heart Rate 1: 78 bpm Height: 5'7" Respiratory Rate: 22 bpm Temperature: 36 .7 (C) / 98.0 (F) Weight: 140 lbs 03/13/2014 Blood Pressure 1: 122/84 Code: 8480-6 BMI: 20.2 Code: 96411-7 Heart Rate 1: 68 bpm Height: 5'7" Respiratory Rate: 20 bpm Temperature: 36 .4 (C) / 97.5 (F) Weight: 129 lbs 03/08/2014 Blood Pressure 1: 102/60 Code: 8480-6 BMI: 20.2 Code: 59589-7 Heart Rate 1: 82 bpm Height: 5'7" Respiratory Rate: 20 bpm Temperature: 36 .6 (C) / 97.8 (F) Weight: 129 lbs 04/15/2012 Blood Pressure 1: 116/70 Code: 8480-6 BMI: 21.0 Code: 16043-8 Heart Rate 1: 92 bpm Height: 5'7" Respiratory Rate: 20 bpm Temperature: 37 .0 (C) / 98.6 (F) Weight: 134 lbs 04/01/2012 Blood Pressure 1: 116/70 Code: 8480-6 BMI: 21.0 Code: 57450-5 Heart Rate 1: 76 bpm Height: 5'7" Respiratory Rate: 20 bpm Temperature: 36 .6 (C) / 97.8 (F) Weight: 134 lbs 03/18/2012 Blood Pressure 1: 136/80 Code: 8480-6 BMI: 21.0 Code: 70743-1 Heart Rate 1: 84 bpm Height: 5'7" Respiratory Rate: 20 bpm Temperature: 36 .7 (C) / 98.1 (F) Weight: 134 lbs 02/05/2011 Blood Pressure 1: 124/70 Code: 8480-6 BMI: 20.4 Code: 89744-9 Heart Rate 1: 70 bpm Height: 5'7" Temperature: 36.4 (C) / 97.6 (F) Weight: 130 lbs 07/11/2010 Blood Pressure 1: 106/60 Code: 8480-6 Heart Rate 1: 92 bpm Respiratory Rate: 18 bpm SpO2: 96% Temperature: 36.9 (C) / 98.5 (F) We ight: 127 lbs 05/08/2010 Blood Pressure 1: 116/68 Code: 8480-6 BMI: 19.3 Code: 00566-6 Heart Rate 1: 68 bpm Height: 5'7" Temperature: 36.8 (C) / 98.3 (F) Weight: 123 lbs Functional Status No Functional Status data Reason For Visit Reason For Visit Effective Dates Notes follow up 10/12/2019 ER fwup well man exam (18-39 years) 04/13/2019 follow up 01/29/2018 Hosp fwup back pain 09/16/2017 headache 08/06/2017 Patient was seen 1 w kaw ago for left inner ear infection and [...] basketball Encounters Encounter Performer Location Codes Date () OFFICE/OUTPATIENT VISIT EST Diagnosis: Mesenteric lymphadenitis[ICD10: I88.0] Madhavi Scott 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 Ivy JIN [employer] CPT-4: 71837 09/16/2017 OFFICE/OUTPATIENT VISIT EST Diagnosis: Otitis media, unspecified, left ear[ICD10: H66.92] Helen SCOTT [facility] CPT-4: 73297 08/06/2017 ([id number]) OFFICE/OUTPATIENT VISIT EST Diagnosis: Insomnia, unspecified[ICD10: G47.00] Madhavi Alanconnerchel [facility] CPT-4: 95935 02/16/2017 ([id number]) OFFICE/OUTPATIENT VISIT EST Diagnosis: Fever, unspecified[ICD10: R50.9] Diagnosis: Myalgia[ICD10: M79.1] Diagnosis: Jaw pain[ICD10: R68.84] Wendy VALLECILLOLINE Faith SCOTT [facility] CPT-4: 00146 08/15/2016 ([id number]) NO CHARGE Diagnosis: Adjustment disorder with mixed anxiety and depressed mood[ICD10: F43.23] Wendy VALLECILLOLINE Faith [facility]OTT [facility] CPT-4: 51015 ([id number]) OFFICE/OUTPATIENT VISIT EST Diagnosis: Adjustment disorder with mixed anxiety and depressed mood[ICD10: F43.23] Diagnosis: Other specified diseases of intestine[ICD10: K63.89] Wendy [facility] CPT-4: 23913 02/14/2016 ([id number]) OFFICE/OUTPATIENT VISIT EST Diagnosis: Major depressive disorder, single episode, unspecified[ICD10: F32.9] Diagnosis: Insomnia, unspecified[ICD10: G47.00] Diagnosis: Other fatigue[ICD10: R53.83] Wendy VALLECILLOLINE Faith [facility] CPT-4: 82860 01/15/2016 OFFICE/OUTPATIENT VISIT EST Diagnosis: CEPHALGIA[ICD9: 784.0] Diagnosis: Mild dehydration[ICD9: 276.51] Alanis VanAdrianaivatee MADHAVI Caryl [facility] CPT-4: 16672 01/31/2015 OFFICE/OUTPATIENT VISIT EST Diagnosis: Mild dehydration[ICD9: 276.51] Alanis MARSHALLQUELINE Caryl [facility] CPT-4: 97883 03/13/2014 OFFICE/OUTPATIENT VISIT EST Diagnosis: Nausea, vomiting and diarrhea[ICD9: 787.91] Diagnosis: Mild dehydration[ICD9: 276.51] Diagnosis: URINARY TRACT INFECTION[ICD9: 599.0] Alanis SCOTT DO [facility] CPT-4: 84864 03/08/2014 ([id number]) OFFICE/OUTPATIENT VISIT EST Diagnosis: Poison elizabeth dermatitis[ICD9: 692.6] Madhavi Alanconnerchel MARSHALLTRAVISELIZABET HutsonZuleyka VIANEY PAZ [facility] CPT-4: 84012 01/11/2013 ([id number]) OFFICE/OUTPATIENT VISIT EST Diagnosis: PAIN, LOWER BACK[ICD9: 724.2] Diagnosis: SPASM OF MUSCLE[ICD9: 728.85] Madhavi SCOTT DO [facility] CPT-4: 60219 04/15/2012 ([id number]) OFFICE/OUTPATIENT VISIT EST Diagnosis: PAIN, LOWER BACK[ICD9: 724.2] Madhavi Phillipsconnerchel VALLECILLOMADHAVI CarylZuleyka VIANEY PAZ [facility] CPT-4: 92714 04/01/2012 ([id number]) OFFICE/OUTPATIENT VISIT EST Diagnosis: PAIN, LOWER BACK[ICD9: 724.2] Diagnosis: SPASM OF MUSCLE[ICD9: 728.85] Madhavi SCOTT DO [facility] CPT-4: 76819 03/18/2012 OFFICE/OUTPATIENT VISIT EST Madhavi CRISOSTOMO DO [employer] CPT- 4: 45823 02/05/2011 ([id number]) OFFICE/OUTPATIENT VISIT, EST Madhavi SCOTT DO [facility] CPT-4: 20011 07/11/2010 ([id number]) PREV VISIT, EST, AGE 12-17 Madhavi SCOTT DO [employer] CPT-4: 03816 05/08/2010 Plan of Care Planned Activity Notes Codes Status Date Visit Diagnosis Plan: Mesenteric lymphadenitis Discuss ion: Looked at ER records from last night and CT scan results reviewed Supportive care with clear liquids, zofran prn, tylenol prn Notify if worsens or persists No work for rest of week ICD-9 : 289.2 ICD-10 : I88.0 10/12/2019 Patient Education: ondansetron- [employer] Coupon [phone] [id number] [email or web address] Completed 10/12/2019 Visit Diagnosis Plan: Encounter for [facility] adult medical examination without abnormal findings Discussion: Patient planning on going in to [employer] His PCN allergy was when he was a child and was a rash from amoxicillin--he has no history of anaphylactic reactions His left testicle is a hydrocele which was checked by urology in 2007 and determined to be a benign hydrocele and recommendation was observation--no treatment needed ICD-9 : V70.0 ICD-10 : Z00.00 04/13/2019 Appointment: Madhavi Scott WPtel: [address] [place] [address] fwup instead of annual cause of no [...] : A77.41 01/29/2018 Appointment: Madhavi Scott WPtel: [address] [place] [address] Hospital Follow Up 01/29/2018 Patient Education: Patient [...] ICD-10 : M54.5 09/16/2017 Appointment: Helen Mendez [address] [place] [address] ACUTE ILLNESS 09/16/2017 Patient Education: Patient Medication Summary Completed 09/16/2017 Care Plan: X-RAY EXAM L-S SPINE 2/3 VWS LOINC : 95289-0 Pending 09/16/2017 Visit Diagnosis Plan: Otitis media, [...] ICD-10 : H66.92 08/06/2017 Appointment: Helen Mendez [address] [place] [address] ACUTE ILLNESS 08/06/2017 Patient Education: Patient Medication Summary Completed 08/06/2017 Visit Diagnosis Plan: Insomnia, unspecified Discussion : Sleep hygiene Trial of Lunesta 3mg q HS Call in 2 weeks if working ICD-9 : 780.52 ICD-10 : G47.00 02/16/2017 Appointment: Madhvai Scott WPtel: [address] [place] [address] ACUTE ILLNESS 02/16/2017 Patient Education: Patient Medication Summary Completed 02/16/2017 Visit Diagnosis Plan: Fever, unspecified Discussion: F bing is negative Patient is concerned with mumps - per mom he has had his vaccines and there has been no contact with confirmed mumps Called and discussed with infectious disease control nurse at [facility] who contacted [facility]. With his symptoms, it was recommended to test. Patient and orders sent to for further testing. Mask placed on patient and he is instructed to leave on. ICD-9 : 780.60 ICD-10 : R50.9 08/15/2016 Appointment: Wendy Jordan [address] [place] [address] ACUTE ILLNESS 08/15/2016 Patient Education: Patient Medication [...] a 1 month follow up 02/20/2016 Appointment: Wendy Jordan [facility] 02/18 confirmed~sl 02/18 patients appt was canceled. Patient was seen last week, and it was counted as a fwup per mildred CANCELED 02/20/2016 Patient Education: Patient Medication Summary Completed 02/20/2016 Visit Plan: Colitis has improved well Co ntinue to advance diet as tolerated Increase dose of lexapro Could consider adding buspar as well if still not happy with the lexapro effect Strongly encouraged more formal counseling Discussed referral to psychiatrist if not improving soon Stressed need to reach out for any SI/HI 02/14/2016 Appointment: Wendy Jordan [facility] 02/12lm~sl....confirmed-sp ER Follow UP 2015 Patient Education: Patient Medication Summary Completed 02/14/2016 Appointment: Madhavi Scott WPtel: [address] [place], [place] [phone] RESCHEDULED 01/30/2016 Visit Plan: Start lexapro Continue couns eling with marine extension agent Work on being active and outside Limit caffeine after noon No screen time within 1-2 hours before bed Labs to evaluate fatigue - cbc, cmp, tsh, testosterone and b12 Recheck in 1 month - will adjust lexapro and/or add sleep aid if needed 01/15/2016 Appointment: Wendy Jordan Lesly [facility] ACUTE ILLNESS 01/15/2016 Patient Education: Patient Medication Summary Completed 01/15/2016 Appointment: Madhavi Scott WPtel: [address] [place], [place] [phone] 04/06 mother schedule 04/09 lm with ana laura ent and spoke with mother she forgot to call and cancel ACUTE ILLNESS 04/09/2015 Visit Plan: Push fluids of the next 4 da ys - >4 liters/day Avoid heat exposure for next 24 hours. No work tomorrow. Tylenol Extra Strength - 2 caps every 4 hours 01/31/2015 Appointment: Alanis Redman WPtel: [address] [place], [place] [phone] ACUTE ILLNESS 01/31/2015 Patient Education: Patient Medication Summary Completed 01/31/2015 Appointment: Alanis Redman WPtel: [address] [place], [place] [phone] 03/10 voicemail FOLLOW UP 03/13/2014 Patient Education: Patient Medication Summary Completed 03/13/2014 Appointment: Alanis Redman WPtel: [address] [place], [place] [phone] ACUTE ILLNESS 03/08/2014 Patient Education: Patient Medication Summary Completed 03/08/2014 Appointment: Madhavi Scott WPtel: [address] [place], [place] [phone] INJECTION 01/11/2013 Patient Education: Patient Medication Summary Completed 01/11/2013 Visit Plan: Continue daily stretches Use flexeril, mobic for 1wk then prn 04/15/2012 Appointment: Madhavi Scott WPtel: [address] [place] [address] 04/14 FOLLOW UP 04/15/2012 Patient Education: Patient Medication Summary Completed 04/15/2012 Visit Plan: OMT done Continue flexeril, mobic 04/01/2012 Appointment: Madhavi Scott WPtel: [address] [place] [address] FOLLOW UP 04/01/2012 Patient Education: Patient Medication Summary Completed 04/01/2012 Visit Plan: OMT done Daily stretches Mob ic and flexeril Recheck in 2wks 03/18/2012 Appointment: Madhavi Scott WPtel: [address] [place] [address] vm on mom phone OMT 03/18/2012 Patient [...] issue resolves. 02/05/2011 Appointment: Bailee Reyes WPtel: [address] [place], [place] [phone] ACUTE ILLNESS 02/05/2011 Patient Education: Patient Medication Summary Completed 02/05/2011 Visit Plan: Azithromycin. ProAir refil. Pt. will notify if no improvement in symptoms. 07/11/2010 Appointment: Bailee Reyes WPtel: [address] [place], [place] [phone] ACUTE ILLNESS 07/11/2010 Patient Education: Patient Medication Summary Completed 07/11/2010 Visit Plan: Annual exam. 05/08/2010 Appointment: Bailee Reyes WPtel: [facility] SPORTS PHYSICAL 05/08/2010 Patient Education: Patient Medication [...] SI/HI . Start lexapro Continue counseling with marine extension agent Work on being active and outside Limit [...]
--- OUTSIDE RECORDS SUMMARY | 2020-02-17 13:25 | XMS REPORT | CCD ---
Author Author Jesus Scott D.O. Organization MADHAVI SCOTT DO [facility] Address [address] [place] [address] Phone Care Team Providers Care Time Analysis Clerk Name Role Phone Madhavi Scott D.O., PP Unavailable CCM Unavailable Summary Purpose Interface Exchange Family History Family History data not found Social History Social History Element Codes Description Effective Dates Tobacco history SNOMED CT: 358163859 Nonsmoker 02/05/2011 Allergies, Adverse Reactions, Alerts Substance [...] Instructions ondansetron 4 mg disintegrating tablet RxNorm: 719771 1 Tablet(s) Oral Q4H as needed for nausea 10/12/2019 No Stop Date Active Lunesta 3 mg tablet RxNorm: 005180 TAKE ONE TABLET BY M OUTH AT BEDTIME NEEDED FOR SLEEP 09/02/2018 09/08/2018 Inactive Lunesta 3 mg tablet RxNorm: 285738 TAKE ONE TABLET BY M OUTH AT BEDTIME NEEDED FOR SLEEP 08/30/2018 04/12/2019 Inactive Lunesta 3 mg tablet RxNorm: 669858 TAKE ONE TABLET BY M OUTH EVERY NIGHT AT BEDTIME NEEDED FOR SLEEP 06/07/2018 09/02/2018 Inactive Lunesta 3 mg tablet RxNorm: 525854 TAKE ONE TABLET BY M OUTH EVERY NIGHT AT BEDTIME NEEDED SLEEP 04/13/2018 06/07/2018 Inactive Lunesta 3 mg tablet RxNorm: 209334 TAKE ONE TABLET BY M OUTH AT BEDTIME NEEDED FOR SLEEP 02/17/2018 04/13/2018 Inactive Generic For:LUNE STA 3MG TAB 02/17/2018 12:36:41 PM doxycycline hyclate 100 mg capsule RxNorm: 0437390 1 Capsule(s) PO BID 02/12/2018 02/25/2018 Inactive Lunesta 3 mg tablet RxNorm: 707922 Tablet(s) TAKE ONE T ABLET BY MOUTH AT BEDTIME NEEDED FOR SLEEP 12/29/2017 02/18/2018 Inactive Generic For: LUNESTA 3MG TAB 11/25/2017 1:41:28 PM 12/01/2017 10:00:01 AM Lunesta 3 mg tablet RxNorm: 786744 Tablet(s) TAKE ONE T ABLET BY MOUTH AT BEDTIME NEEDED FOR SLEEP 12/24/2017 12/29/2017 Inactive Generic For: LUNESTA 3MG TAB 11/25/2017 1:41:28 PM 12/01/2017 10:00:01 AM Lunesta 3 mg tablet RxNorm: 600491 TAKE ONE TABLET BY M OUTH AT BEDTIME NEEDED FOR SLEEP 12/03/2017 03/01/2018 Inactive Generic For:LUNE STA 3MG TAB 11/25/2017 1:41:28 PM 12/01/2017 10:00:01 AM Lunesta 3 mg tablet RxNorm: 680152 TAKE ONE TABLET BY M OUTH AT BEDTIME NEEDED FOR SLEEP 11/27/2017 04/12/2019 Inactive Generic For:LUNE STA 3MG TAB 11/27/2017 9:30:03 AM11/25/2017 1:41:28 PM Lunesta 3 mg tablet RxNorm: 697935 1 Tablet(s) PO QHS as needed for sleep 09/17/2017 11/27/2017 Inactive cyclobenzaprine 10 mg tablet RxNorm: 135407 1 Tablet(s) PO BID as needed 09/16/2017 04/12/2019 Inactive Lunesta 3 mg tablet RxNorm: 386425 1 Tablet(s) PO QHS as needed for sleep 08/26/2017 09/16/2017 Inactive Levaquin 500 mg tablet RxNorm: 469305 1 Tablet(s) PO QD 08/06/2017 Inactive prednisone 20 mg tablet RxNorm: 903016 2 Tablet(s) PO QD 08/06/2017 0 08/10/2017 Inactive Lunesta 3 mg tablet RxNorm: 477148 TAKE ONE TABLET BY M OUTH AT BEDTIME NEEDED 06/15/2017 07/14/2017 Inactive Lunesta 3 mg tablet RxNorm: 006615 1 Tablet(s) PO QHS as needed 06/15/2017 Inactive Lexapro 10 mg tablet RxNorm: 871142 1 Tablet(s) PO QD 07/01/201602/03 Inactive Lexapro 20 mg tablet RxNorm: 221762 1 Tablet(s) PO QD 02/14/201602/03 Inactive Lexapro 10 mg tablet RxNorm: 216274 1 Tablet(s) PO QD 01/15/201602/03 Inactive Cipro 500 mg tablet RxNorm: 466999 1 Tablet(s) PO BID 03/08/201403/2014 Inactive Flexeril 10 mg tablet RxNorm: 942873 Tablet(s) PO TAKE 1 TABLET BY MOUTH EACH NIGHT AT BEDTIME FOR SPASM 09/20/2012 01/14/2016 Inactive Gener ic For:FLEXERIL 10 MG TAB Flexeril 10 mg tablet RxNorm: 273779 1 Tablet(s) PO QHS for spasm 0 07/12/2012 08/10/2012 Inactive Mobic 15 mg tablet RxNorm: 191413 1 Tablet(s) PO QAM for pain 04/1505/14/2012 Inactive Flexeril 10 mg tablet RxNorm: 719202 1 Tablet(s) PO QHS for spasm 1 07/12/2012 Inactive Mobic 15 mg tablet RxNorm: 030061 1 Tablet(s) PO QAM for pain 03/1804/14/2012 Inactive Tylenol Extra Strength 500 mg tablet RxNorm: 682419 Tablet(s) P O as needed No Start Date Active ProAir HFA 90 mcg/Actuation Aerosol Inhaler RxNorm: 945601 2 Puff(s) INH PRN 2 puffs every 4 hrs as needed for wheezing. No Start Date 03/17/2012 Inacti ve azithromycin 250 mg Tab RxNorm: 750520 2 Tablet(s) PO Q D take 2 tablets (500 mg) by oral route once daily for 1 day then 1 tablet (250 mg) by oral route once daily for 4 days No Start Date 03/17/2012 Inactive Flexeril 10 mg tablet RxNorm: 054512 1 Tablet(s) PO QHS for spasm N o Start Date 04/14/2012 Inactive Lunesta 3 mg tablet RxNorm: 453914 1 Tablet(s) PO QHS as needed No Start Date 03/18/2017 Inactive Tussionex Pennkinetic ER 8 mg-10 mg/5 mL susp,extended relea se RxNorm: 1372071 PO No Start Date 07/23/2011 Inactive Medication Administered No Medication Administered data Immunizations No Immunization data Results No Results data Procedures Procedure Codes Date INFLUENZA ASSAY W/OPTIC CPT-4: 73347 08/15/2016 URINALYSIS NONAUTO W/O SCOPE CPT-4: 36371 01/31/2015 URINALYSIS NONAUTO W/O SCOPE CPT-4: 79315 03/13/2014 URINE CULTURE/ COLONY COUNT CPT-4: 68577 03/08/2014 URINALYSIS NONAUTO W/O SCOPE CPT-4: 06311 03/08/2014 THER/PROPH/DIAG INJ SC/IM CPT-4: 93269 01/11/2013 METHYLPREDNISOLONE 40 MG INJ CPT-4: J1030 [...] 1: 132/84 Code: 8480-6 BMI: 24.3 Code: 08586-3 Heart Rate 1: 100 bpm Height: 5'8" Respiratory Rate: 20 bpm SpO2: 96% Tempera ture: 36.8 (C) / 98.2 (F) Weight: 160 lbs 08/06/2017 Blood Pressure 1: 126/82 Code: 8480-6 BMI: 24.2 Code: 27588-6 Heart Rate 1: 92 bpm Height: 5'8" Respiratory Rate: 22 bpm SpO2: 96% Tempera ture: 36.4 (C) / 97.6 (F) Weight: 159 lbs 02/16/2017 Blood Pressure 1: 118/64 Code: 8480-6 BMI: 24.3 Code: 18257-3 Heart Rate 1: 84 bpm Height: 5'8" [...] 1: 124/82 Code: 8480-6 BMI: 22.7 Code: 65997-0 Heart Rate 1: 102 bpm Height: 5'8" Respiratory Rate: 24 bpm SpO2: 98% Tempera ture: 36.6 (C) / 97.8 (F) Weight: 149 lbs 01/15/2016 Blood Pressure 1: 142/78 Code: 8480-6 BMI: 22.6 Code: 99148-5 Heart Rate 1: 82 bpm Height: 5'8" Respiratory Rate: 20 bpm SpO2: 97% Tempera ture: 36.6 (C) / 97.8 (F) Weight: 151 lbs 01/31/2015 Blood Pressure 1: 122/82 Code: 8480-6 BMI: 21.9 Code: 73679-3 Heart Rate 1: 78 bpm Height: 5'7" Respiratory Rate: 22 bpm Temperature: 36 .7 (C) / 98.0 (F) Weight: 140 lbs 03/13/2014 Blood Pressure 1: 122/84 Code: 8480-6 BMI: 20.2 Code: 02706-3 Heart Rate 1: 68 bpm Height: 5'7" Respiratory Rate: 20 bpm Temperature: 36 .4 (C) / 97.5 (F) Weight: 129 lbs 03/08/2014 Blood Pressure 1: 102/60 Code: 8480-6 BMI: 20.2 Code: 34441-7 Heart Rate 1: 82 bpm Height: 5'7" Respiratory Rate: 20 bpm Temperature: 36 .6 (C) / 97.8 (F) Weight: 129 lbs 04/15/2012 Blood Pressure 1: 116/70 Code: 8480-6 BMI: 21.0 Code: 38157-5 Heart Rate 1: 92 bpm Height: 5'7" Respiratory Rate: 20 bpm Temperature: 37 .0 (C) / 98.6 (F) Weight: 134 lbs 04/01/2012 Blood Pressure 1: 116/70 Code: 8480-6 BMI: 21.0 Code: 64807-1 Heart Rate 1: 76 bpm Height: 5'7" Respiratory Rate: 20 bpm Temperature: 36 .6 (C) / 97.8 (F) Weight: 134 lbs 03/18/2012 Blood Pressure 1: 136/80 Code: 8480-6 BMI: 21.0 Code: 91367-2 Heart Rate 1: 84 bpm Height: 5'7" Respiratory Rate: 20 bpm Temperature: 36 .7 (C) / 98.1 (F) Weight: 134 lbs 02/05/2011 Blood Pressure 1: 124/70 Code: 8480-6 BMI: 20.4 Code: 58916-6 Heart Rate 1: 70 bpm Height: 5'7" Temperature: 36.4 (C) / 97.6 (F) Weight: 130 lbs 07/11/2010 Blood Pressure 1: 106/60 Code: 8480-6 Heart Rate 1: 92 bpm Respiratory Rate: 18 bpm SpO2: 96% Temperature: 36.9 (C) / 98.5 (F) We ight: 127 lbs 05/08/2010 Blood Pressure 1: 116/68 Code: 8480-6 BMI: 19.3 Code: 56055-4 Heart Rate 1: 68 bpm Height: 5'7" Temperature: 36.8 (C) / 98.3 (F) Weight: 123 lbs Functional Status No Functional Status data Reason For Visit Reason For Visit Effective Dates Notes follow up 10/12/2019 ER fwup well man exam (18-39 years) 04/13/2019 follow up 01/29/2018 Hosp fwup back pain 09/16/2017 headache 08/06/2017 Patient was seen 1 w kaibab ago for left inner ear infection and [...] EST Diagnosis: Mesenteric lymphadenitis[ICD10: I88.0] Madhavi Scott [facility] CPT-4: 04394 10/12/2019 ([id number]) PREV VISIT EST AGE 18-39 Diagnosis: Encounter for general adult medical examination without abnormal findings[ICD10: Z00.00] Madhavi SCOTT [facility] CPT-4: 21156 04/13/2019 ([id number]) OFFICE/OUTPATIENT VISIT EST 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 Ivy JIN [facility] CPT-4: 74987 09/16/2017 OFFICE/OUTPATIENT VISIT EST Diagnosis: Otitis media, unspecified, left ear[ICD10: H66.92] Helen SCOTT [facility] CPT-4: 40323 08/06/2017 ([id number]) OFFICE/OUTPATIENT VISIT EST Diagnosis: Insomnia, unspecified[ICD10: G47.00] Madhavi Alanconnerchel [facility] CPT-4: 68391 02/16/2017 ([id number]) OFFICE/OUTPATIENT VISIT EST Diagnosis: Fever, unspecified[ICD10: R50.9] Diagnosis: Myalgia[ICD10: M79.1] Diagnosis: Jaw pain[ICD10: R68.84] Wendy VALLECILLOLINE Faith SCOTT [facility] CPT-4: 18463 08/15/2016 ([id number]) NO CHARGE Diagnosis: Adjustment disorder with mixed anxiety and depressed mood[ICD10: F43.23] Wendy VALLECILLOLINE Faith SCOTT [facility] CPT-4: 89914 ([id number]) OFFICE/OUTPATIENT VISIT EST Diagnosis: Adjustment disorder with mixed anxiety and depressed mood[ICD10: F43.23] Diagnosis: Other specified diseases of intestine[ICD10: K63.89] Wendy [facility] CPT-4: 89477 02/14/2016 ([id number]) OFFICE/OUTPATIENT VISIT EST Diagnosis: Major depressive disorder, single episode, unspecified[ICD10: F32.9] Diagnosis: Insomnia, unspecified[ICD10: G47.00] Diagnosis: Other fatigue[ICD10: R53.83] Wendy VALLECILLOLINE Faith [facility] CPT-4: 06265 01/15/2016 OFFICE/OUTPATIENT VISIT EST Diagnosis: CEPHALGIA[ICD9: 784.0] Diagnosis: Mild dehydration[ICD9: 276.51] Alanis VanAdrianaivatee MADHAVI Caryl [facility] CPT-4: 93021 01/31/2015 OFFICE/OUTPATIENT VISIT EST Diagnosis: Mild dehydration[ICD9: 276.51] Alanis MARSHALLQUELINE Caryl SCOTT [facility] CPT-4: 98980 03/13/2014 OFFICE/OUTPATIENT VISIT EST Diagnosis: Nausea, vomiting and diarrhea[ICD9: 787.91] Diagnosis: Mild dehydration[ICD9: 276.51] Diagnosis: URINARY TRACT INFECTION[ICD9: 599.0] Alanis SCOTT DO [facility] CPT-4: 46120 03/08/2014 ([id number]) OFFICE/OUTPATIENT VISIT EST Diagnosis: Poison elizabeth dermatitis[ICD9: 692.6] Madhavi Alanconnerchel MARSHALLTRAVISELIZABET HutsonZuleyka VIANEY PAZ [facility] CPT-4: 40544 01/11/2013 ([id number]) OFFICE/OUTPATIENT VISIT EST Diagnosis: PAIN, LOWER BACK[ICD9: 724.2] Diagnosis: SPASM OF MUSCLE[ICD9: 728.85] Madhavi SCOTT DO [facility] CPT-4: 99031 04/15/2012 ([id number]) OFFICE/OUTPATIENT VISIT EST Diagnosis: PAIN, LOWER BACK[ICD9: 724.2] Madhavi Phillipsconnerchel VALLECILLOMADHAVI CarylZuleyka VIANEY PAZ [facility] CPT-4: 67118 04/01/2012 ([id number]) OFFICE/OUTPATIENT VISIT EST Diagnosis: PAIN, LOWER BACK[ICD9: 724.2] Diagnosis: SPASM OF MUSCLE[ICD9: 728.85] Madhavi SCOTT DO [facility] CPT-4: 97306 03/18/2012 OFFICE/OUTPATIENT VISIT EST Madhavi CRISOSTOMO DO [facility] CPT- 4: 40043 02/05/2011 ([id number]) OFFICE/OUTPATIENT VISIT, EST Madhavi SCOTT DO [facility] CPT-4: 44687 07/11/2010 ([id number]) PREV VISIT, EST, AGE 12-17 Madhavi SCOTT DO [facility] CPT-4: 52378 05/08/2010 Plan of Care Planned Activity Notes Codes Status Date Visit Diagnosis Plan: Mesenteric lymphadenitis Discuss ion: Looked at ER records from last night and CT scan results reviewed Supportive care with clear liquids, zofran prn, tylenol prn Notify if worsens or persists No work for rest of week ICD-9 : 289.2 ICD-10 : I88.0 10/12/2019 Patient Education: ondansetron- [employer] Coupon [phone] [email or web address] Completed 10/12/2019 Visit Diagnosis Plan: Encounter for [facility] adult medical examination without abnormal findings Discussion: Patient planning on going in to [place] His PCN allergy was when he was a child and was a rash from amoxicillin--he has no history of anaphylactic reactions His left testicle is a hydrocele which was checked by urology in 2007 and determined to be a benign hydrocele and recommendation was observation--no treatment needed ICD-9 : V70.0 ICD-10 : Z00.00 04/13/2019 Appointment: Madhavi Scott WPtel: [address] [place] [address] fwup instead of annual cause of no [...] : A77.41 01/29/2018 Appointment: Madhavi Scott WPtel: [address] [place] [address] Hospital Follow Up 01/29/2018 Patient Education: Patient [...] ICD-10 : M54.5 09/16/2017 Appointment: Helen Mendez [address] [place] [address] ACUTE ILLNESS 09/16/2017 Patient Education: Patient Medication Summary Completed 09/16/2017 Care Plan: X-RAY EXAM L-S SPINE 2/3 VWS LOINC : 69786-6 Pending 09/16/2017 Visit Diagnosis Plan: Otitis media, [...] ICD-10 : H66.92 08/06/2017 Appointment: Helen Mendez [address] [place] [address] ACUTE ILLNESS 08/06/2017 Patient Education: Patient Medication Summary Completed 08/06/2017 Visit Diagnosis Plan: Insomnia, unspecified Discussion : Sleep hygiene Trial of Lunesta 3mg q HS Call in 2 weeks if working ICD-9 : 780.52 ICD-10 : G47.00 02/16/2017 Appointment: Madhavi Scott WPtel: [address] [place] [address] ACUTE ILLNESS 02/16/2017 Patient Education: Patient Medication Summary Completed 02/16/2017 Visit Diagnosis Plan: Fever, unspecified Discussion: F bing is negative Patient is concerned with mumps - per mom he has had his vaccines and there has been no contact with confirmed mumps Called and discussed with infectious disease control nurse at [facility] who contacted [facility]. With his symptoms, it was recommended to test. Patient and orders sent to for further testing. Mask placed on patient and he is instructed to leave on. ICD-9 : 780.60 ICD-10 : R50.9 08/15/2016 Appointment: Wendy Jordan [address] [place] [address] ACUTE ILLNESS 08/15/2016 Patient Education: Patient Medication [...] month follow up 02/20/2016 Appointment: Wendy Jordan [id number] 02/18 confirmed~sl 02/18 patients appt was canceled. 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 Work on being active and outside Limit caffeine after noon No screen time within 1-2 hours before bed Labs to evaluate fatigue - cbc, cmp, tsh, testosterone and b12 Recheck in 1 month - will adjust lexapro and/or add sleep aid if needed 01/15/2016 Appointment: Wendy Jordan Lesly [id number] ACUTE ILLNESS 01/15/2016 Patient Education: Patient Medication Summary Completed 01/15/2016 Appointment: Madhavi Scott WPtel: [address] [place], [place] [phone] 04/06 mother schedule 04/09 lm with ana laura ent and spoke with mother she forgot to call and cancel ACUTE ILLNESS 04/09/2015 Visit Plan: Push fluids of the next 4 da ys - >4 liters/day Avoid heat exposure for next 24 hours. No work tomorrow. Tylenol Extra Strength - 2 caps every 4 hours 01/31/2015 Appointment: Alanis Redman WPtel: [address] [place], [place] [id number] ACUTE ILLNESS 01/31/2015 Patient Education: Patient Medication Summary Completed 01/31/2015 Appointment: Alanis Redman WPtel: [address] [place], [place] [phone] 03/10 voicemail FOLLOW UP 03/13/2014 Patient Education: Patient Medication Summary Completed 03/13/2014 Appointment: Alanis Redman WPtel: [address] [place], [place] [phone] ACUTE ILLNESS 03/08/2014 Patient Education: Patient Medication Summary Completed 03/08/2014 Appointment: Madhavi Scott WPtel: [address] [place], [place] [phone] INJECTION 01/11/2013 Patient Education: Patient Medication Summary Completed 01/11/2013 Visit Plan: Continue daily stretches Use flexeril, mobic for 1wk then prn 04/15/2012 Appointment: Madhavi Scott WPtel: [address] [place] [address] 04/14 FOLLOW UP 04/15/2012 Patient Education: Patient Medication Summary Completed 04/15/2012 Visit Plan: OMT done Continue flexeril, mobic 04/01/2012 Appointment: Madhavi Scott WPtel: [address] [place] [address] FOLLOW UP 04/01/2012 Patient Education: Patient Medication Summary Completed 04/01/2012 Visit Plan: OMT done Daily stretches Mob ic and flexeril Recheck in 2wks 03/18/2012 Appointment: Madhavi Scott WPtel: [address] [place] [address] vm on mom phone OMT 03/18/2012 Patient [...] issue resolves. 02/05/2011 Appointment: Bailee Reyes WPtel: [address] [place], [place] [phone] ACUTE ILLNESS 02/05/2011 Patient Education: Patient Medication Summary Completed 02/05/2011 Visit Plan: Azithromycin. ProAir refil. Pt. will notify if no improvement in symptoms. 07/11/2010 Appointment: Bailee Reyes WPtel: [address] [place], [place] [phone] ACUTE ILLNESS 07/11/2010 Patient Education: Patient Medication Summary Completed 07/11/2010 Visit Plan: Annual exam. 05/08/2010 Appointment: Bailee Reyes WPtel: [id number] SPORTS PHYSICAL 05/08/2010 Patient Education: Patient Medication [...] SI/HI . 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
[2020-02-17] MEDS ORDERED: HOLD METFORMIN - RECEIVED CONTRAST 20 ML VIAL IV SCH (15:00)
[2020-02-17] MEDS ORDERED: NS 100 ML (IVPB) BAG IV ONE (15:00)
[2020-02-17] MEDS ORDERED: CATHETER FLUSH 10 ML SYR IV PRN (15:00)
[2020-02-17] MEDS ORDERED: IOHEXOL 350 MG/ML 100 ML (OMNIPAQUE 350) VIAL IV ONE (15:00)
--- NOTE | 2020-02-17 15:22 | Diagnostic Imaging Report ---
PROCEDURE: CT abdomen and pelvis with contrast, rule out appendicitis. TECHNIQUE: Multiple contiguous axial images were obtained through the abdomen and pelvis after the administration of intravenous contrast. All CT scans use one or more of the following dose optimizing techniques: automated exposure control, MA and/or KvP adjustment based on patient size and exam type or iterative reconstruction. INDICATION: Right-sided abdominal pain. COMPARISON: Comparison is made to prior CT from 10/11/2019. The lung bases are clear. The liver and gallbladder are unremarkable. No liver mass is detected. There is no biliary ductal dilatation. Pancreas and spleen are unremarkable. No adrenal mass is detected. Kidneys appear unremarkable. No ureteral calculi or hydronephrosis is identified. Aorta is non-aneurysmal. The small and large bowel loops are normal caliber. No obstruction is identified. The appendix is visualized in the right lower quadrant and appears unremarkable. No free fluid or fluid collection is identified. There are minimally prominent central mesenteric lymph nodes, nonspecific. This can be seen with mesenteric adenitis. The bladder is unremarkable. Prostate is unremarkable. IMPRESSION: No CT evidence of acute appendicitis. There are mildly prominent central mesenteric lymph nodes, which can be seen with mesenteric adenitis. No other significant abnormality is seen. Dictated by: Dictated on workstation # [id number]
[2020-02-17] MEDS ORDERED: ONDA4TAB11 PO (15:28)
[2020-02-17 15:31] VITALS: BP 136/76
== END 2020-02-17 15:31 | disposition home or self-care (01) ==
LOC: EDUNIT# 11:46 → ER 11:47
DX: I88.0 Nonspecific mesenteric lymphadenitis (principal); Z88.0 Allergy status to penicillin; Z88.6 Allergy status to analgesic agent
CPT/HCPCS: 36415; 74177; 80053; 81000; 83690; 85025

== ENCOUNTER 2020-11-22 11:13 | Emergency (ER) | payer BC ==
[~2020-11-22] VITALS: Ht 170 cm; Wt 74.0 kg
[~2020-11-22 11:13] MED LIST changes: -CIPR500T4 PO; +CIPR500T5 PO; +ESCI-2 PO; -ESCI10TA55 PO
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
[2020-11-22] MEDS: LORazepam INJ 2 MG/ML (ATIVAN) VIAL IVP PRN (11:39)
[2020-11-22 11:46] LABS: BASOPHILS % (AUTO) 1 % (0-10); EOSINOPHILS % (AUTO) 0 % (0-10); HEMATOCRIT 43 % (40-54); HEMOGLOBIN 15.1 g/dL (13.3-17.7); LYMPHOCYTES # (AUTO) 1.6 10^3/uL (1.0-4.0); LYMPHOCYTES % (AUTO) 25 % (12-44); MEAN CORPUSCULAR HEMOGLOBIN 27 pg (25-34); MEAN CORPUSCULAR HGB CONC 35 g/dL (32-36); MEAN CORPUSCULAR VOLUME 78 fL (80-99); MEAN PLATELET VOLUME 9.6 fL (9.0-12.2); MONOCYTES # (AUTO) 0.4 10^3/uL (0.0-1.0); MONOCYTES % (AUTO) 7 % (0-12); NEUTROPHILS # (AUTO) 4.3 10^3/uL (1.8-7.8); NEUTROPHILS % (AUTO) 68 % (42-75); PLATELET COUNT 255 10^3/uL (130-400); WHITE BLOOD COUNT 6.3 10^3/uL (4.3-11.0)
[2020-11-22 11:58] LABS: ALBUMIN 4.6 GM/DL (3.2-4.5); CHLORIDE 106 MMOL/L (98-107); POTASSIUM 3.7 MMOL/L (3.6-5.0); SODIUM 138 MMOL/L (135-145)
[2020-11-22 11:59] LABS: CALCIUM 9.8 MG/DL (8.5-10.1)
[2020-11-22 12:00] LABS: GLUCOSE 97 MG/DL (70-105); TOTAL PROTEIN 7.8 GM/DL (6.4-8.2)
[2020-11-22 12:01] LABS: CARBON DIOXIDE 21 MMOL/L (21-32)
[2020-11-22 12:02] LABS: BILIRUBIN,TOTAL 0.7 MG/DL (0.1-1.0)
--- NOTE | 2020-11-22 12:03 | Diagnostic Imaging Report ---
INDICATION: Chest pain COMPARISON: 01/25/2018 FINDINGS: Single frontal view of the chest demonstrates normal heart size and pulmonary vascularity. The lungs are well aerated and clear. No large pleural effusion or pneumothorax is seen. The visualized osseous structures show no acute abnormalities. IMPRESSION: 1. No acute cardiopulmonary process. Dictated by: Dictated on workstation # [id number]
[2020-11-22 12:04] LABS: ALKALINE PHOSPHATASE 44 U/L (40-136); CREATININE SERUM 0.96 MG/DL (0.60-1.30); GFR ESTIMATED > 60
[2020-11-22 12:05] LABS: BUN/CREATININE RATIO 14
[2020-11-22 12:07] LABS: ALANINE AMINOTRANSFERASE 61 U/L (0-55)
--- NOTE | 2020-11-22 12:29 | Diagnostic Imaging Report ---
PROCEDURE: CT head without contrast. TECHNIQUE: Multiple contiguous axial images were obtained through the brain without the use of intravenous contrast. Auto Exposure Controls were utilized during the CT exam to meet ALARA standards for radiation dose reduction. INDICATION: Right-sided numbness. Correlation is made with prior CT of the brain from 01/25/2018. The ventricles and sulci are within normal limits. No sulcal effacement or midline shift is identified. No acute intra-axial or extra-axial hemorrhage is detected. Cisterns are patent. Visualized paranasal sinuses are clear. IMPRESSION: No acute intracranial process is detected. Dictated by: Dictated on workstation # [id number]
[2020-11-22 12:41] VITALS: BP 125/68
== END 2020-11-22 12:41 | disposition home or self-care (01) ==
LOC: EDUNIT# 11:13 → ER 11:15
DX: R07.9 Chest pain, unspecified (principal); F41.9 Anxiety disorder, unspecified; R20.8 Other disturbances of skin sensation
CPT/HCPCS: 36415; 70450; 71045; 80053; 84484; 85025; 85379; 93005

== ENCOUNTER 2020-12-17 07:14 | Emergency (ER) | payer BC ==
[~2020-12-17] VITALS: Ht 170 cm; Wt 75.0 kg
[2020-12-17] MEDS ORDERED: LACTATED RINGERS 1,000 ML IV STA (07:36)
[2020-12-17] MEDS ORDERED: FAMOTIDINE 20MG/2ML IV (PEPCID) IV STA (07:36)
[2020-12-17] MEDS ORDERED: ONDANSETRON 4 MG/2 ML (SDV) Z0FRAN IVP ONE (07:45)
[2020-12-17 07:48] LABS: BASOPHILS % (AUTO) 0 % (0-10); EOSINOPHILS % (AUTO) 0 % (0-10); HEMATOCRIT 42 % (40-54); HEMOGLOBIN 14.9 g/dL (13.3-17.7); LYMPHOCYTES # (AUTO) 0.3 10^3/uL (1.0-4.0); LYMPHOCYTES % (AUTO) 4 % (12-44); MEAN CORPUSCULAR HEMOGLOBIN 28 pg (25-34); MEAN CORPUSCULAR HGB CONC 35 g/dL (32-36); MEAN CORPUSCULAR VOLUME 79 fL (80-99); MEAN PLATELET VOLUME 9.8 fL (9.0-12.2); MONOCYTES # (AUTO) 0.4 10^3/uL (0.0-1.0); MONOCYTES % (AUTO) 5 % (0-12); NEUTROPHILS # (AUTO) 7.9 10^3/uL (1.8-7.8); NEUTROPHILS % (AUTO) 91 % (42-75); PLATELET COUNT 174 10^3/uL (130-400); WHITE BLOOD COUNT 8.7 10^3/uL (4.3-11.0)
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
[2020-12-17 07:59] LABS: ALBUMIN 4.3 GM/DL (3.2-4.5); CHLORIDE 106 MMOL/L (98-107); POTASSIUM 3.6 MMOL/L (3.6-5.0); SODIUM 138 MMOL/L (135-145)
[2020-12-17 08:00] LABS: CALCIUM 9.6 MG/DL (8.5-10.1)
[2020-12-17 08:01] LABS: GLUCOSE 132 MG/DL (70-105); TOTAL PROTEIN 7.2 GM/DL (6.4-8.2)
[2020-12-17 08:02] LABS: CARBON DIOXIDE 19 MMOL/L (21-32)
[2020-12-17 08:03] LABS: BILIRUBIN,TOTAL 0.6 MG/DL (0.1-1.0)
[2020-12-17 08:04] LABS: ALKALINE PHOSPHATASE 46 U/L (40-136)
[2020-12-17 08:05] LABS: CREATININE SERUM 0.95 MG/DL (0.60-1.30); GFR ESTIMATED > 60
[2020-12-17 08:06] LABS: BUN/CREATININE RATIO 12
[2020-12-17 08:08] LABS: ALANINE AMINOTRANSFERASE 29 U/L (0-55); MAGNESIUM 1.6 MG/DL (1.6-2.4)
[2020-12-17 08:47] LABS: BAND NEUTROPHILS 6 %; BASOPHILS % (MANUAL) 0 %; EOSINOPHILS % (MANUAL) 0 %; LYMPHOCYTES % (MANUAL) 4 %; MONOCYTES % (MANUAL) 7 %; NEUTROPHILS % (MANUAL) 83 %; RBC MORPH NORMAL
[2020-12-17] MEDS ORDERED: ACETAMINOPHEN 500 MG TAB (TYLENOL) PO STA (08:47)
[2020-12-17] MEDS ORDERED: ONDA4TAB11 PO (09:45)
[2020-12-17 10:04] VITALS: BP 112/76
== END 2020-12-17 10:05 | disposition home or self-care (01) ==
LOC: EDUNIT# 07:14 → ER 07:18
DX: R50.9 Fever, unspecified (principal); T50.Z95A Adverse effect of other vaccines and biological substances, initial encounter; Z88.6 Allergy status to analgesic agent
CPT/HCPCS: 36415; 80053; 83735; 85007; 85027; 99283

== ENCOUNTER 2021-10-28 11:14 | Emergency (ER) | payer BC ==
[~2021-10-28] VITALS: Ht 170.2 cm; Wt 72.6 kg
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
[2021-10-28 13:53] VITALS: BP 132/88
== END 2021-10-28 13:53 | disposition home or self-care (01) ==
LOC: EDUNIT# 11:14 → ER 11:16
DX: F32.9 Major depressive disorder, single episode, unspecified (principal); R45.851 Suicidal ideations
CPT/HCPCS: 99281

== ENCOUNTER 2022-03-02 13:58 | Emergency (ER) | payer BC ==
[~2022-03-02] VITALS: Ht 170 cm; Wt 70.3 kg
[2022-03-02 14:24] LABS: BASOPHILS # (AUTO) 0.1 10^3/uL (0.0-0.1); BASOPHILS % (AUTO) 1 % (0-10); EOSINOPHILS # (AUTO) 0.2 10^3/uL (0.0-0.3); EOSINOPHILS % (AUTO) 2 % (0-10); HEMATOCRIT 45 % (40-54); HEMOGLOBIN 15.1 g/dL (13.3-17.7); LYMPHOCYTES # (AUTO) 2.5 10^3/uL (1.0-4.0); LYMPHOCYTES % (AUTO) 31 % (12-44); MEAN CORPUSCULAR HEMOGLOBIN 27 pg (25-34); MEAN CORPUSCULAR HGB CONC 34 g/dL (32-36); MEAN CORPUSCULAR VOLUME 81 fL (80-99); MEAN PLATELET VOLUME 9.7 fL (9.0-12.2); MONOCYTES # (AUTO) 0.7 10^3/uL (0.0-1.0); MONOCYTES % (AUTO) 9 % (0-12); NEUTROPHILS # (AUTO) 4.7 10^3/uL (1.8-7.8); NEUTROPHILS % (AUTO) 57 % (42-75); PLATELET COUNT 260 10^3/uL (130-400); WHITE BLOOD COUNT 8.2 10^3/uL (4.3-11.0)
[2022-03-02 14:32] LABS: ALBUMIN 4.8 GM/DL (3.2-4.5); CHLORIDE 104 MMOL/L (98-107); POTASSIUM 3.8 MMOL/L (3.6-5.0); SODIUM 140 MMOL/L (135-145)
[2022-03-02 14:35] LABS: GLUCOSE 96 MG/DL (70-105); INR 0.9 (0.8-1.4); TOTAL PROTEIN 8.2 GM/DL (6.4-8.2)
[2022-03-02 14:36] LABS: BILIRUBIN,TOTAL 0.6 MG/DL (0.1-1.0); CARBON DIOXIDE 22 MMOL/L (21-32)
[2022-03-02 14:38] LABS: ALKALINE PHOSPHATASE 48 U/L (40-136); CREATININE SERUM 1.06 MG/DL (0.60-1.30); GFR ESTIMATED 99
[2022-03-02 14:39] LABS: BUN/CREATININE RATIO 10
[2022-03-02 14:41] LABS: ALANINE AMINOTRANSFERASE 37 U/L (0-55)
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
--- NOTE | 2022-03-02 15:17 | Diagnostic Imaging Report ---
INDICATION: Coughing up blood. Night sweats and dizziness. EXAMINATION: Two view chest, 03/02/2022. COMPARISON: 11/22/2020. FINDINGS: The cardiomediastinal silhouette is unremarkable. The pulmonary vasculature is within normal limits. The lungs and pleural spaces are clear. IMPRESSION: No evidence of an acute cardiopulmonary process. Dictated by: Dictated on workstation # [id number]
[2022-03-02] MEDS ORDERED: LACTATED RINGERS 1,000 ML IV ONE (15:30)
[2022-03-02] MEDS ORDERED: ONDA4TAB11 SL (15:43)
[2022-03-02] MEDS ORDERED: PANT40TA2 PO (15:43)
[2022-03-02] MEDS ORDERED: PANTOPRAZOLE 40 MG (PROTONIX) VIAL IV ONE (15:45)
[2022-03-02 16:16] VITALS: BP 117/71
== END 2022-03-02 16:16 | disposition home or self-care (01) ==
LOC: EDUNIT# 13:58 → ER 14:00
DX: R04.2 Hemoptysis (principal); R10.11 Right upper quadrant pain; Z86.2 Personal history of diseases of the blood and blood-forming organs and certain disorders involving the immune mechanism; Z20.822 Contact with and (suspected) exposure to COVID-19
CPT/HCPCS: 36415; 71046; 80053; 83690; 85025; 85379; 85610; 85730; 86141; 87636

== ENCOUNTER 2022-03-03 13:36 | Emergency (ER) | payer BC ==
[~2022-03-03 13:36] MED LIST changes: +ONDA4TAB11 SL; +PANT40TA2 PO
== END 2022-03-03 14:25 | disposition left against medical advice (07) ==
LOC: EDUNIT# 13:36 → ER 13:38
DX: R45.4 Irritability and anger (principal)

== ENCOUNTER 2022-05-10 14:49 | Emergency (ER) | payer BC ==
[~2022-05-10] VITALS: Ht 170.2 cm; Wt 77.1 kg
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
[2022-05-10 15:11] LABS: BASOPHILS # (AUTO) 0.1 10^3/uL (0.0-0.1); BASOPHILS % (AUTO) 1 % (0-10); EOSINOPHILS # (AUTO) 0.1 10^3/uL (0.0-0.3); EOSINOPHILS % (AUTO) 1 % (0-10); HEMATOCRIT 43 % (40-54); HEMOGLOBIN 14.8 g/dL (13.3-17.7); LYMPHOCYTES # (AUTO) 2.5 10^3/uL (1.0-4.0); LYMPHOCYTES % (AUTO) 22 % (12-44); MEAN CORPUSCULAR HEMOGLOBIN 28 pg (25-34); MEAN CORPUSCULAR HGB CONC 34 g/dL (32-36); MEAN CORPUSCULAR VOLUME 81 fL (80-99); MEAN PLATELET VOLUME 9.7 fL (9.0-12.2); MONOCYTES # (AUTO) 0.6 10^3/uL (0.0-1.0); MONOCYTES % (AUTO) 5 % (0-12); NEUTROPHILS # (AUTO) 7.3 10^3/uL (1.8-7.8); NEUTROPHILS % (AUTO) 67 % (42-75); PLATELET COUNT 234 10^3/uL (130-400); WHITE BLOOD COUNT 10.9 10^3/uL (4.3-11.0)
[2022-05-10] MEDS ORDERED: LIDOCAINE 1% INJ 20 ML VIAL INJ ONE (15:15)
[2022-05-10] MEDS ORDERED: TETANUS,DIPTH,PERTUSS P/F (BOOSTRIX) 0.5 ML VIAL IM ONE (15:15)
[2022-05-10 15:19] LABS: ALBUMIN 4.7 GM/DL (3.2-4.5); CHLORIDE 104 MMOL/L (98-107); POTASSIUM 4.1 MMOL/L (3.6-5.0); SODIUM 138 MMOL/L (135-145)
[2022-05-10 15:20] LABS: CALCIUM 9.9 MG/DL (8.5-10.1)
[2022-05-10 15:21] LABS: GLUCOSE 137 MG/DL (70-105); TOTAL PROTEIN 7.8 GM/DL (6.4-8.2)
[2022-05-10 15:23] LABS: BILIRUBIN,TOTAL 0.3 MG/DL (0.1-1.0); CARBON DIOXIDE 18 MMOL/L (21-32)
[2022-05-10 15:25] LABS: ALKALINE PHOSPHATASE 54 U/L (40-136); CREATININE SERUM 1.32 MG/DL (0.60-1.30); GFR ESTIMATED 75
[2022-05-10 15:26] LABS: BUN/CREATININE RATIO 5
[2022-05-10 15:28] LABS: ALANINE AMINOTRANSFERASE 32 U/L (0-55)
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
--- NOTE | 2022-05-10 16:03 | Diagnostic Imaging Report ---
CLINICAL INDICATION: Patient with pain after possible seizure. COMPARISON: Chest x-ray dated 02/22/2022. EXAMS: Chest x-ray AP and lateral views. X-ray of the right ribs. FINDINGS: LUNGS/ PLEURA: Lungs are clear. There is no pneumothorax. There is no pleural effusion. MEDIASTINUM: Unremarkable. PULMONARY VASCULATURE: Unremarkable. HEART: Unremarkable. BONES/ EXTRATHORACIC SOFT TISSUE: Unremarkable. RIB SERIES: There is no rib fracture or abnormality. IMPRESSION: 1: Unremarkable chest x-ray exam with no radiographic evidence of acute cardiopulmonary process. 2: There are no rib fractures. Dictated by: Dictated on workstation # [id number]
[2022-05-10] MEDS ORDERED: morphine INJ 10 MG/ML 1ML (SYR OR VIAL) IVP STA (16:14)
[2022-05-10 17:05] LABS: BILIRUBIN,URINE NEGATIVE (NEGATIVE); CLARITY,URINE CLEAR; COLOR,URINE YELLOW; GLUCOSE, URINE (UA) NEGATIVE (NEGATIVE); KETONES,URINE NEGATIVE (NEGATIVE); LEUKOCYTE ESTERASE ,URINE NEGATIVE (NEGATIVE); NITRITE,URINE NEGATIVE (NEGATIVE); PH,URINE 5.5 (5-9); PROTEIN,URINE TRACE (NEGATIVE)
[2022-05-10 17:20] LABS: BACTERIA,URINE TRACE /HPF; RBC,URINE 0-2 /HPF; SQUAMOUS EPITHELIAL CELL,UR 0-2 /HPF; WBC,URINE RARE /HPF
[2022-05-10 17:24] LABS: AMPHETAMINE SCREEN, URINE NEGATIVE (NEGATIVE); BARBITURATE SCREEN URINE NEGATIVE (NEGATIVE); BENZODIAZEPINES SCREEN URINE NEGATIVE (NEGATIVE); CANNABINOID SCREEN, URINE POSITIVE (NEGATIVE); COCAINE SCREEN URINE NEGATIVE (NEGATIVE); METHADONE STAT NEGATIVE (NEGATIVE); OPIATE SCREEN URINE POSITIVE (NEGATIVE); OXYCODONE STAT NEGATIVE (NEGATIVE); PROPOXYPHENE STAT NEGATIVE (NEGATIVE); TRICYCLIC ANTIDEPRESSANTS SCRE NEGATIVE (NEGATIVE)
[2022-05-10] MEDS ORDERED: HYDROcodone/APAP 5 MG/325 MG (LORTAB) TAB PO ONE (18:00)
[2022-05-10 18:10] VITALS: BP 143/93
== END 2022-05-10 18:09 | disposition home or self-care (01) ==
LOC: EDUNIT# 14:49 → ER 14:50
DX: S02.2XXA Fracture of nasal bones, initial encounter for closed fracture (principal); S01.511A Laceration without foreign body of lip, initial encounter; R56.9 Unspecified convulsions; R07.89 Other chest pain; Z23 Encounter for immunization; Z28.310 Unvaccinated for COVID-19; Z88.6 Allergy status to analgesic agent; W18.30XA Fall on same level, unspecified, initial encounter; W22.8XXA Striking against or struck by other objects, initial encounter
CPT/HCPCS: 12051; 36415; 70450; 70486; 71101; 80053; 80306; 81000; 84484; 85025; 90715; 93005

== ENCOUNTER 2023-04-14 07:53 | Emergency (ER) | payer SELFPAY ==
[~2023-04-14] VITALS: Ht 170 cm; Wt 74.0 kg
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
[2023-04-14 08:27] LABS: BASOPHILS % (AUTO) 0 % (0-10); EOSINOPHILS # (AUTO) 0.1 10^3/uL (0.0-0.3); EOSINOPHILS % (AUTO) 1 % (0-10); HEMATOCRIT 47 % (40-54); LYMPHOCYTES % (AUTO) 24 % (12-44); MEAN CORPUSCULAR HEMOGLOBIN 27 pg (25-34); MEAN CORPUSCULAR HGB CONC 34 g/dL (32-36); MEAN CORPUSCULAR VOLUME 81 fL (80-99); MONOCYTES # (AUTO) 0.5 10^3/uL (0.0-1.0); MONOCYTES % (AUTO) 6 % (0-12); NEUTROPHILS # (AUTO) 5.7 10^3/uL (1.8-7.8); NEUTROPHILS % (AUTO) 68 % (42-75); PLATELET COUNT 312 10^3/uL (130-400); WHITE BLOOD COUNT 8.4 10^3/uL (4.3-11.0)
[2023-04-14] MEDS ORDERED: LACTATED RINGERS 1,000 ML 1,000 ML IV ONE ×2 (08:30→10:00)
[2023-04-14 08:34] LABS: ALBUMIN 4.9 GM/DL (3.2-4.5); CHLORIDE 101 MMOL/L (98-107); POTASSIUM 3.6 MMOL/L (3.6-5.0); SODIUM 137 MMOL/L (135-145)
[2023-04-14 08:36] LABS: CALCIUM 9.9 MG/DL (8.5-10.1)
[2023-04-14 08:37] LABS: GLUCOSE 100 MG/DL (70-105); TOTAL PROTEIN 8.4 GM/DL (6.4-8.2)
[2023-04-14 08:38] LABS: CARBON DIOXIDE 19 MMOL/L (21-32)
[2023-04-14 08:40] LABS: ALKALINE PHOSPHATASE 55 U/L (40-136)
[2023-04-14 08:41] LABS: GFR ESTIMATED 84
[2023-04-14 08:42] LABS: BUN/CREATININE RATIO 11
[2023-04-14 08:43] LABS: ALANINE AMINOTRANSFERASE 27 U/L (0-55)
[2023-04-14 08:44] LABS: LIPASE 19 U/L (8-78)
[2023-04-14 08:52] LABS: BILIRUBIN,URINE 1+ (NEGATIVE); CLARITY,URINE CLEAR; COLOR,URINE YELLOW; GLUCOSE, URINE (UA) NEGATIVE (NEGATIVE); KETONES,URINE 4+ (NEGATIVE); NITRITE,URINE NEGATIVE (NEGATIVE); PROTEIN,URINE 1+ (NEGATIVE)
[2023-04-14 08:53] LABS: LEUKOCYTE ESTERASE ,URINE NEGATIVE (NEGATIVE)
[2023-04-14 08:54] LABS: WBC,URINE RARE /HPF
[2023-04-14 08:55] LABS: BACTERIA,URINE TRACE /HPF; SQUAMOUS EPITHELIAL CELL,UR RARE /HPF
[2023-04-14] MEDS ORDERED: ONDANSETRON INJECTION 4 MG/2 ML (SDV) IVP ONE (09:00)
[2023-04-14] MEDS ORDERED: FAMO-119 PO (10:35)
[2023-04-14] MEDS ORDERED: ONDA4TAB11 SL (10:35)
[2023-04-14] MEDS ORDERED: PANTOPRAZOLE 40 MG TABLET PO ONE (10:45)
[2023-04-14 10:51] VITALS: BP 114/73
== END 2023-04-14 10:51 | disposition home or self-care (01) ==
LOC: EDUNIT# 07:53 → ER 07:56
DX: R11.2 Nausea with vomiting, unspecified (principal); R10.84 Generalized abdominal pain; E86.1 Hypovolemia; M54.50 Low back pain, unspecified; F17.200 Nicotine dependence, unspecified, uncomplicated; Z28.311 Partially vaccinated for COVID-19
CPT/HCPCS: 36415; 80053; 81000; 83690; 83735; 85025